=== PATIENT | female | born 1945 | race Hispanic/Latino ===

== ENCOUNTER 2017-08-09 15:19 | Emergency (ER) | payer MEDICARE, OTHER ==
[2017-08-09 15:30] VITALS: TEMP 98.2; O2SAT 95
--- NOTE | 2017-08-09 16:09 | ED PDOC ---
Lower Extremity Pain/Injury Time Seen by Provider: 08/09/17 15:31 Chief Complaint (Nursing): Lower Extremity Problem/Injury Chief Complaint (Provider): Lower extremity problem History Per: Patient History/Exam Limitations: no limitations Onset/Duration Of Symptoms: Days (x1 week) Current Symptoms Are (Timing): Still Present Pain Scale Rating Of: 10 Additional Complaint(s): Beth Goodwin is a 71 year old female, with a past medical history of diabetes , hypertension, hypercholesterolemia, hypothyroidism, chronic back pain and depression, who presents to the emergency department complaining of a worsening right knee pain associated with some mild swelling onset 1 week ago. Patient states the pain has been increasing since onset describes it as sharp or knifelike pain inside of the knee. She reports she had just gotten up from sitting position when the pain came in suddenly and couldn't walk. She has begun to use walker to assist and relieve pain. She took tylenol with no relief , and percocet with minimal relief. She denies any trauma, fall, numbness or weakness. Patient has no significant family history. No further medical complaints. PMD: Dr. Domingo - [place] Currently Unable To: Bear Weight Past Medical History Reviewed: Historical Data, Nursing Documentation, Vital Signs Vital Signs: Last Vital Signs Temp 98.2 F 08/09/17 15:25 Pulse 97 H 08/09/17 15:25 Resp 20 08/09/17 15:25 BP 109/82 08/09/17 15:25 Pulse Ox 95 08/09/17 15:25 - Medical History PMH: Atrial Fibrillation, Back Problems (Chronic), Depression, Diabetes, HTN, Hypercholesterolemia, Hypothyroidism - Surgical History Surgical History: Cholecystectomy - Family History Family History: States: Other Other Family History: No significant family hx - Social History Current smoker - smoking cessation education provided: No Alcohol: None Drugs: Denies - Home Medications Home Medications: Ambulatory Orders Medication Instructions Recorded Lidocaine 5% [Lidoderm] 1 ea TD DAILY PRN #20 patch 08/09/17 Naproxen 375 mg PO TID PRN #30 tablet 08/09/17 - Allergies Allergies/Adverse Reactions: Allergies Allergy/AdvReac Type Severity Reaction Status Date / Time No Known Allergies Allergy Verified 08/09/17 15:30 Review of Systems ROS Statement: Except As Marked, All Systems Reviewed And Found Negative Constitutional: Negative for: Other (trauma or fall) Musculoskeletal: Positive for: Leg Pain (constant sharp right knee pain with mild swelling) Neurological: Negative for: Weakness, Numbness Physical Exam - Reviewed Nursing Documentation Reviewed: Yes - Physical Exam Appears: Positive for: Non-toxic, In Acute Distress Head Exam: Positive for: ATRAUMATIC, NORMOCEPHALIC Skin: Positive for: Warm, Dry Extremity: Positive for: Pedal Edema, Other (RIGHT leg: diffusely edematous leg w no obvious deformity, ttp patellar and medial knee, no warmth or fluctuance, knee extension/flexion intact, distally neurovascularly intact) Neurologic/Psych: Positive for: Alert. Negative for: Motor/Sensory Deficits - Laboratory Results Result Diagrams: 08/09/17 16:12 08/09/17 16:12 - ECG O2 Sat by Pulse Oximetry: 95 (RA) Pulse Ox Interpretation: Normal Medical Decision Making Medical Decision Making: Initial Impression: right knee pain. Differential includes: fracture, sprain, tendon injury, DVT, La's cyst Initial Plan: --B-type natriuretic peptide --Comp Metabolic Panel --Uric acid --CBC w/ differential --PTT --PT --Knee 2 views RT [RAD] --Toradol 15 mg IV --Morphine 4mg IVP --Duplex lower extrm vein right [US] --reevaluation No emergently significant lab abnormalities Accession No. : [id number] Patient Name / ID : JEAN HERRING / [id number] Exam Date : 08/09/2017 17:16:45 ( Approved ) Study Comment : Sex / Age : F / 71Y Creator : Chito Daniel MD Dictator : Chito Daniel MD Aluminum Siding Installer : Crime Lab Technician : Chito Daniel MD Approver2 : Report Date : 08/09/2017 18:14:14 My Comment : PROCEDURE: Right lower extremity venous duplex Doppler. HISTORY: leg swelling COMPARISON: None available. TECHNIQUE: Common femoral, superficial femoral, popliteal and posterior tibial veins were evaluated. Flow was assessed with color Doppler, compressibility, assessment of phasic flow and augmentation response. FINDINGS: COMMON FEMORAL VEIN: Unremarkable. SUPERFICIAL FEMORAL VEIN: Unremarkable. POPLITEAL VEIN: Unremarkable. POSTERIOR TIBIAL VEIN: Unremarkable. OTHER FINDINGS: None. IMPRESSION: No evidence of deep venous thrombosis in the right lower extremity. Knee xray: abnormality at tibial plateau, fx vs DJD, CT ordered. [address] FINDINGS: Bones/joints: No acute fracture. Early tricompartment osteoarthritis. Bipartite patella. Bone island. No dislocation. Small joint effusion. Few small intraarticular bodies. Soft tissues: Jmhd-ti-[id number] stranding/fluid within subcutaneous tissues. Vasculature: Atherosclerotic disease of visualized arteries. IMPRESSION: 1. No fracture. 2. Tricompartment osteoarthritis. 3. Soft tissue edema. Clinical correlation is needed. Scribe Attestation: Documented by Sacha Corey, acting as a scribe for Yamileth Gerardo MD. Provider Scribe Attestation: All medical record entries made by the Scribe were at my direction and personally dictated by me. I have reviewed the chart and agree that the record accurately reflects my personal performance of the history, physical exam, medical decision making, and the department course for this patient. I have also personally directed, reviewed, and agree with the discharge instructions and disposition. Disposition - Clinical Impression Clinical Impression: Knee osteoarthritis Counseled Patient/Family Regarding: Studies Performed, Diagnosis, Need For Followup, Rx Given - Disposition Referrals: Juan Carlos Chamorro MD [Staff Provider] - Julian Domingo MD [Family Provider] - Disposition: Routine/Home Disposition Time: 19:00 Condition: STABLE Prescriptions: Lidocaine 5% [Lidoderm] 1 ea TD DAILY PRN #20 patch PRN Reason: PAIN Naproxen 375 mg PO TID PRN #30 tablet PRN Reason: Pain, Moderate (4-7) Instructions: Osteoarthritis (ED), Knee Pain (ED) Forms: [place] ([place] Citizen)
[2017-08-09 16:24] LABS: ALB/GLOB RATIO 1.1 (1.0-2.1); ALKALINE PHOSPHATASE 87 U/L (38-126); ALT/SGPT 30 U/L (9-52); AST/SGOT 48 U/L (14-36); BASO # 0.1 K/uL (0.0-0.2); BASO % 0.9 % (0.0-2.0); BILIRUBIN,TOTAL 0.4 mg/dl (0.2-1.3); BLOOD UREA NITROGEN 15 mg/dl (7-17); CALCIUM 9.2 mg/dL (8.4-10.2); CARBON DIOXIDE 25 mmol/L (22-30); CHLORIDE 104 mmol/L (98-107); EOS # 0.2 K/uL (0.0-0.7); EOS % 2.2 % (0.0-4.0); GFR AFRICAN-AMERICAN > 60; GLUCOSE,RANDOM 184 mg/dL (65-105); HEMATOCRIT 40.1 % (34.0-47.0); LYMPH # 2.1 K/uL (1.0-4.3); LYMPH % 18.5 % (20.0-40.0); MEAN CELL VOLUME 87.9 fl (81.0-99.0); MEAN CORPUSCULAR HEMOGLOBIN 29.4 pg (27.0-31.0); MEAN CORPUSCULAR HGB CONC 33.5 g/dL (33.0-37.0); MEAN PLATELET VOLUME 9.9 fl (7.2-11.7); MONO # 0.5 K/uL (0.0-0.8); MONO % 4.4 % (0.0-10.0); NEUT # 8.3 K/uL (1.8-7.0); POTASSIUM 4.1 MMOL/L (3.6-5.0); RED CELL DISTRIBUTION WIDTH 13.2 % (11.5-14.5); SODIUM 141 mmol/l (132-148); TOTAL PROTEIN 7.6 G/DL (6.3-8.2); URIC ACID 6.6 mg/Dl (2.2-7.5); WHITE BLOOD COUNT 11.2 K/uL (4.8-10.8)
[2017-08-09 16:27] LABS: PARTIAL THROMBOPLASTIN TIME 32.1 Seconds (25.6-37.1)
--- NOTE | 2017-08-09 18:15 | US ---
PROCEDURE: Right lower extremity venous duplex Doppler. HISTORY: leg swelling COMPARISON: None available. TECHNIQUE: Common femoral, superficial femoral, popliteal and posterior tibial veins were evaluated. Flow was assessed with color Doppler, compressibility, assessment of phasic flow and augmentation response. FINDINGS: COMMON FEMORAL VEIN: Unremarkable. SUPERFICIAL FEMORAL VEIN: Unremarkable. POPLITEAL VEIN: Unremarkable. POSTERIOR TIBIAL VEIN: Unremarkable. OTHER FINDINGS: None. IMPRESSION: No evidence of deep venous thrombosis in the right lower extremity.
--- NOTE | 2017-08-09 19:46 | CT ---
EXAM: CT Right Lower Extremity Without Intravenous Contrast, Knee CLINICAL HISTORY: 71 years old, female; Pain; Knee; Right; Patient HX: Rt knee pain swelling around 1 week. Non-trauma. Dm HTN obese copd asthma lbp; Additional info: Severe pain TECHNIQUE: Axial computed tomography images of the right knee without intravenous contrast. All CT scans at this facility use one or more dose reduction techniques, viz.: automated exposure control; ma/kV adjustment per patient size (including targeted exams where dose is matched to indication; i.e. head); or iterative reconstruction technique. Coronal reformatted images were created and reviewed. COMPARISON: CR - KNEE 3 VIEWS RT 08/09/2017 6:21:26 PM FINDINGS: Bones/joints: No acute fracture. Early tricompartment osteoarthritis. Bipartite patella. Bone island. No dislocation. Small joint effusion. Few small intraarticular bodies. Soft tissues: Adrg-hg-qrduorrq stranding/fluid within subcutaneous tissues. Vasculature: Atherosclerotic disease of visualized arteries. IMPRESSION: 1. No fracture. 2. Tricompartment osteoarthritis. 3. Soft tissue edema. Clinical correlation is needed.
[2017-08-09 20:07] VITALS: BP 142/85; PULSE 74; RESP 18
--- NOTE | 2017-08-10 08:18 | RAD ---
PROCEDURE: Right Knee Radiographs. HISTORY: severe knee pain COMPARISON: None. FINDINGS: BONES: No fracture or destructive lesion appreciated. Diffuse osteopenia suggests osteoporosis. JOINTS: Diffuse narrowing and articular cortical sclerosis appreciated compatible with degenerative joint disease, tricompartmental. JOINT EFFUSION: Minimal suprapatellar bursa effusion identified. OTHER FINDINGS: None. IMPRESSION: Moderate right tricompartmental osteoarthritis. Interval suprapatellar bursa effusion noted. Diffuse osteopenia suggests osteoporosis.
== END 2017-08-09 20:10 | disposition home or self-care (01) ==
LOC: H.ER 15:19
DX: M17.11 Unilateral primary osteoarthritis, right knee (principal); E03.9 Hypothyroidism, unspecified; E11.9 Type 2 diabetes mellitus without complications; E66.9 Obesity, unspecified; E78.00 Pure hypercholesterolemia, unspecified; F32.9 Major depressive disorder, single episode, unspecified; I10 Essential (primary) hypertension; I48.91 Unspecified atrial fibrillation; J44.9 Chronic obstructive pulmonary disease, unspecified
CPT/HCPCS: 73562; 73700; 80053; 82948; 83880; 84550; 85025; 85610; 85730; 93971; 96374; 99283; J1885; J2270

== ENCOUNTER 2017-11-13 15:00 | Inpatient (IN) | payer MEDICARE, OTHER ==
--- NOTE | 2017-11-13 15:46 | ED PDOC ---
Lower Extremity Pain/Injury Time Seen by Provider: 11/13/17 15:46 Chief Complaint (Nursing): Lower Extremity Problem/Injury Chief Complaint (Provider): left leg pain History Per: Patient Additional Complaint(s): 72-year-old female presents to emergency Department with infection to left leg ongoing for 2 weeks. Patient was seen today by her primary doctor who advised that she come to ED. Patient is unaware of any fever or chills. She is having difficulty walking secondary to left leg pain. The patient uses walker at baseline. Past Medical History Reviewed: Historical Data, Nursing Documentation, Vital Signs Vital Signs: Last Vital Signs Temp 98.4 F 11/13/17 15:03 Pulse 114 H 11/13/17 15:03 Resp 18 11/13/17 15:03 BP 160/85 H 11/13/17 15:03 Pulse Ox 96 11/13/17 15:03 - Medical History PMH: Atrial Fibrillation, Back Problems (Chronic), Depression, Diabetes, HTN, Hypercholesterolemia, Hypothyroidism - Surgical History Surgical History: Cholecystectomy - Family History Family History: States: No Known Family Hx - Living Arrangements Living Arrangements: Alone - Social History Current smoker - smoking cessation education provided: No Alcohol: None Drugs: Denies - Home Medications Home Medications: Ambulatory Orders Medication Instructions Recorded Budesonide/Formoterol Fumarate 2 puff IH Q12H 11/13/17 [Symbicort 160-4.5 Mcg Inhaler] Carvedilol [Coreg] 25 mg PO Q12H 11/13/17 Ergocalciferol (Vitamin D2) 50,000 unit PO WE 11/13/17 [Vitamin D2] Levothyroxine [Synthroid] 75 mcg PO DAILY 11/13/17 Olmesartan/Hydrochlorothiazide 1 tab PO DAILY 11/13/17 [Benicar Hct 40-25 mg Tablet] Oxycodone HCl/Acetaminophen 1 tab PO Q6H PRN 11/13/17 [Endocet 10-325 mg Tablet] Repaglinide [Prandin] 4 mg PO TID 11/13/17 Sertraline [Zoloft] 100 mg PO DAILY 11/13/17 Simvastatin [Zocor] 40 mg PO DAILY 11/13/17 Warfarin Sodium [Jantoven] 6 mg PO QPM 11/13/17 metFORMIN [glucOPHAGE] 500 mg PO TID 11/13/17 - Allergies Allergies/Adverse Reactions: Allergies Allergy/AdvReac Type Severity Reaction Status Date / Time No Known Allergies Allergy Verified 08/09/17 15:30 Wells Criteria for PE - Wells Criteria for Pulmonary Embolism Clinical Signs and Symptoms of DVT: Yes P.E is #1 Diagnosis, or Equally Likely: No Heart Rate >100: No Immobilization at least 3 days;Surgery previous 4 weeks: No Previous, objectively diagnosed PE or DVT: No Hemoptysis: No Malignancy w/treatment within 6 months, or palliative: No Total Score: 3 Review of Systems ROS Statement: Except As Marked, All Systems Reviewed And Found Negative Constitutional: Negative for: Fever, Chills Cardiovascular: Negative for: Chest Pain Respiratory: Negative for: Cough, Shortness of Breath Musculoskeletal: Positive for: Other (left leg infection) Neurological: Negative for: Dizziness Physical Exam - Reviewed Nursing Documentation Reviewed: Yes Vital Signs Reviewed: Yes - Physical Exam Appears: Positive for: Well, Non-toxic, No Acute Distress Skin: Negative for: Rash Eye Exam: Positive for: Normal appearance Cardiovascular/Chest: Positive for: Regular Rate, Rhythm Respiratory: Positive for: Normal Breath Sounds Gastrointestinal/Abdominal: Positive for: Other (morbidly obese non-tender abdomen) Extremity: Positive for: Other (Diffuse cellulitis noted to left simons with excoriation of superficial skin, moderate swelling to the left leg with positive calf tenderness) Neurologic/Psych: Positive for: Alert, Oriented - Laboratory Results Result Diagrams: 11/13/17 17:10 11/13/17 17:10 - ECG O2 Sat by Pulse Oximetry: 96 Pulse Ox Interpretation: Normal - Other Rad CXR X-Ray: Interpreted by Me, Viewed By Me X-Ray Interpretation: cardiomegaly, no infiltrate Doppler Left leg X-Ray: Read By Radiologist X-Ray Interpretation: no DVT Medical Decision Making Medical Decision Makin -year-old female with left leg cellulitis Plan: CBC CMP Blood culture EKG CXR Doppler left leg IVF IV zosyn and vanco PMD is Dr. Domingo. Case was discussed in detail with Dr. Domingo who states that the patient for cellulitis. Hospitalist, Dr. Shin, to admit. Glucose is 346, 5 units regular insulin ordered. Podiatry consult obtained, case was d/w Dr. Navas, podiatry resident. Disposition - Clinical Impression Clinical Impression: Left leg cellulitis - Patient ED Disposition Is Patient to be Admitted: Yes - Disposition Disposition Time: 17:52 Condition: FAIR - Pt Status Changed To: Hospital Disposition Of: Inpatient - Admit Certification Admit to Inpatient:: After my assessment, the patient will require hospitalization for at least two midnights. This is because of the severity of symptoms shown, intensity of services needed, and/or the medical risk in this patient being treated as an outpatient. - POA Present On Arrival: None Results - Lab Results Lab Results: 11/13/17 11/13/17 11/13/17 17:10 17:10 17:10 WBC 10.4 RBC 4.93 Hgb 14.2 Hct 43.3 MCV 87.8 MCH 28.7 MCHC 32.7 L RDW 13.0 Plt Count 205 MPV 10.1 Neut % (Auto) 77.7 H Lymph % (Auto) 16.4 L [place] % (Auto) 4.3 Eos % (Auto) 0.8 Baso % (Auto) 0.8 Neut # 8.1 H Lymph # 1.7 [place] # 0.4 Eos # 0.1 Baso # 0.1 PT 23.2 H INR 2.1 H APTT 34.0 Sodium 136 Potassium 4.2 Chloride 98 Carbon Dioxide 27 Anion Gap 15 BUN 17 Creatinine 0.7 Est GFR ( Amer) > 60 Est GFR (Non-Af Amer) > 60 Random Glucose 346 H Calcium 9.8 Total Bilirubin 0.7 AST 34 ALT 36 Alkaline Phosphatase 108 NT-Pro-B Natriuret Pep 584 Total Protein 7.6 Albumin 3.8 Globulin 3.8 Albumin/Globulin Ratio 1.0
[2017-11-13] MEDS ORDERED: Sodium Chloride 0.9% 1,000 ML IV STA (16:19)
[2017-11-13] MEDS ORDERED: Piperacillin/Tazobact 3.375 gm Inj IVPB STA (16:19)
--- NOTE | 2017-11-13 16:39 | RAD ---
HISTORY: admit COMPARISON: 04/27/2014 FINDINGS: LUNGS: No pulmonary infiltrate. Linear scar/ atelectasis adjacent to left hilum. PLEURA: No significant pleural effusion identified, no pneumothorax apparent. CARDIOVASCULAR: Cardiomegaly. No congestive change. OSSEOUS STRUCTURES: No significant abnormalities. VISUALIZED UPPER ABDOMEN: Normal. OTHER FINDINGS: None. IMPRESSION: No acute infiltrate. Cardiomegaly. No congestive change.
[2017-11-13] MEDS ORDERED: Vancomycin 1 g Inj ONE (16:44)
[2017-11-13] MEDS ORDERED: Piperacillin/Tazobact 3.375 GM in Sodium Chloride 0.9% 100 ML IVPB ONE (17:00)
[2017-11-13 17:24] LABS: BASO # 0.1 K/uL (0.0-0.2); BASO % 0.8 % (0.0-2.0); EOS # 0.1 K/uL (0.0-0.7); EOS % 0.8 % (0.0-4.0); HEMOGLOBIN 14.2 g/dL (12.0-16.0); LYMPH # 1.7 K/uL (1.0-4.3); LYMPH % 16.4 % (20.0-40.0); MEAN CELL VOLUME 87.8 fl (81.0-99.0); MEAN CORPUSCULAR HEMOGLOBIN 28.7 pg (27.0-31.0); MEAN CORPUSCULAR HGB CONC 32.7 g/dL (33.0-37.0); MEAN PLATELET VOLUME 10.1 fl (7.2-11.7); MONO # 0.4 K/uL (0.0-0.8); MONO % 4.3 % (0.0-10.0); NEUT # 8.1 K/uL (1.8-7.0); NEUT % 77.7 % (50.0-75.0); NRBC % 0.5 % (0.0-0.0); RBC 4.93 Mil/uL (3.80-5.20); WHITE BLOOD COUNT 10.4 K/uL (4.8-10.8)
[2017-11-13 17:38] LABS: ALBUMIN 3.8 g/dL (3.5-5.0); ALT/SGPT 36 U/L (9-52); AST/SGOT 34 U/L (14-36); BLOOD UREA NITROGEN 17 mg/dl (7-17); CALCIUM 9.8 mg/dL (8.4-10.2); GFR AFRICAN-AMERICAN > 60; GFR NON-AFRICAN AMERICAN > 60
[2017-11-13 17:46] LABS: B-TYPE NATRIURETIC PEPTIDE 584 pg/ml (0-900)
[2017-11-13 17:49] LABS: INR 2.1 (0.9-1.2); PROTHROMBIN TIME 23.2 Seconds (9.8-13.1)
[2017-11-13] MEDS ORDERED: Insulin Regular 100 units/ml SC STA (17:50)
--- NOTE | 2017-11-13 18:22 | US ---
HISTORY: left leg pain and swelling . PRIORS: None. FINDINGS: 2-D, color and duplex Doppler analysis of the lower extremity venous circulation using routine protocol from the femoral veins through the popliteal veins. Venous compressibility: Normal. Flow and augmentation patterns: Normal. Visualized veins upper third of calf: Normal. La cyst: None. IMPRESSION: No sonographic or Doppler evidence for DVT in left lower extremity.
--- NOTE | 2017-11-13 18:29 | CP.PCM.CON ---
History of Present Illness - History of Present Illness History of Present Illness: 72 y/o female with PMHx of DM, HTN, hypercholestrolemia, depression was seen and evaluated at bedside in ED for worsening cellulitis with superficial excoriation on the anterior leg of left lower extremity. Patient states that she was seen by her medical doctor today who sent her to the hospital to be admitted and to receive IV abx. Patient states that this is a recurrent issue and her legs turn red from time to time. Patient reports that she had a little blister on the top of the leg which opened up recently. Patient denies of having any pain to the left lower extremity. Patient denies of having any recent F/N/V/C/SOB/CP/headache/diarrhea/constipation. Patient denies of any other pedal complains at this time. PMHx: DM, HTN, hypercholestrolemia, depression PSHx: denies Allergies: N.K.D.A SHx: denies smoking, EtOH or illicit drug usage, Lives alone in [place] Review of Systems - Constitutional Constitutional: As Per HPI Past Patient History - Infectious Disease Hx of Infectious Diseases: None - Past Social History Alcohol: None Drugs: Denies - CARDIAC Hx Atrial Fibrillation: Yes Hx Hypercholesterolemia: Yes Hx Hypertension: Yes - ENDOCRINE/METABOLIC Hx Hypothyroidism: Yes - PSYCHIATRIC Hx Depression: Yes - SURGICAL HISTORY Hx Cholecystectomy: Yes - ANESTHESIA Hx Anesthesia: Yes Hx Anesthesia Reactions: No Meds Allergies/Adverse Reactions: Allergies Allergy/AdvReac Type Severity Reaction Status Date / Time No Known Allergies Allergy Verified 08/09/17 15:30 - Medications Medications: Current Medications Sodium Chloride (Sodium Chloride 0.9%) 1,000 mls @ 100 mls/hr IV .Q10H STA Stop: 11/14/17 02:18 Last Admin: 11/13/17 18:04 Dose: 100 mls/hr Insulin Human Regular (Humulin R) 5 units SC STAT STA Stop: 11/13/17 17:51 Physical Exam - Constitutional Appears: Well, Non-toxic, No Acute Distress - Extremities Exam Extremities exam: Positive for: normal capillary refill, pedal edema. Negative for: calf tenderness, pedal pulses present Additional comments: Bilateral LE Exam: VASC: DP/PT pulses are non-palpable secondary to extreme pedal edema, Cap refill time: < 3 sec to all digits, Temp gradient: warm to cool from proximal to distal on the right and warm to mild warm on the LLE, +2 pitting edema noted on the dorsum of the foot as well as distal medial leg b/l DERM: superficial excoriated lesion measuring approx. 4.0 cm x 2.5 cm x < 0.1 cm on the anterior aspect of the left distal leg with surrounding erythema extending but distal to tibial tuberosity, no active drainage, no malodor, no tunneling, no probe to bone, no fluctuance, no interdigital maceration NEURO: Protective sensation grossly diminished ORTHO: no pain on palpation of the lesion - Neurological Exam Neurological exam: Alert, Oriented x3 - Psychiatric Exam Psychiatric exam: Normal Affect, Normal Mood Results - Vital Signs Recent Vital Signs: Last Vital Signs Temp 98.4 F 11/13/17 15:03 Pulse 114 H 11/13/17 15:03 Resp 18 11/13/17 15:03 BP 160/85 H 11/13/17 15:03 Pulse Ox 96 11/13/17 17:56 - Labs Result Diagrams: 11/13/17 17:10 11/13/17 17:10 Labs: Laboratory Results - last 24 hr 11/13/17 11/13/17 11/13/17 17:10 17:10 17:10 WBC 10.4 RBC 4.93 Hgb 14.2 Hct 43.3 MCV 87.8 MCH 28.7 MCHC 32.7 L RDW 13.0 Plt Count 205 MPV 10.1 Neut % (Auto) 77.7 H Lymph % (Auto) 16.4 L [place] % (Auto) 4.3 Eos % (Auto) 0.8 Baso % (Auto) 0.8 Neut # 8.1 H Lymph # 1.7 [place] # 0.4 Eos # 0.1 Baso # 0.1 PT 23.2 H INR 2.1 H APTT 34.0 Sodium 136 Potassium 4.2 Chloride 98 Carbon Dioxide 27 Anion Gap 15 BUN 17 Creatinine 0.7 Est GFR ( Amer) > 60 Est GFR (Non-Af Amer) > 60 Random Glucose 346 H Calcium 9.8 Total Bilirubin 0.7 AST 34 ALT 36 Alkaline Phosphatase 108 NT-Pro-B Natriuret Pep 584 Total Protein 7.6 Albumin 3.8 Globulin 3.8 Albumin/Globulin Ratio 1.0 Assessment & Plan - Assessment and Plan (Free Text) Assessment: 72 y/o female with PMHx of DM, HTN, hypercholestrolemia, depression was seen and evaluated at bedside in ED for worsening cellulitis with superficial excoriation on the anterior leg of left lower extremity. Plan: Patient seen and evaluated at bedside in ED Discussed in details with attending Dr. Manley Labs, vitals and charts reviewed - afebrile, no leukocytosis Venous duplex ordered - r/o DVT LLE cleaned with saline and dressing applied using bacitracin, DSD and JUAN Silvadine ordered Patient will be admitted under Hospitalist service to receive extended IV abx Patient received Vancomycin and Zosyn in ED Thank you for the podiatry consult - podiatry to follow patient while in-house - Date & Time Date: 11/13/17 Time: 18:47
[2017-11-13] MEDS ORDERED: Oxycodone/Acetaminophen 5/325 mg Tab PO PRN (19:05)
--- NOTE | 2017-11-13 19:33 | CP.PCM.HP ---
History of Present Illness - History of Present Illness History of Present Illness: CC: Left leg pain This is a 72 yo female with a past medical history of morbid obesity, atrial fibrillation anticoagulated on Coumadin, Essential hypertension, hypercholesterolemia, former smoker, hypothyroidism, who presents to the ED complaining of worsening left leg pain and swelling, starting about 2 weeks ago. The patient states that this started when she noticed a small blister on the top of her foot that became larger and painful. She is having difficulty ambulating due to the left leg pain, even with her walker. She was seen by Dr. Domingo, her PMD, today in the office and was told to come to the ED. In the ED , the patient was noted to be mildly tachycardic but otherwise hemodynamically stable and afebrile. Lab workup shows no white count but does show Neutrophil count of 8.1, Net % 77.7. Her blood glucose level is noted to be significantly elevated at 339. She was given 3 units of regular insulin at Dr. Domingo's office and 5 more units in the ED. She was started on Vancomycin and Zosyn for empiric coverage of significant cellulitis of the left lower extremity. Podiatry and Infectious Disease consultants were called on consultation. Duplex wet read negative for DVT of the left lower extremity. The patient is to be admitted for further workup and management. The patient denies chest pain, sob, n/v/d, fever, or chills. PMD: Dr. Domingo Present on Admission - Present on Admission Any Indicators Present on Admission: Yes History of Uncontrolled Diabetes: Yes Review of Systems - Review of Systems Review of Systems: A 12 point review of systems was conducted and found to be negative other than what was mentioned in the HPI. Past Patient History - Infectious Disease Hx of Infectious Diseases: None - Past Social History Alcohol: None Drugs: Denies - CARDIAC Hx Atrial Fibrillation: Yes Hx Hypercholesterolemia: Yes Hx Hypertension: Yes - ENDOCRINE/METABOLIC Hx Hypothyroidism: Yes - PSYCHIATRIC Hx Depression: Yes - SURGICAL HISTORY Hx Cholecystectomy: Yes - ANESTHESIA Hx Anesthesia: Yes Hx Anesthesia Reactions: No Meds Allergies/Adverse Reactions: Allergies Allergy/AdvReac Type Severity Reaction Status Date / Time No Known Allergies Allergy Verified 08/09/17 15:30 Physical Exam - Additional Findings Additional findings: Physical exam: Constitutional- cooperative, awake, alert Head- NCAT, PERRL Eye- PERRL, EOMI ENT- normal exam, MMM. Neck- normal inspection, supple, no JVD Respiratory- Course breath sounds, no wheezes rales rhonchi Cardiovascular- Irregular rate and rhythm +S1, +S2 no MRG GI/Abdominal- protuberant but nondistended abdomen, normal bowel sounds, soft, no mass, no hsm Skin- warm, dry Extremities Exam- Left lower extremity has a superficial lesion on the anterior aspect of the left distal leg with surrounding erythema extending up but distal to the tibial tuberosity. Lesion measures 4.0 cm x 2.5 cm x < 0.1 cm. There is + 2 pitting edema of the dorsum of the left foot. There is no fluctuance observed. Cap refill time < 3 seconds to all digits. Neurological Exam- alert, awake, oriented Psych- normal mood, normal affect Results - Vital Signs Recent Vital Signs: Last Vital Signs Temp 98.4 F 11/13/17 15:03 Pulse 114 H 11/13/17 15:03 Resp 18 11/13/17 15:03 BP 160/85 H 11/13/17 15:03 Pulse Ox 96 11/13/17 18:51 - Labs Result Diagrams: 11/13/17 17:10 11/13/17 17:10 Labs: Laboratory Results - last 24 hr 11/13/17 11/13/17 11/13/17 17:10 17:10 17:10 WBC 10.4 RBC 4.93 Hgb 14.2 Hct 43.3 MCV 87.8 MCH 28.7 MCHC 32.7 L RDW 13.0 Plt Count 205 MPV 10.1 Neut % (Auto) 77.7 H Lymph % (Auto) 16.4 L Burt % (Auto) 4.3 Eos % (Auto) 0.8 Baso % (Auto) 0.8 Neut # 8.1 H Lymph # 1.7 Burt # 0.4 Eos # 0.1 Baso # 0.1 PT 23.2 H INR 2.1 H APTT 34.0 Sodium 136 Potassium 4.2 Chloride 98 Carbon Dioxide 27 Anion Gap 15 BUN 17 Creatinine 0.7 Est GFR ( Amer) > 60 Est GFR (Non-Af Amer) > 60 POC Glucose (mg/dL) Random Glucose 346 H Calcium 9.8 Total Bilirubin 0.7 AST 34 ALT 36 Alkaline Phosphatase 108 NT-Pro-B Natriuret Pep 584 Total Protein 7.6 Albumin 3.8 Globulin 3.8 Albumin/Globulin Ratio 1.0 11/13/17 18:35 WBC RBC Hgb Hct MCV MCH MCHC RDW Plt Count MPV Neut % (Auto) Lymph % (Auto) Burt % (Auto) Eos % (Auto) Baso % (Auto) Neut # Lymph # Burt # Eos # Baso # PT INR APTT Sodium Potassium Chloride Carbon Dioxide Anion Gap BUN Creatinine Est GFR ( Amer) Est GFR (Non-Af Amer) POC Glucose (mg/dL) 339 H Random Glucose Calcium Total Bilirubin AST ALT Alkaline Phosphatase NT-Pro-B Natriuret Pep Total Protein Albumin Globulin Albumin/Globulin Ratio Assessment & Plan - Assessment and Plan (Free Text) Plan: ASSESSMENT/PLAN Patient is a 72 yo female with a past medical history of morbid obesity, atrial fibrillation anticoagulated on Coumadin, Essential hypertension, hypercholesterolemia, former smoker, hypothyroidism, who is being admitted for left lower extremity cellulitis 1) Left lower extremity cellulitis - Admit to med/surg - Consultation withi Dr. Manley, podiatryh - Consultation with Dr. Conway, infectious disease - Continue antibiotics: Vancomycin 1 gram IVPB q 12 hours and Zosyn 3.375 g IVPB q 6 hours - Blood cultures pending - Monitor vitals q 8 hours - NS at 100 cc/hour - Tylenol/Percocet sliding scale for pain 2) Uncontrolled Type 2 Diabetes Mellitus - Start regular insulin sliding scale - Consistant carbohydrate diet - May need to add long acting if continues to be elevated - Accuchecks AC+HS - HGA1C 3) Hypercholesterolemia - Lipid panel - Continue Zocor 4) Controlled Atrial fibrillation, chronic - Continue Warfarin 6 mg po daily - Daily PT/INR - Continue Coreg 25 mg po q 12 hours for rate controll 5) Essential hypertension - Coreg - Olmesartan/HCTZ 6) History of asthma/former smoker - Continue Pulmicort 7) Depression - Continue Zoloft 8) DVT prophylaxis - Coumadin
[2017-11-13] MEDS ORDERED: Piperacillin/Tazobact 3.375 GM in Sodium Chloride 0.9% 100 ML IVPB SCH (22:00)
[2017-11-13] MEDS: Insulin Regular 100 units/ml SC SCH (22:48)
[2017-11-13] MEDS: Fluticasone-Salmeterol 250-50mcg Diskus IH SCH (22:53)
[2017-11-14] MEDS: Piperacillin/Tazobact 3.375 GM in Sodium Chloride 0.9% 100 ML IVPB SCH ×2 (03:42→10:33)
[2017-11-14] MEDS: Insulin Regular 100 units/ml SC SCH ×4 (06:20→23:24)
[2017-11-14] MEDS: Levothyroxine 75 MCG TAB PO SCH (06:21)
[2017-11-14 07:04] LABS: HEMOGLOBIN 13.1 g/dL (12.0-16.0); MEAN CELL VOLUME 88.4 fl (81.0-99.0); MEAN CORPUSCULAR HEMOGLOBIN 28.9 pg (27.0-31.0); MEAN CORPUSCULAR HGB CONC 32.7 g/dL (33.0-37.0); RBC 4.54 Mil/uL (3.80-5.20); RED CELL DISTRIBUTION WIDTH 13.4 % (11.5-14.5); WHITE BLOOD COUNT 10.9 K/uL (4.8-10.8)
[2017-11-14 07:14] LABS: BLOOD UREA NITROGEN 17 mg/dl (7-17); CALCIUM 9.5 mg/dL (8.4-10.2); GFR AFRICAN-AMERICAN > 60; GFR NON-AFRICAN AMERICAN > 60
[2017-11-14 07:30] LABS: INR 2.2 (0.9-1.2); PROTHROMBIN TIME 24.2 Seconds (9.8-13.1)
--- NOTE | 2017-11-14 08:58 | CP.PCM.PN ---
Subjective - Date & Time of Evaluation Date of Evaluation: 11/14/17 Time of Evaluation: 06:30 - Subjective Subjective: 72 y/o female with PMHx of DM, HTN, hypercholestrolemia, depression was seen and evaluated at bedside with attending Dr. Manley for worsening cellulitis with superficial excoriation on the anterior leg of left lower extremity. Patient is AAOx3 and is in NAD. Patient denies of having any acute overnight events. Denies of any recent F/N/V/C/SOB/CP today. Denies of having any other pedal complains at this time. Objective - Vital Signs/Intake and Output Vital Signs (last 24 hours): Temp Pulse Resp BP Pulse Ox 97.7 F 77 20 148/76 95 11/14/17 07:45 11/14/17 07:45 11/14/17 07:45 11/14/17 07:45 11/14/17 07:45 - Medications Medications: Current Medications Acetaminophen (Tylenol 325mg Tab) 650 mg PO Q6 PRN PRN Reason: Fever >100.4 F Acetaminophen (Tylenol 325mg Tab) 650 mg PO Q6 PRN PRN Reason: Pain, Mild (1-3) Atorvastatin Calcium (Lipitor) 20 mg PO HS [facility] Carvedilol (Coreg) 25 mg PO Q12H [facility] Last Admin: 11/13/17 22:53 Dose: 25 mg Ergocalciferol (Drisdol 50,000 Intl Units Cap) 1 cap PO WE [facility] Hydrochlorothiazide (Hydrodiuril) 25 mg PO DAILY [facility] Vancomycin HCl 1 gm/ Sodium (Chloride) 250 mls @ 125 mls/hr IVPB Q12@0500,1700 [facility] PRN Reason: Protocol Last Admin: 11/14/17 04:41 Dose: 125 mls/hr Piperacillin Sod/Tazobactam (Sod 3.375 gm/ Sodium Chloride) 100 mls @ 100 mls/ hr IVPB 0300,0900,1500,2100 [facility] PRN Reason: Protocol Last Admin: 11/14/17 03:42 Dose: 100 mls/hr Insulin Human Regular (Humulin R) 0 units SC ACCU-CHECK [facility] PRN Reason: Protocol Last Admin: 11/14/17 06:20 Dose: 4 units Levothyroxine Sodium (Synthroid) 75 mcg PO DAILY@0630 [facility] Last Admin: 11/14/17 06:21 Dose: 75 mcg Losartan Potassium (Cozaar) 100 mg PO DAILY [facility] Oxycodone/Acetaminophen (Percocet 5/325 Mg Tab) 1 tab PO Q6H PRN PRN Reason: Pain, severe (8-10) Repaglinide (Prandin) 4 mg PO TID [facility] Fluticasone/Salmeterol (Advair Diskus 250/50) 1 puff IH Q12H [facility] Last Admin: 11/13/17 22:53 Dose: 1 puff Sertraline HCl (Zoloft) 100 mg PO DAILY [facility] Silver Sulfadiazine (Silvadene 1% 50 Gm) 1 applic TOP DAILY [facility] Warfarin Sodium (Coumadin) 6 mg PO ONCE ONE PRN Reason: Protocol Stop: 11/14/17 19:23 - Labs Labs: 11/14/17 05:30 11/14/17 05:30 PT 24.2 Seconds (9.8-13.1) H 11/14/17 05:30 INR 2.2 (0.9-1.2) H 11/14/17 05:30 APTT 34.0 Seconds (25.6-37.1) 11/13/17 17:10 - Constitutional Appears: Well, Non-toxic, No Acute Distress - Extremities Exam Additional comments: Bilateral LE Exam: VASC: DP/PT pulses are non-palpable secondary to extreme pedal edema, Cap refill time: < 3 sec to all digits, Temp gradient: warm to cool from proximal to distal on the right and warm to mild warm on the LLE, +1 pitting edema noted on the dorsum of the foot as well as distal medial leg b/l DERM: superficial excoriated lesion measuring approx. 4.0 cm x 2.5 cm x < 0.1 cm on the anterior aspect of the left distal leg with surrounding erythema extending but distal to tibial tuberosity - erythema appears to be resolving from yesterday, no active drainage, no malodor, no tunneling, no probe to bone, no fluctuance, no interdigital maceration NEURO: Protective sensation grossly diminished ORTHO: no pain on palpation of the lesion - Neurological Exam Neurological Exam: Alert, Awake, Oriented x3 - Psychiatric Exam Psychiatric exam: Normal Affect, Normal Mood Assessment and Plan - Assessment and Plan (Free Text) Assessment: 72 y/o female with PMHx of DM, HTN, hypercholestrolemia, depression was seen and evaluated at bedside in ED for worsening cellulitis with superficial excoriation on the anterior leg of left lower extremity. Plan: Patient seen and evaluated at bedside with attending Dr. Manley Labs, vitals and charts reviewed - afebrile, WBC at 10.9 today Venous duplex shows no evidence of DVT LLE cleaned with saline and dressing applied using bacitracin, DSD and JUAN Silvadine ordered Continue IV abx - Zosyn and Vancomycin No surgical intervention as per podiatry Podiatry will continue to follow patient while in-house
[2017-11-14] MEDS: Fluticasone-Salmeterol 250-50mcg Diskus IH SCH ×2 (10:30→18:38)
--- NOTE | 2017-11-14 12:50 | CP.PCM.CON ---
History of Present Illness - History of Present Illness History of Present Illness: Infectious Disease Consultation Note- asked to see this patient at the request of Hospitalist for cellulitis of the leg. HPI- Patient is a 72 year old female with pmh of HTN, DM II, Atrial fibrillation on coumadin, hypothyroidism, morbid obesity, depression who is admitted with left lower leg cellulitis. Patient explains that she noticed a small water blister on her left lower leg/ foot region 2 weeks ago but she didn't think much of it but it progressed to swelling and redness and pain and she saw her PMD the other day who advised her to go to ED for further evaluation and management. patient denies any fever or chills. denies ever having anything like this before. denies any trauma or injury to the area. pt. was started on vanco and zosyn last night as per the hospitalist and has also been seen by podiatry . pt. has had LE doppler and was reported negative for any dvt. pt. denies any allergy to any antibiotics. Review of Systems - Review of Systems Review of Systems: ROS- denies any fever or chills, denies any GUTIERREZ, denies any cough, denies any sob, denies any chest pain, denies any nausea or vomiting, denies any abd. pain, denies any dysurea, denies any diarrhea LLE swelling, redness and pain after water blister . Past Patient History - Infectious Disease Hx of Infectious Diseases: None - Past Medical History & Family History Past Medical History?: Yes - Past Social History Smoking Status: Former Smoker Drugs: Denies Home Situation {Lives}: With Family - CARDIAC Hx Cardiac Disorders: Yes Hx Atrial Fibrillation: Yes (on coumadin PO) Hx Hypercholesterolemia: Yes Hx Hypertension: Yes - PULMONARY Hx Respiratory Disorders: No - NEUROLOGICAL Hx Neurological Disorder: No - HEENT Other/Comment: JAMUL - RENAL Hx Chronic Kidney Disease: No - ENDOCRINE/METABOLIC Hx Endocrine Disorders: Yes Hx Diabetes Mellitus Type 2: Yes Hx Hypothyroidism: Yes - HEMATOLOGICAL/ONCOLOGICAL Hx Blood Disorders: No - INTEGUMENTARY Hx Dermatological Problems: No - MUSCULOSKELETAL/RHEUMATOLOGICAL Hx Musculoskeletal Disorders: No Hx Falls: No - GASTROINTESTINAL Hx Gastrointestinal Disorders: Yes Hx Colitis: Yes - GENITOURINARY/GYNECOLOGICAL Hx Genitourinary Disorders: No - PSYCHIATRIC Hx Psychophysiologic Disorder: Yes Hx Depression: Yes Hx Substance Use: No - SURGICAL HISTORY Hx Surgeries: Yes Hx Cholecystectomy: Yes - ANESTHESIA Hx Anesthesia: Yes Hx Anesthesia Reactions: No Meds Allergies/Adverse Reactions: Allergies Allergy/AdvReac Type Severity Reaction Status Date / Time No Known Allergies Allergy Verified 08/09/17 15:30 - Medications Medications: Current Medications Acetaminophen (Tylenol 325mg Tab) 650 mg PO Q6 PRN PRN Reason: Fever >100.4 F Acetaminophen (Tylenol 325mg Tab) 650 mg PO Q6 PRN PRN Reason: Pain, Mild (1-3) Atorvastatin Calcium (Lipitor) 20 mg PO HS [facility] Carvedilol (Coreg) 25 mg PO Q12H [facility] Last Admin: 11/14/17 10:31 Dose: 25 mg Ergocalciferol (Drisdol 50,000 Intl Units Cap) 1 cap PO WE [facility] Hydrochlorothiazide (Hydrodiuril) 25 mg PO DAILY [facility] Last Admin: 11/14/17 10:39 Dose: 25 mg Vancomycin HCl 1 gm/ Sodium (Chloride) 250 mls @ 125 mls/hr IVPB Q12@0500,1700 [facility] PRN Reason: Protocol Last Admin: 11/14/17 04:41 Dose: 125 mls/hr Piperacillin Sod/Tazobactam (Sod 3.375 gm/ Sodium Chloride) 100 mls @ 100 mls/ hr IVPB 0300,0900,1500,2100 [facility] PRN Reason: Protocol Last Admin: 11/14/17 10:33 Dose: 100 mls/hr Insulin Human Regular (Humulin R) 0 units SC ACCU-CHECK [facility] PRN Reason: Protocol Last Admin: 11/14/17 06:20 Dose: 4 units Levothyroxine Sodium (Synthroid) 75 mcg PO DAILY@0630 [facility] Last Admin: 11/14/17 06:21 Dose: 75 mcg Losartan Potassium (Cozaar) 100 mg PO DAILY [facility] Last Admin: 11/14/17 10:31 Dose: 100 mg Oxycodone/Acetaminophen (Percocet 5/325 Mg Tab) 1 tab PO Q6H PRN PRN Reason: Pain, severe (8-10) Repaglinide (Prandin) 4 mg PO TID [facility] Last Admin: 11/14/17 10:32 Dose: 4 mg Fluticasone/Salmeterol (Advair Diskus 250/50) 1 puff IH Q12H [facility] Last Admin: 11/14/17 10:30 Dose: 1 puff Sertraline HCl (Zoloft) 100 mg PO DAILY [facility] Last Admin: 11/14/17 10:32 Dose: 100 mg Silver Sulfadiazine (Silvadene 1% 50 Gm) 1 applic TOP DAILY [facility] Warfarin Sodium (Coumadin) 6 mg PO QD5 ONE PRN Reason: Protocol Stop: 11/14/17 17:01 Physical Exam - Constitutional Appears: No Acute Distress - Head Exam Head Exam: ATRAUMATIC - Eye Exam Eye Exam: EOMI, PERRL - Neck Exam Neck exam: Positive for: Full Rom - Respiratory Exam Respiratory Exam: Clear to Auscultation Bilateral, NORMAL BREATHING PATTERN - Cardiovascular Exam Cardiovascular Exam: RRR, +S1, +S2 - GI/Abdominal Exam GI & Abdominal Exam: Normal Bowel Sounds, Soft Additional comments: NT, ND - Extremities Exam Additional comments: LLE with very dry skin and area of about 5x 6 cm in left mid to lateral LE with escoriated skin with minimal clear/sanguinous dicharge.+ amlodor erythema present, not too warm to touch no ulcers or open wounds - Neurological Exam Neurological exam: Alert, Oriented x3 Results - Vital Signs Recent Vital Signs: Last Vital Signs Temp 97.7 F 11/14/17 07:45 Pulse 77 11/14/17 10:31 Resp 20 11/14/17 07:45 BP 140/76 11/14/17 10:31 Pulse Ox 95 11/14/17 07:45 - Labs Result Diagrams: 11/14/17 05:30 11/14/17 05:30 Labs: Laboratory Results - last 24 hr 11/13/17 11/13/17 11/13/17 17:10 17:10 17:10 WBC 10.4 RBC 4.93 Hgb 14.2 Hct 43.3 MCV 87.8 MCH 28.7 MCHC 32.7 L RDW 13.0 Plt Count 205 MPV 10.1 Neut % (Auto) 77.7 H Lymph % (Auto) 16.4 L [place] % (Auto) 4.3 Eos % (Auto) 0.8 Baso % (Auto) 0.8 Neut # 8.1 H Lymph # 1.7 Charlotte # 0.4 Eos # 0.1 Baso # 0.1 PT 23.2 H INR 2.1 H APTT 34.0 Sodium 136 Potassium 4.2 Chloride 98 Carbon Dioxide 27 Anion Gap 15 BUN 17 Creatinine 0.7 Est GFR ( Amer) > 60 Est GFR (Non-Af Amer) > 60 POC Glucose (mg/dL) Random Glucose 346 H Calcium 9.8 Total Bilirubin 0.7 AST 34 ALT 36 Alkaline Phosphatase 108 NT-Pro-B Natriuret Pep 584 Total Protein 7.6 Albumin 3.8 Globulin 3.8 Albumin/Globulin Ratio 1.0 11/13/17 11/13/17 11/14/17 18:35 22:17 05:29 WBC RBC Hgb Hct MCV MCH MCHC RDW Plt Count MPV Neut % (Auto) Lymph % (Auto) [place] % (Auto) Eos % (Auto) Baso % (Auto) Neut # Lymph # [place] # Eos # Baso # PT INR APTT Sodium Potassium Chloride Carbon Dioxide Anion Gap BUN Creatinine Est GFR ( Amer) Est GFR (Non-Af Amer) POC Glucose (mg/dL) 339 H 259 H 290 H Random Glucose Calcium Total Bilirubin AST ALT Alkaline Phosphatase NT-Pro-B Natriuret Pep Total Protein Albumin Globulin Albumin/Globulin Ratio 11/14/17 11/14/17 11/14/17 05:30 05:30 05:30 WBC 10.9 H RBC 4.54 Hgb 13.1 Hct 40.1 MCV 88.4 MCH 28.9 MCHC 32.7 L RDW 13.4 Plt Count 179 MPV Neut % (Auto) Lymph % (Auto) [place] % (Auto) Eos % (Auto) Baso % (Auto) Neut # Lymph # [place] # Eos # Baso # PT 24.2 H INR 2.2 H APTT Sodium 139 Potassium 3.8 Chloride 99 Carbon Dioxide 32 H Anion Gap 12 BUN 17 Creatinine 0.8 Est GFR ( Amer) > 60 Est GFR (Non-Af Amer) > 60 POC Glucose (mg/dL) Random Glucose 252 H Calcium 9.5 Total Bilirubin AST ALT Alkaline Phosphatase NT-Pro-B Natriuret Pep Total Protein Albumin Globulin Albumin/Globulin Ratio 11/14/17 10:23 WBC RBC Hgb Hct MCV MCH MCHC RDW Plt Count MPV Neut % (Auto) Lymph % (Auto) [place] % (Auto) Eos % (Auto) Baso % (Auto) Neut # Lymph # [place] # Eos # Baso # PT INR APTT Sodium Potassium Chloride Carbon Dioxide Anion Gap BUN Creatinine Est GFR ( Amer) Est GFR (Non-Af Amer) POC Glucose (mg/dL) 203 H Random Glucose Calcium Total Bilirubin AST ALT Alkaline Phosphatase NT-Pro-B Natriuret Pep Total Protein Albumin Globulin Albumin/Globulin Ratio Laboratory Results - last 72 hr 11/13/17 11/13/17 11/13/17 17:10 17:10 17:10 WBC 10.4 RBC 4.93 Hgb 14.2 Hct 43.3 MCV 87.8 MCH 28.7 MCHC 32.7 L RDW 13.0 Plt Count 205 MPV 10.1 Neut % (Auto) 77.7 H Lymph % (Auto) 16.4 L [place] % (Auto) 4.3 Eos % (Auto) 0.8 Baso % (Auto) 0.8 Neut # 8.1 H Lymph # 1.7 [place] # 0.4 Eos # 0.1 Baso # 0.1 PT 23.2 H INR 2.1 H APTT 34.0 Sodium 136 Potassium 4.2 Chloride 98 Carbon Dioxide 27 Anion Gap 15 BUN 17 Creatinine 0.7 Est GFR ( Amer) > 60 Est GFR (Non-Af Amer) > 60 POC Glucose (mg/dL) Random Glucose 346 H Calcium 9.8 Total Bilirubin 0.7 AST 34 ALT 36 Alkaline Phosphatase 108 NT-Pro-B Natriuret Pep 584 Total Protein 7.6 Albumin 3.8 Globulin 3.8 Albumin/Globulin Ratio 1.0 11/13/17 11/13/17 11/14/17 18:35 22:17 05:29 WBC RBC Hgb Hct MCV MCH MCHC RDW Plt Count MPV Neut % (Auto) Lymph % (Auto) [place] % (Auto) Eos % (Auto) Baso % (Auto) Neut # Lymph # [place] # Eos # Baso # PT INR APTT Sodium Potassium Chloride Carbon Dioxide Anion Gap BUN Creatinine Est GFR ( Amer) Est GFR (Non-Af Amer) POC Glucose (mg/dL) 339 H 259 H 290 H Random Glucose Calcium Total Bilirubin AST ALT Alkaline Phosphatase NT-Pro-B Natriuret Pep Total Protein Albumin Globulin Albumin/Globulin Ratio 11/14/17 11/14/17 11/14/17 05:30 05:30 05:30 WBC 10.9 H RBC 4.54 Hgb 13.1 Hct 40.1 MCV 88.4 MCH 28.9 MCHC 32.7 L RDW 13.4 Plt Count 179 MPV Neut % (Auto) Lymph % (Auto) [place] % (Auto) Eos % (Auto) Baso % (Auto) Neut # Lymph # [place] # Eos # Baso # PT 24.2 H INR 2.2 H APTT Sodium 139 Potassium 3.8 Chloride 99 Carbon Dioxide 32 H Anion Gap 12 BUN 17 Creatinine 0.8 Est GFR ( Amer) > 60 Est GFR (Non-Af Amer) > 60 POC Glucose (mg/dL) Random Glucose 252 H Calcium 9.5 Total Bilirubin AST ALT Alkaline Phosphatase NT-Pro-B Natriuret Pep Total Protein Albumin Globulin Albumin/Globulin Ratio 11/14/17 10:23 WBC RBC Hgb Hct MCV MCH MCHC RDW Plt Count MPV Neut % (Auto) Lymph % (Auto) [place] % (Auto) Eos % (Auto) Baso % (Auto) Neut # Lymph # [place] # Eos # Baso # PT INR APTT Sodium Potassium Chloride Carbon Dioxide Anion Gap BUN Creatinine Est GFR ( Amer) Est GFR (Non-Af Amer) POC Glucose (mg/dL) 203 H Random Glucose Calcium Total Bilirubin AST ALT Alkaline Phosphatase NT-Pro-B Natriuret Pep Total Protein Albumin Globulin Albumin/Globulin Ratio Accession No. : [id number] Patient Name / ID : JEAN HERRING / [id number] Exam Date : 11/13/2017 16:22:27 ( Approved ) Study Comment : Sex / Age : F / 72Y Creator : james yeung Dictator : Winston Munoz MD Instrumental Teacher : Medical Typist : Winston Munoz MD Approver2 : Report Date : 11/13/2017 16:31:57 My Comment : HISTORY: admit COMPARISON: 04/27/2014 FINDINGS: LUNGS: No pulmonary infiltrate. Linear scar/ atelectasis adjacent to left hilum. PLEURA: No significant pleural effusion identified, no pneumothorax apparent. CARDIOVASCULAR: Cardiomegaly. No congestive change. OSSEOUS STRUCTURES: No significant abnormalities. VISUALIZED UPPER ABDOMEN: Normal. OTHER FINDINGS: None. IMPRESSION: No acute infiltrate. Cardiomegaly. No congestive change. Accession No. : [id number] Patient Name / ID : JEAN HERRING / [id number] Exam Date : 11/13/2017 17:09:58 ( Approved ) Study Comment : Sex / Age : F / 72Y Creator : Winston Munoz MD Dictator : Winston Munoz MD Instrumental Teacher : Medical Typist : Winston Munoz MD Approver2 : Report Date : 11/13/2017 18:20:32 My Comment : HISTORY: left leg pain and swelling . PRIORS: None. FINDINGS: 2-D, color and duplex Doppler analysis of the lower extremity venous circulation using routine protocol from the femoral veins through the popliteal veins. Venous compressibility: Normal. Flow and augmentation patterns: Normal. Visualized veins upper third of calf: Normal. La cyst: None. IMPRESSION: No sonographic or Doppler evidence for DVT in left lower extremity. Assessment & Plan (1) Left leg cellulitis Status: Acute (2) Diabetes mellitus Status: Acute (3) Obesity Status: Acute - Assessment and Plan (Free Text) Assessment: A/P- 72 year old female with obesity, DM II, hypothyroidism admitted with LLE cellulitis after boil/blister . afebrile minimal elevation in wbc only LLE US - negative for DVT as per report. plan- advise to keep the leg elevated. advise to continue with IV vancomycin to cover empirically for MRSA. vanco to be dosed based on weight and hence would need to be increased to 1500mg q12 hours. keep trough <15. would advise to d/c zosyn. check ESR.would advise couple days of IV antibiotics and most likely can be switched to oral antibiotics after that pending clinical response. all above d/w patient and her questions were answered and she verbalizes full understanding of al above and agrees with above plan of care. Thank you for allowing me to take part in the care of this patient.
[2017-11-14] MEDS ORDERED: Vancomycin 500 mg Inj IVPB SCH (14:00)
--- NOTE | 2017-11-14 15:06 | CP.PCM.PN ---
Subjective - Date & Time of Evaluation Date of Evaluation: 11/14/17 Time of Evaluation: 10:00 - Subjective Subjective: Patient was seen and examined at bedside. She states that she feels better. She is able to ambulate today with a walker. Denies fevers, chills, n/v/d. Plan of care discussed at length with the patient. Objective - Vital Signs/Intake and Output Vital Signs (last 24 hours): Temp Pulse Resp BP Pulse Ox 97.7 F 77 20 140/76 95 11/14/17 07:45 11/14/17 10:31 11/14/17 07:45 11/14/17 10:31 11/14/17 07:45 - Medications Medications: Current Medications Acetaminophen (Tylenol 325mg Tab) 650 mg PO Q6 PRN PRN Reason: Fever >100.4 F Acetaminophen (Tylenol 325mg Tab) 650 mg PO Q6 PRN PRN Reason: Pain, Mild (1-3) Atorvastatin Calcium (Lipitor) 20 mg PO HS [facility] Carvedilol (Coreg) 25 mg PO Q12H [facility] Last Admin: 11/14/17 10:31 Dose: 25 mg Ergocalciferol (Drisdol 50,000 Intl Units Cap) 1 cap PO WE [facility] Hydrochlorothiazide (Hydrodiuril) 25 mg PO DAILY [facility] Last Admin: 11/14/17 10:39 Dose: 25 mg Vancomycin HCl 1,500 mg/ (Sodium Chloride) 500 mls @ 250 mls/hr IVPB Q12@0200, 1400 [facility] Insulin Human Regular (Humulin R) 0 units SC ACCU-CHECK [facility] PRN Reason: Protocol Last Admin: 11/14/17 13:54 Dose: 3 units Levothyroxine Sodium (Synthroid) 75 mcg PO DAILY@0630 [facility] Last Admin: 11/14/17 06:21 Dose: 75 mcg Losartan Potassium (Cozaar) 100 mg PO DAILY [facility] Last Admin: 11/14/17 10:31 Dose: 100 mg Oxycodone/Acetaminophen (Percocet 5/325 Mg Tab) 1 tab PO Q6H PRN PRN Reason: Pain, severe (8-10) Repaglinide (Prandin) 4 mg PO TID [facility] Last Admin: 11/14/17 13:54 Dose: 4 mg Fluticasone/Salmeterol (Advair Diskus 250/50) 1 puff IH Q12H [facility] Last Admin: 11/14/17 10:30 Dose: 1 puff Sertraline HCl (Zoloft) 100 mg PO DAILY [facility] Last Admin: 11/14/17 10:32 Dose: 100 mg Silver Sulfadiazine (Silvadene 1% 50 Gm) 1 applic TOP DAILY [facility] Warfarin Sodium (Coumadin) 6 mg PO QD5 ONE PRN Reason: Protocol Stop: 11/14/17 17:01 - Labs Labs: 11/14/17 05:30 11/14/17 05:30 PT 24.2 Seconds (9.8-13.1) H 11/14/17 05:30 INR 2.2 (0.9-1.2) H 11/14/17 05:30 APTT 34.0 Seconds (25.6-37.1) 11/13/17 17:10 - Additional Findings Additional findings: Physical exam: Constitutional- cooperative, awake, alert Head- NCAT, PERRL Eye- PERRL, EOMI ENT- normal exam, MMM. Neck- normal inspection, supple, no JVD Respiratory- Course breath sounds, no wheezes rales rhonchi Cardiovascular- Irregular rate and rhythm +S1, +S2 no MRG GI/Abdominal- protuberant but nondistended abdomen, normal bowel sounds, soft, no mass, no hsm Skin- warm, dry Extremities Exam- Left lower extremity has a superficial lesion on the anterior aspect of the left distal leg with surrounding erythema extending up but distal to the tibial tuberosity. Lesion measures 4.0 cm x 2.5 cm x < 0.1 cm. There is + 2 pitting edema of the dorsum of the left foot. There is no fluctuance observed. Cap refill time < 3 seconds to all digits. Neurological Exam- alert, awake, oriented Psych- normal mood, normal affect Assessment and Plan - Assessment and Plan (Free Text) Plan: This is a 72 yo female with a past medical history of morbid obesity, atrial fibrillation anticoagulated on Coumadin, Essential hypertension, hypercholesterolemia, former smoker, hypothyroidism, who presents to the ED complaining of worsening left leg pain and swelling, starting about 2 weeks ago. The patient states that this started when she noticed a small blister on the top of her foot that became larger and painful. She c/o having difficulty ambulating with her walker before, however she was seen to be ambulating well while in hospital. She was seen by Dr. Domingo, her PMD, today in the office and was told to come to the ED. In the ED, the patient was noted to be mildly tachycardic but otherwise hemodynamically stable and afebrile. Lab workup shows no white count but does show Neutrophil count of 8.1, Neut % 77.7. Her blood glucose level is noted to be significantly elevated at 339. She was given 3 units of regular insulin at Dr. Domingo's office and 5 more units in the ED. She was started on Vancomycin and Zosyn for empiric coverage of significant cellulitis of the left lower extremity initially. Podiatry and Infectious Disease consultants were called on consultation. Doppler negative for DVT of the left lower extremity. Patient admitted for further workup and management. 1) Left lower extremity cellulitis - Admit to med/surg - Consultation with Dr. Manley, podiatry- No surgical intervention planned, will continue to follow pt while in house. - Consultation with Dr. Conway, infectious disease- recommends a total of 2 days of IV antibiotics and then may switch to po possibly depending on clinical course and cultures - Continue antibiotics: Vancomycin 1 gram IVPB q 12 hours - Zosyn discontinued by ID - Blood cultures pending - Monitor vitals q 8 hours - D/c IV fluids - Tylenol/Percocet sliding scale for pain 2) Uncontrolled Type 2 Diabetes Mellitus - Start regular insulin sliding scale - Consistant carbohydrate diet - May need to add long acting if continues to be elevated - Accuchecks AC+HS - HGA1C 3) Hypercholesterolemia - Lipid panel - Continue Zocor 4) Controlled Atrial fibrillation, chronic - Continue Warfarin 6 mg po daily - Daily PT/INR, today 2.2 - Continue Coreg 25 mg po q 12 hours for rate control 5) Essential hypertension - Coreg - Olmesartan/HCTZ 6) History of asthma/former smoker - Continue Pulmicort 7) Depression - Continue Zoloft 8) DVT prophylaxis - Coumadin 9) Morbid obesity - Chronic
[2017-11-14] MEDS ORDERED: WARFARIN SODIUM 6 MG PO SCH (18:00)
[2017-11-14] MEDS: Silver Sulfadiazine 1% CREAM (50 gm) TOP SCH (18:39)
--- NOTE | 2017-11-14 19:33 | CARD ---
APPROVED REPORT EKG Measurement Heart [id number] <Conclusion> Atrial fibrillation Anteroseptal infarct, age undetermined Abnormal ECG
[2017-11-15] MEDS: Insulin Regular 100 units/ml SC SCH ×4 (06:33→23:43)
[2017-11-15] MEDS: Levothyroxine 75 MCG TAB PO SCH (06:33)
[2017-11-15 07:41] LABS: HEMOGLOBIN 13.2 g/dL (12.0-16.0); MEAN CELL VOLUME 88.3 fl (81.0-99.0); MEAN CORPUSCULAR HEMOGLOBIN 28.6 pg (27.0-31.0); MEAN CORPUSCULAR HGB CONC 32.5 g/dL (33.0-37.0); RBC 4.61 Mil/uL (3.80-5.20); RED CELL DISTRIBUTION WIDTH 13.2 % (11.5-14.5)
[2017-11-15] MEDS: Fluticasone-Salmeterol 250-50mcg Diskus IH SCH ×3 (08:12→21:30)
[2017-11-15] MEDS: Silver Sulfadiazine 1% CREAM (50 gm) TOP SCH (08:15)
[2017-11-15 08:25] LABS: INR 2.3 (0.9-1.2); PROTHROMBIN TIME 26.4 Seconds (9.8-13.1)
[2017-11-15 08:34] LABS: BLOOD UREA NITROGEN 20 mg/dl (7-17); CALCIUM 9.4 mg/dL (8.4-10.2); GFR AFRICAN-AMERICAN > 60; GFR NON-AFRICAN AMERICAN > 60
--- NOTE | 2017-11-15 10:13 | CP.PCM.PN ---
Subjective - Date & Time of Evaluation Date of Evaluation: 11/15/17 Time of Evaluation: 10:11 - Subjective Subjective: 72 y/o female with PMHx of DM, HTN, hypercholestrolemia, depression was seen and evaluated at bedside for worsening cellulitis with superficial excoriation on the anterior leg of left lower extremity. Patient is AAOx3 and is in NAD. Patient denies of having any acute overnight events. Denies of any pain to her legs today. Denies of any recent F/N/V/C/SOB/CP today. Denies of having any other pedal complains at this time. Objective - Vital Signs/Intake and Output Vital Signs (last 24 hours): Temp Pulse Resp BP Pulse Ox 97.5 F L 69 20 145/84 94 L 11/15/17 08:24 11/15/17 08:24 11/15/17 08:24 11/15/17 08:24 11/15/17 08:24 - Medications Medications: Current Medications Acetaminophen (Tylenol 325mg Tab) 650 mg PO Q6 PRN PRN Reason: Fever >100.4 F Acetaminophen (Tylenol 325mg Tab) 650 mg PO Q6 PRN PRN Reason: Pain, Mild (1-3) Atorvastatin Calcium (Lipitor) 20 mg PO HS [facility] Last Admin: 11/14/17 21:34 Dose: 20 mg Carvedilol (Coreg) 25 mg PO Q12H [facility] Last Admin: 11/15/17 08:13 Dose: 25 mg Ergocalciferol (Drisdol 50,000 Intl Units Cap) 1 cap PO [facility] Hydrochlorothiazide (Hydrodiuril) 25 mg PO DAILY [facility] Last Admin: 11/15/17 08:17 Dose: 25 mg Vancomycin HCl 1,500 mg/ (Sodium Chloride) 500 mls @ 250 mls/hr IVPB Q12@0200, 1400 [facility] Last Admin: 11/15/17 01:20 Dose: 250 mls/hr Insulin Human Regular (Humulin R) 0 units SC ACCU-CHECK [facility] PRN Reason: Protocol Last Admin: 11/15/17 06:33 Dose: 3 units Levothyroxine Sodium (Synthroid) 75 mcg PO DAILY@0630 [facility] Last Admin: 11/15/17 06:33 Dose: 75 mcg Losartan Potassium (Cozaar) 100 mg PO DAILY [facility] Last Admin: 11/15/17 08:13 Dose: 100 mg Oxycodone/Acetaminophen (Percocet 5/325 Mg Tab) 1 tab PO Q6H PRN PRN Reason: Pain, severe (8-10) Repaglinide (Prandin) 4 mg PO TID [facility] Last Admin: 11/15/17 08:13 Dose: 4 mg Fluticasone/Salmeterol (Advair Diskus 250/50) 1 puff IH Q12H [facility] Last Admin: 11/15/17 08:21 Dose: Not Given Sertraline HCl (Zoloft) 100 mg PO DAILY [facility] Last Admin: 11/15/17 08:14 Dose: 100 mg Silver Sulfadiazine (Silvadene 1% 50 Gm) 1 applic TOP DAILY [facility] Last Admin: 11/15/17 08:15 Dose: 1 applic - Labs Labs: 11/15/17 06:00 11/15/17 06:00 PT 26.4 Seconds (9.8-13.1) H 11/15/17 06:00 INR 2.3 (0.9-1.2) H 11/15/17 06:00 APTT 34.0 Seconds (25.6-37.1) 11/13/17 17:10 - Constitutional Appears: Well, Non-toxic, No Acute Distress - Extremities Exam Additional comments: Bilateral LE Exam: VASC: DP/PT pulses are non-palpable secondary to extreme pedal edema, Cap refill time: < 3 sec to all digits, Temp gradient: warm to cool from proximal to distal on the right and warm to mild warm on the LLE, +1 pitting edema noted on the dorsum of the foot as well as distal medial leg b/l - appears to be resolving DERM: superficial excoriated lesion measuring approx. 4.0 cm x 2.5 cm x < 0.1 cm on the anterior aspect of the left distal leg with surrounding erythema extending but distal to tibial tuberosity - erythema appears to be resolving from yesterday, no active drainage, no malodor, no tunneling, no probe to bone, no fluctuance, no interdigital maceration NEURO: Protective sensation grossly diminished ORTHO: no pain on palpation of the lesion - Neurological Exam Neurological Exam: Alert, Awake, Oriented x3 - Psychiatric Exam Psychiatric exam: Normal Affect, Normal Mood Assessment and Plan - Assessment and Plan (Free Text) Assessment: 72 y/o female with PMHx of DM, HTN, hypercholestrolemia, depression was seen and evaluated at bedside in ED for worsening cellulitis with superficial excoriation on the anterior leg of left lower extremity. Plan: Patient seen and evaluated at bedside with attending Dr. Manley Labs, vitals and charts reviewed - afebrile, WBC at 10.0 today Venous duplex shows no evidence of DVT LLE cleaned with saline and dressing applied using silvadine, DSD and JUAN Continue IV abx - Zosyn and Vancomycin No surgical intervention as per podiatry Podiatry will continue to follow patient while in-house
--- NOTE | 2017-11-15 13:19 | CP.PCM.PN ---
Subjective - Date & Time of Evaluation Date of Evaluation: 11/15/17 Time of Evaluation: 10:00 - Subjective Subjective: Patient was seen and examined at bedside. She has no complaints today, HD stable , NAD. States she is continuing to feel better. Objective - Vital Signs/Intake and Output Vital Signs (last 24 hours): Temp Pulse Resp BP Pulse Ox 97.5 F L 69 20 145/84 94 L 11/15/17 08:24 11/15/17 08:24 11/15/17 08:24 11/15/17 08:24 11/15/17 08:24 - Medications Medications: Current Medications Acetaminophen (Tylenol 325mg Tab) 650 mg PO Q6 PRN PRN Reason: Fever >100.4 F Acetaminophen (Tylenol 325mg Tab) 650 mg PO Q6 PRN PRN Reason: Pain, Mild (1-3) Atorvastatin Calcium (Lipitor) 20 mg PO HS [facility] Last Admin: 11/14/17 21:34 Dose: 20 mg Carvedilol (Coreg) 25 mg PO Q12H [facility] Last Admin: 11/15/17 08:13 Dose: 25 mg Ergocalciferol (Drisdol 50,000 Intl Units Cap) 1 cap PO [facility] Hydrochlorothiazide (Hydrodiuril) 25 mg PO DAILY [facility] Last Admin: 11/15/17 08:17 Dose: 25 mg Vancomycin HCl 1,500 mg/ (Sodium Chloride) 500 mls @ 250 mls/hr IVPB Q12@0200, 1400 [facility] Last Admin: 11/15/17 01:20 Dose: 250 mls/hr Insulin Human Regular (Humulin R) 0 units SC ACCU-CHECK [facility] PRN Reason: Protocol Last Admin: 11/15/17 12:32 Dose: 3 units Levothyroxine Sodium (Synthroid) 75 mcg PO DAILY@0630 [facility] Last Admin: 11/15/17 06:33 Dose: 75 mcg Losartan Potassium (Cozaar) 100 mg PO DAILY [facility] Last Admin: 11/15/17 08:13 Dose: 100 mg Oxycodone/Acetaminophen (Percocet 5/325 Mg Tab) 1 tab PO Q6H PRN PRN Reason: Pain, severe (8-10) Repaglinide (Prandin) 4 mg PO TID [facility] Last Admin: 11/15/17 12:32 Dose: 4 mg Fluticasone/Salmeterol (Advair Diskus 250/50) 1 puff IH Q12H [facility] Last Admin: 11/15/17 08:21 Dose: Not Given Sertraline HCl (Zoloft) 100 mg PO DAILY [facility] Last Admin: 11/15/17 08:14 Dose: 100 mg Silver Sulfadiazine (Silvadene 1% 50 Gm) 1 applic TOP DAILY [facility] Last Admin: 11/15/17 08:15 Dose: 1 applic - Labs Labs: 11/15/17 06:00 11/15/17 06:00 PT 26.4 Seconds (9.8-13.1) H 11/15/17 06:00 INR 2.3 (0.9-1.2) H 11/15/17 06:00 APTT 34.0 Seconds (25.6-37.1) 11/13/17 17:10 - Additional Findings Additional findings: Physical exam: Constitutional- cooperative, awake, alert Head- NCAT, PERRL Eye- PERRL, EOMI ENT- normal exam, MMM. Neck- normal inspection, supple, no JVD Respiratory- Course breath sounds, no wheezes rales rhonchi Cardiovascular- Irregular rate and rhythm +S1, +S2 no MRG GI/Abdominal- protuberant but nondistended abdomen, normal bowel sounds, soft, no mass, no hsm Skin- warm, dry Extremities Exam- Left lower extremity has a superficial lesion on the anterior aspect of the left distal leg with surrounding erythema extending up but distal to the tibial tuberosity. However erythema is improved. Lesion measures 4.0 cm x 2.5 cm x < 0.1 cm. There is +2 pitting edema of the dorsum of the left foot. There is no fluctuance observed. Cap refill time < 3 seconds to all digits. Neurological Exam- alert, awake, oriented Psych- normal mood, normal affect Assessment and Plan - Assessment and Plan (Free Text) Plan: This is a 72 yo female with a past medical history of morbid obesity, atrial fibrillation anticoagulated on Coumadin, Essential hypertension, hypercholesterolemia, former smoker, hypothyroidism, who presents to the ED complaining of worsening left leg pain and swelling, starting about 2 weeks ago. The patient states that this started when she noticed a small blister on the top of her foot that became larger and painful. She c/o having difficulty ambulating with her walker before, however she was seen to be ambulating well while in hospital. She was seen by Dr. Domingo, her PMD, today in the office and was told to come to the ED. In the ED, the patient was noted to be mildly tachycardic but otherwise hemodynamically stable and afebrile. Lab workup shows no white count on admission but did show Neutrophil count of 8.1, Neut % 77.7. Her blood glucose level was noted to be significantly elevated at 339. She was given 3 units of regular insulin at Dr. Domingo's office and 5 more units in the ED. She was started on Vancomycin and Zosyn for empiric coverage of significant cellulitis of the left lower extremity initially. Podiatry and Infectious Disease consultants were called on consultation. Doppler negative for DVT of the left lower extremity. Patient admitted for further workup and management. 1) Left lower extremity cellulitis - Admit to med/surg - Consultation with Dr. Manley, podiatry- No surgical intervention planned, will continue to follow pt while in house. - Consultation with Dr. Conway, infectious disease- recommends for last dose of Vancomyin 1.5 gram IVPB to be given tomorrow at 2 pm; afterwards can be discharged on Bactrim DS. - Vanc trough pending - Continue antibiotics: Vancomycin 1.5 Gram IVPB q 12 hours - Zosyn discontinued by ID - Blood cultures: No growth x 24 hours - Afebrile, no leukocytosis - Monitor vitals q 8 hours - Tylenol/Percocet sliding scale for pain 2) Uncontrolled Type 2 Diabetes Mellitus - Continue regular insulin sliding scale while in house. - Consistant carbohydrate diet - Glipizide 5 mg po BID and Metformin 500 mg po BID will be ordered for outpatient once patient is discharged. - Accuchecks AC+HS 3) Hypercholesterolemia - Lipid panel - Continue Zocor 4) Controlled Atrial fibrillation, chronic - Continue Warfarin 6 mg po daily - Daily PT/INR, today 2.2 - Continue Coreg 25 mg po q 12 hours for rate control 5) Essential hypertension - Coreg - Olmesartan/HCTZ 6) History of asthma/former smoker - Continue Pulmicort 7) Depression - Continue Zoloft 8) DVT prophylaxis - Coumadin 9) Morbid obesity - Chronic
[2017-11-16] MEDS: Insulin Regular 100 units/ml SC SCH ×2 (06:07→12:33)
[2017-11-16 06:24] LABS: HEMOGLOBIN 13.4 g/dL (12.0-16.0); MEAN CELL VOLUME 88.5 fl (81.0-99.0); MEAN CORPUSCULAR HEMOGLOBIN 28.7 pg (27.0-31.0); MEAN CORPUSCULAR HGB CONC 32.5 g/dL (33.0-37.0); RBC 4.67 Mil/uL (3.80-5.20); RED CELL DISTRIBUTION WIDTH 13.1 % (11.5-14.5); WHITE BLOOD COUNT 11.1 K/uL (4.8-10.8)
[2017-11-16] MEDS: Levothyroxine 75 MCG TAB PO SCH (07:04)
[2017-11-16 07:10] LABS: INR 2.5 (0.9-1.2); PROTHROMBIN TIME 28.7 Seconds (9.8-13.1)
[2017-11-16 08:48] VITALS: RESP 20
[2017-11-16] MEDS: Fluticasone-Salmeterol 250-50mcg Diskus IH SCH (08:50)
[2017-11-16] MEDS: Silver Sulfadiazine 1% CREAM (50 gm) TOP SCH (08:52)
--- NOTE | 2017-11-16 10:26 | CP.PCM.DIS ---
Provider - Provider Date of Admission: 11/13/17 18:19 Attending physician: Gabriel Shin DO Time Spent in preparation of Discharge (in minutes): 20 Hospital Course - Lab Results Lab Results: Micro Results 11/13/17 17:10 Blood-Venous Blood Culture - Preliminary NO GROWTH AFTER 48 HOURS 11/13/17 17:10 Blood-Venous Blood Culture - Preliminary NO GROWTH AFTER 48 HOURS Most Recent Lab Values WBC 11.1 K/uL (4.8-10.8) H 11/16/17 05:30 RBC 4.67 Mil/uL (3.80-5.20) 11/16/17 05:30 Hgb 13.4 g/dL (12.0-16.0) 11/16/17 05:30 Hct 41.3 % (34.0-47.0) 11/16/17 05:30 MCV 88.5 fl (81.0-99.0) 11/16/17 05:30 MCH 28.7 pg (27.0-31.0) 11/16/17 05:30 MCHC 32.5 g/dL (33.0-37.0) L 11/16/17 05:30 RDW 13.1 % (11.5-14.5) 11/16/17 05:30 Plt Count 185 K/uL (130-400) 11/16/17 05:30 MPV 10.1 fl (7.2-11.7) 11/13/17 17:10 Neut % (Auto) 77.7 % (50.0-75.0) H 11/13/17 17:10 Lymph % (Auto) 16.4 % (20.0-40.0) L 11/13/17 17:10 [place] % (Auto) 4.3 % (0.0-10.0) 11/13/17 17:10 Eos % (Auto) 0.8 % (0.0-4.0) 11/13/17 17:10 Baso % (Auto) 0.8 % (0.0-2.0) 11/13/17 17:10 Neut # 8.1 K/uL (1.8-7.0) H 11/13/17 17:10 Lymph # 1.7 K/uL (1.0-4.3) 11/13/17 17:10 [place] # 0.4 K/uL (0.0-0.8) 11/13/17 17:10 Eos # 0.1 K/uL (0.0-0.7) 11/13/17 17:10 Baso # 0.1 K/uL (0.0-0.2) 11/13/17 17:10 ESR 46 mm/hr (0-30) H 11/14/17 14:02 PT 28.7 Seconds (9.8-13.1) H 11/16/17 05:30 INR 2.5 (0.9-1.2) H 11/16/17 05:30 APTT 34.0 Seconds (25.6-37.1) 11/13/17 17:10 Sodium 140 mmol/l (132-148) 11/15/17 06:00 Potassium 3.9 MMOL/L (3.6-5.0) 11/15/17 06:00 Chloride 100 mmol/L (98-107) 11/15/17 06:00 Carbon Dioxide 32 mmol/L (22-30) H 11/15/17 06:00 Anion Gap 12 (10-20) 11/15/17 06:00 BUN 20 mg/dl (7-17) H 11/15/17 06:00 Creatinine 0.8 mg/dl (0.7-1.2) 11/15/17 06:00 Est GFR ( Amer) > 60 11/15/17 06:00 Est GFR (Non-Af Amer) > 60 11/15/17 06:00 POC Glucose (mg/dL) 191 mg/dL (65-110) H 11/16/17 05:19 Random Glucose 219 mg/dL (65-105) H 11/15/17 06:00 Calcium 9.4 mg/dL (8.4-10.2) 11/15/17 06:00 Total Bilirubin 0.7 mg/dl (0.2-1.3) 11/13/17 17:10 AST 34 U/L (14-36) 11/13/17 17:10 ALT 36 U/L (9-52) 11/13/17 17:10 Alkaline Phosphatase 108 U/L (38-126) 11/13/17 17:10 NT-Pro-B Natriuret Pep 584 pg/ml (0-900) 11/13/17 17:10 Total Protein 7.6 G/DL (6.3-8.2) 11/13/17 17:10 Albumin 3.8 g/dL (3.5-5.0) 11/13/17 17:10 Globulin 3.8 gm/dL (2.2-3.9) 11/13/17 17:10 Albumin/Globulin Ratio 1.0 (1.0-2.1) 11/13/17 17:10 Vancomycin Trough 15.9 ug/mL (5.0-10.0) H 11/15/17 17:35 - Hospital Course Hospital Course: 72 year old female patient with a PMHx of morbid obesity, atrial fibrillation anticoagulated on Coumadin, Essential hypertension, hypercholesterolemia, hypothyroidism was admitted to the hospital for worsening left leg pain and swelling of the left lower extremity. During her hospital stay, patient was seen by Podiatry and Infectious disease. She was started on Vancomycin and Zosyn for empiric coverage of significant cellulitis of the left lower extremity. Venous duplex was performed which showed no evidence of DVT. Patient was seen by infectious disease who later recommended Vancomycin only and discontinued Zosyn. Clinically, patient's condition improved; throughout the hospital course, patient remained afebrile and no leukocytosis was seen. Patient was also seen by physical therapy while in the hospital. Patient is stable to be discharged from all services and will return home with Bactrim DS. Patient will be following up at a wound care center with Dr. Mk Manley. 1) Left lower extremity cellulitis - Admit to med/surg - Consultation with Dr. Manley, podiatry- No surgical intervention planned, will continue to follow pt while in house. - Consultation with Dr. Conway, infectious disease- recommends for last dose of Vancomyin 1.5 gram IVPB to be given tomorrow at 2 pm; afterwards can be discharged on Bactrim DS. - Vanc trough pending - Continue antibiotics: Vancomycin 1.5 Gram IVPB q 12 hours - Zosyn discontinued by ID - Blood cultures: No growth x 24 hours - Afebrile, no leukocytosis - Monitor vitals q 8 hours - Tylenol/Percocet sliding scale for pain 2) Uncontrolled Type 2 Diabetes Mellitus - Continue regular insulin sliding scale while in house. - Consistant carbohydrate diet - Glipizide 5 mg po BID and Metformin 500 mg po BID will be ordered for outpatient once patient is discharged. - Accuchecks AC+HS 3) Hypercholesterolemia - Lipid panel - Continue Zocor 4) Controlled Atrial fibrillation, chronic - Continue Warfarin 6 mg po daily - Daily PT/INR, today 2.5 - Continue Coreg 25 mg po q 12 hours for rate control 5) Essential hypertension - Coreg - Olmesartan/HCTZ 6) History of asthma/former smoker - Continue Pulmicort 7) Depression - Continue Zoloft 8) DVT prophylaxis - Coumadin 9) Morbid obesity - Chronic - Date & Time of H&P Date of H&P: 11/16/17 Time of H&P: 08:45 Discharge Exam - Head Exam Head Exam: ATRAUMATIC - Eye Exam Eye Exam: Normal appearance - ENT Exam ENT Exam: Normal Exam - Neck Exam Neck exam: Full Rom, Normal Inspection - Respiratory Exam Respiratory Exam: Clear to PA & Lateral, UNREMARKABLE. absent: Rales, Rhonchi, Wheezes - Cardiovascular Exam Cardiovascular Exam: REGULAR RHYTHM, +S1, +S2 - GI/Abdominal Exam GI & Abdominal Exam: Normal Bowel Sounds, Soft, Unremarkable - Rectal Exam Rectal Exam: Deferred - Extremities Exam Extremities exam: full ROM, normal capillary refill, normal inspection, pedal edema, tenderness, pedal pulses present Additional comments: Erythema appeared to be improved from the day of admission - Neurological Exam Neurological exam: Alert, Oriented x3 - Psychiatric Exam Psychiatric exam: Normal Affect, Normal Mood - Skin Skin Exam: Erythema, Warm Discharge Plan - Discharge Medications Prescriptions: GlipiZIDE [Glucotrol] 5 mg PO BID #60 tab Silver Sulfadiazine 1% 50 gm [Silvadene 1% 50 gm] 1 applic TOP DAILY #1 jar Sulfamethoxazole/Trimethoprim [Bactrim DS 800 mg-160 mg] 1 tab PO BID #14 tab - Follow Up Plan Condition: FAIR Disposition: HOME/ ROUTINE Instructions: Cellulitis (DC), Cellulitis (GEN) Additional Instructions: Follow up with Dr. Manley in 1 week Follow up with Dr. Domingo in 1-2 weeks
--- NOTE | 2017-11-16 12:27 | PQF GENQUE ---
Dr. Noonan, 2 queries as follows: 1. Please clarify type of asthma: if known: i.e. Mild intermittent Mild persistent Moderate persistent Severe persistent With bronchitis(please clarify acuity of bronchitis) With chronic lung disease (please document specific chronic lung disease) Other (please specify) Clinically unable to determine Unknown 2. Please clarify acuity of asthma: Uncomplicated With exacerbation(acute) With status asthmaticus Other (please specify) Clinically unable to determine Unknown H and P: 6) History of asthma/former smoker - Continue Pulmicort This form is a permanent part of the medical record Clarification of your documentation is requested to better reflect the severity of illness and intensity of treatment of your patient. Indicators present [] Specify: [] [] Specify: [] [] Specify: [] [] Specify: [] Location in the medical record that reflects the above clinical findings: [] Treatment Provided: [] PHYSICIAN'S RESPONSE Based on your medical judgment of the clinical indicators outlined above please clarify the following: [] Practitioner response [x] If unable to determine, please check the box, sign and date. Present On Admission (POA) Indicator: [] Present at the time of admission [x] Not present at the time of admission [] Clinically Undetermined In responding to this query, please exercise your independent professional judgment. The fact that a question is asked does not imply that any particular answer is desired or expected. Thank you for your clarification on this documentation. If you have any questions please call. * Thank you, Lyla Thomas RN ext. #[phone] MTDD
--- NOTE | 2017-11-16 15:32 | CP.PCM.PN ---
Subjective - Date & Time of Evaluation Date of Evaluation: 11/16/17 Time of Evaluation: 13:00 - Subjective Subjective: ID Note- Pt. seen and examined today. Pt. states she feels much better and denies any fever or chills. states she is going home today. Objective - Vital Signs/Intake and Output Vital Signs (last 24 hours): Temp Pulse Resp BP Pulse Ox 97.7 F 64 20 144/82 92 L 11/16/17 09:00 11/16/17 09:00 11/16/17 08:48 11/16/17 08:51 11/16/17 08:48 - Medications Medications: Current Medications Acetaminophen (Tylenol 325mg Tab) 650 mg PO Q6 PRN PRN Reason: Fever >100.4 F Acetaminophen (Tylenol 325mg Tab) 650 mg PO Q6 PRN PRN Reason: Pain, Mild (1-3) Atorvastatin Calcium (Lipitor) 20 mg PO HS [facility] Last Admin: 11/15/17 21:32 Dose: 20 mg Carvedilol (Coreg) 25 mg PO Q12@0900,2100 [facility] Last Admin: 11/16/17 08:51 Dose: 25 mg Ergocalciferol (Drisdol 50,000 Intl Units Cap) 1 cap PO [facility] Hydrochlorothiazide (Hydrodiuril) 25 mg PO DAILY [facility] Last Admin: 11/16/17 08:51 Dose: 25 mg Vancomycin HCl 1,500 mg/ (Sodium Chloride) 500 mls @ 250 mls/hr IVPB Q12@0200, 1400 [facility] Last Admin: 11/16/17 13:09 Dose: 250 mls/hr Insulin Human Regular (Humulin R) 0 units SC ACCU-CHECK [facility] PRN Reason: Protocol Last Admin: 11/16/17 12:33 Dose: 3 units Levothyroxine Sodium (Synthroid) 75 mcg PO DAILY@0630 [facility] Last Admin: 11/16/17 07:04 Dose: 75 mcg Losartan Potassium (Cozaar) 100 mg PO DAILY [facility] Last Admin: 11/16/17 08:51 Dose: 100 mg Oxycodone/Acetaminophen (Percocet 5/325 Mg Tab) 1 tab PO Q6H PRN PRN Reason: Pain, severe (8-10) Repaglinide (Prandin) 4 mg PO TID [facility] Last Admin: 11/16/17 12:32 Dose: 4 mg Fluticasone/Salmeterol (Advair Diskus 250/50) 1 puff IH Q12@0900,2100 [facility] Last Admin: 11/16/17 08:50 Dose: 1 puff Sertraline HCl (Zoloft) 100 mg PO DAILY [facility] Last Admin: 11/16/17 08:52 Dose: 100 mg Silver Sulfadiazine (Silvadene 1% 50 Gm) 1 applic TOP DAILY [facility] Last Admin: 11/16/17 08:52 Dose: 1 applic - Labs Labs: - Additional Findings Additional findings: Constitutional Appears: No Acute Distress - Head Exam Head Exam: ATRAUMATIC - Eye Exam Eye Exam: EOMI, PERRL - Neck Exam Neck exam: Positive for: Full Rom - Respiratory Exam Respiratory Exam: Clear to Auscultation Bilateral, NORMAL BREATHING PATTERN - Cardiovascular Exam Cardiovascular Exam: RRR, +S1, +S2 - GI/Abdominal Exam GI & Abdominal Exam: Normal Bowel Sounds, Soft Additional comments: NT, ND - Extremities Exam Additional comments: LLE with very dry skin and the cellulitis /erythem in the LLE is much improved , no discharge - Neurological Exam Neurological exam: Alert, Oriented x 3 Laboratory Results - last 72 hr 11/13/17 11/13/17 11/13/17 17:10 17:10 17:10 WBC 10.4 RBC 4.93 Hgb 14.2 Hct 43.3 MCV 87.8 MCH 28.7 MCHC 32.7 L RDW 13.0 Plt Count 205 MPV 10.1 Neut % (Auto) 77.7 H Lymph % (Auto) 16.4 L Nolan % (Auto) 4.3 Eos % (Auto) 0.8 Baso % (Auto) 0.8 Neut # 8.1 H Lymph # 1.7 Nolan # 0.4 Eos # 0.1 Baso # 0.1 ESR PT 23.2 H INR 2.1 H APTT 34.0 Sodium 136 Potassium 4.2 Chloride 98 Carbon Dioxide 27 Anion Gap 15 BUN 17 Creatinine 0.7 Est GFR ( Amer) > 60 Est GFR (Non-Af Amer) > 60 POC Glucose (mg/dL) Random Glucose 346 H Calcium 9.8 Total Bilirubin 0.7 AST 34 ALT 36 Alkaline Phosphatase 108 NT-Pro-B Natriuret Pep 584 Total Protein 7.6 Albumin 3.8 Globulin 3.8 Albumin/Globulin Ratio 1.0 Vancomycin Trough 11/13/17 11/13/17 11/14/17 18:35 22:17 05:29 WBC RBC Hgb Hct MCV MCH MCHC RDW Plt Count MPV Neut % (Auto) Lymph % (Auto) Nolan % (Auto) Eos % (Auto) Baso % (Auto) Neut # Lymph # Nolan # Eos # Baso # ESR PT INR APTT Sodium Potassium Chloride Carbon Dioxide Anion Gap BUN Creatinine Est GFR ( Amer) Est GFR (Non-Af Amer) POC Glucose (mg/dL) 339 H 259 H 290 H Random Glucose Calcium Total Bilirubin AST ALT Alkaline Phosphatase NT-Pro-B Natriuret Pep Total Protein Albumin Globulin Albumin/Globulin Ratio Vancomycin Trough 11/14/17 11/14/17 11/14/17 05:30 05:30 05:30 WBC 10.9 H RBC 4.54 Hgb 13.1 Hct 40.1 MCV 88.4 MCH 28.9 MCHC 32.7 L RDW 13.4 Plt Count 179 MPV Neut % (Auto) Lymph % (Auto) Nolan % (Auto) Eos % (Auto) Baso % (Auto) Neut # Lymph # Nolan # Eos # Baso # ESR PT 24.2 H INR 2.2 H APTT Sodium 139 Potassium 3.8 Chloride 99 Carbon Dioxide 32 H Anion Gap 12 BUN 17 Creatinine 0.8 Est GFR ( Amer) > 60 Est GFR (Non-Af Amer) > 60 POC Glucose (mg/dL) Random Glucose 252 H Calcium 9.5 Total Bilirubin AST ALT Alkaline Phosphatase NT-Pro-B Natriuret Pep Total Protein Albumin Globulin Albumin/Globulin Ratio Vancomycin Trough 11/14/17 11/14/17 11/14/17 10:23 14:02 16:09 WBC RBC Hgb Hct MCV MCH MCHC RDW Plt Count MPV Neut % (Auto) Lymph % (Auto) Nolan % (Auto) Eos % (Auto) Baso % (Auto) Neut # Lymph # Nolan # Eos # Baso # ESR 46 H PT INR APTT Sodium Potassium Chloride Carbon Dioxide Anion Gap BUN Creatinine Est GFR ( Amer) Est GFR (Non-Af Amer) POC Glucose (mg/dL) 203 H 258 H Random Glucose Calcium Total Bilirubin AST ALT Alkaline Phosphatase NT-Pro-B Natriuret Pep Total Protein Albumin Globulin Albumin/Globulin Ratio Vancomycin Trough 11/14/17 11/15/17 11/15/17 21:23 05:55 06:00 WBC RBC Hgb Hct MCV MCH MCHC RDW Plt Count MPV Neut % (Auto) Lymph % (Auto) Nolan % (Auto) Eos % (Auto) Baso % (Auto) Neut # Lymph # Nolan # Eos # Baso # ESR PT 26.4 H INR 2.3 H APTT Sodium Potassium Chloride Carbon Dioxide Anion Gap BUN Creatinine Est GFR ( Amer) Est GFR (Non-Af Amer) POC Glucose (mg/dL) 188 H 224 H Random Glucose Calcium Total Bilirubin AST ALT Alkaline Phosphatase NT-Pro-B Natriuret Pep Total Protein Albumin Globulin Albumin/Globulin Ratio Vancomycin Trough 11/15/17 11/15/17 11/15/17 06:00 06:00 11:07 WBC 10.0 RBC 4.61 Hgb 13.2 Hct 40.7 MCV 88.3 MCH 28.6 MCHC 32.5 L RDW 13.2 Plt Count 180 MPV Neut % (Auto) Lymph % (Auto) Nolan % (Auto) Eos % (Auto) Baso % (Auto) Neut # Lymph # Nolan # Eos # Baso # ESR PT INR APTT Sodium 140 Potassium 3.9 Chloride 100 Carbon Dioxide 32 H Anion Gap 12 BUN 20 H Creatinine 0.8 Est GFR ( Amer) > 60 Est GFR (Non-Af Amer) > 60 POC Glucose (mg/dL) 210 H Random Glucose 219 H Calcium 9.4 Total Bilirubin AST ALT Alkaline Phosphatase NT-Pro-B Natriuret Pep Total Protein Albumin Globulin Albumin/Globulin Ratio Vancomycin Trough 11/15/17 11/15/17 11/15/17 16:54 17:35 20:55 WBC RBC Hgb Hct MCV MCH MCHC RDW Plt Count MPV Neut % (Auto) Lymph % (Auto) Nolan % (Auto) Eos % (Auto) Baso % (Auto) Neut # Lymph # Nolan # Eos # Baso # ESR PT INR APTT Sodium Potassium Chloride Carbon Dioxide Anion Gap BUN Creatinine Est GFR ( Amer) Est GFR (Non-Af Amer) POC Glucose (mg/dL) 181 H 172 H Random Glucose Calcium Total Bilirubin AST ALT Alkaline Phosphatase NT-Pro-B Natriuret Pep Total Protein Albumin Globulin Albumin/Globulin Ratio Vancomycin Trough 15.9 H 11/16/17 11/16/17 11/16/17 05:19 05:30 05:30 WBC 11.1 H RBC 4.67 Hgb 13.4 Hct 41.3 MCV 88.5 MCH 28.7 MCHC 32.5 L RDW 13.1 Plt Count 185 MPV Neut % (Auto) Lymph % (Auto) Nolan % (Auto) Eos % (Auto) Baso % (Auto) Neut # Lymph # Nolan # Eos # Baso # ESR PT 28.7 H INR 2.5 H APTT Sodium Potassium Chloride Carbon Dioxide Anion Gap BUN Creatinine Est GFR ( Amer) Est GFR (Non-Af Amer) POC Glucose (mg/dL) 191 H Random Glucose Calcium Total Bilirubin AST ALT Alkaline Phosphatase NT-Pro-B Natriuret Pep Total Protein Albumin Globulin Albumin/Globulin Ratio Vancomycin Trough 11/16/17 10:57 WBC RBC Hgb Hct MCV MCH MCHC RDW Plt Count MPV Neut % (Auto) Lymph % (Auto) Nolan % (Auto) Eos % (Auto) Baso % (Auto) Neut # Lymph # Nolan # Eos # Baso # ESR PT INR APTT Sodium Potassium Chloride Carbon Dioxide Anion Gap BUN Creatinine Est GFR ( Amer) Est GFR (Non-Af Amer) POC Glucose (mg/dL) 206 H Random Glucose Calcium Total Bilirubin AST ALT Alkaline Phosphatase NT-Pro-B Natriuret Pep Total Protein Albumin Globulin Albumin/Globulin Ratio Vancomycin Trough Microbiology 11/13/17 17:10 Blood-Venous Blood Culture - Preliminary NO GROWTH AFTER 48 HOURS 11/13/17 17:10 Blood-Venous Blood Culture - Preliminary NO GROWTH AFTER 48 HOURS Assessment and Plan (1) Left leg cellulitis Status: Acute (2) Diabetes mellitus Status: Acute (3) Obesity Status: Acute - Assessment and Plan (Free Text) Assessment: A/P- 72 year old female with obesity, DM II, hypothyroidism admitted with LLE cellulitis after boil/blister . afebrile normal wbc blood cx- neg x 2 LLE US - negative for DVT as per report. plan- has completed now 3 full days of IV vancomycin. can be d/c home on oral bactrim DS BID for another 10 days. pt. to f/u with her [facility]PC next week. patient verbalizes full understanding of all above and agrees with above plan of care. also d/w Hospitalist the plan.
[2017-11-16 15:56] VITALS: BP 150/88; TEMP 97.9
[2017-11-16 18:32] VITALS: PULSE 71; O2SAT 94
--- NOTE | 2017-11-16 21:17 | CP.PCM.PN ---
Subjective - Date & Time of Evaluation Date of Evaluation: 11/16/17 Time of Evaluation: 07:00 - Subjective Subjective: 72 y/o female with PMHx of DM, HTN, hypercholestrolemia, depression was seen and evaluated at bedside for cellulitis with superficial excoriation on the anterior leg of left lower extremity-improving. Patient is laying comfortably in bed, AAOx3 and is in NAD. Denies of any recent F/N/V/C/SOB/CP today. Denies of having any other pedal complains at this time. Patient reports that she was told she was going home today. Objective - Vital Signs/Intake and Output Vital Signs (last 24 hours): Temp Pulse Resp BP Pulse Ox 97.9 F 71 20 150/88 94 L 11/16/17 15:53 11/16/17 16:42 11/16/17 15:53 11/16/17 15:53 11/16/17 16:42 - Labs Labs: 11/16/17 05:30 11/15/17 06:00 PT 28.7 Seconds (9.8-13.1) H 11/16/17 05:30 INR 2.5 (0.9-1.2) H 11/16/17 05:30 APTT 34.0 Seconds (25.6-37.1) 11/13/17 17:10 - Constitutional Appears: Well, Non-toxic, No Acute Distress - Extremities Exam Additional comments: Bilateral LE Exam: VASC: DP/PT pulses are non-palpable secondary to extreme pedal edema, Cap refill time: < 3 sec to all digits, Temp gradient: warm to cool from proximal to distal on the right and warm to mild warm on the LLE, +1 pitting edema noted on the dorsum of the foot as well as distal medial leg b/l - appears to be resolving DERM: superficial excoriated lesion measuring approx. 4.0 cm x 2.5 cm x < 0.1 cm on the anterior aspect of the left distal leg with surrounding erythema extending but distal to tibial tuberosity - erythema appears to be resolving from yesterday, no active drainage, no malodor, no tunneling, no probe to bone, no fluctuance, no interdigital maceration NEURO: Protective sensation grossly diminished ORTHO: no pain on palpation of the lesion - Neurological Exam Neurological Exam: Alert, Awake - Psychiatric Exam Psychiatric exam: Normal Affect, Normal Mood Assessment and Plan - Assessment and Plan (Free Text) Assessment: 72 y/o female with PMHx of DM, HTN, hypercholestrolemia, depression was seen and evaluated at bedside in ED for worsening cellulitis with superficial excoriation on the anterior leg of left lower extremity. Plan: Patient seen and evaluated at bedside with attending Dr. Manley Labs, vitals and charts reviewed - afebrile, absent leukocytosis Venous duplex shows no evidence of DVT LLE cleaned with saline and dressing applied using silvadine, DSD and JUAN Ulceration and cellulitis improving No surgical intervention as per podiatry Patient stable per podiatry standpoint Patient will f/u will Dr. Manley every week in wound care Recommends dressing to be changed 2-3 times per week
[2017-11-18] MEDS ORDERED: Ergocalciferol 50,000 Intl Units Cap PO SCH (19:05)
== END 2017-11-16 17:00 | disposition home or self-care (01) | DRG 603 ==
LOC: H.ER 15:00 → H.ERHOLD 18:19 → H.MEDSURG1 21:50
PROVIDERS: ADMIT Internal Medicine; ATTEND Internal Medicine
DX: L03.116 Cellulitis of left lower limb (principal); E11.65 Type 2 diabetes mellitus with hyperglycemia; I48.2 Chronic atrial fibrillation; I11.9 Hypertensive heart disease without heart failure; E03.9 Hypothyroidism, unspecified; F45.9 Somatoform disorder, unspecified; Z79.01 Long term (current) use of anticoagulants; Z79.51 Long term (current) use of inhaled steroids; Z79.84 Long term (current) use of oral hypoglycemic drugs; Z79.899 Other long term (current) drug therapy; Z87.891 Personal history of nicotine dependence; Z90.49 Acquired absence of other specified parts of digestive tract; R00.0 Tachycardia, unspecified; R26.2 Difficulty in walking, not elsewhere classified; E66.01 Morbid (severe) obesity due to excess calories; E78.00 Pure hypercholesterolemia, unspecified; F32.9 Major depressive disorder, single episode, unspecified; L02.426 Furuncle of left lower limb

== ENCOUNTER 2018-03-20 07:56 | Inpatient (IN) | payer MEDICARE, OTHER ==
[2018-03-20 08:10] VITALS: BMI 38.7
--- NOTE | 2018-03-20 08:45 | ED PDOC ---
Syncope/Near Syncope/Dizziness Time Seen by Provider: 03/20/18 08:18 Chief Complaint (Nursing): Weakness/Neurological Deficit Chief Complaint (Provider): Weakness/Neurological Deficit History Per: Patient History/Exam Limitations: no limitations Onset/Duration Of Symptoms: Days (1 week) Additional Complaint(s): 72 y/o female with a history of atrial fibrillation, HTN, and diabetes presents to the ED with generalized weakness. Patient states it began 1 week ago when she began to fall multiple times due to generalized weakness when her legs would give out. She fell earlier this week with an injury to her right hip. Patient states her last fall was this morning but denies any LOC today or head injury. X-rays were completed at [facility] and found to be negative. She denies any chest pain, palpitations, dizziness, or focal weakness. PMD: Jose L Vaughan Past Medical History Reviewed: Historical Data, Nursing Documentation, Vital Signs Vital Signs: Last Vital Signs Temp 98 F 03/20/18 08:09 Pulse 88 03/20/18 08:09 Resp 16 03/20/18 08:09 BP 134/78 03/20/18 08:09 Pulse Ox 90 L 03/20/18 08:09 - Medical History PMH: Arthritis (severe R knee OA), Atrial Fibrillation (on coumadin PO), Back Problems (Chronic), Depression, Diabetes, HTN, Hypercholesterolemia, Hypothyroidism Denies: HIV, Chronic Kidney Disease - Surgical History Surgical History: Cholecystectomy Denies: Pacemaker - Family History Family History: States: No Known Family Hx - Social History Current smoker - smoking cessation education provided: No Ex-Smoker (has not smoked in the last 12 months): No Alcohol: None Drugs: Denies - Home Medications Home Medications: Ambulatory Orders Medication Instructions Recorded Budesonide/Formoterol Fumarate 2 puff IH Q12H 11/13/17 [Symbicort 160-4.5 Mcg Inhaler] Carvedilol [Coreg] 25 mg PO Q12H 11/13/17 Ergocalciferol (Vitamin D2) 50,000 unit PO WE 11/13/17 [Vitamin D2] Levothyroxine [Synthroid] 75 mcg PO DAILY 11/13/17 Olmesartan/Hydrochlorothiazide 1 tab PO DAILY 11/13/17 [Benicar Hct 40-25 mg Tablet] Oxycodone HCl/Acetaminophen 1 tab PO Q6H PRN 11/13/17 [Endocet 10-325 mg Tablet] Repaglinide [Prandin] 4 mg PO TID 11/13/17 Sertraline [Zoloft] 100 mg PO DAILY 11/13/17 Simvastatin [Zocor] 40 mg PO DAILY 11/13/17 Warfarin Sodium [Jantoven] 6 mg PO QPM 11/13/17 metFORMIN [glucOPHAGE] 500 mg PO TID 11/13/17 Ergocalciferol [Drisdol 50,000 1 cap PO WE cap 11/15/17 Intl Units Cap] GlipiZIDE [Glucotrol] 5 mg PO BID #60 tab 11/15/17 Silver Sulfadiazine 1% 50 gm 1 applic TOP DAILY #1 jar 11/15/17 [Silvadene 1% 50 gm] Sulfamethoxazole/Trimethoprim 1 tab PO BID #14 tab 11/15/17 [Bactrim DS 800 mg-160 mg] - Allergies Allergies/Adverse Reactions: Allergies Allergy/AdvReac Type Severity Reaction Status Date / Time No Known Allergies Allergy Verified 08/09/17 15:30 Review of Systems ROS Statement: Except As Marked, All Systems Reviewed And Found Negative Constitutional: Positive for: Weakness Cardiovascular: Negative for: Chest Pain, Palpitations Musculoskeletal: Positive for: Other (right hip pain) Neurological: Negative for: Dizziness, Other (no focal weakness, LOC today, or head injury) Physical Exam - Reviewed Nursing Documentation Reviewed: Yes Vital Signs Reviewed: Yes - Physical Exam Appears: Positive for: Non-toxic (poor hygiene), No Acute Distress Head Exam: Positive for: ATRAUMATIC, NORMAL INSPECTION, NORMOCEPHALIC Skin: Positive for: Normal Color, Warm, Dry Eye Exam: Positive for: EOMI, Normal appearance, PERRL Cardiovascular/Chest: Positive for: Irregularly Irregular, Other (rate 90-100) Respiratory: Positive for: Decreased Breath Sounds (at bases). Negative for: Wheezing, Respiratory Distress Gastrointestinal/Abdominal: Positive for: Normal Exam, Soft. Negative for: Tenderness Back: Positive for: Other (large excoriation sacral area) Extremity: Positive for: Normal ROM, Tenderness (extreme right hip tenderness). Negative for: Pedal Edema (lower extremities non-pitting), Calf Tenderness, Deformity, Swelling, Other (no shortening) Neurologic/Psych: Positive for: Alert (awake), Oriented (x3). Negative for: Motor/Sensory Deficits - Laboratory Results Result Diagrams: 03/20/18 08:50 03/20/18 08:50 - ECG O2 Sat by Pulse Oximetry: 90 (RA) Pulse Ox Interpretation: Normal Medical Decision Making Medical Decision Making: Time: 08:09 Impression: to be completed later per provider Initial Plan: * CAT Scan head w/o contrast * EKG * CMP * UDip * CBC * Prothrombin Time * Chest X-Ray * Hip X-Ray w/ pelvis Scribe Attestation: Documented by Albina Anglin acting as a scribe for Omero Camacho MD. Scribe Attestation: All medical record entries made by the Scribe were at my direction and personally dictated by me. I have reviewed the chart and agree that the record accurately reflects my personal performance of the history, physical exam, medical decision making, and the department course for this patient. I have also personally directed, reviewed, and agree with the discharge instructions and disposition. Disposition - Clinical Impression Clinical Impression: Diabetes mellitus, Acute weakness, CHF (congestive heart failure) - Patient ED Disposition Is Patient to be Admitted: Yes Counseled Patient/Family Regarding: Studies Performed, Diagnosis - Disposition Disposition Time: 11:50 Condition: FAIR - Pt Status Changed To: Hospital Disposition Of: Inpatient - Admit Certification Admit to Inpatient:: After my assessment, the patient will require hospitalization for at least two midnights. This is because of the severity of symptoms shown, intensity of services needed, and/or the medical risk in this patient being treated as an outpatient. - POA Present On Arrival: Pressure Ulcer (Sacral decubitus)
[2018-03-20 08:56] LABS: BASO # 0.1 K/uL (0.0-0.2); BASO % 0.6 % (0.0-2.0); EOS % 0.2 % (0.0-4.0); HEMOGLOBIN 13.9 g/dL (12.0-16.0); LYMPH # 0.9 K/uL (1.0-4.3); LYMPH % 6.8 % (20.0-40.0); MEAN CELL VOLUME 84.8 fl (81.0-99.0); MEAN CORPUSCULAR HEMOGLOBIN 29.1 pg (27.0-31.0); MEAN CORPUSCULAR HGB CONC 34.3 g/dL (33.0-37.0); MEAN PLATELET VOLUME 9.7 fl (7.2-11.7); MONO # 0.6 K/uL (0.0-0.8); MONO % 4.2 % (0.0-10.0); NEUT % 88.2 % (50.0-75.0); NRBC % 0.1 % (0.0-0.0); PLATELET COUNT 209 K/uL (130-400); RBC 4.77 Mil/uL (3.80-5.20); RED CELL DISTRIBUTION WIDTH 13.6 % (11.5-14.5); WHITE BLOOD COUNT 13.6 K/uL (4.8-10.8)
[2018-03-20 09:05] LABS: INR 4.1 (0.9-1.2)
[2018-03-20 09:12] LABS: ALB/GLOB RATIO 0.9 (1.0-2.1); ALBUMIN 3.5 g/dL (3.5-5.0); ALT/SGPT 30 U/L (9-52); AST/SGOT 49 U/L (14-36); BLOOD UREA NITROGEN 16 mg/dl (7-17); CALCIUM 9.3 mg/dL (8.4-10.2); GFR AFRICAN-AMERICAN > 60; GFR NON-AFRICAN AMERICAN > 60
[2018-03-20] MEDS ORDERED: Insulin Regular 100 units/ml SC STA (09:26)
[2018-03-20] MEDS ORDERED: Sodium Chloride 0.9% 1,000 ML IV STA (09:27)
--- NOTE | 2018-03-20 09:37 | CT ---
PROCEDURE: CT HEAD WITHOUT CONTRAST. HISTORY: r/o bleed COMPARISON: 05/12/2012. TECHNIQUE: Axial computed tomography images were obtained through the head/brain without intravenous contrast. Radiation dose: Total exam DLP = 1289.68 mGy-cm. This CT exam was performed using one or more of the following dose reduction techniques: Automated exposure control, adjustment of the mA and/or kV according to patient size, and/or use of iterative reconstruction technique. FINDINGS: HEMORRHAGE: No intracranial hemorrhage. BRAIN: There are mild chronic microangiopathic changes. There is no mass, mass effect or abnormal extra-axial fluid collection. VENTRICLES: There is moderate age-related global parenchymal volume loss and proportionate enlargement of the ventricles and cortical sulci. CALVARIUM: Unremarkable. PARANASAL SINUSES: Unremarkable as visualized. No significant inflammatory changes. MASTOID AIR CELLS: Unremarkable as visualized. No inflammatory changes. OTHER FINDINGS: None. IMPRESSION: No acute intracranial abnormality. Mild chronic microangiopathic changes and moderate age-related global parenchymal volume loss.
[2018-03-20] MEDS ORDERED: Insulin Regular 100 units/ml ONE (09:48)
--- NOTE | 2018-03-20 10:03 | RAD ---
PROCEDURE: Right Hip Radiographs. HISTORY: Trauma COMPARISON: None. FINDINGS: BONES: The pelvic ring is intact. There is no acute displaced fracture or bone destruction. There is diffuse bone demineralization JOINTS: Normal. SOFT TISSUES: Normal. OTHER FINDINGS: None. IMPRESSION: No acute displaced fracture or dislocation.Please note occult fractures cannot be excluded on plain radiographs. If there is a persistent clinical concern, an MRI of the hip may be performed for further evaluation.
--- NOTE | 2018-03-20 10:34 | RAD ---
PROCEDURE: CHEST RADIOGRAPH, 1 VIEW HISTORY: Shortness of breath COMPARISON: 11/13/2017. FINDINGS: LUNGS: The lungs are well inflated. There is mild pulmonary venous congestion. PLEURA: No pneumothorax or pleural fluid seen. CARDIOVASCULAR: There is persistent severe cardiomegaly. Atherosclerotic aortic arch calcifications are present. OSSEOUS STRUCTURES: No significant abnormalities. VISUALIZED UPPER ABDOMEN: Normal. OTHER FINDINGS: None. IMPRESSION: No acute findings. Severe cardiomegaly and mild pulmonary venous congestion.
--- NOTE | 2018-03-20 11:56 | CARD ---
APPROVED REPORT EKG Measurement Heart [id number] <Conclusion> Atrial fibrillation Anterior infarct, age undetermined Abnormal ECG
--- NOTE | 2018-03-20 12:05 | CP.PCM.HP ---
History of Present Illness - History of Present Illness History of Present Illness: CC: Generalized weakness This is a 72 yo female with a past medical history of morbid obesity, atrial fibrillation anticoagulated on Coumadin, Essential hypertension, hypercholesterolemia, former smoker, hypothyroidism, who presents to the ED complaining of frequent falls and generalized weakness over the past week, and states that her weakness has gotten to the point where she is finding it difficult to stand or ambulate even with her walker. She c/o of fall earlier this week with an injury to her right hip. At that time she went to [facility] and has workup including hip X ray which was negative for fracture. In the ED today, she was found to be significantly hyperglycemic with blood glucose of 422. She is also noted to have a supratherapeutic INR of 4.1. Noted to have severe cardiomegaly on Chest X ray. Also noted to have Stage IV sacral decubitus ulceration. The patient is being admitted for further workup and management of her deconditioning, uncontrolled diabetes, and CHF workup. Patient denies chest pain, shortness of breath, fevers, chills, nausea, vomiting , diarrhea, headache. All of the patient's questions were answered at the bedside. Present on Admission - Present on Admission Any Indicators Present on Admission: Yes History of DVT/PE: No History of Uncontrolled Diabetes: Yes Review of Systems - Review of Systems Review of Systems: A 12 point review of systems was conducted and found to be negative other than what was mentioned in the HPI. Past Patient History - Infectious Disease Hx of Infectious Diseases: None - Past Medical History & Family History Past Medical History?: Yes Past Family History: Reviewed and not pertinent - Past Social History Smoking Status: Former Smoker Alcohol: None Drugs: Denies Home Situation {Lives}: With Family - CARDIAC Hx Atrial Fibrillation: Yes (on coumadin PO) Hx Hypercholesterolemia: Yes Hx Hypertension: Yes Hx Pacemaker: No - PULMONARY Hx Respiratory Disorders: No - NEUROLOGICAL Hx Neurological Disorder: No - HEENT Hx HEENT Problems: Yes Other/Comment: CABAZON - RENAL Hx Chronic Kidney Disease: No - ENDOCRINE/METABOLIC Hx Hypothyroidism: Yes - HEMATOLOGICAL/ONCOLOGICAL Hx Human Immunodeficiency Virus (HIV): No - INTEGUMENTARY Hx Dermatological Problems: No - MUSCULOSKELETAL/RHEUMATOLOGICAL Hx Arthritis: Yes (severe R knee OA) - GASTROINTESTINAL Hx Gastrointestinal Disorders: Yes Hx Colitis: Yes - GENITOURINARY/GYNECOLOGICAL Hx Genitourinary Disorders: No - PSYCHIATRIC Hx Depression: Yes - SURGICAL HISTORY Hx Cholecystectomy: Yes - ANESTHESIA Hx Anesthesia: Yes Hx Anesthesia Reactions: No Meds Allergies/Adverse Reactions: Allergies Allergy/AdvReac Type Severity Reaction Status Date / Time No Known Allergies Allergy Verified 08/09/17 15:30 Physical Exam - Additional Findings Additional findings: Physical exam: Constitutional- cooperative, awake, alert. +poor hygiene. Appears chronically ill Head- NCAT, PERRL Eye- PERRL, EOMI ENT- normal exam, MMM. Neck- normal inspection, supple, no JVD Respiratory- CTAB, scattered rhonchi, no wheezing, no rales Cardiovascular- irregular rate and rhythm, +S1, +S2 no MRG GI/Abdominal- obese, normal bowel sounds, soft, no mass, no hsm Skin- warm, dry. Extremities Exam- +2 pitting edema bilateral lower extremities. Venous stasis changes. normal capillary refill. Neurological Exam- alert, awake, oriented. + limited ROM right lower extremity due to hip pain Psych- normal mood, normal affect Results - Vital Signs Recent Vital Signs: Last Vital Signs Temp 98 F 03/20/18 08:09 Pulse 88 03/20/18 08:09 Resp 16 03/20/18 08:09 BP 176/78 H 03/20/18 11:56 Pulse Ox 90 L 03/20/18 11:51 - Labs Result Diagrams: 03/20/18 08:50 03/20/18 08:50 Labs: Laboratory Results - last 24 hr 03/20/18 03/20/18 03/20/18 08:15 08:50 08:50 WBC 13.6 H RBC 4.77 Hgb 13.9 Hct 40.4 MCV 84.8 D MCH 29.1 MCHC 34.3 RDW 13.6 Plt Count 209 MPV 9.7 Neut % (Auto) 88.2 H Lymph % (Auto) 6.8 L [place] % (Auto) 4.2 Eos % (Auto) 0.2 Baso % (Auto) 0.6 Neut # (Auto) 12.0 H Lymph # (Auto) 0.9 L [place] # (Auto) 0.6 Eos # (Auto) 0.0 Baso # (Auto) 0.1 PT INR Sodium 136 Potassium 3.7 Chloride 98 Carbon Dioxide 24 Anion Gap 18 BUN 16 Creatinine 0.5 L Est GFR ( Amer) > 60 Est GFR (Non-Af Amer) > 60 POC Glucose (mg/dL) 360 H Random Glucose 422 H* D Calcium 9.3 Total Bilirubin 1.2 AST 49 H D ALT 30 Alkaline Phosphatase 89 Total Protein 7.3 Albumin 3.5 Globulin 3.8 Albumin/Globulin Ratio 0.9 L 03/20/18 08:50 WBC RBC Hgb Hct MCV MCH MCHC RDW Plt Count MPV Neut % (Auto) Lymph % (Auto) [place] % (Auto) Eos % (Auto) Baso % (Auto) Neut # (Auto) Lymph # (Auto) [place] # (Auto) Eos # (Auto) Baso # (Auto) PT 47.0 H* INR 4.1 H Sodium Potassium Chloride Carbon Dioxide Anion Gap BUN Creatinine Est GFR ( Amer) Est GFR (Non-Af Amer) POC Glucose (mg/dL) Random Glucose Calcium Total Bilirubin AST ALT Alkaline Phosphatase Total Protein Albumin Globulin Albumin/Globulin Ratio Assessment & Plan - Assessment and Plan (Free Text) Plan: ASSESSMENT/PLAN This is a 72 yo female with a past medical history of morbid obesity, atrial fibrillation anticoagulated on Coumadin, Essential hypertension, hypercholesterolemia, former smoker, hypothyroidism, who presents to the ED complaining of frequent falls and generalized weakness over the past week, now being admitted for generalized weakness with frequent falls, significant hyperglycemia, and for cardiac evaluation for CHF. 1) Generalized weakness with falls - possibly due to worsening CHF and deconditioning - patient felt unsafe for discharge home due to weakness and falls while being anticoagulated on coumadin - No evidence of fracture or acute abnormalities on imaging - Admit to telemetry - PT/OT eval and treat 2) Severe cardiomegaly, chronic, with pulmonary venous congestion, acute, on CXR - Cardiology consultation with Dr. Elizabeth - Echocardiogram - Lasix 40 mg IVP daily - I's and O's 3) Atrial fibrillation, chronic with supratherapeutic INR - continue Coreg for rate control - Hold Coumadin for now - recheck INR in AM - may need to adjust home dosage 4) Uncontrolled diabetes mellitus with acute hyperglycemia - Endocrinology consultation with Dr. Cox - Lispro sliding scale with Accucheks AC+HS - Metformin 500 mg po TID - Glucotrol 5 mg po BID - HGA1C - Lipid profile - consistent carbohydrate diet 5) Essential hypertension, chronic, appears controlled - Continue ARB, HCTZ - Continue Coreg 6) Stage IV sacral decubitus ulcer - Hand Leather Trimmer consult - Wound care consult - Silvadene - Wound dressings as per wound care 7) Leukocytosis, mild - No fever or other evidence of acute infection - check urinalysis 8) Hypothyroidism - Continue Synthroid 9) History of asthma/former smoker - Continue Pulmicort - Respiratory status appears to be at baseline 10) DVT prophylaxis - Supratherapeutic on Coumadin
[2018-03-20] MEDS ORDERED: HYDROCHLOROTHIAZIDE PO SCH (12:45)
[2018-03-20] MEDS ORDERED: OLMESARTAN PO SCH (12:45)
[2018-03-20 12:55] LABS: LYMPHOCYTE 9 % (20-50); MONOCYTE 4 % (0-10); NEUTROPHIL 87 % (42-75); PLATELET ESTIMATE NORMAL (NORMAL); TOTAL CELLS COUNTED 100
--- NOTE | 2018-03-20 15:49 | PN ---
DATE: 03/20/2018 SUBJECTIVE: I was asked to evaluated Ms. Beth Goodwin, however, upon my arrival to the emergency room and asking her if she has a sinker puller, she mentioned that she is seeing Dr. Cruz and has seen him few days ago in his office. I did discuss her issues with Dr. Shin and also with the nursing team and I did call Dr. Cruz's service to notify him with cardiology consultation in emergency room after speaking to his service. Dayne Elizabeth MD MTDD
[2018-03-20] MEDS: Fluticasone-Salmeterol 250-50mcg Diskus IH SCH (16:50)
[2018-03-20] MEDS: Silver Sulfadiazine 1% CREAM (50 gm) TOP SCH (17:02)
[2018-03-20] MEDS: Insulin Lispro (humaLOG) 100 Units/ml Inj SC SCH ×2 (17:04→22:44)
[2018-03-20 19:24] LABS: SQUAMOUS EPITHIAL < 1 /hpf (0-5); URINE BACTERIA RARE (<OCC); URINE BILIRUBIN NEGATIVE (NEGATIVE); URINE BLOOD LARGE (NEGATIVE); URINE CLARITY CLEAR (Clear); URINE COLOR YELLOW (YELLOW); URINE GLUCOSE (UA) >=500 mg/dL (Normal); URINE LEUKOCYTE ESTERASE NEG Leu/uL (Negative); URINE PROTEIN 100 mg/dL (NEGATIVE); URINE UROBILINOGEN 0.2-1.0 mg/dL (0.2-1.0)
[2018-03-21] MEDS: Fluticasone-Salmeterol 250-50mcg Diskus IH SCH ×3 (00:15→14:08)
[2018-03-21] MEDS: Levothyroxine 75 MCG TAB PO SCH (05:42)
[2018-03-21 06:53] LABS: HEMOGLOBIN 12.8 g/dL (12.0-16.0); MEAN CELL VOLUME 86.9 fl (81.0-99.0); MEAN CORPUSCULAR HEMOGLOBIN 28.4 pg (27.0-31.0); MEAN CORPUSCULAR HGB CONC 32.7 g/dL (33.0-37.0); RBC 4.49 Mil/uL (3.80-5.20); RED CELL DISTRIBUTION WIDTH 13.5 % (11.5-14.5); WHITE BLOOD COUNT 12.5 K/uL (4.8-10.8)
[2018-03-21 07:08] LABS: LDL CHOLESTEROL 80 mg/dL (0-129)
[2018-03-21 07:18] LABS: BLOOD UREA NITROGEN 20 mg/dl (7-17); CALCIUM 8.9 mg/dL (8.4-10.2); GFR AFRICAN-AMERICAN > 60; GFR NON-AFRICAN AMERICAN > 60; HDL CHOLESTEROL 25 MG/DL (30-70)
[2018-03-21 07:40] LABS: INR 4.5 (0.9-1.2); PARTIAL THROMBOPLASTIN TIME 36.2 Seconds (25.6-37.1)
--- NOTE | 2018-03-21 08:07 | CP.PCM.PN ---
Subjective - Date & Time of Evaluation Date of Evaluation: 03/21/18 Time of Evaluation: 08:07 - Subjective Subjective: states she feels improved, breathing without difficulty HD stable NAD supratherapeutic INR Objective - Vital Signs/Intake and Output Vital Signs (last 24 hours): Temp Pulse Resp BP Pulse Ox 98.6 F 71 18 130/71 95 03/21/18 08:00 03/21/18 08:00 03/21/18 08:00 03/21/18 08:00 03/21/18 08:00 Intake and Output: 03/21/18 03/21/18 06:59 18:59 Intake Total 200 Output Total 300 Balance -100 - Medications Medications: Current Medications Acetaminophen (Tylenol 325mg Tab) 650 mg PO Q6 PRN PRN Reason: Pain, Mild (1-3) Atorvastatin Calcium (Lipitor) 20 mg PO DAILY [facility] Last Admin: 03/20/18 16:52 Dose: 20 mg Carvedilol (Coreg) 25 mg PO Q12H [facility] Last Admin: 03/21/18 00:16 Dose: 25 mg Ergocalciferol (Drisdol 50,000 Intl Units Cap) 1 cap PO [facility] Furosemide (Lasix) 40 mg IVP DAILY [facility] Glipizide (Glucotrol) 10 mg PO BID [facility] Last Admin: 03/20/18 17:01 Dose: 10 mg Hydrochlorothiazide (Hydrodiuril) 25 mg PO DAILY [facility] Insulin Human Lispro (Humalog) 0 units SC ACCU-CHECK [facility] PRN Reason: Protocol Last Admin: 03/20/18 22:44 Dose: Not Given Levothyroxine Sodium (Synthroid) 75 mcg PO DAILY@0630 [facility] Last Admin: 03/21/18 05:42 Dose: 75 mcg Losartan Potassium (Cozaar) 100 mg PO DAILY [facility] Metformin HCl (Glucophage) 500 mg PO TID [facility] Last Admin: 03/20/18 17:01 Dose: 500 mg Oxycodone/Acetaminophen (Percocet 5/325 Mg Tab) 1 tab PO Q6H PRN PRN Reason: Pain, severe (8-10) Repaglinide (Prandin) 4 mg PO TID [facility] Last Admin: 03/20/18 17:02 Dose: Not Given Fluticasone/Salmeterol (Advair Diskus 250/50) 1 puff IH Q12H [facility] Last Admin: 03/21/18 00:15 Dose: 1 puff Sertraline HCl (Zoloft) 100 mg PO DAILY [facility] Last Admin: 03/20/18 16:54 Dose: 100 mg Silver Sulfadiazine (Silvadene 1% 50 Gm) 1 applic TOP DAILY [facility] Last Admin: 03/20/18 17:02 Dose: 1 applic Sitagliptin Phosphate (Januvia) 100 mg PO DAILY [facility] - Labs Labs: 03/21/18 05:27 03/21/18 05:27 PT 52.0 Seconds (9.8-13.1) H* 03/21/18 05:27 INR 4.5 (0.9-1.2) H 03/21/18 05:27 APTT 36.2 Seconds (25.6-37.1) 03/21/18 05:27 - Constitutional Appears: Non-toxic, No Acute Distress - Head Exam Head Exam: ATRAUMATIC, NORMOCEPHALIC - Eye Exam Eye Exam: EOMI, Normal appearance, PERRL - ENT Exam ENT Exam: Mucous Membranes Moist, Normal Oropharynx - Respiratory Exam Respiratory Exam: Rales, NORMAL BREATHING PATTERN - Cardiovascular Exam Cardiovascular Exam: RRR, +S1, +S2 - GI/Abdominal Exam GI & Abdominal Exam: Soft, Normal Bowel Sounds. absent: Tenderness - Extremities Exam Extremities Exam: Normal Capillary Refill. absent: Calf Tenderness - Back Exam Back Exam: absent: CVA tenderness (L), CVA tenderness (R) - Neurological Exam Neurological Exam: Alert, Awake - Psychiatric Exam Psychiatric exam: Normal Affect, Normal Mood - Skin Skin Exam: Dry, Warm Assessment and Plan - Assessment and Plan (Free Text) Plan: 72 yo female with a past medical history of morbid obesity, atrial fibrillation anticoagulated on Coumadin, Essential hypertension, hypercholesterolemia, former smoker, hypothyroidism, who presents to the ED complaining of frequent falls and generalized weakness over the past week, now being admitted for generalized weakness with frequent falls, significant hyperglycemia, and for cardiac evaluation for CHF. 1) Generalized weakness with falls - possibly due to worsening CHF and deconditioning - patient felt unsafe for discharge home due to weakness and falls while being anticoagulated on coumadin - No evidence of fracture or acute abnormalities on imaging - Admit to telemetry - PT/OT eval and treat 2) Severe cardiomegaly, chronic, with pulmonary venous congestion, acute, on CXR - Cardiology consultation with Dr. Cruz - Echocardiogram - Lasix 40 mg IVP daily - SWITCH to PO tomorrow Correct Hypo K and Hypo Mg - I's and O's 3) Atrial fibrillation, chronic with supratherapeutic INR - continue Coreg for rate control, 71 BMP this AM - Hold Coumadin for now - recheck INR in AM - 4.5 today - may need to adjust home dosage 4) Uncontrolled diabetes mellitus with acute hyperglycemia - Endocrinology consultation with Dr. Cox - Lispro sliding scale with Accucheks AC+HS - Metformin 500 mg po TID -- JANUVIA ADDED - Glucotrol 5 mg po BID - HGA1C - Lipid profile - consistent carbohydrate diet 5) Essential hypertension, chronic, appears controlled - Continue ARB, HCTZ - HOLD HCTZ WHILE ESTABLISHING EUVOLEMIA - Continue Coreg 6) Stage IV sacral decubitus ulcer - Enterprise Engineer consult - Wound care consult - Silvadene - Wound dressings as per wound care 7) Leukocytosis, mild - No fever or other evidence of acute infection - check urinalysis 8) Hypothyroidism - Continue Synthroid 9) History of asthma/former smoker - Continue Pulmicort - Respiratory status appears to be at baseline 10) DVT prophylaxis - Supratherapeutic on Coumadin
[2018-03-21] MEDS ORDERED: Potassium Chloride 20 mEq ER Tab PO ONE (08:10)
--- NOTE | 2018-03-21 08:13 | CON ---
DATE: ENDOCRINOLOGY CONSULTATION NOTE LOCATION: In room number 406. HISTORY OF PRESENT ILLNESS: This is a 72-year-old female with known history of type 2 diabetes on oral hypoglycemic therapy with underlying morbid obesity and is now being admitted for progressively worsening generalized body weakness and progressive shortness of breath, initially on exertion and then at rest. She is being referred now for diabetic evaluation because of persistent glycemic fluctuations as noted thereof. PAST MEDICAL HISTORY: As mentioned above, history of type 2 diabetes currently on a combination of metformin given as 500 mg t.i.d. with glipizide at 5 mg b.i.d. and Prandin at 4 mg b.i.d. History of hypertension and dyslipidemia. History of cardiac tachyarrhythmias with chronic atrial fibrillation and currently on oral anticoagulation therapy. History of underlying super morbid obesity with chronic obstructive lung disease. Also history of hypothyroidism, currently on thyroxine given as 75 mcg daily as noted. History of diffuse osteoarthritis with lower back pain and has had a recent sacral decubitus as noted. FAMILY HISTORY Positive for diabetes and hypertension. SOCIAL HISTORY: The patient is a former smoker and has a very supportive family otherwise. REVIEW OF SYSTEMS: As mentioned above, admits to generalized body weakness with easy fatigability and tiredness and suboptimal energy level. Also admits to increasing hypersomnolence and lethargy. Moreover, admits to precordial chest pain with progressive shortness of breath initially on exertion and then at rest with paroxysmal nocturnal dyspnea. Her oral intake has been variable with nausea, dyspepsia, and upper abdominal pains. Also admits to habitual constipation with occasional nocturia and polyuria. PHYSICAL EXAMINATION: GENERAL: This is an obese female in no apparent distress. VITAL SIGNS: With a blood pressure once 160/100, pulse of 80 beats per minute and regular, temperature of 99, and respirations of 20. Height is 5 feet 6 inches and weight is 240 pounds. HEENT: Head is normocephalic. Eyes; anicteric with pink conjunctivae. Funduscopy is not possible at this time. Ears, nose and throat otherwise normal. NECK: Supple. Thyroid gland is normal in size. No carotid bruits or cervical adenopathy. CARDIOPULMONARY: Some adynamic precordium. S1 and S2 is rapid and regular. Lungs are clear to auscultation. GASTROINTESTINAL: Abdomen is flat and soft with positive bowel sounds. EXTREMITIES: No peripheral edema. Pulses are +2 bilaterally. LABORATORY DATA: The BUN of 16, sodium of 136, potassium of 3.7, chloride of 98, CO2 of 24, glucose of 422 and creatinine of 0.5. Her glucose levels have ranged from 280-360 mg/dL. Her proBNP is 1180. ASSESSMENT: This is a 72-year-old female with uncontrolled and decompensated type 2 diabetes, possibly insulin-requiring and oral hypoglycemic therapy as given, presenting here with congestive heart failure as noted thereof. Her pro- brain natriuretic peptide actually was lasted recorded as 1180 as noted. PLAN OF MANAGEMENT: As discussed with the patient and staff, we will modify her current oral hypoglycemic regimen with glipizide to be increased to 10 mg b.i.d. and we will add Januvia at 100 mg daily as ordered. We will continue her metformin at 500 mg b.i.d. as given. We will consider the addition of basal insulin if fasting hyperglycemic levels persist by tomorrow morning. With the underlying morbid obesity, the initiation of insulin therapy will just complicate her further weight gain and also may need higher insulin of the underlying super morbid obesity and after these higher insulin doses to provide insulin resistance thereof. We will obtain serial chemistry and supplement accordingly as needed. We also add thyroid studies and titrate her levothyroxine dose accordingly. We will modify the coverage scale and detailed orders have been given. We will follow. We also reinforce diabetic education to include insulin self-administration if at all needed at this time. We will also reinforce dietary adherence to the lower caloric intake and possibly increase physical activity with healthier food choices. Umm Cox MD
[2018-03-21] MEDS: Insulin Lispro (humaLOG) 100 Units/ml Inj SC SCH ×4 (09:30→22:20)
[2018-03-21] MEDS ORDERED: Magnesium Sulfate 2 gm/50 ml 2 GM/50 ML BAG IVPB ONE (09:39)
[2018-03-21] MEDS: Silver Sulfadiazine 1% CREAM (50 gm) TOP SCH (11:59)
--- NOTE | 2018-03-21 14:24 | PN ---
DATE: 03/21/2018 ENDOCRINOLOGY FOLLOWUP NOTE LOCATION: In in room number 406. SUBJECTIVE: This is a 72-year-old female with recent uncontrolled type 2 diabetes presenting here with glycemic fluctuations and concomitant congestive heart failure and undergoing cardiac workup and management at this time. Her glycemic levels are still fluctuating and ranging from 280 to 360 mg/dL. Her proBNP is 1180: LABORATORY DATA: The latest chemistry showed a BUN of 16, sodium of 136, potassium of 3.7, chloride of 98, CO2 of 24, glucose of 422, and creatinine of 0.5. ASSESSMENT: This is a 72-year-old female with uncontrolled and decompensated type 2 diabetes, possibly insulin-requiring with recent hyperglycemic accelerations, especially in the light of underlying super morbid obesity contributing to the increased insulin resistance thereof. PLAN OF MANAGEMENT: We will continue the triple oral hypoglycemic drug regimen as ordered. We will add Januvia at 100 mg daily to start this morning with glipizide at 10 mg t.i.d. before meals and metformin as 500 mg t.i.d. after meals as ordered. We will continue the low-dose correction scale using no Humalog insulin as given. We will consider the addition of basal insulin to control the fasting hyperglycemic accelerations as noted thereof. We will obtain serial chemistries and supplement accordingly needed. We will follow. Umm Cox MD
--- NOTE | 2018-03-21 14:49 | CARD ---
APPROVED REPORT EXAM: Two-dimensional and M-mode echocardiogram with Doppler and color Doppler. Other Information Quality : PoorRhythm : Technically limited study due to body habitus. INDICATION Congestive Heart Failure 2D DIMENSIONS IVSd1.46 (0.7-1.1cm)LVDd4.84 (3.9-5.9cm) PWd1.94 (0.7-1.1cm)LVDs4.63 (2.5-4.0cm) FS (%) 4.4 % M-Mode DIMENSIONS Left Atrium (MM)5.87 (2.5-4.0cm)IVSd1.65 (0.7-1.1cm) Aortic Root2.70 (2.2-3.7cm)LVDd5.66 (4.0-5.6cm) Aortic Cusp Exc.1.56 (1.5-2.0cm)PWd1.01 (0.7-1.1cm) FS (%) 19 %LVDs4.56 (2.0-3.8cm) Mitral Valve MV E [id number]/sMV E Peak Gr.160mmHgE/A ratio0.0 TDI E/Lateral E'0.0E/Medial E'0.0 Tricuspid Valve TR Peak [id number]/sTR Peak Gr.31mmHg LEFT VENTRICLE The Left Ventricle is borderline dilated. There is normal left ventricular wall thickness. Left ventricle systolic function is moderately impaired. The Ejection Fraction is 35-40%. There was moderate generalised hypokinesia Pt in A Fib RIGHT VENTRICLE The right ventricle is normal size. There is normal right ventricular wall thickness. The right ventricular systolic function is normal. ATRIA The left atrium is moderately dilated. The right atrium size is normal. AORTIC VALVE The aortic valve is mildly sclerotic. No aortic regurgitation is present. There is no aortic valvular stenosis. MITRAL VALVE The mitral valve is normal in structure. There is no evidence of mitral valve prolapse. There is no mitral valve stenosis. Mitral regurgitation is moderate. TRICUSPID VALVE The tricuspid valve is normal in structure. There is mild tricuspid regurgitation. Right ventricular systolic pressure is estimated at 45 mmHg. There is mild-moderate pulmonary hypertension. PULMONIC VALVE The pulmonary valve is normal in structure. There is no pulmonic valvular regurgitation. GREAT VESSELS The aortic root is normal in size. Due to poor image quality, the IVC could not be assessed. PERICARDIAL EFFUSION The pericardium appears normal. <Conclusion> The Left Ventricle is borderline dilated. There is normal left ventricular wall thickness. There was moderate generalised hypokinesia Left ventricle systolic function is moderately impaired. The Ejection Fraction is 35-40%. The left atrium is moderately dilated. Mitral regurgitation is moderate. There is mild tricuspid regurgitation. There is mild-moderate pulmonary hypertension.
[2018-03-22] MEDS: Fluticasone-Salmeterol 250-50mcg Diskus IH SCH ×2 (01:25→13:05)
[2018-03-22] MEDS: Levothyroxine 75 MCG TAB PO SCH (06:35)
[2018-03-22] MEDS: Insulin Lispro (humaLOG) 100 Units/ml Inj SC SCH ×4 (06:36→22:58)
[2018-03-22 07:14] LABS: HEMOGLOBIN 12.8 g/dL (12.0-16.0); MEAN CELL VOLUME 86.7 fl (81.0-99.0); MEAN CORPUSCULAR HEMOGLOBIN 28.6 pg (27.0-31.0); RBC 4.49 Mil/uL (3.80-5.20); RED CELL DISTRIBUTION WIDTH 13.6 % (11.5-14.5); WHITE BLOOD COUNT 11.6 K/uL (4.8-10.8)
[2018-03-22 07:27] LABS: B-TYPE NATRIURETIC PEPTIDE 508 pg/ml (0-900)
--- NOTE | 2018-03-22 07:32 | CP.PCM.PN ---
Subjective - Date & Time of Evaluation Date of Evaluation: 03/22/18 Time of Evaluation: 07:32 - Subjective Subjective: patient reports dyspnea improving, however unable to ambulate and has not been able to do so "for a while." to participate with PT today HD stable NAD Objective - Vital Signs/Intake and Output Vital Signs (last 24 hours): Temp Pulse Resp BP Pulse Ox 98.4 F 70 17 123/78 97 03/22/18 05:00 03/22/18 05:00 03/22/18 05:00 03/22/18 05:00 03/22/18 05:00 GENERAL APPEARANCE: Well developed, well nourished, alert and cooperative, and appears to be in no acute distress. HEENT: normocephalic, atraumatic PERRL, EOMI. Vision is grossly intact NECK: Neck supple, non-tender without lymphadenopathy, masses or thyromegaly. CARDIAC: Normal S1 and S2. No S3, S4 or murmurs. Rhythm is regular. LUNGS: Clear to auscultation and percussion without rales, rhonchi, wheezing or diminished breath sounds. ABDOMEN: Positive bowel sounds. Soft, nondistended, nontender. No guarding or rebound. No masses. BACK: Examination of the spine reveals no spinal deformity, symmetry of spinal muscles, EXTREMITIES: No significant deformity or joint abnormality. tenderness bilaterally NEUROLOGICAL: Strength and sensation symmetric and intact throughout. Reflexes 2 + throughout. SKIN: Skin normal color, texture and turgor with no lesions or eruptions. PSYCHIATRIC: The patient was oriented to person, place, and time. Normal affect. - Medications Medications: Current Medications Acetaminophen (Tylenol 325mg Tab) 650 mg PO Q6 PRN PRN Reason: Pain, Mild (1-3) Atorvastatin Calcium (Lipitor) 20 mg PO HS [facility] Last Admin: 03/21/18 21:27 Dose: 20 mg Carvedilol (Coreg) 25 mg PO Q12H [facility] Last Admin: 03/22/18 01:25 Dose: 25 mg Ergocalciferol (Drisdol 50,000 Intl Units Cap) 1 cap PO [facility] Furosemide (Lasix) 40 mg PO DAILY [facility] Glipizide (Glucotrol) 10 mg PO BID [facility] Last Admin: 03/21/18 16:57 Dose: 10 mg Hydrochlorothiazide (Hydrodiuril) 25 mg PO DAILY [facility] Last Admin: 03/21/18 09:52 Dose: 25 mg Insulin Human Lispro (Humalog) 0 units SC ACCU-CHECK [facility] PRN Reason: Protocol Last Admin: 03/22/18 06:36 Dose: Not Given Levothyroxine Sodium (Synthroid) 75 mcg PO DAILY@0630 [facility] Last Admin: 03/22/18 06:35 Dose: 75 mcg Losartan Potassium (Cozaar) 100 mg PO DAILY [facility] Last Admin: 03/21/18 09:53 Dose: 100 mg Metformin HCl (Glucophage) 500 mg PO TID [facility] Last Admin: 03/21/18 17:34 Dose: Not Given Oxycodone/Acetaminophen (Percocet 5/325 Mg Tab) 1 tab PO Q6H PRN PRN Reason: Pain, severe (8-10) Repaglinide (Prandin) 4 mg PO TID [facility] Last Admin: 03/21/18 16:56 Dose: 4 mg Fluticasone/Salmeterol (Advair Diskus 250/50) 1 puff IH Q12H [facility] Last Admin: 03/22/18 01:25 Dose: 1 puff Sertraline HCl (Zoloft) 100 mg PO DAILY@1700 [facility] Last Admin: 03/21/18 16:57 Dose: 100 mg Silver Sulfadiazine (Silvadene 1% 50 Gm) 1 applic TOP DAILY [facility] Last Admin: 03/21/18 11:59 Dose: 1 applic Sitagliptin Phosphate (Januvia) 100 mg PO DAILY [facility] Last Admin: 03/21/18 09:29 Dose: 100 mg - Labs Labs: 03/22/18 07:00 PT 52.0 Seconds (9.8-13.1) H* 03/21/18 05:27 INR 4.5 (0.9-1.2) H 03/21/18 05:27 APTT 36.2 Seconds (25.6-37.1) 03/21/18 05:27 Assessment and Plan - Assessment and Plan (Free Text) Plan: 72 yo female with a past medical history of morbid obesity, atrial fibrillation anticoagulated on Coumadin, Essential hypertension, hypercholesterolemia, former smoker, hypothyroidism, who presents to the ED complaining of frequent falls and generalized weakness over the past week, now being admitted for generalized weakness with frequent falls, significant hyperglycemia, and for cardiac evaluation for CHF. 1) Generalized weakness with falls - possibly due to worsening CHF and deconditioning - patient felt unsafe for discharge home due to weakness and falls while being anticoagulated on coumadin - No evidence of fracture or acute abnormalities on imaging - Admit to telemetry - PT/OT eval and treat. recommending [facility] vs. TCU at this time. 2) Severe cardiomegaly, chronic, with pulmonary venous congestion, acute, on CXR - Cardiology consultation with Dr. Cruz - Echocardiogram - Lasix 40 mg IVP daily - SWITCH to PO tomorrow Correct Hypo K and Hypo Mg - I's and O's 3) Atrial fibrillation, chronic with supratherapeutic INR - continue Coreg for rate control - Hold Coumadin for now - recheck INR in AM - 3.5 today - may need to adjust home dosage 4) Uncontrolled diabetes mellitus with acute hyperglycemia - Endocrinology consultation with Dr. Cox - Lispro sliding scale with Accucheks AC+HS - Metformin 500 mg po TID -- JANUVIA ADDED - Glucotrol 5 mg po BID - HGA1C - Lipid profile - consistent carbohydrate diet 5) Essential hypertension, chronic, appears controlled - Continue ARB, HCTZ - HOLD HCTZ WHILE ESTABLISHING EUVOLEMIA - Continue Coreg 6) Stage IV sacral decubitus ulcer - Collections Professional consult - Wound care consult - Silvadene - Wound dressings as per wound care 7) Leukocytosis, mild - No fever or other evidence of acute infection - check urinalysis 8) Hypothyroidism - Continue Synthroid 9) History of asthma/former smoker - Continue Pulmicort - Respiratory status appears to be at baseline 10) DVT prophylaxis - Supratherapeutic on Coumadin
[2018-03-22 07:36] LABS: INR 3.5 (0.9-1.2); PARTIAL THROMBOPLASTIN TIME 37.5 Seconds (25.6-37.1); PROTHROMBIN TIME 39.7 Seconds (9.8-13.1)
[2018-03-22 07:37] LABS: ALB/GLOB RATIO 0.9 (1.0-2.1); ALBUMIN 2.9 g/dL (3.5-5.0); ALT/SGPT 36 U/L (9-52); AST/SGOT 36 U/L (14-36); BLOOD UREA NITROGEN 25 mg/dl (7-17); CALCIUM 8.7 mg/dL (8.4-10.2); GFR AFRICAN-AMERICAN > 60; GFR NON-AFRICAN AMERICAN > 60
[2018-03-22] MEDS: Silver Sulfadiazine 1% CREAM (50 gm) TOP SCH (09:17)
--- NOTE | 2018-03-22 11:37 | PN ---
DATE: 03/22/2018 ENDO FOLLOWUP NOTE LOCATION: Room 406, bed 2. SUBJECTIVE: This is a 72-year-old female with recent uncontrolled type 2 insulin-requiring diabetes presenting here with congestive heart failure and underlying dilated cardiomyopathy with concomitant moderate pulmonary hypertension and is being followed closely by cardiology and also for the metabolic view point for further improvement of her metabolic control. Her glycemic levels are fluctuating, but much improved overnight with glucose levels ranging from 101 mg/dL to 130 mg/dL. Her bedtime glucose was 117 mg/dL. Her latest chemistries today showed BUN of 25, sodium of 140, potassium of 3.9, chloride of 102, CO2 of 28, glucose of 141, and creatinine of 0.6. So at this time, we will continue the triple oral hypoglycemic drug therapy as given with Januvia given as 100 mg daily in the morning as ordered. We will continue the metformin given as 500 mg p.o. 3 times a day after meals as ordered. We will also continue the glipizide given as 10 mg 2 times a day before breakfast and dinner as ordered. We will obtain serial chemistries and supplement accordingly as needed. We will follow. Umm Cox MD
[2018-03-22] MEDS: Oxycodone/Acetaminophen 5/325 mg Tab PO PRN (17:37)
[2018-03-23] MEDS: Fluticasone-Salmeterol 250-50mcg Diskus IH SCH ×3 (01:03→13:09)
[2018-03-23] MEDS: Levothyroxine 75 MCG TAB PO SCH (05:32)
[2018-03-23 05:35] LABS: HEMOGLOBIN 12.9 g/dL (12.0-16.0); MEAN CELL VOLUME 87.2 fl (81.0-99.0); MEAN CORPUSCULAR HEMOGLOBIN 28.7 pg (27.0-31.0); MEAN CORPUSCULAR HGB CONC 32.9 g/dL (33.0-37.0); RBC 4.5 Mil/uL (3.80-5.20); RED CELL DISTRIBUTION WIDTH 13.7 % (11.5-14.5); WHITE BLOOD COUNT 10.8 K/uL (4.8-10.8)
[2018-03-23 05:46] LABS: INR 2.6 (0.9-1.2); PARTIAL THROMBOPLASTIN TIME 27.8 Seconds (25.6-37.1); PROTHROMBIN TIME 29.1 Seconds (9.8-13.1)
[2018-03-23 05:52] LABS: B-TYPE NATRIURETIC PEPTIDE 473 pg/ml (0-900)
[2018-03-23 06:10] LABS: ALB/GLOB RATIO 0.9 (1.0-2.1); ALT/SGPT 27 U/L (9-52); AST/SGOT 33 U/L (14-36); BLOOD UREA NITROGEN 28 mg/dl (7-17); CALCIUM 8.8 mg/dL (8.4-10.2); GFR AFRICAN-AMERICAN > 60; GFR NON-AFRICAN AMERICAN > 60
[2018-03-23] MEDS: Insulin Lispro (humaLOG) 100 Units/ml Inj SC SCH ×4 (06:33→23:00)
--- NOTE | 2018-03-23 09:04 | CP.PCM.PN ---
Subjective - Date & Time of Evaluation Date of Evaluation: 03/23/18 Time of Evaluation: 08:30 - Subjective Subjective: Pt has no fever complains of being unable to ambulate bec of LE pain denies CP no SOB no abd pain INR 2.5 today no bleeding Pt lives with son - has 4 hours/day 2x /week home health aide. Objective - Vital Signs/Intake and Output Vital Signs (last 24 hours): Temp Pulse Resp BP Pulse Ox 97.8 F 83 18 113/68 96 03/23/18 08:04 03/23/18 08:04 03/23/18 08:04 03/23/18 08:04 03/23/18 08:04 - Medications Medications: Current Medications Acetaminophen (Tylenol 325mg Tab) 650 mg PO Q6 PRN PRN Reason: Pain, Mild (1-3) Last Admin: 03/22/18 09:38 Dose: 650 mg Atorvastatin Calcium (Lipitor) 20 mg PO [facility] Last Admin: 03/22/18 21:55 Dose: 20 mg Carvedilol (Coreg) 25 mg PO Q12H [facility] Last Admin: 03/23/18 01:03 Dose: 25 mg Ergocalciferol (Drisdol 50,000 Intl Units Cap) 1 cap PO [facility] Furosemide (Lasix) 40 mg PO DAILY [facility] Last Admin: 03/22/18 09:17 Dose: 40 mg Glipizide (Glucotrol) 10 mg PO BID [facility] Last Admin: 03/22/18 17:37 Dose: 10 mg Hydrochlorothiazide (Hydrodiuril) 25 mg PO DAILY [facility] Last Admin: 03/21/18 09:52 Dose: 25 mg Insulin Human Lispro (Humalog) 0 units SC ACCU-CHECK [facility] PRN Reason: Protocol Last Admin: 03/23/18 06:33 Dose: Not Given Levothyroxine Sodium (Synthroid) 75 mcg PO DAILY@0630 [facility] Last Admin: 03/23/18 05:32 Dose: 75 mcg Losartan Potassium (Cozaar) 100 mg PO DAILY [facility] Last Admin: 03/22/18 09:16 Dose: 100 mg Metformin HCl (Glucophage) 500 mg PO TID [facility] Last Admin: 03/22/18 17:36 Dose: 500 mg Oxycodone/Acetaminophen (Percocet 5/325 Mg Tab) 1 tab PO Q6H PRN PRN Reason: Pain, severe (8-10) Last Admin: 03/22/18 17:37 Dose: 1 tab Repaglinide (Prandin) 4 mg PO TID [facility] Last Admin: 03/22/18 17:37 Dose: 4 mg Fluticasone/Salmeterol (Advair Diskus 250/50) 1 puff IH Q12H [facility] Last Admin: 03/23/18 01:03 Dose: 1 puff Sertraline HCl (Zoloft) 100 mg PO DAILY@1700 [facility] Last Admin: 03/22/18 17:39 Dose: 100 mg Silver Sulfadiazine (Silvadene 1% 50 Gm) 1 applic TOP DAILY [facility] Last Admin: 03/22/18 09:17 Dose: 1 applic Sitagliptin Phosphate (Januvia) 100 mg PO DAILY [facility] Last Admin: 03/22/18 09:16 Dose: 100 mg Warfarin Sodium (Coumadin) 3 mg PO QD5 [facility] PRN Reason: Protocol Stop: 03/23/18 17:01 - Labs Labs: 03/23/18 04:20 03/23/18 04:20 PT 29.1 Seconds (9.8-13.1) H D 03/23/18 04:20 INR 2.6 (0.9-1.2) H D 03/23/18 04:20 APTT 27.8 Seconds (25.6-37.1) D 03/23/18 04:20 - Constitutional Appears: Unkempt, Chronically Ill - Head Exam Head Exam: NORMAL INSPECTION, NORMOCEPHALIC - Eye Exam Eye Exam: EOMI, Normal appearance Pupil Exam: NORMAL ACCOMODATION - ENT Exam ENT Exam: Mucous Membranes Moist, Normal External Ear Exam - Neck Exam Neck Exam: Full ROM. absent: Meningismus - Respiratory Exam Respiratory Exam: Rales, Rhonchi, NORMAL BREATHING PATTERN. absent: Wheezes, Respiratory Distress - Cardiovascular Exam Cardiovascular Exam: Irregular Rhythm, +S1, +S2 - GI/Abdominal Exam GI & Abdominal Exam: Soft, Normal Bowel Sounds. absent: Tenderness - Extremities Exam Extremities Exam: Calf Tenderness, Pedal Edema. absent: Full ROM (pain on ROM of bilat LE), Joint Swelling Additional comments: chronic stasis dermatitis skin changes on both LE - Back Exam Back Exam: absent: CVA tenderness (L), CVA tenderness (R) - Neurological Exam Neurological Exam: Alert, Awake, CN II-XII Intact, Oriented x3 Neuro motor strength exam: Left Upper Extremity: 5, Right Upper Extremity: 5, Left Lower Extremity: 4, Right Lower Extremity: 4 - Psychiatric Exam Psychiatric exam: Normal Affect, Normal Mood - Skin Skin Exam: Dry, Normal Color, Warm Assessment and Plan - Assessment and Plan (Free Text) Assessment: 72 yo female with a past medical history of morbid obesity, atrial fibrillation anticoagulated on Coumadin, Essential hypertension, hypercholesterolemia, smoker, hypothyroidism, who presented to the ED complaining of generalized weakness over the past week. . She states that her weakness has gotten to the point where she is finding it difficult to stand or ambulate even with her walker. She c/o of fall earlier this week with an injury to her right hip. At that time she went to [facility] and has workup including hip X ray which was negative for fracture. In the ED today, she was found to be significantly hyperglycemic with blood glucose of 422. She is also noted to have a supratherapeutic INR of 4.1 and noted to have severe cardiomegaly on Chest X ray. 1) Generalized weakness s/p Fall / Severe Deconditioning - patient unsafe for discharge home due to weakness and falls while being anticoagulated on coumadin - No evidence of fracture or acute abnormalities on imaging -CT of the Hip - PT/OT eval and treat. recommending [facility] 2) CHF , acute exacerbation, on chronic systolic and diastolic dysfunction - Cardiology consultation with Dr. Cruz - Echocardiogram: EF 35-40% , noederate hypokinesia, mod MR, mild to mod Pulm HTN - Lasix 40 mg IVP daily - switched to PO - cont Losartan, decrease Coreg to 6.25 as BP low normal 3) Atrial fibrillation, chronic with supratherapeutic INR - continue Coreg for rate control - Pt was on Coumadin 7 mg daily at home - Coumadin was held - will restart lower dose today - 3mg daily - recheck INR in AM - may need to adjust home dosage 4) Uncontrolled diabetes mellitus with acute hyperglycemia - Endocrinology consultation with Dr. Cox - Lispro sliding scale with Accucheks AC+HS - cont Metformin, Januvia and Glucotrol - consistent carbohydrate diet 5) Essential hypertension, chronic - Continue Losartan - Continue Coreg 6. Sacral Decubitus Ulcer ( POA) tow driver consult Physical therapy 8) Hypothyroidism - Continue Synthroid 9) History of asthma/smoker - Continue Pulmicort - Respiratory status appears to be at baseline 10) DVT prophylaxis - on Coumadin
[2018-03-23] MEDS: Oxycodone/Acetaminophen 5/325 mg Tab PO PRN (09:09)
[2018-03-23] MEDS: Silver Sulfadiazine 1% CREAM (50 gm) TOP SCH (09:12)
--- NOTE | 2018-03-23 10:54 | PQF GENQUE ---
Dr. Noonan, 1.. Please specify locations) of pressure ulcer(s) : Body site(s) involved Laterality (bilateral, left, right) Other (please specify) Clinically unable to determine Unknown 2. Please specify POA status of each pressure ulcer: Not present on admission Present on admission Other (please specify) Clinically unable to determine Unknown 3. Please specify stage of each pressure ulcer (National Pressure Ulcer Advisory Panel definitions): Stage I: Intact skin with non-blanchable redness of a localized area Stage II: Partial thickness skin loss involving dermis with a shallow open ulcer or an open serum-filled blister Stage III: Full thickness skin loss involving damage or necrosis of subcutaneous tissue Stage IV: Full thickness skin loss with exposed bone, tendon or muscle Unstageable: Full thickness tissue loss in which the base of the of ulcer is covered by slough and/or eschar in the wound bed Deep tissue Injury (DTI):Purple or maroon localized area of intact skin due to damage of underlying soft tissue from pressure and/or shear Other (please specify) Clinically unable to determine Unknown 4. If ulcer is not due to pressure, please specify other cause of ulcer (e.g., diabetes, PVD, varicose veins) H and P: Stage IV sacral decubitus ulcer - Cnc Lathe Machine Operator consult - Wound care consult - Silvadene - Wound dressings as per wound care --- Addendum: Patient has sacral pressure sore Stage 2 rather than Stage 4 as previously documented 03/21 and 03/22 - Attending progress notes: Stage IV sacral decubitus ulcer 03/20 @17:44Staff Nurse: Pressure Ulcer:POA: Yes: Sacrum :Decubitus: redness with blisters 03/20@21:00 assistant warehouse manager: Pressure Ulcer Assessment:Medial Buttocks:intact skin with non-blanchable redness of a localized area 03/22 : Wound RN notes :Patient OOB in chair and visiting with family. Too weak to stand at this time. Will revisit. and 03/23: patient leaving floor for test. Will continue to follow. This form is a permanent part of the medical record Clarification of your documentation is requested to better reflect the severity of illness and intensity of treatment of your patient. Indicators present [] Specify: [] [] Specify: [] [] Specify: [] [] Specify: [] Location in the medical record that reflects the above clinical findings: [] Treatment Provided: [] PHYSICIAN'S RESPONSE Stage II Sacral Decubitus Ulcer present on admission Based on your medical judgment of the clinical indicators outlined above please clarify the following: [] Practitioner response [] If unable to determine, please check the box, sign and date. Present On Admission (POA) Indicator: [] Present at the time of admission [] Not present at the time of admission [] Clinically Undetermined In responding to this query, please exercise your independent professional judgment. The fact that a question is asked does not imply that any particular answer is desired or expected. Thank you for your clarification on this documentation. If you have any questions please call. * Thank you, Lyla Thomas RN ext. #[phone] MTDD
--- NOTE | 2018-03-23 11:14 | PQF GENQUE ---
Dr. Noonan, Please specify the type and acuity of heart failure in your progress notes: if known 1. TYPE: Combined systolic and diastolic Heart failure with reduced ejection fraction and diastolic dysfunction Diastolic HFpEF Systolic HFrEF Left heart failure Right heart failure Right heart failure due to left heart failure High Output failure End stage heart failure Other (please specify) Clinically unable to determine Unknown 2. ACUITY: Acute Chronic Acute on chronic Other (please specify) Clinically unable to determine Unknown 03/20: ProBNP:1180 H and P: presents to the ED complaining of frequent falls and generalized weakness over the past week, now being admitted for generalized weakness with frequent falls, significant hyperglycemia, and for cardiac evaluation for CHF. Diagnoses include: 1) Generalized weakness with falls - possibly due to worsening CHF and deconditioning - pt. felt unsafe for discharge home due to weakness and falls while being anticoagulated on coumadin - No evidence of fracture or acute abnormalities on imaging - Admit to tele- PT/OT eval and treat 2) Severe cardiomegaly, chronic, with pulm venous congestion, acute, on CXR - Cardio consult- Echo - Lasix 40 mg IVP daily - I's and O's Lasix IVP stat-> then daily->40mg PO Daily Cardiology consult pending This form is a permanent part of the medical record Clarification of your documentation is requested to better reflect the severity of illness and intensity of treatment of your patient. Indicators present [] Specify: [] [] Specify: [] [] Specify: [] [] Specify: [] Location in the medical record that reflects the above clinical findings: [] Treatment Provided: [] PHYSICIAN'S RESPONSE Acute exacerbation on Chronic CHF , systolic and diastolic dysfunction Based on your medical judgment of the clinical indicators outlined above please clarify the following: [] Practitioner response [] If unable to determine, please check the box, sign and date. Present On Admission (POA) Indicator: [] Present at the time of admission [] Not present at the time of admission [] Clinically Undetermined In responding to this query, please exercise your independent professional judgment. The fact that a question is asked does not imply that any particular answer is desired or expected. Thank you for your clarification on this documentation. If you have any questions please call. * Thank you, Lyla Thomas RN ext. #[phone] MTDD
--- NOTE | 2018-03-23 11:40 | US ---
PROCEDURE: Bilateral lower extremity venous duplex Doppler. HISTORY: r/o DVT COMPARISON: Left lower extremity Doppler from 11/13/2017 and right lower extremity Doppler from 08/09/2017. TECHNIQUE: Bilateral common femoral, superficial femoral, popliteal and posterior tibial veins were evaluated. Flow was assessed with color Doppler, compressibility, assessment of phasic flow and augmentation response. FINDINGS: COMMON FEMORAL VEIN: Right CFV: Unremarkable. Left CFV: Unremarkable. SUPERFICIAL FEMORAL VEIN: Right SFV: Unremarkable. Left SFV: Unremarkable. POPLITEAL VEIN: Right Popliteal: Unremarkable. Left Popliteal: Unremarkable. POSTERIOR TIBIAL VEIN: Right PTV: Unremarkable. Left PTV: Unremarkable. OTHER FINDINGS: There is subcutaneous edema in both ankle and left popliteal fossa. IMPRESSION: No evidence of deep venous thrombosis.
--- NOTE | 2018-03-23 16:08 | CT ---
PROCEDURE: CT scan of bilateral hips without contrast HISTORY: severe hip pain, hx of fall COMPARISON: Plain radiographs from 03/20/2020. TECHNIQUE: Contiguous axial images of the hip joints were obtained. Coronal and sagittal reformats were generated. This CT exam was performed using one or more of the following dose reduction techniques: Automated exposure control, adjustment of the mA and/or kV according to patient size, and/or use of iterative reconstruction technique. FINDINGS: BONES: There is no acute displaced fracture or bone destruction. Bone alignment is normal. There is diffuse bone demineralization. LEFT HIP JOINT: No dislocation. There is mild degenerative osteoarthrosis in the hip joints. There is also mild degenerative osteoarthrosis in the sacroiliac joints SOFT TISSUES: The periarticular muscles are normal. There is diffuse subcutaneous edema in the gluteal regions. IMPRESSION: No acute displaced fracture or dislocation. Please note if there is a persistent clinical concern, an MRI is recommended as a 8 is more sensitive for detecting nondisplaced occult fractures.
--- NOTE | 2018-03-23 21:50 | PN ---
DATE: 03/23/2018 ENDO FOLLOWUP NOTE LOCATION: In room 406. This is a 72-year-old female with recent uncontrolled type 2 diabetes presenting here with congestive heart failure and currently undergoing closer hemodynamic monitoring and cardiac management and is being followed closely also for metabolic management because of recent hyperglycemic accelerations as noted thereof. Her glucose levels are fluctuating, but improved and the glucose levels have ranged from 145-156 and 188 mg/dL. Her latest chemistry showed a BUN of 28, sodium 141, potassium 4.2, chloride 100, CO2 30, glucose 183 and creatinine 0.7. The patient is really at this time benefit from basal insulin given overnight but because of her complicated medical history and presenting symptoms of congestive heart failure, we will try to hold off the initiation of insulin therapy, especially in the light of underlying morbid obesity with supervening heart failure and insulin ____ further polyphagia and water retention and so at this point in time, although her numbers are still fluctuating, but have improved on oral hypoglycemic therapy, we will hold off the initiation of basal insulin for now. The plan of care was explained to the patient regarding the upper mentioned also. We will continue the triple oral hypoglycemic drug therapy as given with Januvia at 100 mg once daily and metformin at 500 mg t.i.d. with glipizide at 10 mg b.i.d. as ordered. We will continue also the levothyroxine given as 75 mcg daily as she remains clinically and biochemically euthyroid at this time. We will obtain serial chemistries and supplement accordingly needed. We will follow. Umm Cxo MD
[2018-03-24] MEDS: Fluticasone-Salmeterol 250-50mcg Diskus IH SCH ×2 (00:45→14:38)
[2018-03-24] MEDS: Levothyroxine 75 MCG TAB PO SCH (05:49)
[2018-03-24 06:48] LABS: BASO % 0.4 % (0.0-2.0); EOS # 0.2 K/uL (0.0-0.7); EOS % 1.8 % (0.0-4.0); LYMPH # 1.9 K/uL (1.0-4.3); MEAN CELL VOLUME 87.4 fl (81.0-99.0); MEAN CORPUSCULAR HEMOGLOBIN 29.1 pg (27.0-31.0); MEAN CORPUSCULAR HGB CONC 33.3 g/dL (33.0-37.0); MEAN PLATELET VOLUME 9.7 fl (7.2-11.7); MONO # 0.6 K/uL (0.0-0.8); MONO % 5.4 % (0.0-10.0); NEUT % 74.4 % (50.0-75.0); NRBC % 0.1 % (0.0-0.0); RBC 4.47 Mil/uL (3.80-5.20); RED CELL DISTRIBUTION WIDTH 13.3 % (11.5-14.5); WHITE BLOOD COUNT 10.7 K/uL (4.8-10.8)
[2018-03-24] MEDS: Insulin Lispro (humaLOG) 100 Units/ml Inj SC SCH ×2 (06:55→13:22)
[2018-03-24 07:04] LABS: BLOOD UREA NITROGEN 25 mg/dl (7-17); CALCIUM 9.3 mg/dL (8.4-10.2); GFR AFRICAN-AMERICAN > 60; GFR NON-AFRICAN AMERICAN > 60
--- NOTE | 2018-03-24 08:39 | CP.PCM.DIS ---
Provider - Provider Date of Admission: 03/20/18 11:28 Attending physician: Gabriel Shin DO Consults: 03/20/18 12:59 Wound Care [Nursing Referral for Wound Care] Routine Comment: Physician Instructions: Reason For Exam: sacral pressure sore Time Spent in preparation of Discharge (in minutes): 30 Diagnosis - Discharge Diagnosis (1) Supratherapeutic INR Status: Acute Hospital Course - Lab Results Lab Results: Most Recent Lab Values WBC 10.7 K/uL (4.8-10.8) 03/24/18 05:55 RBC 4.47 Mil/uL (3.80-5.20) 03/24/18 05:55 Hgb 13.0 g/dL (12.0-16.0) 03/24/18 05:55 Hct 39.0 % (34.0-47.0) 03/24/18 05:55 MCV 87.4 fl (81.0-99.0) 03/24/18 05:55 MCH 29.1 pg (27.0-31.0) 03/24/18 05:55 MCHC 33.3 g/dL (33.0-37.0) 03/24/18 05:55 RDW 13.3 % (11.5-14.5) 03/24/18 05:55 Plt Count 206 K/uL (130-400) 03/24/18 05:55 MPV 9.7 fl (7.2-11.7) 03/24/18 05:55 Neut % (Auto) 74.4 % (50.0-75.0) 03/24/18 05:55 Lymph % (Auto) 18.0 % (20.0-40.0) L 03/24/18 05:55 Long % (Auto) 5.4 % (0.0-10.0) 03/24/18 05:55 Eos % (Auto) 1.8 % (0.0-4.0) 03/24/18 05:55 Baso % (Auto) 0.4 % (0.0-2.0) 03/24/18 05:55 Neut # (Auto) 8.0 K/uL (1.8-7.0) H 03/24/18 05:55 Lymph # (Auto) 1.9 K/uL (1.0-4.3) 03/24/18 05:55 Long # (Auto) 0.6 K/uL (0.0-0.8) 03/24/18 05:55 Eos # (Auto) 0.2 K/uL (0.0-0.7) 03/24/18 05:55 Baso # (Auto) 0.0 K/uL (0.0-0.2) 03/24/18 05:55 Neutrophils % (Manual) 87 % (42-75) H 03/20/18 08:50 Lymphocytes % (Manual) 9 % (20-50) L 03/20/18 08:50 Monocytes % (Manual) 4 % (0-10) 03/20/18 08:50 Platelet Estimate Normal (NORMAL) 03/20/18 08:50 RBC Morphology Normal (NORMAL) 03/20/18 08:50 PT 29.1 Seconds (9.8-13.1) H D 03/23/18 04:20 INR 2.6 (0.9-1.2) H D 03/23/18 04:20 APTT 27.8 Seconds (25.6-37.1) D 03/23/18 04:20 Sodium 141 mmol/l (132-148) 03/24/18 05:55 Potassium 4.0 MMOL/L (3.6-5.0) 03/24/18 05:55 Chloride 99 mmol/L (98-107) 03/24/18 05:55 Carbon Dioxide 34 mmol/L (22-30) H 03/24/18 05:55 Anion Gap 12 (10-20) 03/24/18 05:55 BUN 25 mg/dl (7-17) H 03/24/18 05:55 Creatinine 0.6 mg/dl (0.7-1.2) L 03/24/18 05:55 Est GFR ( Amer) > 60 03/24/18 05:55 Est GFR (Non-Af Amer) > 60 03/24/18 05:55 POC Glucose (mg/dL) 133 mg/dL (65-110) H 03/24/18 05:24 Random Glucose 142 mg/dL (65-105) H 03/24/18 05:55 Hemoglobin A1c 10.0 % (4.2-6.5) H 03/21/18 05:27 Calcium 9.3 mg/dL (8.4-10.2) 03/24/18 05:55 Magnesium 2.0 MG/DL (1.6-2.3) 03/22/18 07:00 Total Bilirubin 0.5 mg/dl (0.2-1.3) 03/23/18 04:20 AST 33 U/L (14-36) 03/23/18 04:20 ALT 27 U/L (9-52) 03/23/18 04:20 Alkaline Phosphatase 82 U/L (38-126) 03/23/18 04:20 NT-Pro-B Natriuret Pep 473 pg/ml (0-900) 03/23/18 04:20 Total Protein 6.4 G/DL (6.3-8.2) 03/23/18 04:20 Albumin 3.0 g/dL (3.5-5.0) L 03/23/18 04:20 Globulin 3.4 gm/dL (2.2-3.9) 03/23/18 04:20 Albumin/Globulin Ratio 0.9 (1.0-2.1) L 03/23/18 04:20 Triglycerides 143 mg/DL (0-149) 03/21/18 05:27 Cholesterol 141 mg/dL (0-199) 03/21/18 05:27 LDL Cholesterol Direct 80 mg/dL (0-129) 03/21/18 05:27 HDL Cholesterol 25 MG/DL (30-70) L 03/21/18 05:27 TSH 3rd Generation 2.78 mIU/ML (0.46-4.68) 03/21/18 05:27 Cortisol AM Sample 13.5 ug/dL (4.46-22.7) 03/22/18 07:00 Urine Color Yellow (YELLOW) 03/20/18 19:11 Urine Clarity Clear (Clear) 03/20/18 19:11 Urine pH 6.0 (5.0-8.0) 03/20/18 19:11 Ur Specific [place] 1.008 (1.003-1.030) 03/20/18 19:11 Urine Protein 100 mg/dL (NEGATIVE) 03/20/18 19:11 Urine Glucose (UA) >=500 mg/dL (Normal) 03/20/18 19:11 Urine Ketones Negative mg/dL (NEGATIVE) 03/20/18 19:11 Urine Blood Large (NEGATIVE) 03/20/18 19:11 Urine Nitrate Negative (NEGATIVE) 03/20/18 19:11 Urine Bilirubin Negative (NEGATIVE) 03/20/18 19:11 Urine Urobilinogen 0.2-1.0 mg/dL (0.2-1.0) 03/20/18 19:11 Ur Leukocyte Esterase Neg [place]le/uL (Negative) 03/20/18 19:11 Urine RBC (Auto) 11 /hpf (0-3) H 03/20/18 19:11 Urine Microscopic WBC 1 /hpf (0-5) 03/20/18 19:11 Ur Squamous Epith Cells < 1 /hpf (0-5) 03/20/18 19:11 Urine Bacteria Rare (<OCC) 03/20/18 19:11 - Hospital Course Hospital Course: 72 yo female with a past medical history of morbid obesity, atrial fibrillation anticoagulated on Coumadin, Essential hypertension, hypercholesterolemia, smoker, hypothyroidism, who presented to the ED complaining of generalized weakness over the past week. . She states that her weakness has gotten to the point where she is finding it difficult to stand or ambulate even with her walker. She c/o of fall earlier this week with an injury to her right hip. At that time she went to [facility] and has workup including hip X ray which was negative for fracture. In the ED today, she was found to be significantly hyperglycemic with blood glucose of 422. She is also noted to have a supratherapeutic INR of 4.1 and noted to have severe cardiomegaly on Chest X ray. Patient did well, dyspnea, failure resolved. Cardiology consult appreciated by Dr. Conde. INR 1.9, will resume at Warfarin 3 mg, changed from home dose 7 mg. Patient stable for discharge to [facility] for further PT needs. 1) Generalized weakness s/p Fall / Severe Deconditioning - patient unsafe for discharge home due to weakness and falls while being anticoagulated on coumadin - No evidence of fracture or acute abnormalities on imaging - CT of the Hip, no fx - PT/OT eval and treat. recommending [facility] 2) CHF , acute exacerbation, on chronic systolic and diastolic dysfunction - Cardiology consultation with Dr. Cruz - Echocardiogram: EF 35-40% , noederate hypokinesia, mod MR, mild to mod Pulm HTN - Lasix 40 mg IVP daily - switched to PO - cont Losartan, decrease Coreg to 6.25 as BP low normal 3) Atrial fibrillation, chronic with supratherapeutic INR - continue Coreg for rate control - Pt was on Coumadin 7 mg daily at home - Coumadin was held - will restart lower dose today - 3mg daily - recheck INR in AM - may need to adjust home dosage 4) Uncontrolled diabetes mellitus with acute hyperglycemia - Endocrinology consultation with Dr. Cox - Lispro sliding scale with Accucheks AC+HS - cont Metformin, Januvia and Glucotrol - consistent carbohydrate diet 5) Essential hypertension, chronic - Continue Losartan - Continue Coreg 6. Sacral Decubitus Ulcer ( POA) diet tech consult Physical therapy 8) Hypothyroidism - Continue Synthroid 9) History of asthma/smoker - Continue Pulmicort - Respiratory status appears to be at baseline 10) DVT prophylaxis - on Coumadin Discharge Exam - Head Exam Head Exam: NORMAL INSPECTION, NORMOCEPHALIC - Eye Exam Eye Exam: EOMI, Normal appearance, PERRL Pupil Exam: NORMAL ACCOMODATION - ENT Exam ENT Exam: Mucous Membranes Moist, Normal Oropharynx - Neck Exam Neck exam: Normal Inspection - Respiratory Exam Respiratory Exam: Clear to PA & Lateral, NORMAL BREATHING PATTERN - Cardiovascular Exam Cardiovascular Exam: RRR, +S1, +S2 - GI/Abdominal Exam GI & Abdominal Exam: Normal Bowel Sounds, Soft, Unremarkable. absent: Guarding , Mass, Tenderness - Extremities Exam Extremities exam: normal capillary refill, pedal pulses present - Back Exam Back exam: absent: CVA tenderness (L), CVA tenderness (R) - Neurological Exam Neurological exam: Alert, Oriented x3 - Psychiatric Exam Psychiatric exam: Normal Affect, Normal Mood - Skin Skin Exam: Dry, Warm Discharge Plan - Follow Up Plan Condition: FAIR Disposition: TRANSF TO SNF Instructions: Heart Failure (DC), Heart Failure (GEN), Pacemaker (DC), Pacemaker (GEN), Pulmonary Edema (DC), Pulmonary Edema (GEN), Ascites (DC), Ascites (GEN)
--- NOTE | 2018-03-24 08:41 | CP.PCM.CON ---
History of Present Illness - History of Present Illness History of Present Illness: I was asked to see patient by Dr Garza Patient's knuckler is Dr Brewer. She ahs a history of atrial fibrillation mainatiend on coumadin. She reprots weakness and leg fatigue. The patient states symptoms are progressively worse. She denies chest pain or dyspnea Review of Systems - Constitutional Constitutional: Weakness - EENT Eyes: absent: As Per HPI, Blind Spots, Blurred Vision, Change in Vision, Decreased Night Vision, Diplopia, Discharge, Dry Eye, Exophthalmos, Floaters, Irritation, Itchy Eyes, Loss of Peripheral Vision, Pain, Photophobia, Requires Corrective Lenses, Sees Flashes, Spots in Vision, Tunnel Vision, Other Visual Disturbances, Loss of Vision, Other Ears: absent: As Per HPI, Decreased Hearing, Ear Discharge, Ear Pain, Tinnitus, Abnormal Hearing, Disequilibrium, Dizziness, Other Nose/Mouth/Throat: absent: As Per HPI, Epistaxis, Nasal Congestion, Nasal Discharge, Nasal Obstruction, Nasal Trauma, Nose Pain, Post Nasal Drip, Sinus Pain, Sinus Pressure, Bleeding Gums, Change in Voice, Dental Pain, Dry Mouth, Dysphagia, Halitosis, Hoarsness, Lip Swelling, Mouth Lesions, Mouth Pain, Odynophagia, Sore Throat, Throat Swelling, Tongue Swelling, Facial Pain, Neck Pain, Neck Mass, Other - Cardiovascular Cardiovascular: absent: As Per HPI, Acrocyanosis, Chest Pain, Chest Pain at Rest , Chest Pain with Activity, Claudication, Diaphoresis, Dyspnea, Dyspnea on Exertion, Edema, Irregular Heart Rhythm, Pain Radiating to Arm/Neck/Jaw, Leg Edema, Leg Ulcers, Lightheadedness, Orthopnea, Palpitations, Paroxysmal Nocturnal Dyspnea, Pedal Edema, Radiating Pain, Rapid Heart Rate, Slow Heart Rate, Syncope, Other - Respiratory Respiratory: absent: As Per HPI, Cough, Dyspnea, Hemoptysis, Dyspnea on Exertion , Wheezing, Snoring, Stridor, Pain on Inspiration, Chest Congestion, Excessive Mucous Production, Change in Mucous Color, Pain with Coughing, Other - Gastrointestinal Gastrointestinal: absent: As Per HPI, Abdominal Pain, Belching, Bloating, Change in Bowel Habits, Change in Stool Character, Coffee Ground Emesis, Constipation, Cramping, Diarrhea, Dyspepsia, Dysphagia, Early Satiety, Excessive Flatus, Fecal Incontinence, Heartburn, Hematemesis, Hematochezia, Loose Stools, Melena, Nausea, Odynophagia, Temesmus, Vomiting, Other - Genitourinary Genitourinary: absent: As Per HPI, Change in Urinary Stream, Difficulty Urinating, Dysuria, Flank Pain, Hematuria, Pyuria, Nocturia, Urinary Incontinence, Urinary Frequency, Urinary Hesitance, Urinary Urgency, Voiding Freq/Small Amts, Freq UTI, Hx Renal/Bladder Calculi, Hx /Renal Surgery, Bladder Distension, Other - Musculoskeletal Musculoskeletal: absent: As Per HPI, Abnormal Gait, Arthralgias, Atrophy, Back Pain, Deformity, Joint Swelling, Limited Range of Motion, Loss of Height, Muscle Cramps, Muscle Weakness, Myalgias, Neck Pain, Numbness, Radiating Pain into Limb, Stiffness, Tingling, Other - Integumentary Integumentary: absent: As Per HPI, Acne, Alopecia, Bleeding Lesions, Change in Hair, Change in Nails, Change in Pigmentation, Changing Lesions, Dry Skin, Erythema, Furuncle, Hirsutism, Lesions, New Lesions, Non-Healing Lesions, Photosensitivity, Pruritus, Rash, Skin Pain, Skin Ulcer, Sores, Striae, Swelling , Unusual Bruising, Wounds, Jaundice, Other - Neurological Neurological: absent: As Per HPI, Abnormal Gait, Abnormal Hearing, Abnormal Movements, Abnormal Speech, Behavioral Changes, Burning Sensations, Confusion, Convulsions, Disequilibrium, Dizziness, Numbness, Focal Weakness, Frequent Falls , Headaches, Lack of Coordination, Loss of Vision, Memory Loss, Paresthesias, Radicular Pain, Restless Legs, Sensory Deficit, Syncope, Tingling, Tremor, Vertigo, Weakness, Other Visual Disturbances, Other - Psychiatric Psychiatric: absent: As Per HPI, Abnormal Sleep Pattern, Anhedonia, Anxiety, Auditory Hallucinations, Behavioral Changes, Change in Appetite, Change in Libido, Confusion, Depression, Difficulty Concentrating, Hallucinations, Homicidal Ideation, Hopelessness, Irritability, Memory Loss, Mood Swings, Panic Attacks, Paranoia, Suicidal Ideation, Visual Hallucinations, Tactile Hallucinations, Other - Endocrine Endocrine: absent: As Per HPI, Change in Body Appearance, Change in Libido, Cold Intolorance, Deepening of Voice, Excessive Sweating, Fatigue, Flushing, Heat Intolorance, Increase in Ring/Shoe/Hat Size, Palpitations, Polydipsia, Polyphagia, Polyuria, Other - Hematologic/Lymphatic Hematologic: absent: As Per HPI, Easy Bleeding, Easy Bruising, Lymphadenopathy, Other Past Patient History - Infectious Disease Hx of Infectious Diseases: None - Past Medical History & Family History Past Medical History?: Yes - Past Social History Smoking Status: Light Smoker < 10 Cigarettes Daily - CARDIAC Hx Hypercholesterolemia: Yes Hx Hypertension: Yes - PULMONARY Hx Respiratory Disorders: No - NEUROLOGICAL Hx Neurological Disorder: No - HEENT Hx HEENT Problems: Yes - RENAL Hx Chronic Kidney Disease: No - ENDOCRINE/METABOLIC Hx Diabetes Mellitus Type 2: Yes - HEMATOLOGICAL/ONCOLOGICAL Hx Human Immunodeficiency Virus (HIV): No - INTEGUMENTARY Hx Dermatological Problems: No - MUSCULOSKELETAL/RHEUMATOLOGICAL Hx Arthritis: Yes - GASTROINTESTINAL Hx Gastrointestinal Disorders: Yes Hx Colitis: Yes - GENITOURINARY/GYNECOLOGICAL Hx Genitourinary Disorders: No - PSYCHIATRIC Hx Substance Use: No - SURGICAL HISTORY Hx Cholecystectomy: Yes - ANESTHESIA Hx Anesthesia: Yes Hx Anesthesia Reactions: No Meds Home Medications: Home Medication List Medication Instructions Recorded Confirmed Type Carvedilol [Coreg] 6.25 mg PO Q12 tab 03/24/18 Rx Furosemide [Lasix] 40 mg PO DAILY tab 03/24/18 Rx Losartan [Cozaar] 100 mg PO DAILY tab 03/24/18 Rx SITagliptin [Januvia] 100 mg PO DAILY tab 03/24/18 Rx Warfarin Sodium [Jantoven] 5 mg PO QPM #0 03/24/18 03/20/18 Rx Allergies/Adverse Reactions: Allergies Allergy/AdvReac Type Severity Reaction Status Date / Time No Known Allergies Allergy Verified 08/09/17 15:30 - Medications Medications: Current Medications Acetaminophen (Tylenol 325mg Tab) 650 mg PO Q6 PRN PRN Reason: Pain, Mild (1-3) Last Admin: 03/22/18 09:38 Dose: 650 mg Atorvastatin Calcium (Lipitor) 20 mg PO HS DAVID Last Admin: 03/23/18 21:28 Dose: 20 mg Carvedilol (Coreg) 6.25 mg PO Q12 DAVID Last Admin: 03/23/18 21:28 Dose: 6.25 mg Ergocalciferol (Drisdol 50,000 Intl Units Cap) 1 cap PO WE [facility] Furosemide (Lasix) 40 mg PO DAILY [facility] Last Admin: 03/23/18 09:07 Dose: 40 mg Glipizide (Glucotrol) 10 mg PO BID [facility] Last Admin: 03/23/18 16:34 Dose: 10 mg Insulin Human Lispro (Humalog) 0 units SC ACCU-CHECK [facility] PRN Reason: Protocol Last Admin: 03/24/18 06:55 Dose: Not Given Levothyroxine Sodium (Synthroid) 75 mcg PO DAILY@0630 [facility] Last Admin: 03/24/18 05:49 Dose: 75 mcg Losartan Potassium (Cozaar) 100 mg PO DAILY [facility] Last Admin: 03/23/18 09:05 Dose: 100 mg Metformin HCl (Glucophage) 500 mg PO TID [facility] Last Admin: 03/23/18 16:34 Dose: 500 mg Oxycodone/Acetaminophen (Percocet 5/325 Mg Tab) 1 tab PO Q6H PRN PRN Reason: Pain, severe (8-10) Last Admin: 03/23/18 09:09 Dose: 1 tab Repaglinide (Prandin) 4 mg PO TID [facility] Last Admin: 03/23/18 16:35 Dose: 4 mg Fluticasone/Salmeterol (Advair Diskus 250/50) 1 puff IH Q12H [facility] Last Admin: 03/24/18 00:45 Dose: 1 puff Sertraline HCl (Zoloft) 100 mg PO DAILY@1700 [facility] Last Admin: 03/23/18 16:35 Dose: 100 mg Silver Sulfadiazine (Silvadene 1% 50 Gm) 1 applic TOP DAILY [facility] Last Admin: 03/23/18 09:12 Dose: 1 applic Sitagliptin Phosphate (Januvia) 100 mg PO DAILY [facility] Last Admin: 03/23/18 09:07 Dose: 100 mg Results - Vital Signs Recent Vital Signs: Last Vital Signs Temp 98.0 F 03/24/18 08:01 Pulse 76 03/24/18 08:01 Resp 18 03/24/18 08:01 BP 145/72 03/24/18 08:01 Pulse Ox 96 03/24/18 08:01 - Labs Result Diagrams: 03/24/18 05:55 03/24/18 05:55 Labs: Laboratory Results - last 24 hr 03/23/18 03/23/18 03/23/18 12:49 16:04 21:29 WBC RBC Hgb Hct MCV MCH MCHC RDW Plt Count MPV Neut % (Auto) Lymph % (Auto) [place] % (Auto) Eos % (Auto) Baso % (Auto) Neut # (Auto) Lymph # (Auto) [place] # (Auto) Eos # (Auto) Baso # (Auto) Sodium Potassium Chloride Carbon Dioxide Anion Gap BUN Creatinine Est GFR ( Amer) Est GFR (Non-Af Amer) POC Glucose (mg/dL) 188 H 155 H 100 Random Glucose Calcium 03/24/18 03/24/18 03/24/18 05:24 05:55 05:55 WBC 10.7 RBC 4.47 Hgb 13.0 Hct 39.0 MCV 87.4 MCH 29.1 MCHC 33.3 RDW 13.3 Plt Count 206 MPV 9.7 Neut % (Auto) 74.4 Lymph % (Auto) 18.0 L [place] % (Auto) 5.4 Eos % (Auto) 1.8 Baso % (Auto) 0.4 Neut # (Auto) 8.0 H Lymph # (Auto) 1.9 [place] # (Auto) 0.6 Eos # (Auto) 0.2 Baso # (Auto) 0.0 Sodium 141 Potassium 4.0 Chloride 99 Carbon Dioxide 34 H Anion Gap 12 BUN 25 H Creatinine 0.6 L Est GFR ( Amer) > 60 Est GFR (Non-Af Amer) > 60 POC Glucose (mg/dL) 133 H Random Glucose 142 H Calcium 9.3 - EKG Data EKG Interpreted by: Myself Assessment & Plan (1) Atrial fibrillation Assessment and Plan: chronic. maintain coumadin goal INR 2-3. no overt signs of heart failure. rate is controlled. Status: Acute
[2018-03-24] MEDS: Silver Sulfadiazine 1% CREAM (50 gm) TOP SCH ×2 (08:44→08:49)
[2018-03-24 11:20] LABS: INR 1.9 (0.9-1.2); PROTHROMBIN TIME 21.6 Seconds (9.8-13.1)
[2018-03-24 12:20] VITALS: RESP 20
[2018-03-24] MEDS ORDERED: Ergocalciferol 50,000 Intl Units Cap PO SCH ×2 (12:34)
[2018-03-24 16:00] VITALS: BP 116/63; PULSE 78; TEMP 97.4; O2SAT 95
--- NOTE | 2018-03-24 20:35 | PN ---
DATE: 03/24/2018 ENDO FOLLOWUP NOTE LOCATION: In room 406. This is a 72-year-old female with recent uncontrolled type 2 diabetes presenting here with marked hyperglycemic accelerations and has since then improved clinically and metabolically as noted thereof. She also had supervening congestive heart failure and is being followed closely by Cardiology at this time. Her latest glucose levels have ranged from 100-133 and 212 mg/dL. Her latest chemistry showed a BUN of 25, sodium 141, potassium 4.0, chloride 99, CO2 of 34, glucose 142 and creatinine 0.6. So at this time, we will continue the oral hypoglycemic drug regimen as given with metformin at 500 mg t.i.d. and glipizide at 10 mg b.i.d. before meals with Januvia at 100 mg once daily and they added Prandin given as 4 mg t.i.d. which she was actually taking at home. We will continue the low-dose correction scale using Humalog insulin as given. We will titrate incrementally as indicated to optimize metabolic control. We will obtain serial chemistries and supplement accordingly as needed. We will follow. Umm Cox MD
== END 2018-03-24 16:00 | DRG 293 ==
LOC: H.ER 07:56 → H.ERHOLD 11:28 → H.TEL 14:24
PROVIDERS: ADMIT Internal Medicine; ATTEND Internal Medicine
DX: I11.0 Hypertensive heart disease with heart failure (principal); I27.20 Pulmonary hypertension, unspecified; I42.0 Dilated cardiomyopathy; I48.2 Chronic atrial fibrillation; I50.43 Acute on chronic combined systolic (congestive) and diastolic (congestive) heart failure; J44.9 Chronic obstructive pulmonary disease, unspecified; L89.152 Pressure ulcer of sacral region, stage 2; M17.11 Unilateral primary osteoarthritis, right knee; R29.6 Repeated falls; R79.1 Abnormal coagulation profile; Z79.01 Long term (current) use of anticoagulants; Z79.4 Long term (current) use of insulin; Z79.51 Long term (current) use of inhaled steroids; Z79.899 Other long term (current) drug therapy; Z82.49 Family history of ischemic heart disease and other diseases of the circulatory system; Z83.3 Family history of diabetes mellitus; Z87.891 Personal history of nicotine dependence; Z90.49 Acquired absence of other specified parts of digestive tract; F32.9 Major depressive disorder, single episode, unspecified; M19.90 Unspecified osteoarthritis, unspecified site; M54.5 Low back pain; R53.1 Weakness; R63.2 Polyphagia; D72.829 Elevated white blood cell count, unspecified; E03.9 Hypothyroidism, unspecified; E11.65 Type 2 diabetes mellitus with hyperglycemia; E66.01 Morbid (severe) obesity due to excess calories; Z68.38 Body mass index [BMI] 38.0-38.9, adult; E78.00 Pure hypercholesterolemia, unspecified; E78.5 Hyperlipidemia, unspecified

== ENCOUNTER 2018-04-16 17:27 | Inpatient (IN) | payer MEDICARE, OTHER ==
[2018-04-16 17:27] VITALS: BMI 38.7
[2018-04-16] MEDS ORDERED: Lidocaine 5% Patch TD STA (18:31)
[2018-04-16] MEDS ORDERED: Lidocaine 5% Patch TD ONE (18:47)
[2018-04-16 18:51] LABS: BASO # 0.1 K/uL (0.0-0.2); BASO % 0.7 % (0.0-2.0); EOS # 0.1 K/uL (0.0-0.7); EOS % 0.8 % (0.0-4.0); HEMOGLOBIN 13.2 g/dL (12.0-16.0); LYMPH # 1.8 K/uL (1.0-4.3); LYMPH % 16.2 % (20.0-40.0); MEAN CELL VOLUME 86.2 fl (81.0-99.0); MEAN CORPUSCULAR HEMOGLOBIN 28.5 pg (27.0-31.0); MEAN CORPUSCULAR HGB CONC 33.1 g/dL (33.0-37.0); MEAN PLATELET VOLUME 9.1 fl (7.2-11.7); MONO # 0.5 K/uL (0.0-0.8); MONO % 4.7 % (0.0-10.0); NEUT # 8.6 K/uL (1.8-7.0); NEUT % 77.6 % (50.0-75.0); RBC 4.63 Mil/uL (3.80-5.20); RED CELL DISTRIBUTION WIDTH 13.5 % (11.5-14.5); WHITE BLOOD COUNT 11.1 K/uL (4.8-10.8)
[2018-04-16 19:02] LABS: INR 1.9 (0.9-1.2); PARTIAL THROMBOPLASTIN TIME 37.8 Seconds (25.6-37.1); PROTHROMBIN TIME 21.6 Seconds (9.8-13.1)
[2018-04-16 19:12] LABS: ALB/GLOB RATIO 0.9 (1.0-2.1); ALBUMIN 3.5 g/dL (3.5-5.0); ALT/SGPT 25 U/L (9-52); AST/SGOT 23 U/L (14-36); B-TYPE NATRIURETIC PEPTIDE 726 pg/ml (0-900); BLOOD UREA NITROGEN 14 mg/dl (7-17); CALCIUM 9.3 mg/dL (8.4-10.2); GFR AFRICAN-AMERICAN > 60; GFR NON-AFRICAN AMERICAN > 60
--- NOTE | 2018-04-16 19:49 | ED PDOC ---
Lower Extremity Pain/Injury Time Seen by Provider: 04/16/18 17:58 Chief Complaint (Nursing): Lower Extremity Problem/Injury Chief Complaint (Provider): Bilateral leg weakness History Per: Patient History/Exam Limitations: no limitations Onset/Duration Of Symptoms: Days Current Symptoms Are (Timing): Still Present Additional History Per: EMS Additional Complaint(s): 72 year old female with a history of leg arthritis presents to the ED via EMS one day after being discharged from rehab for bilateral leg pain weakness for further evaluation. Patient states she was discharged yesterday but her leg pain , swelling, and weakness is unresolved at home, and she is unable to ambulate, even with a walker because she is afraid she will fall. For the pain, she notes taking percocets. Additionally, she reports paresthesias of her right hand on and off for one week and shortness of breath with exertion. Otherwise, she denies fever, chills, and chest pain. Of note, she states she was just at the podiatry clinic today and had the dressing on her left heel changed. PMD: Julian Domingo Past Medical History Reviewed: Historical Data, Nursing Documentation, Vital Signs Vital Signs: Last Vital Signs Temp 98.6 F 04/16/18 17:28 Pulse 78 04/16/18 19:28 Resp 18 04/16/18 19:28 BP 133/90 04/16/18 19:28 Pulse Ox 96 04/16/18 19:28 - Medical History PMH: Arthritis, Atrial Fibrillation (on coumadin PO), Back Problems (Chronic), Depression, Diabetes, HTN, Hypercholesterolemia, Hypothyroidism Denies: HIV, Chronic Kidney Disease - Surgical History Surgical History: Cholecystectomy Denies: Pacemaker - Family History Family History: States: Unknown Family Hx - Social History Current smoker - smoking cessation education provided: Yes (light) Alcohol: None Drugs: Denies - Home Medications Home Medications: Ambulatory Orders Medication Instructions Recorded Budesonide/Formoterol Fumarate 2 puff IH Q12H 11/13/17 [Symbicort 160-4.5 Mcg Inhaler] Ergocalciferol (Vitamin D2) 50,000 unit PO WE 11/13/17 [Vitamin D2] Levothyroxine [Synthroid] 75 mcg PO DAILY 11/13/17 Repaglinide [Prandin] 2 mg PO TID 11/13/17 Sertraline [Zoloft] 30 mg PO DAILY 11/13/17 Simvastatin [Zocor] 40 mg PO HS 11/13/17 metFORMIN [glucOPHAGE] 500 mg PO TID 11/13/17 GlipiZIDE [Glucotrol] 5 mg PO BID #60 tab 11/15/17 Carvedilol [Coreg] 6.25 mg PO Q12 tab 03/24/18 Losartan [Cozaar] 100 mg PO DAILY tab 03/24/18 SITagliptin [Januvia] 100 mg PO DAILY tab 03/24/18 Furosemide [Lasix] 20 mg PO DAILY 04/16/18 Potassium Chloride [K-Dur 20] 20 meq PO DAILY 04/16/18 Warfarin Sodium [Jantoven] 6 mg PO QPM 04/16/18 - Allergies Allergies/Adverse Reactions: Allergies Allergy/AdvReac Type Severity Reaction Status Date / Time No Known Allergies Allergy Verified 08/09/17 15:30 Review of Systems ROS Statement: Except As Marked, All Systems Reviewed And Found Negative Constitutional: Negative for: Fever, Chills Cardiovascular: Negative for: Chest Pain Respiratory: Positive for: SOB with Exertion Musculoskeletal: Positive for: Leg Pain (bilateral swelling, pain, weakness) Neurological: Positive for: Other (Paresthesias right hand) Physical Exam - Reviewed Nursing Documentation Reviewed: Yes Vital Signs Reviewed: Yes - Physical Exam Appears: Positive for: Non-toxic, No Acute Distress Head Exam: Positive for: ATRAUMATIC, NORMOCEPHALIC Skin: Positive for: Warm, Dry Eye Exam: Positive for: EOMI, PERRL ENT: Negative for: Pharyngeal Erythema, Tonsillar Exudate Neck: Positive for: Painless ROM, Supple Cardiovascular/Chest: Positive for: Regular Rate, Rhythm. Negative for: Murmur Respiratory: Positive for: Decreased Breath Sounds (at bases). Negative for: Wheezing, Respiratory Distress Pulses-Radial (L): 2+ Pulses-Radial (R): 2+ Gastrointestinal/Abdominal: Positive for: Soft, Other (obese). Negative for: Tenderness, Mass, Distended, Guarding, Rebound Back: Positive for: Normal Inspection. Negative for: Decreased ROM Extremity: Positive for: Normal ROM (of right hand), Pedal Edema (bilateral legs : 2+ pitting edema with erythematous papules on anterior tibia of varying agents ), Capillary Refill (or right hand less than 2 seconds), Other (bilateral legs: 4+ out of 5 strength in bilateral hip flexion knee extension, right worse than left; Right hand: equal nerve distribution in hand, light touch intact) Lymphatic: Negative for: Adenopathy Neurologic/Psych: Positive for: Alert. Negative for: Motor/Sensory Deficits - Laboratory Results Result Diagrams: 04/16/18 18:47 04/17/18 11:51 - ECG ECG: Positive for: Interpreted By Me, Viewed By Me ECG Rhythm: Positive for: Atrial Fibrillation (controlled rate at 81) Interpretation Of ECG: Poor r wave progression T wave inversion and inferior leads Similar to previous ekg 03/20 O2 Sat by Pulse Oximetry: 96 (RA) Pulse Ox Interpretation: Normal Medical Decision Making Medical Decision Making: Initial Impression: leg weakness and dystaxia Time: 18:29 Initial Plan: --EKG --BNP --CMP --Magnesium --Phosphorus --Urine dipstick --CBC with differential --PT/ PTT --CXR --Lidoderm 1 ea TD --Toradol 15mg IVP --Blood culture Labs unremarkable. Pt unable to lift herself out of bed to get up and walk. Requires hospitalization. At great risk of fall at home and is debilitated. Consider longer term rehab. DW Dr Rodriguez Hospitalist admitting for Dr Domingo. Scribe Attestation: Documented by Shayy Hagen, acting as a scribe for Yamileth Gerardo MD. Provider Scribe Attestation: All medical entries made by the Scribe were at my direction and personally dictated by me. I have reviewed the chart and agree that the record accurately reflects my personal performance of the history, physical exam, medical decision making, and the department course for this patient. I have also personally directed, reviewed, and agree with the discharge instructions and disposition. Disposition - Clinical Impression Clinical Impression: Ataxia, Knee osteoarthritis Counseled Patient/Family Regarding: Studies Performed, Diagnosis - Disposition Disposition Time: 19:30 Condition: FAIR - Pt Status Changed To: Hospital Disposition Of: Inpatient - Admit Certification Admit to Inpatient:: After my assessment, the patient will require hospitalization for at least two midnights. This is because of the severity of symptoms shown, intensity of services needed, and/or the medical risk in this patient being treated as an outpatient. - POA Present On Arrival: Falls Or Trauma, Pressure Ulcer (heel)
[2018-04-16] MEDS ORDERED: Oxycodone/Acetaminophen 5/325 mg Tab PO PRN (20:07)
--- NOTE | 2018-04-16 20:34 | CP.PCM.HP ---
History of Present Illness - History of Present Illness History of Present Illness: CC: LE weakness, unable to ambulate HPI: This is a 72 y/o female with MHx significant for morbid obesity, A fib on coumadin, HTN, HLD, and hypothyroid who was here previously several weeks ago with weakness/inability to ambulate, uncontrolled DM2, and CHF exacerbation. After that hospitalization, she was sent to rehab, where apparently she was doing well, and was d/c'ed home yesterday. At home, she found she was again unable to get around or ambulate even with a walker, so she came back to the hospital. She has no other c/c at this time. ROS: 14 systems reviewed, negative other than HPI MHx: morbid obesity, A fib on coumadin, HTN, HLD, hypothyroid, ? COPD SHx: Cholecystectomy Allergies: NKDA Medications: med rec pending Family Hx: Reviewed, no relevant findings Social Hx: Lives with family, no tobacco, no EtOH Present on Admission - Present on Admission Any Indicators Present on Admission: No Past Patient History - Infectious Disease Hx of Infectious Diseases: None - Past Medical History & Family History Past Medical History?: Yes - Past Social History Alcohol: None Drugs: Denies - CARDIAC Hx Atrial Fibrillation: Yes (on coumadin PO) Hx Hypercholesterolemia: Yes Hx Hypertension: Yes Hx Pacemaker: No - PULMONARY Hx Respiratory Disorders: No - NEUROLOGICAL Hx Neurological Disorder: No - HEENT Hx HEENT Problems: Yes - RENAL Hx Chronic Kidney Disease: No - ENDOCRINE/METABOLIC Hx Hypothyroidism: Yes - HEMATOLOGICAL/ONCOLOGICAL Hx Human Immunodeficiency Virus (HIV): No - INTEGUMENTARY Hx Dermatological Problems: No - MUSCULOSKELETAL/RHEUMATOLOGICAL Hx Arthritis: Yes - GASTROINTESTINAL Hx Gastrointestinal Disorders: Yes Hx Colitis: Yes - GENITOURINARY/GYNECOLOGICAL Hx Genitourinary Disorders: No - PSYCHIATRIC Hx Depression: Yes - SURGICAL HISTORY Hx Cholecystectomy: Yes - ANESTHESIA Hx Anesthesia: Yes Hx Anesthesia Reactions: No Meds Allergies/Adverse Reactions: Allergies Allergy/AdvReac Type Severity Reaction Status Date / Time No Known Allergies Allergy Verified 08/09/17 15:30 Physical Exam - Constitutional Appears: No Acute Distress - Head Exam Head Exam: ATRAUMATIC, NORMOCEPHALIC - Eye Exam Eye Exam: EOMI, PERRL - ENT Exam ENT Exam: Mucous Membranes Moist - Neck Exam Neck exam: Positive for: Full Rom - Respiratory Exam Respiratory Exam: Clear to Auscultation Bilateral, NORMAL BREATHING PATTERN - Cardiovascular Exam Cardiovascular Exam: REGULAR RHYTHM, +S1, +S2 - GI/Abdominal Exam GI & Abdominal Exam: Normal Bowel Sounds, Soft - Extremities Exam Extremities exam: Positive for: pedal edema Additional comments: b/l LE about 4/5 strength; barely able to lift against gravity - Neurological Exam Neurological exam: Alert, CN II-XII Intact, Oriented x3 - Psychiatric Exam Psychiatric exam: Normal Affect, Normal Mood - Skin Skin Exam: Dry, Warm Additional comments: Foot wound Results - Vital Signs Recent Vital Signs: Last Vital Signs Temp 98.6 F 04/16/18 17:28 Pulse 78 04/16/18 19:28 Resp 18 04/16/18 19:28 BP 133/90 04/16/18 19:28 Pulse Ox 96 04/16/18 19:59 - Labs Result Diagrams: 04/16/18 18:47 04/16/18 18:47 Labs: Laboratory Results - last 24 hr 04/16/18 04/16/18 04/16/18 17:46 18:47 18:47 WBC 11.1 H RBC 4.63 Hgb 13.2 Hct 39.9 MCV 86.2 MCH 28.5 MCHC 33.1 RDW 13.5 Plt Count 211 MPV 9.1 Neut % (Auto) 77.6 H Lymph % (Auto) 16.2 L [place] % (Auto) 4.7 Eos % (Auto) 0.8 Baso % (Auto) 0.7 Neut # (Auto) 8.6 H Lymph # (Auto) 1.8 [place] # (Auto) 0.5 Eos # (Auto) 0.1 Baso # (Auto) 0.1 PT INR APTT Sodium 140 Potassium 3.9 Chloride 101 Carbon Dioxide 32 H Anion Gap 11 BUN 14 Creatinine 0.7 Est GFR ( Amer) > 60 Est GFR (Non-Af Amer) > 60 POC Glucose (mg/dL) 209 H Random Glucose 180 H Calcium 9.3 Phosphorus 2.6 Magnesium 1.8 Total Bilirubin 0.7 AST 23 ALT 25 Alkaline Phosphatase 99 NT-Pro-B Natriuret Pep 726 Total Protein 7.4 Albumin 3.5 Globulin 3.9 Albumin/Globulin Ratio 0.9 L 04/16/18 18:47 WBC RBC Hgb Hct MCV MCH MCHC RDW Plt Count MPV Neut % (Auto) Lymph % (Auto) [place] % (Auto) Eos % (Auto) Baso % (Auto) Neut # (Auto) Lymph # (Auto) [place] # (Auto) Eos # (Auto) Baso # (Auto) PT 21.6 H INR 1.9 H APTT 37.8 H Sodium Potassium Chloride Carbon Dioxide Anion Gap BUN Creatinine Est GFR ( Amer) Est GFR (Non-Af Amer) POC Glucose (mg/dL) Random Glucose Calcium Phosphorus Magnesium Total Bilirubin AST ALT Alkaline Phosphatase NT-Pro-B Natriuret Pep Total Protein Albumin Globulin Albumin/Globulin Ratio - Imaging and Cardiology Chest x-ray Status: Image reviewed by me Assessment & Plan (1) HTN (hypertension) Assessment and Plan: 72 y/o female with multiple medical conditions coming back to hospital with LE weakness and inability to ambulate even after rehab. 1) Generalized weakness with falls -- unclear why worsened after return home -PT eval in AM 2) Severe cardiomegaly, chronic, with pulmonary venous congestion -- stable -cont PO lasix 3) Atrial fibrillation, chronic with supratherapeutic INR -continue Coreg for rate control -continue coumadin -daily INR 4) DM2 -- moderately controlled -DM diet -QID ACHS accucheck -SSI -resume home PO medications in AM if patient is eating normally 5) Essential hypertension, chronic, appears controlled -continue ARB, HCTZ -continue Coreg 8) Hypothyroidism -continue Synthroid 10) DVT prophylaxis -on Coumadin Status: Acute (2) Hypothyroid Status: Acute (3) DVT prophylaxis Status: Acute (4) Acute weakness Status: Acute (5) Atrial fibrillation Status: Acute (6) CHF (congestive heart failure) Status: Acute (7) Diabetes mellitus Status: Acute
[2018-04-16] MEDS: Fluticasone-Salmeterol 250-50mcg Diskus IH SCH (21:00)
[2018-04-16] MEDS: Insulin Lispro (humaLOG) 100 Units/ml Inj SC SCH (21:49)
[2018-04-17] MEDS: Levothyroxine 75 MCG TAB PO SCH (06:38)
--- NOTE | 2018-04-17 07:30 | RAD ---
HISTORY: weakness COMPARISON: Portal chest 03/20/2018. FINDINGS: LUNGS: Reticular markings appear mildly increased is occluding the perihilar and mid lung zones bilaterally and may reflect pulmonary vascular congestion or interstitial pneumonitis. PLEURA: No significant pleural effusion identified, no pneumothorax apparent. CARDIOVASCULAR: Stable cardiomegaly. Pulmonary vascular pattern is slightly increased. OSSEOUS STRUCTURES: No significant abnormalities. VISUALIZED UPPER ABDOMEN: Normal. OTHER FINDINGS: None. IMPRESSION: Mild CHF suspected. Alternately, consider interstitial pneumonitis. Stable cardiomegaly.
[2018-04-17] MEDS: Insulin Lispro (humaLOG) 100 Units/ml Inj SC SCH ×4 (08:27→21:46)
[2018-04-17] MEDS: Fluticasone-Salmeterol 250-50mcg Diskus IH SCH ×2 (08:27→21:05)
--- NOTE | 2018-04-17 08:44 | CARD ---
APPROVED REPORT EKG Measurement Heart [id number] <Conclusion> Atrial fibrillation Septal infarct, age undetermined Abnormal ECG
[2018-04-17] MEDS ORDERED: Silver Sulfadiazine 1% CREAM (50 gm) TOP SCH (09:00)
[2018-04-17 12:07] LABS: BLOOD UREA NITROGEN 14 mg/dl (7-17); CALCIUM 9.1 mg/dL (8.4-10.2); GFR AFRICAN-AMERICAN > 60; GFR NON-AFRICAN AMERICAN > 60
[2018-04-17 12:47] LABS: INR 1.7 (0.9-1.2); PROTHROMBIN TIME 19.7 Seconds (9.8-13.1)
--- NOTE | 2018-04-17 16:32 | CP.PCM.PN ---
Subjective - Date & Time of Evaluation Date of Evaluation: 04/17/18 Time of Evaluation: 11:00 - Subjective Subjective: No fever denies Cp no SOB no abd pain feels weak- unable to ambulate at home and do ADLs Objective - Vital Signs/Intake and Output Vital Signs (last 24 hours): Temp Pulse Resp BP Pulse Ox 97.8 F 72 18 135/83 96 04/17/18 15:42 04/17/18 15:42 04/17/18 15:42 04/17/18 15:42 04/17/18 16:20 - Medications Medications: Current Medications Acetaminophen (Tylenol 325mg Tab) 650 mg PO Q6 PRN PRN Reason: Pain, Mild (1-3) Atorvastatin Calcium (Lipitor) 20 mg PO DAILY [facility] Last Admin: 04/17/18 08:28 Dose: 20 mg Carvedilol (Coreg) 6.25 mg PO Q12 [facility] Last Admin: 04/17/18 08:28 Dose: 6.25 mg Furosemide (Lasix) 40 mg PO DAILY [facility] Last Admin: 04/17/18 08:28 Dose: 40 mg Glipizide (Glucotrol) 5 mg PO BID [facility] Last Admin: 04/17/18 16:27 Dose: 5 mg Insulin Human Lispro (Humalog) 0 units SC ACHS [facility] PRN Reason: Protocol Last Admin: 04/17/18 16:30 Dose: 2 units Levothyroxine Sodium (Synthroid) 75 mcg PO DAILY@0630 [facility] Last Admin: 04/17/18 06:38 Dose: 75 mcg Losartan Potassium (Cozaar) 100 mg PO DAILY [facility] Last Admin: 04/17/18 08:27 Dose: 100 mg Metformin HCl (Glucophage) 500 mg PO TID [facility] Last Admin: 04/17/18 16:27 Dose: 500 mg Oxycodone/Acetaminophen (Percocet 5/325 Mg Tab) 1 tab PO Q6H PRN PRN Reason: Pain, severe (8-10) Potassium Chloride (K-Dur 20 Meq Er Tab) 20 meq PO DAILY [facility] Repaglinide (Prandin) 2 mg PO TID [facility] Last Admin: 04/17/18 16:28 Dose: 2 mg Fluticasone/Salmeterol (Advair Diskus 250/50) 1 puff IH Q12H [facility] Last Admin: 04/17/18 08:27 Dose: 1 puff Sertraline HCl (Zoloft) 100 mg PO DAILY [facility] Last Admin: 04/17/18 08:28 Dose: 100 mg Silver Sulfadiazine (Silvadene 1% 50 Gm) 1 applic TOP DAILY [facility] Sitagliptin Phosphate (Januvia) 100 mg PO DAILY [facility] Warfarin Sodium (Coumadin) 5 mg PO QD5 ONE PRN Reason: Protocol Stop: 04/17/18 17:01 Last Admin: 04/17/18 16:27 Dose: 5 mg Warfarin Sodium (Coumadin) 2 mg PO QD5 ONE Stop: 04/17/18 17:01 Last Admin: 04/17/18 16:27 Dose: 2 mg - Labs Labs: 04/16/18 18:47 04/17/18 11:51 PT 19.7 Seconds (9.8-13.1) H 04/17/18 11:51 INR 1.7 (0.9-1.2) H 04/17/18 11:51 APTT 37.8 Seconds (25.6-37.1) H 04/16/18 18:47 - Constitutional Appears: No Acute Distress, Chronically Ill - Head Exam Head Exam: NORMAL INSPECTION, NORMOCEPHALIC - Eye Exam Eye Exam: EOMI, Normal appearance Pupil Exam: NORMAL ACCOMODATION - ENT Exam ENT Exam: Mucous Membranes Moist, Normal External Ear Exam - Neck Exam Neck Exam: Full ROM. absent: Meningismus - Respiratory Exam Respiratory Exam: NORMAL BREATHING PATTERN. absent: Respiratory Distress - Cardiovascular Exam Cardiovascular Exam: Irregular Rhythm, +S1, +S2 - GI/Abdominal Exam GI & Abdominal Exam: Soft, Normal Bowel Sounds. absent: Tenderness - Extremities Exam Extremities Exam: Full ROM, Normal Capillary Refill. absent: Calf Tenderness Additional comments: left heel pressure ulcer - Back Exam Back Exam: Full ROM. absent: CVA tenderness (L), CVA tenderness (R) - Neurological Exam Neurological Exam: Alert, Awake, CN II-XII Intact, Oriented x3 Neuro motor strength exam: Left Upper Extremity: 5, Right Upper Extremity: 5, Left Lower Extremity: 4, Right Lower Extremity: 4 - Psychiatric Exam Psychiatric exam: Normal Affect, Normal Mood - Skin Skin Exam: Dry, Normal Color, Warm Assessment and Plan - Assessment and Plan (Free Text) Assessment: 72 y/o female with hx of A Fib, HTN, DM, Hypothyroidism , came back to the hospital with LE weakness and inability to ambulate even after rehab. She was just d/c from Rehab 1 days ago. 1. Generalized Weakness - Physical therapy eval -Labs normal -unable to ambulate at home , recent d/c x 1 day from [facility] (2) HTN (hypertension) cont Coreg < losartan and Lasix 3) Atrial fibrillation, chronic -continue Coreg for rate control - INR =1.7 -Increase Coumadin to 7mg daily 4) DM2 -- moderately controlled -DM diet -QID ACHS accucheck -SSI -resume home PO medications- Metformin, Glucotrol, Januvia and Prandin 5. Hypothyroidism -continue Synthroid 6. (6) CHF (congestive heart failure), chronic systolic and diastolic dysfunction cont Coreg, Losartan and Lasix DVT prophylaxis -on Coumadin
--- NOTE | 2018-04-17 16:34 | CP.PCM.CON ---
History of Present Illness - History of Present Illness History of Present Illness: Podiatry consult note for Dr. Manley, 72YO female with past medical history of morbid obesity, A fib on coumadin, HTN , HLD, and hypothyroid who was here previously several weeks ago with weakness/ inability to ambulate, uncontrolled DM2, and CHF exacerbation. Podiatry was consulted for left heel wound. Patient is in no acute distress, AAO x3. Patient states she has been regularly visiting the wound care center and following up with Dr. Manley. Her last wound care visit was yesterday 04/16. Patient states her dressing was changed and Dr. Manley will be seeing her again next week for the wound. Patient denies any acute pain. Patient denies any other pedal complains. ROS: 14 systems reviewed, negative other than HPI MHx: morbid obesity, A fib on coumadin, HTN, HLD, hypothyroid, ? COPD SHx: Cholecystectomy Allergies: NKDA Medications: med rec pending Family Hx: Reviewed, no relevant findings Social Hx: Lives with family, no tobacco, no EtOH Past Patient History - Infectious Disease Hx of Infectious Diseases: None - Past Medical History & Family History Past Medical History?: Yes - Past Social History Alcohol: None Drugs: Denies - CARDIAC Hx Atrial Fibrillation: Yes (on coumadin PO) Hx Hypercholesterolemia: Yes Hx Hypertension: Yes Hx Pacemaker: No - PULMONARY Hx Respiratory Disorders: No - NEUROLOGICAL Hx Neurological Disorder: No - HEENT Hx HEENT Problems: Yes - RENAL Hx Chronic Kidney Disease: No - ENDOCRINE/METABOLIC Hx Hypothyroidism: Yes - HEMATOLOGICAL/ONCOLOGICAL Hx Human Immunodeficiency Virus (HIV): No - INTEGUMENTARY Hx Dermatological Problems: No - MUSCULOSKELETAL/RHEUMATOLOGICAL Hx Arthritis: Yes - GASTROINTESTINAL Hx Gastrointestinal Disorders: Yes Hx Colitis: Yes - GENITOURINARY/GYNECOLOGICAL Hx Genitourinary Disorders: No - PSYCHIATRIC Hx Depression: Yes - SURGICAL HISTORY Hx Cholecystectomy: Yes - ANESTHESIA Hx Anesthesia: Yes Hx Anesthesia Reactions: No Meds Allergies/Adverse Reactions: Allergies Allergy/AdvReac Type Severity Reaction Status Date / Time No Known Allergies Allergy Verified 08/09/17 15:30 - Medications Medications: Current Medications Acetaminophen (Tylenol 325mg Tab) 650 mg PO Q6 PRN PRN Reason: Pain, Mild (1-3) Atorvastatin Calcium (Lipitor) 20 mg PO DAILY [facility] Last Admin: 06/23/18 08:28 Dose: 20 mg Carvedilol (Coreg) 6.25 mg PO Q12 [facility] Last Admin: 04/17/18 08:28 Dose: 6.25 mg Furosemide (Lasix) 40 mg PO DAILY [facility] Last Admin: 04/17/18 08:28 Dose: 40 mg Glipizide (Glucotrol) 5 mg PO BID [facility] Last Admin: 04/17/18 16:27 Dose: 5 mg Insulin Human Lispro (Humalog) 0 units SC ACHS [facility] PRN Reason: Protocol Last Admin: 04/17/18 16:30 Dose: 2 units Levothyroxine Sodium (Synthroid) 75 mcg PO DAILY@0630 [facility] Last Admin: 04/17/18 06:38 Dose: 75 mcg Losartan Potassium (Cozaar) 100 mg PO DAILY [facility] Last Admin: 04/17/18 08:27 Dose: 100 mg Metformin HCl (Glucophage) 500 mg PO TID [facility] Last Admin: 04/17/18 16:27 Dose: 500 mg Oxycodone/Acetaminophen (Percocet 5/325 Mg Tab) 1 tab PO Q6H PRN PRN Reason: Pain, severe (8-10) Potassium Chloride (K-Dur 20 Meq Er Tab) 20 meq PO DAILY [facility] Repaglinide (Prandin) 2 mg PO TID [facility] Last Admin: 04/17/18 16:28 Dose: 2 mg Fluticasone/Salmeterol (Advair Diskus 250/50) 1 puff IH Q12H [facility] Last Admin: 04/17/18 08:27 Dose: 1 puff Sertraline HCl (Zoloft) 100 mg PO DAILY [facility] Last Admin: 04/17/18 08:28 Dose: 100 mg Silver Sulfadiazine (Silvadene 1% 50 Gm) 1 applic TOP DAILY [facility] Sitagliptin Phosphate (Januvia) 100 mg PO DAILY [facility] Warfarin Sodium (Coumadin) 5 mg PO QD5 [facility] PRN Reason: Protocol Stop: 04/17/18 17:01 Last Admin: 04/17/18 16:27 Dose: 5 mg Warfarin Sodium (Coumadin) 2 mg PO QD5 [facility] Stop: 04/17/18 17:01 Last Admin: 04/17/18 16:27 Dose: 2 mg Physical Exam - Constitutional Appears: Non-toxic, No Acute Distress - Head Exam Head Exam: ATRAUMATIC, NORMOCEPHALIC - Extremities Exam Additional comments: Dressing to the left foot is dry, clean and intact. Derm: no streaking, no malodor noted. - Neurological Exam Neurological exam: Alert, Oriented x3 Results - Vital Signs Recent Vital Signs: Last Vital Signs Temp 97.8 F 04/17/18 15:42 Pulse 72 04/17/18 15:42 Resp 18 04/17/18 15:42 BP 135/83 04/17/18 15:42 Pulse Ox 96 04/17/18 16:20 - Labs Result Diagrams: 04/16/18 18:47 04/17/18 11:51 Labs: Laboratory Results - last 24 hr 04/16/18 04/16/18 04/16/18 17:46 18:47 18:47 WBC 11.1 H RBC 4.63 Hgb 13.2 Hct 39.9 MCV 86.2 MCH 28.5 MCHC 33.1 RDW 13.5 Plt Count 211 MPV 9.1 Neut % (Auto) 77.6 H Lymph % (Auto) 16.2 L Story % (Auto) 4.7 Eos % (Auto) 0.8 Baso % (Auto) 0.7 Neut # (Auto) 8.6 H Lymph # (Auto) 1.8 Story # (Auto) 0.5 Eos # (Auto) 0.1 Baso # (Auto) 0.1 PT INR APTT Sodium 140 Potassium 3.9 Chloride 101 Carbon Dioxide 32 H Anion Gap 11 BUN 14 Creatinine 0.7 Est GFR ( Amer) > 60 Est GFR (Non-Af Amer) > 60 POC Glucose (mg/dL) 209 H Random Glucose 180 H Calcium 9.3 Phosphorus 2.6 Magnesium 1.8 Total Bilirubin 0.7 AST 23 ALT 25 Alkaline Phosphatase 99 NT-Pro-B Natriuret Pep 726 Total Protein 7.4 Albumin 3.5 Globulin 3.9 Albumin/Globulin Ratio 0.9 L 04/16/18 04/16/18 04/17/18 18:47 21:29 05:20 WBC RBC Hgb Hct MCV MCH MCHC RDW Plt Count MPV Neut % (Auto) Lymph % (Auto) Story % (Auto) Eos % (Auto) Baso % (Auto) Neut # (Auto) Lymph # (Auto) Story # (Auto) Eos # (Auto) Baso # (Auto) PT 21.6 H INR 1.9 H APTT 37.8 H Sodium Potassium Chloride Carbon Dioxide Anion Gap BUN Creatinine Est GFR ( Amer) Est GFR (Non-Af Amer) POC Glucose (mg/dL) 151 H 120 H Random Glucose Calcium Phosphorus Magnesium Total Bilirubin AST ALT Alkaline Phosphatase NT-Pro-B Natriuret Pep Total Protein Albumin Globulin Albumin/Globulin Ratio 04/17/18 04/17/18 04/17/18 11:36 11:51 11:51 WBC RBC Hgb Hct MCV MCH MCHC RDW Plt Count MPV Neut % (Auto) Lymph % (Auto) Story % (Auto) Eos % (Auto) Baso % (Auto) Neut # (Auto) Lymph # (Auto) Story # (Auto) Eos # (Auto) Baso # (Auto) PT 19.7 H INR 1.7 H APTT Sodium 141 Potassium 3.5 L Chloride 101 Carbon Dioxide 35 H Anion Gap 9 L BUN 14 Creatinine 0.7 Est GFR ( Amer) > 60 Est GFR (Non-Af Amer) > 60 POC Glucose (mg/dL) 194 H Random Glucose 192 H Calcium 9.1 Phosphorus Magnesium Total Bilirubin AST ALT Alkaline Phosphatase NT-Pro-B Natriuret Pep Total Protein Albumin Globulin Albumin/Globulin Ratio 04/17/18 15:49 WBC RBC Hgb Hct MCV MCH MCHC RDW Plt Count MPV Neut % (Auto) Lymph % (Auto) Story % (Auto) Eos % (Auto) Baso % (Auto) Neut # (Auto) Lymph # (Auto) Story # (Auto) Eos # (Auto) Baso # (Auto) PT INR APTT Sodium Potassium Chloride Carbon Dioxide Anion Gap BUN Creatinine Est GFR ( Amer) Est GFR (Non-Af Amer) POC Glucose (mg/dL) 163 H Random Glucose Calcium Phosphorus Magnesium Total Bilirubin AST ALT Alkaline Phosphatase NT-Pro-B Natriuret Pep Total Protein Albumin Globulin Albumin/Globulin Ratio Assessment & Plan - Assessment and Plan (Free Text) Assessment: 72 YO female for left heel wound. Dressing left dry clean and intact Plan: Patient seen and evaluated Denies any new pedal complaints Saw Dr. Manley in wound care center yesterday where she was instructed to keep dressings on until next [facility] Will discuss treatment plan with Dr. Manley and follow up accordingly - Date & Time Date: 04/17/18 Time: 17:41
[2018-04-18] MEDS: Levothyroxine 75 MCG TAB PO SCH (05:42)
[2018-04-18 07:56] LABS: INR 1.8 (0.9-1.2); PROTHROMBIN TIME 19.6 Seconds (9.8-13.1)
[2018-04-18] MEDS: Fluticasone-Salmeterol 250-50mcg Diskus IH SCH ×3 (08:21→21:43)
[2018-04-18] MEDS: Insulin Lispro (humaLOG) 100 Units/ml Inj SC SCH ×4 (08:22→21:50)
[2018-04-18] MEDS: Potassium Chloride 20 mEq ER Tab PO SCH (08:23)
[2018-04-18] MEDS: Silver Sulfadiazine 1% Cream (20 gm) TOP SCH (08:26)
--- NOTE | 2018-04-18 11:07 | CP.PCM.PN ---
Subjective - Date & Time of Evaluation Date of Evaluation: 04/18/18 Time of Evaluation: 11:00 - Subjective Subjective: No fever denies CP no SOB feels better no abd pain Plan for d/c to [facility] in am for further PT if approved by her insurance Objective - Vital Signs/Intake and Output Vital Signs (last 24 hours): Temp Pulse Resp BP Pulse Ox 97.5 F L 62 20 152/90 H 100 04/18/18 08:08 04/18/18 08:08 04/18/18 08:08 04/18/18 08:24 04/18/18 08:08 - Medications Medications: Current Medications Acetaminophen (Tylenol 325mg Tab) 650 mg PO Q6 PRN PRN Reason: Pain, Mild (1-3) Atorvastatin Calcium (Lipitor) 20 mg PO DAILY [facility] Last Admin: 04/18/18 08:23 Dose: 20 mg Carvedilol (Coreg) 6.25 mg PO Q12 [facility] Last Admin: 04/18/18 08:24 Dose: 6.25 mg Furosemide (Lasix) 40 mg PO DAILY [facility] Last Admin: 04/18/18 08:24 Dose: 40 mg Glipizide (Glucotrol) 5 mg PO BID [facility] Last Admin: 04/18/18 08:24 Dose: 5 mg Insulin Human Lispro (Humalog) 0 units SC ACHS [facility] PRN Reason: Protocol Last Admin: 04/18/18 08:22 Dose: 2 units Levothyroxine Sodium (Synthroid) 75 mcg PO DAILY@0630 [facility] Last Admin: 04/18/18 05:42 Dose: 75 mcg Losartan Potassium (Cozaar) 100 mg PO DAILY [facility] Last Admin: 04/18/18 08:24 Dose: 100 mg Metformin HCl (Glucophage) 500 mg PO TID [facility] Last Admin: 04/18/18 08:23 Dose: 500 mg Mupirocin (Bactroban Ointment) 1 applic TOP BID [facility] Last Admin: 04/18/18 09:05 Dose: Not Given Oxycodone/Acetaminophen (Percocet 5/325 Mg Tab) 1 tab PO Q6H PRN PRN Reason: Pain, severe (8-10) Potassium Chloride (K-Dur 20 Meq Er Tab) 20 meq PO DAILY [facility] Last Admin: 04/18/18 08:23 Dose: 20 meq Repaglinide (Prandin) 2 mg PO TID [facility] Last Admin: 04/18/18 08:22 Dose: 2 mg Fluticasone/Salmeterol (Advair Diskus 250/50) 1 puff IH Q12H [facility] Last Admin: 04/18/18 08:27 Dose: Not Given Sertraline HCl (Zoloft) 100 mg PO DAILY [facility] Last Admin: 04/18/18 08:24 Dose: 100 mg Silver Sulfadiazine (Silvadene 1% 20 Gm) 1 ea TOP DAILY [facility] Last Admin: 04/18/18 08:26 Dose: Not Given Sitagliptin Phosphate (Januvia) 100 mg PO DAILY [facility] Last Admin: 04/18/18 08:22 Dose: 100 mg Warfarin Sodium (Coumadin) 8 mg PO QD5 [facility] PRN Reason: Protocol Stop: 04/18/18 17:01 - Labs Labs: 04/16/18 18:47 04/17/18 11:51 PT 19.6 Seconds (9.8-13.1) H 04/18/18 05:30 INR 1.8 (0.9-1.2) H 04/18/18 05:30 APTT 37.8 Seconds (25.6-37.1) H 04/16/18 18:47 - Constitutional Appears: No Acute Distress, Chronically Ill - Head Exam Head Exam: NORMAL INSPECTION, NORMOCEPHALIC - Eye Exam Eye Exam: EOMI, Normal appearance Pupil Exam: NORMAL ACCOMODATION - ENT Exam ENT Exam: Mucous Membranes Moist, Normal External Ear Exam - Neck Exam Neck Exam: Full ROM. absent: Meningismus - Respiratory Exam Respiratory Exam: NORMAL BREATHING PATTERN. absent: Respiratory Distress - Cardiovascular Exam Cardiovascular Exam: Irregular Rhythm, +S1, +S2 - GI/Abdominal Exam GI & Abdominal Exam: Soft, Normal Bowel Sounds. absent: Tenderness - Extremities Exam Extremities Exam: Full ROM, Normal Capillary Refill. absent: Calf Tenderness Additional comments: left heel pressure ulcer - Back Exam Back Exam: Full ROM. absent: CVA tenderness (L), CVA tenderness (R) - Neurological Exam Neurological Exam: Alert, Awake, CN II-XII Intact, Oriented x3 Neuro motor strength exam: Left Upper Extremity: 5, Right Upper Extremity: 5, Left Lower Extremity: 4, Right Lower Extremity: 4 - Psychiatric Exam Psychiatric exam: Normal Affect, Normal Mood - Skin Skin Exam: Dry, Normal Color, Warm Assessment and Plan - Assessment and Plan (Free Text) Assessment: 72 y/o female with hx of A Fib, HTN, DM, Hypothyroidism , came back to the hospital with LE weakness and inability to ambulate even after 1 week in [facility]. She was just d/c from Rehab the day before admission. 1. Generalized Weakness - Physical therapy eval -Labs normal -unable to ambulate at home , recent d/c x 1 day from [facility] - lives with son however her son disabled at present - got frustated being unable to get up to do ADLs at home, Home Health aide comes 2x per week (2) HTN (hypertension) cont Coreg, losartan and Lasix 3) Atrial fibrillation, chronic -continue Coreg for rate control - INR =1.9 -Increase Coumadin to 8mg daily 4) DM2 -- moderately controlled -DM diet -QID ACHS accucheck -SSI -resume home PO medications- Metformin, Glucotrol, Januvia and Prandin 5. Hypothyroidism -continue Synthroid (6) CHF (congestive heart failure), chronic systolic and diastolic dysfunction cont Coreg, Losartan and Lasix 7. Left Heel Wound ( POA) - pt goes to [facility] - Podiatry consulted - Wound Care DVT prophylaxis -on Coumadin
--- NOTE | 2018-04-18 12:18 | CP.PCM.PN ---
Subjective - Date & Time of Evaluation Date of Evaluation: 04/18/18 Time of Evaluation: 12:13 - Subjective Subjective: Podiatry consult note for Dr. Manley 72 y/o female seen at bedside for left heel wound. Patient is in no acute distress, AAO x3. Patient states she has been regularly visiting the wound care center and following up with Dr. Manley. Her last wound care visit was yesterday 04/16/18. Patient states her dressing was changed and Dr. Manley will be seeing her again next week for the wound. Patient's dressing was clean/dry/intact. Patient denies any acute pain. Patient denies any other pedal complains. Patient complains of weakness, however, denies F/N/V/SOB/CP Objective - Vital Signs/Intake and Output Vital Signs (last 24 hours): Temp Pulse Resp BP Pulse Ox 97.5 F L 62 20 152/90 H 100 04/18/18 08:08 04/18/18 08:08 04/18/18 08:08 04/18/18 08:24 04/18/18 08:08 - Medications Medications: Current Medications Acetaminophen (Tylenol 325mg Tab) 650 mg PO Q6 PRN PRN Reason: Pain, Mild (1-3) Atorvastatin Calcium (Lipitor) 20 mg PO DAILY [facility] Last Admin: 04/18/18 08:23 Dose: 20 mg Carvedilol (Coreg) 6.25 mg PO Q12 [facility] Last Admin: 04/18/18 08:24 Dose: 6.25 mg Furosemide (Lasix) 40 mg PO DAILY [facility] Last Admin: 04/18/18 08:24 Dose: 40 mg Glipizide (Glucotrol) 5 mg PO BID [facility] Last Admin: 04/18/18 08:24 Dose: 5 mg Insulin Human Lispro (Humalog) 0 units SC ACHS [facility] PRN Reason: Protocol Last Admin: 04/18/18 12:05 Dose: 2 units Levothyroxine Sodium (Synthroid) 75 mcg PO DAILY@0630 [facility] Last Admin: 04/18/18 05:42 Dose: 75 mcg Losartan Potassium (Cozaar) 100 mg PO DAILY [facility] Last Admin: 04/18/18 08:24 Dose: 100 mg Metformin HCl (Glucophage) 500 mg PO TID [facility] Last Admin: 04/18/18 12:04 Dose: 500 mg Mupirocin (Bactroban Ointment) 1 applic TOP BID [facility] Last Admin: 04/18/18 09:05 Dose: Not Given Oxycodone/Acetaminophen (Percocet 5/325 Mg Tab) 1 tab PO Q6H PRN PRN Reason: Pain, severe (8-10) Potassium Chloride (K-Dur 20 Meq Er Tab) 20 meq PO DAILY [facility] Last Admin: 04/18/18 08:23 Dose: 20 meq Repaglinide (Prandin) 2 mg PO TID [facility] Last Admin: 04/18/18 12:04 Dose: 2 mg Fluticasone/Salmeterol (Advair Diskus 250/50) 1 puff IH Q12H [facility] Last Admin: 04/18/18 08:27 Dose: Not Given Sertraline HCl (Zoloft) 100 mg PO DAILY [facility] Last Admin: 04/18/18 08:24 Dose: 100 mg Silver Sulfadiazine (Silvadene 1% 20 Gm) 1 ea TOP DAILY [facility] Last Admin: 04/18/18 08:26 Dose: Not Given Sitagliptin Phosphate (Januvia) 100 mg PO DAILY [facility] Last Admin: 04/18/18 08:22 Dose: 100 mg Warfarin Sodium (Coumadin) 8 mg PO QD5 [facility] PRN Reason: Protocol Stop: 04/18/18 17:01 - Labs Labs: 04/16/18 18:47 04/17/18 11:51 PT 19.6 Seconds (9.8-13.1) H 04/18/18 05:30 INR 1.8 (0.9-1.2) H 04/18/18 05:30 APTT 37.8 Seconds (25.6-37.1) H 04/16/18 18:47 - Constitutional Appears: Well, Non-toxic, No Acute Distress - Head Exam Head Exam: ATRAUMATIC, NORMOCEPHALIC - Extremities Exam Additional comments: Bilateral Lower Extremity Examination VASC: DP and PT faintly palpable likely secondary to edema, CFT less than 3 seconds X 10, TG warm to cool proximal to distal NEURO: grossly intact DERM: dressing removed to evaluate the left heel wound- no open lesions, minimal erythema noted to the heel, no malodor, no drainage, no fluctuance, no clinical signs of infection MSK: mild pain on palpation to the left heel - Neurological Exam Neurological Exam: Alert, Awake, Oriented x3 - Psychiatric Exam Psychiatric exam: Normal Affect, Normal Mood Assessment and Plan - Assessment and Plan (Free Text) Assessment: 72 y/o female for left heel wound. Plan: Patient evaluated and seen at bedside Plan discussed with attending, Dr. Manley Patient dressing removed to evaluate the heel Patient dressed with gauze, ABD, and Kerlix Patient tolerated dressing well Ordered Multipodus boots for patient- explained patient she must wear off- loading boots at all times while in bed Patient demonstrated verbal understanding Podiatry will continue to follow while patient is in-house
[2018-04-18] MEDS ORDERED: Lidocaine 2% GEL TOP ONE (17:21)
[2018-04-18] MEDS: Lidocaine 5% Patch TD SCH (18:14)
[2018-04-19] MEDS: Levothyroxine 75 MCG TAB PO SCH (06:08)
[2018-04-19 06:29] LABS: HEMOGLOBIN 12.5 g/dL (12.0-16.0); MEAN CELL VOLUME 86.6 fl (81.0-99.0); MEAN CORPUSCULAR HGB CONC 33.5 g/dL (33.0-37.0); RBC 4.3 Mil/uL (3.80-5.20); RED CELL DISTRIBUTION WIDTH 13.6 % (11.5-14.5)
[2018-04-19 06:37] LABS: INR 1.7 (0.9-1.2); PROTHROMBIN TIME 19.1 Seconds (9.8-13.1)
[2018-04-19 06:41] LABS: BLOOD UREA NITROGEN 16 mg/dl (7-17); CALCIUM 9.2 mg/dL (8.4-10.2); GFR AFRICAN-AMERICAN > 60; GFR NON-AFRICAN AMERICAN > 60
[2018-04-19 08:17] VITALS: RESP 20
[2018-04-19] MEDS: Fluticasone-Salmeterol 250-50mcg Diskus IH SCH (08:38)
[2018-04-19] MEDS: Insulin Lispro (humaLOG) 100 Units/ml Inj SC SCH ×3 (08:39→16:22)
[2018-04-19] MEDS: Lidocaine 5% Patch TD SCH (08:43)
[2018-04-19] MEDS: Potassium Chloride 20 mEq ER Tab PO SCH (08:44)
[2018-04-19] MEDS: Silver Sulfadiazine 1% Cream (20 gm) TOP SCH (08:45)
--- NOTE | 2018-04-19 11:17 | CP.PCM.PN ---
Subjective - Date & Time of Evaluation Date of Evaluation: 04/19/18 Time of Evaluation: 11:15 - Subjective Subjective: Podiatry consult note for Dr. Manley 72 y/o female seen at bedside for left heel wound. Patient is in no acute distress, AAO x3. Patient's dressing was C/D/I, and patient was wearing her multipodus boots. Patient denies any acute pain. Patient denies any other pedal complains. Patient states the boots are uncomfortable, and would only like to wear them while in bed. Patient denies N/V/F/SOB/CP/posterior calf pain Objective - Vital Signs/Intake and Output Vital Signs (last 24 hours): Temp Pulse Resp BP Pulse Ox 98 F 65 20 133/78 95 04/19/18 08:16 04/19/18 08:43 04/19/18 08:16 04/19/18 08:44 04/19/18 08:16 - Medications Medications: Current Medications Acetaminophen (Tylenol 325mg Tab) 650 mg PO Q6 PRN PRN Reason: Pain, Mild (1-3) Atorvastatin Calcium (Lipitor) 20 mg PO DAILY [facility] Last Admin: 04/19/18 08:43 Dose: 20 mg Carvedilol (Coreg) 6.25 mg PO Q12 [facility] Last Admin: 04/19/18 08:43 Dose: 6.25 mg Furosemide (Lasix) 40 mg PO DAILY [facility] Last Admin: 04/19/18 08:44 Dose: 40 mg Glipizide (Glucotrol) 5 mg PO BID [facility] Last Admin: 04/19/18 08:44 Dose: 5 mg Insulin Human Lispro (Humalog) 0 units SC ACHS [facility] PRN Reason: Protocol Last Admin: 04/19/18 08:39 Dose: Not Given Levothyroxine Sodium (Synthroid) 75 mcg PO DAILY@0630 [facility] Last Admin: 04/19/18 06:08 Dose: 75 mcg Lidocaine (Lidoderm) 1 ea TD DAILY [facility] Last Admin: 04/19/18 08:43 Dose: 1 ea Losartan Potassium (Cozaar) 100 mg PO DAILY [facility] Last Admin: 04/19/18 08:44 Dose: 100 mg Metformin HCl (Glucophage) 500 mg PO TID [facility] Last Admin: 04/19/18 08:43 Dose: 500 mg Mupirocin (Bactroban Ointment) 1 applic TOP BID [facility] Last Admin: 04/19/18 08:39 Dose: Not Given Oxycodone/Acetaminophen (Percocet 5/325 Mg Tab) 1 tab PO Q6H PRN PRN Reason: Pain, severe (8-10) Last Admin: 04/18/18 19:37 Dose: 1 tab Potassium Chloride (K-Dur 20 Meq Er Tab) 20 meq PO DAILY [facility] Last Admin: 04/19/18 08:44 Dose: 20 meq Repaglinide (Prandin) 2 mg PO TID [facility] Last Admin: 04/19/18 08:43 Dose: 2 mg Fluticasone/Salmeterol (Advair Diskus 250/50) 1 puff IH Q12H [facility] Last Admin: 04/19/18 08:38 Dose: Not Given Sertraline HCl (Zoloft) 100 mg PO DAILY [facility] Last Admin: 04/19/18 08:44 Dose: 100 mg Silver Sulfadiazine (Silvadene 1% 20 Gm) 1 ea TOP DAILY [facility] Last Admin: 04/19/18 08:45 Dose: Not Given Sitagliptin Phosphate (Januvia) 100 mg PO DAILY [facility] Last Admin: 04/19/18 08:43 Dose: 100 mg Warfarin Sodium (Coumadin) 10 mg PO QD5 [facility] PRN Reason: Protocol Stop: 04/19/18 17:01 - Labs Labs: 04/19/18 05:45 04/19/18 05:45 PT 19.1 Seconds (9.8-13.1) H 04/19/18 05:45 INR 1.7 (0.9-1.2) H 04/19/18 05:45 APTT 37.8 Seconds (25.6-37.1) H 04/16/18 18:47 - Constitutional Appears: Well, Non-toxic, No Acute Distress - Head Exam Head Exam: ATRAUMATIC, NORMOCEPHALIC - Extremities Exam Additional comments: Left Lower Extremity Examination VASC: DP and PT faintly palpable likely secondary to edema, CFT less than 3 seconds, TG warm to cool proximal to distal NEURO: grossly intact DERM: dressing removed to evaluate the left heel wound- no open lesions, mild erythema noted to the heel, no malodor, no drainage, no fluctuance, no clinical signs of infection MSK: mild pain on palpation to the left heel - Neurological Exam Neurological Exam: Alert, Awake, Oriented x3 - Psychiatric Exam Psychiatric exam: Normal Affect, Normal Mood Assessment and Plan - Assessment and Plan (Free Text) Assessment: 72 y/o female seen and evaluated for a healing left heel wound Plan: Patient evaluated and seen at bedside Plan discussed with attending, Dr. Manley Patient dressing and Multipodus boots removed to evaluate the heel Patient dressed with gauze, ABD, and Kerlix to off-load the heel Patient tolerated dressing well Patient told she can remove boots while not in bed, however, to put them on when she is laying in bed, especially at night Patient demonstrated verbal understanding Podiatry will continue to follow while patient is in-house
[2018-04-19 16:11] VITALS: BP 118/76; PULSE 80; TEMP 98.7; O2SAT 95
--- NOTE | 2018-04-19 16:55 | CP.PCM.DIS ---
Provider - Provider Date of Admission: 04/16/18 19:54 Attending physician: Trang Rodriguez MD Consults: Dr Manley Time Spent in preparation of Discharge (in minutes): 25 Diagnosis - Discharge Diagnosis (1) Acute weakness Status: Acute Comment: need further physical therapy in [facility] (2) HTN (hypertension) Status: Chronic Comment: BP stable. continue Coreg, Losartan and Lasix (3) Atrial fibrillation Status: Chronic Comment: rate controlled. continue Coreg and Coumadin (4) Diabetes mellitus Status: Chronic Comment: BS controlled. continue Metformin, Glucotrol, Januvia and Prandin (5) Hypothyroid Status: Chronic Comment: continue Levothyroxine (6) CHF (congestive heart failure) Status: Chronic Comment: chronic systolic and diastolic dysfunction. continue Losartan, Lasix and Coreg (7) Non-healing wound of left heel Status: Chronic Comment: patient being followed by podiatry Hospital Course - Lab Results Lab Results: Micro Results 04/16/18 19:05 Blood Blood Culture - Preliminary NO GROWTH AFTER 48 HOURS 04/16/18 18:42 Blood Blood Culture - Preliminary NO GROWTH AFTER 48 HOURS Most Recent Lab Values WBC 9.0 K/uL (4.8-10.8) 04/19/18 05:45 RBC 4.30 Mil/uL (3.80-5.20) 04/19/18 05:45 Hgb 12.5 g/dL (12.0-16.0) 04/19/18 05:45 Hct 37.3 % (34.0-47.0) 04/19/18 05:45 MCV 86.6 fl (81.0-99.0) 04/19/18 05:45 MCH 29.0 pg (27.0-31.0) 04/19/18 05:45 MCHC 33.5 g/dL (33.0-37.0) 04/19/18 05:45 RDW 13.6 % (11.5-14.5) 04/19/18 05:45 Plt Count 187 K/uL (130-400) 04/19/18 05:45 MPV 9.1 fl (7.2-11.7) 04/16/18 18:47 Neut % (Auto) 77.6 % (50.0-75.0) H 04/16/18 18:47 Lymph % (Auto) 16.2 % (20.0-40.0) L 04/16/18 18:47 [place] % (Auto) 4.7 % (0.0-10.0) 04/16/18 18:47 Eos % (Auto) 0.8 % (0.0-4.0) 04/16/18 18:47 Baso % (Auto) 0.7 % (0.0-2.0) 04/16/18 18:47 Neut # (Auto) 8.6 K/uL (1.8-7.0) H 04/16/18 18:47 Lymph # (Auto) 1.8 K/uL (1.0-4.3) 04/16/18 18:47 [place] # (Auto) 0.5 K/uL (0.0-0.8) 04/16/18 18:47 Eos # (Auto) 0.1 K/uL (0.0-0.7) 04/16/18 18:47 Baso # (Auto) 0.1 K/uL (0.0-0.2) 04/16/18 18:47 PT 19.1 Seconds (9.8-13.1) H 04/19/18 05:45 INR 1.7 (0.9-1.2) H 04/19/18 05:45 APTT 37.8 Seconds (25.6-37.1) H 04/16/18 18:47 Sodium 142 mmol/l (132-148) 04/19/18 05:45 Potassium 3.6 MMOL/L (3.6-5.0) 04/19/18 05:45 Chloride 105 mmol/L (98-107) 04/19/18 05:45 Carbon Dioxide 32 mmol/L (22-30) H 04/19/18 05:45 Anion Gap 9 (10-20) L 04/19/18 05:45 BUN 16 mg/dl (7-17) 04/19/18 05:45 Creatinine 0.6 mg/dl (0.7-1.2) L 04/19/18 05:45 Est GFR ( Amer) > 60 04/19/18 05:45 Est GFR (Non-Af Amer) > 60 04/19/18 05:45 POC Glucose (mg/dL) 77 mg/dL (65-110) 04/19/18 15:49 Random Glucose 120 mg/dL (65-105) H 04/19/18 05:45 Calcium 9.2 mg/dL (8.4-10.2) 04/19/18 05:45 Phosphorus 2.6 mg/dl (2.5-4.5) 04/16/18 18:47 Magnesium 1.8 MG/DL (1.6-2.3) 04/16/18 18:47 Total Bilirubin 0.7 mg/dl (0.2-1.3) 04/16/18 18:47 AST 23 U/L (14-36) 04/16/18 18:47 ALT 25 U/L (9-52) 04/16/18 18:47 Alkaline Phosphatase 99 U/L (38-126) 04/16/18 18:47 NT-Pro-B Natriuret Pep 726 pg/ml (0-900) 04/16/18 18:47 Total Protein 7.4 G/DL (6.3-8.2) 04/16/18 18:47 Albumin 3.5 g/dL (3.5-5.0) 04/16/18 18:47 Globulin 3.9 gm/dL (2.2-3.9) 04/16/18 18:47 Albumin/Globulin Ratio 0.9 (1.0-2.1) L 04/16/18 18:47 - Hospital Course Hospital Course: 72 yo female with history of AFib, HTN, DM2 and Hypothyroidism came back after getting discharged from rehab complaining of difficulty ambulating even with a walker. Discharge Exam - Head Exam Head Exam: ATRAUMATIC, NORMOCEPHALIC - Eye Exam Eye Exam: absent: Scleral icterus - ENT Exam ENT Exam: Mucous Membranes Moist - Respiratory Exam Respiratory Exam: absent: Rales, Rhonchi, Wheezes, Respiratory Distress - Cardiovascular Exam Cardiovascular Exam: REGULAR RHYTHM, +S1, +S2 - GI/Abdominal Exam GI & Abdominal Exam: Soft. absent: Tenderness - Rectal Exam Rectal Exam: Deferred - Neurological Exam Neurological exam: Alert, Oriented x3 - Psychiatric Exam Psychiatric exam: Normal Affect - Skin Skin Exam: Dry, Intact Discharge Plan - Follow Up Plan Condition: FAIR Disposition: REHAB FACILITY/REHAB UNIT Instructions: Osteoarthritis (DC), Generalized Weakness (DC) Referrals: Julian Domingo MD [Staff Provider] - Viktoriya Georges DPM [Staff Provider] -
== END 2018-04-19 17:20 | DRG 948 ==
LOC: H.ER 17:27 → H.ERHOLD 19:54 → H.MEDSURG1 21:10
PROVIDERS: ADMIT Internal Medicine; ATTEND Internal Medicine
DX: R53.1 Weakness (principal); I50.42 Chronic combined systolic (congestive) and diastolic (congestive) heart failure; I11.0 Hypertensive heart disease with heart failure; I48.2 Chronic atrial fibrillation; M17.10 Unilateral primary osteoarthritis, unspecified knee; R27.0 Ataxia, unspecified; E03.9 Hypothyroidism, unspecified; E78.00 Pure hypercholesterolemia, unspecified; E78.5 Hyperlipidemia, unspecified; F17.200 Nicotine dependence, unspecified, uncomplicated; R79.1 Abnormal coagulation profile; Z79.01 Long term (current) use of anticoagulants; Z79.51 Long term (current) use of inhaled steroids; Z90.49 Acquired absence of other specified parts of digestive tract; E66.01 Morbid (severe) obesity due to excess calories; F32.9 Major depressive disorder, single episode, unspecified; K52.9 Noninfective gastroenteritis and colitis, unspecified; M19.90 Unspecified osteoarthritis, unspecified site; Z79.84 Long term (current) use of oral hypoglycemic drugs; Z79.899 Other long term (current) drug therapy; M79.606 Pain in leg, unspecified; Z68.39 Body mass index [BMI] 39.0-39.9, adult; E11.9 Type 2 diabetes mellitus without complications

== ENCOUNTER 2018-05-22 13:26 | Inpatient (IN) | payer MEDICARE, OTHER ==
[2018-05-22 13:26] VITALS: BMI 38.7
[2018-05-22] MEDS ORDERED: Piperacillin/Tazobact 3.375 GM in Sodium Chloride 0.9% 100 ML IV STA (14:13)
--- NOTE | 2018-05-22 14:17 | ED PDOC ---
Lower Extremity Pain/Injury Time Seen by Provider: 05/22/18 13:42 Chief Complaint (Nursing): Lower Extremity Problem/Injury Chief Complaint (Provider): Leg pain History Per: Patient Additional Complaint(s): This is a 72 y/o female with MHx significant for morbid obesity, A fib on Coumadin, HTN, HLD, and hypothyroid who presents to ED with complaints of redness, swelling and ulcerations to b/l LE. Pt reports she was recently discharged from rehab center where they were watching the developing ulceration to right heel. Pt notes dressing was last changed on Thursday when discharged. Pt notes redness and swelling increasing. No pain or fever at this time. At home, she found she was again unable to get around or ambulate even with a walker. Pts PCP: Dr. Domingo Past Medical History Reviewed: Historical Data, Nursing Documentation, Vital Signs Vital Signs: Last Vital Signs Temp 98.8 F 05/22/18 13:29 Pulse 94 H 05/22/18 13:29 Resp 18 05/22/18 13:29 BP 120/78 05/22/18 13:29 Pulse Ox 97 05/22/18 13:29 - Medical History PMH: Arthritis, Atrial Fibrillation, Back Problems (Chronic), Depression, Diabetes, HTN, Hypercholesterolemia, Hypothyroidism Denies: HIV, Chronic Kidney Disease - Surgical History Surgical History: Cholecystectomy Denies: Pacemaker - Family History Family History: States: Unknown Family Hx - Living Arrangements Living Arrangements: Alone - Social History Current smoker - smoking cessation education provided: No Alcohol: None Drugs: Denies - Home Medications Home Medications: Ambulatory Orders Medication Instructions Recorded Budesonide/Formoterol Fumarate 2 puff IH Q12H 11/13/17 [Symbicort 160-4.5 Mcg Inhaler] Ergocalciferol (Vitamin D2) 50,000 unit PO WE 11/13/17 [Vitamin D2] Levothyroxine [Synthroid] 75 mcg PO DAILY 11/13/17 Repaglinide [Prandin] 2 mg PO TID 11/13/17 Sertraline [Zoloft] 30 mg PO DAILY 11/13/17 Simvastatin [Zocor] 40 mg PO HS 11/13/17 metFORMIN [glucOPHAGE] 500 mg PO TID 11/13/17 GlipiZIDE [Glucotrol] 5 mg PO BID #60 tab 11/15/17 Carvedilol [Coreg] 6.25 mg PO Q12 tab 03/24/18 Losartan [Cozaar] 100 mg PO DAILY tab 03/24/18 SITagliptin [Januvia] 100 mg PO DAILY tab 03/24/18 Furosemide [Lasix] 20 mg PO DAILY 04/16/18 Potassium Chloride [K-Dur 20 mEq 20 meq PO DAILY 04/16/18 ER Tab] Warfarin Sodium [Jantoven] 6 mg PO QPM 04/16/18 - Allergies Allergies/Adverse Reactions: Allergies Allergy/AdvReac Type Severity Reaction Status Date / Time No Known Allergies Allergy Verified 05/22/18 13:29 Review of Systems ROS Statement: Except As Marked, All Systems Reviewed And Found Negative Musculoskeletal: Positive for: Leg Pain Skin: Positive for: Other (redness and sweling) Physical Exam - Reviewed Nursing Documentation Reviewed: Yes Vital Signs Reviewed: Yes - Physical Exam Appears: Positive for: Well, Non-toxic, No Acute Distress Head Exam: Positive for: ATRAUMATIC, NORMAL INSPECTION, NORMOCEPHALIC Skin: Positive for: Normal Color, Warm, DRY Eye Exam: Positive for: EOMI, Normal appearance, PERRL ENT: Positive for: Normal ENT Inspection Neck: Positive for: Normal, Painless ROM Cardiovascular/Chest: Positive for: Regular Rate, Rhythm Respiratory: Positive for: CNT, Normal Breath Sounds Gastrointestinal/Abdominal: Positive for: Normal Exam, Soft Back: Positive for: Normal Inspection Extremity: Positive for: Swelling, Other (B/L stasis dermatitis, RLE qirh moderate edema dn erythema (+) vessicles w drainage noted. LLE without any drainage. Rigth heel with ulceration noted, drainage of serous fluid. ) Neurologic/Psych: Positive for: Alert, Oriented - Laboratory Results Result Diagrams: 05/22/18 14:37 05/22/18 14:37 - ECG O2 Sat by Pulse Oximetry: 97 Medical Decision Making Medical Decision Making: Podiatry contacted and presented to bedside to see and evaluat Pt IV access established and diagnostics ordered Diagnostics reviewed with pt who demonstrated full understanding As per podiatry resident, Dr. Manley [facility] and presented to bedside for admission. Disposition - Clinical Impression Clinical Impression: Diabetic foot ulcer, Bilateral lower leg cellulitis - Patient ED Disposition Is Patient to be Admitted: Yes - Disposition Disposition: Routine/Home Disposition Time: 17:32 Condition: STABLE Forms: [facility] (Ukrainian) - POA Present On Arrival: Pressure Ulcer
[2018-05-22] MEDS ORDERED: Vancomycin 1 g Inj ONE (14:47)
[2018-05-22 14:48] LABS: VENOUS BLOOD GAS PCO2 52 mmHg (40-60); VENOUS BLOOD GAS PO2 21 mm/Hg (30-55)
[2018-05-22] MEDS ORDERED: Piperacillin/Tazobact 3.375 gm Inj IVPB ONE (14:48)
[2018-05-22 14:59] LABS: ALBUMIN 3.9 g/dL (3.5-5.0); BLOOD UREA NITROGEN 19 mg/dl (7-17); CALCIUM 9.5 mg/dL (8.4-10.2); GFR NON-AFRICAN AMERICAN > 60
[2018-05-22 15:00] LABS: ALT/SGPT 23 U/L (9-52); AST/SGOT 25 U/L (14-36)
[2018-05-22 15:09] LABS: BASO # 0.2 K/uL (0.0-0.2); BASO % 1.4 % (0.0-2.0); EOS # 0.2 K/uL (0.0-0.7); EOS % 1.5 % (0.0-4.0); HEMOGLOBIN 12.8 g/dL (12.0-16.0); LYMPH # 1.5 K/uL (1.0-4.3); LYMPH % 12.8 % (20.0-40.0); MEAN CELL VOLUME 85.6 fl (81.0-99.0); MEAN CORPUSCULAR HEMOGLOBIN 28.3 pg (27.0-31.0); MEAN PLATELET VOLUME 9.7 fl (7.2-11.7); MONO # 0.5 K/uL (0.0-0.8); MONO % 3.9 % (0.0-10.0); NEUT # 9.5 K/uL (1.8-7.0); NEUT % 80.4 % (50.0-75.0); NRBC % 0.2 % (0.0-0.0); RBC 4.52 Mil/uL (3.80-5.20); RED CELL DISTRIBUTION WIDTH 14.6 % (11.5-14.5); WHITE BLOOD COUNT 11.9 K/uL (4.8-10.8)
--- NOTE | 2018-05-22 15:28 | CP.PCM.CON ---
History of Present Illness - History of Present Illness History of Present Illness: Podiatry consult note for attending Dr. Manley 72 y/o female patient with PMHx of morbid obesity, A fib on Coumadin, HTN, HLD, and hypothyroid presents to ED with complaints of redness, swelling and ulceration to b/l lower extremities. Pt reports she was recently discharged from Rehab center where patient's dressing changes occurred daily and patient was well taken care of. Pt notes dressing was last changed on Thursday when discharged. Patient reports she only noticed the redness developing over the last several days and patient reports of significant pain when legs are touched. Patient reports feeling weak as well, but denies F/N/V/SOB/chills PMHx: morbid obesity, A fib on coumadin, HTN, HLD, hypothyroid, ? COPD PSHx: Cholecystectomy Allergies: NKDA Family Hx: Reviewed, no relevant findings Social Hx: Lives with family, no tobacco, no EtOH Review of Systems - Review of Systems All systems: reviewed and no additional remarkable complaints except Review of Systems: As per HPI Past Patient History - Infectious Disease Hx of Infectious Diseases: None - Past Medical History & Family History Past Medical History?: Yes - Past Social History Smoking Status: Light Smoker < 10 Cigarettes Daily - CARDIAC Hx Atrial Fibrillation: Yes Hx Hypercholesterolemia: Yes Hx Hypertension: Yes Hx Pacemaker: No - PULMONARY Hx Respiratory Disorders: No - NEUROLOGICAL Hx Neurological Disorder: No - HEENT Hx HEENT Problems: Yes - RENAL Hx Chronic Kidney Disease: No - ENDOCRINE/METABOLIC Hx Hypothyroidism: Yes - HEMATOLOGICAL/ONCOLOGICAL Hx Human Immunodeficiency Virus (HIV): No - INTEGUMENTARY Hx Dermatological Problems: No - MUSCULOSKELETAL/RHEUMATOLOGICAL Hx Arthritis: Yes - GASTROINTESTINAL Hx Gastrointestinal Disorders: Yes Hx Colitis: Yes - GENITOURINARY/GYNECOLOGICAL Hx Genitourinary Disorders: No - PSYCHIATRIC Hx Depression: Yes - SURGICAL HISTORY Hx Cholecystectomy: Yes - ANESTHESIA Hx Anesthesia: Yes Hx Anesthesia Reactions: No Meds Allergies/Adverse Reactions: Allergies Allergy/AdvReac Type Severity Reaction Status Date / Time No Known Allergies Allergy Verified 05/22/18 13:29 - Medications Medications: Current Medications Vancomycin HCl 1 gm/ Sodium (Chloride) 250 mls @ 166.667 mls/hr IV STAT STA PRN Reason: Protocol Stop: 05/22/18 15:42 Last Admin: 05/22/18 14:49 Dose: 166.667 mls/hr Physical Exam - Constitutional Appears: Well, Non-toxic, No Acute Distress - Head Exam Head Exam: ATRAUMATIC, NORMOCEPHALIC - Extremities Exam Additional comments: Bilateral Lower Extremity Focused Exam VASC: DP and PT non-palpable secondary to non-pitting edema to the dorsum of the feet bilaterally, CFT less than 3 seconds X 10, TG warm to warm bilaterally with increased warmth to areas where erythema noted, swelling noted to bialteral leg, ankle and feet NEURO: grossly intact DERM: Right- erythema and excoriations noted from the anterior mid-leg extending distally to the ankle joint with areas of blister formation, positive for purulent drainage, no malodor, no probe to bone, no undermining, no tunneling, increased warmth noted, positive interdigital maceration Left- patches of erythema noted to tibial tuberosity and lower leg, excoriations also noted to the leg with xerosis, deep tissue noted to the left heel, no opening, no malodor, no probe to bone, no tunneling or tracking, surrounding erythema noted, positive interdigital maceration MSK: patient complaining of severe pain with palpation and range of motion - Neurological Exam Neurological exam: Alert, Oriented x3 - Psychiatric Exam Psychiatric exam: Normal Affect, Normal Mood Results - Vital Signs Recent Vital Signs: Last Vital Signs Temp 98.8 F 05/22/18 13:29 Pulse 94 H 05/22/18 13:29 Resp 18 05/22/18 13:29 BP 120/78 05/22/18 13:29 Pulse Ox 97 05/22/18 14:17 - Labs Result Diagrams: 05/22/18 14:37 05/22/18 14:37 Labs: Laboratory Results - last 24 hr 05/22/18 05/22/18 05/22/18 14:37 14:37 14:44 WBC 11.9 H RBC 4.52 Hgb 12.8 Hct 38.7 MCV 85.6 MCH 28.3 MCHC 33.0 RDW 14.6 H Plt Count 200 MPV 9.7 Neut % (Auto) 80.4 H Lymph % (Auto) 12.8 L [place] % (Auto) 3.9 Eos % (Auto) 1.5 Baso % (Auto) 1.4 Neut # (Auto) 9.5 H Lymph # (Auto) 1.5 [place] # (Auto) 0.5 Eos # (Auto) 0.2 Baso # (Auto) 0.2 pO2 21 L VBG pH 7.40 VBG pCO2 52 VBG HCO3 27.9 VBG Total CO2 33.8 H VBG O2 Sat (Calc) 38.4 L VBG Base Excess 6.0 H VBG Potassium 4.0 Glucose 136 H Lactate 1.1 FiO2 21.0 Sodium 140 139.0 Potassium 4.3 Chloride 104 104.0 Carbon Dioxide 27 Anion Gap 13 BUN 19 H Creatinine 0.6 L Est GFR ( Amer) > 60 Est GFR (Non-Af Amer) > 60 Random Glucose 131 H Calcium 9.5 Total Bilirubin 0.7 AST 25 ALT 23 Alkaline Phosphatase 97 Total Protein 8.0 Albumin 3.9 Globulin 4.1 H Albumin/Globulin Ratio 1.0 Venous Blood Potassium 4.0 Assessment & Plan - Assessment and Plan (Free Text) Assessment: 72 y/o female patient with PMHx of morbid obesity, A fib on Coumadin, HTN, HLD, and hypothyroid presents to ED with complaints of redness, swelling and ulceration to b/l lower extremities. Plan: Patient seen and evaluated at bedside for attending Dr. Manley Plan discussed with attending Chart, labs and vital reviewed- WBC 11.9 Wound Culture Ordered- result Pending Patient started on IV Vancomycin and Zosyn in the ED Patient Tibia-Fibula, Ankle and Foot X-rays (05/22)- negative for soft tissue emphysema, negative for acute fracture or dislocation Patient to be admitted so as to send patient to subacute rehab facility Patient wounds dressed with Xeroform, ABC, DSD bilaterally Bactroban will be ordered for the patient on the floor Podiatry will continue to follow the patient on the floor - Date & Time Date: 05/22/18 Time: 17:06
--- NOTE | 2018-05-22 16:03 | RAD ---
Date of service: 05/22/2018 PROCEDURE: Radiographs of the right calcaneus/hindfoot. HISTORY: Diabetic ulceration r/o osteo COMPARISON: None available. TECHNIQUE: Frontal and lateral radiographs of the calcaneus. FINDINGS: No fracture or joint dislocation. No focal lesion. Achilles enthesophyte. Small inferior plantar calcaneal spur. Diffuse soft tissue swelling, especially in the forefoot. IMPRESSION: No demonstrated fracture, dislocation or evidence of periosteal reaction. Diffuse forefoot soft tissue swelling.
--- NOTE | 2018-05-22 16:05 | RAD ---
Date of service: 05/22/2018 PROCEDURE: Bilateral Ankle Radiographs. HISTORY: r/o emphysema COMPARISON: None FINDINGS: BONES: Right Ankle: Partially imaged deformity of the 5th metatarsal. Left Ankle: No acute fracture. JOINTS: Right Ankle: Ankle mortise maintained. Talar dome intact. Left Ankle: Ankle mortise maintained. Talar dome intact. SOFT TISSUES: Right Ankle: Bimalleolar soft tissue swelling. Left Ankle: Bimalleolar soft tissue swelling. OTHER FINDINGS: Bilateral Achilles enthesophytes and small inferior plantar calcaneal spurs. IMPRESSION: Partially imaged deformity of the right 5th metatarsal.
--- NOTE | 2018-05-22 16:08 | RAD ---
Date of service: 05/22/2018 PROCEDURE: Bilateral Feet Radiographs. HISTORY: r/o emphysema COMPARISON: None. FINDINGS: BONES: Right Foot: Age-indeterminate fracture through the 5th mid metatarsal and distal metatarsal metaphysis. Left Foot: No acute fracture. JOINTS: Right Foot: Unremarkable. Left Foot: Unremarkable. SOFT TISSUES: Right Foot: Extensive forefoot soft tissue swelling. Left Foot: Extensive forefoot soft tissue swelling. OTHER FINDINGS: Bilateral Achilles enthesophytes and inferior plantar calcaneal spurs. IMPRESSION: Age-indeterminate fracture through the 5th metatarsal mid diaphysis and distal metaphysis.
--- NOTE | 2018-05-22 16:08 | RAD ---
Date of service: 05/22/2018 PROCEDURE: Radiographs of the right tibia and fibula. HISTORY: r/o emphysema COMPARISON: None available. TECHNIQUE: Frontal and lateral views obtained. FINDINGS: BONES: Partially imaged deformity of the 5th metatarsal. JOINT SPACES: Unremarkable. OTHER FINDINGS: Soft tissue swelling. IMPRESSION: Partially imaged deformity of the 5th metatarsal.
--- NOTE | 2018-05-22 16:09 | RAD ---
Date of service: 05/22/2018 PROCEDURE: Radiographs of the left tibia and fibula. HISTORY: r/o emphysema COMPARISON: None available. TECHNIQUE: Frontal and lateral views obtained. FINDINGS: BONES: No fracture or destructive lesion. JOINT SPACES: Unremarkable. OTHER FINDINGS: None. IMPRESSION: Unremarkable radiographs of the left tibia and fibula.
--- NOTE | 2018-05-22 18:14 | CP.PCM.HP ---
History of Present Illness - History of Present Illness History of Present Illness: 72 yo morbidly obese female with history of AFib, HTN, HLD and Hypothyroid just recently discharged from [facility] 4 days ago after staying for a month. She claimed her legs had improved and was able to ambulate with a walker. She noted that her legs were swollen again causing her difficulty in ambulation. She called Dr Manley who advised her to seek ER consultation. Patient was seen by podiatry resident. After communicating with Dr Manley, it was advised that patient be admitted for cellulitis of the legs. Present on Admission - Present on Admission Any Indicators Present on Admission: No History of DVT/PE: No History of Uncontrolled Diabetes: No Urinary Catheter: No Decubitus Ulcer Present: No Review of Systems - Review of Systems All systems: reviewed and no additional remarkable complaints except (aside from those mentioned above, 12 point system review were negative by me) Past Patient History - Infectious Disease Hx of Infectious Diseases: None - Past Medical History & Family History Past Medical History?: Yes - Past Social History Smoking Status: Unknown If Ever Smoked Alcohol: None Drugs: Denies - CARDIAC Hx Atrial Fibrillation: Yes Hx Hypercholesterolemia: Yes Hx Hypertension: Yes Hx Pacemaker: No - PULMONARY Hx Respiratory Disorders: No - NEUROLOGICAL Hx Neurological Disorder: No - HEENT Hx HEENT Problems: Yes - RENAL Hx Chronic Kidney Disease: No - ENDOCRINE/METABOLIC Hx Hypothyroidism: Yes - HEMATOLOGICAL/ONCOLOGICAL Hx Human Immunodeficiency Virus (HIV): No - INTEGUMENTARY Hx Dermatological Problems: No - MUSCULOSKELETAL/RHEUMATOLOGICAL Hx Arthritis: Yes - GASTROINTESTINAL Hx Gastrointestinal Disorders: Yes Hx Colitis: Yes - GENITOURINARY/GYNECOLOGICAL Hx Genitourinary Disorders: No - PSYCHIATRIC Hx Depression: Yes - SURGICAL HISTORY Hx Cholecystectomy: Yes - ANESTHESIA Hx Anesthesia: Yes Hx Anesthesia Reactions: No Meds Allergies/Adverse Reactions: Allergies Allergy/AdvReac Type Severity Reaction Status Date / Time No Known Allergies Allergy Verified 05/22/18 13:29 Physical Exam - Constitutional Appears: No Acute Distress, Other (morbidly obese) - Head Exam Head Exam: ATRAUMATIC - Eye Exam Eye Exam: absent: Scleral icterus - ENT Exam ENT Exam: Mucous Membranes Moist - Neck Exam Neck exam: Negative for: Meningismus - Respiratory Exam Respiratory Exam: absent: Rales, Rhonchi, Wheezes, Respiratory Distress - Cardiovascular Exam Cardiovascular Exam: Irregular Rhythm - GI/Abdominal Exam GI & Abdominal Exam: Soft. absent: Tenderness - Rectal Exam Rectal Exam: Deferred - Extremities Exam Extremities exam: Positive for: pedal edema (swelling and redness of both legs) - Neurological Exam Neurological exam: Alert, Oriented x3 - Psychiatric Exam Psychiatric exam: Normal Affect - Skin Skin Exam: Dry, Intact Results - Vital Signs Recent Vital Signs: Last Vital Signs Temp 98.8 F 05/22/18 13:29 Pulse 94 H 05/22/18 13:29 Resp 18 05/22/18 13:29 BP 120/78 05/22/18 13:29 Pulse Ox 97 05/22/18 17:33 - Labs Result Diagrams: 05/22/18 14:37 05/22/18 14:37 Labs: Laboratory Results - last 24 hr 05/22/18 05/22/18 05/22/18 14:37 14:37 14:44 WBC 11.9 H RBC 4.52 Hgb 12.8 Hct 38.7 MCV 85.6 MCH 28.3 MCHC 33.0 RDW 14.6 H Plt Count 200 MPV 9.7 Neut % (Auto) 80.4 H Lymph % (Auto) 12.8 L [place] % (Auto) 3.9 Eos % (Auto) 1.5 Baso % (Auto) 1.4 Neut # (Auto) 9.5 H Lymph # (Auto) 1.5 [place] # (Auto) 0.5 Eos # (Auto) 0.2 Baso # (Auto) 0.2 ESR pO2 21 L VBG pH 7.40 VBG pCO2 52 VBG HCO3 27.9 VBG Total CO2 33.8 H VBG O2 Sat (Calc) 38.4 L VBG Base Excess 6.0 H VBG Potassium 4.0 Glucose 136 H Lactate 1.1 FiO2 21.0 Sodium 140 139.0 Potassium 4.3 Chloride 104 104.0 Carbon Dioxide 27 Anion Gap 13 BUN 19 H Creatinine 0.6 L Est GFR ( Amer) > 60 Est GFR (Non-Af Amer) > 60 Random Glucose 131 H Calcium 9.5 Total Bilirubin 0.7 AST 25 ALT 23 Alkaline Phosphatase 97 Total Protein 8.0 Albumin 3.9 Globulin 4.1 H Albumin/Globulin Ratio 1.0 Venous Blood Potassium 4.0 05/22/18 16:09 WBC RBC Hgb Hct MCV MCH MCHC RDW Plt Count MPV Neut % (Auto) Lymph % (Auto) [place] % (Auto) Eos % (Auto) Baso % (Auto) Neut # (Auto) Lymph # (Auto) [place] # (Auto) Eos # (Auto) Baso # (Auto) ESR 67 H pO2 VBG pH VBG pCO2 VBG HCO3 VBG Total CO2 VBG O2 Sat (Calc) VBG Base Excess VBG Potassium Glucose Lactate FiO2 Sodium Potassium Chloride Carbon Dioxide Anion Gap BUN Creatinine Est GFR ( Amer) Est GFR (Non-Af Amer) Random Glucose Calcium Total Bilirubin AST ALT Alkaline Phosphatase Total Protein Albumin Globulin Albumin/Globulin Ratio Venous Blood Potassium Assessment & Plan - Assessment and Plan (Free Text) Assessment: 72 yo female with history of AFib, HTN, DM2 and Hypothyroidism came back after getting discharged from [facility] complaining of difficulty of ambulating even with a walker because of bilateral leg swelling. 1. Chronic Cellulitis of Legs blood culture x 2 Vancomycin 1gm IV daily Cepefime 1gm IV q 8hrs podiatry consult with Dr Manley 2. HTN BP stable continue Coreg, Losartan and Lasix 3. Chronic A Fib rate controlled continue Coreg and Coumadin PT/INR 4. DM2 diabetic diet accucheck ACHS with Lispro coverage continue Metformin, Glucotrol, Januvia and Prandin 5. Hypothyroidism continue Synthroid 6. CHF, chronic systolic and diastolic dysfunction continue Coreg, Losartan and Lasix
[2018-05-22] MEDS ORDERED: Fluticasone-Salmeterol 250-50mcg Diskus IH SCH (18:45)
[2018-05-22 21:00] LABS: INR 1.7 (0.9-1.2); PROTHROMBIN TIME 18.6 Seconds (9.8-13.1)
[2018-05-22] MEDS: Fluticasone-Salmeterol 250-50mcg Diskus IH SCH (21:56)
[2018-05-23] MEDS: Cefepime 1 GM in Sodium Chloride 0.9% 100 ML IVPB SCH ×3 (01:48→16:30)
[2018-05-23] MEDS: Levothyroxine 75 MCG TAB PO SCH (06:32)
[2018-05-23 07:10] LABS: BASO % 0.3 % (0.0-2.0); EOS # 0.3 K/uL (0.0-0.7); EOS % 2.6 % (0.0-4.0); HEMOGLOBIN 11.4 g/dL (12.0-16.0); LYMPH % 18.1 % (20.0-40.0); MEAN CELL VOLUME 86.2 fl (81.0-99.0); MEAN CORPUSCULAR HEMOGLOBIN 28.5 pg (27.0-31.0); MEAN CORPUSCULAR HGB CONC 33.1 g/dL (33.0-37.0); MEAN PLATELET VOLUME 9.9 fl (7.2-11.7); MONO # 0.6 K/uL (0.0-0.8); MONO % 5.2 % (0.0-10.0); NEUT # 8.1 K/uL (1.8-7.0); NEUT % 73.8 % (50.0-75.0); RBC 4.01 Mil/uL (3.80-5.20); RED CELL DISTRIBUTION WIDTH 14.9 % (11.5-14.5)
[2018-05-23 07:31] LABS: BLOOD UREA NITROGEN 16 mg/dl (7-17); CALCIUM 8.9 mg/dL (8.4-10.2); GFR NON-AFRICAN AMERICAN > 60
[2018-05-23] MEDS: Fluticasone-Salmeterol 250-50mcg Diskus IH SCH ×3 (08:40→21:20)
[2018-05-23] MEDS: Lactobacillus Acidophilus 500 MU Cap PO SCH ×2 (08:48→16:29)
[2018-05-23] MEDS: Pantoprazole 40 mg EC Tab PO SCH (08:49)
--- NOTE | 2018-05-23 09:00 | CP.PCM.PN ---
Subjective - Date & Time of Evaluation Date of Evaluation: 05/23/18 Time of Evaluation: 08:57 - Subjective Subjective: Podiatry consult note for attending Dr. Manley 72 y/o female patient seen and evaluated at bedside due to redness, swelling and ulcerations to b/l lower extremities. Patient is resting comfortably in a chair, and states it is more comfortable than laying in bed. Patient is concerned of the redness and states she would like to return to a Rehab facility where her condition was overall improving. Patient reports feeling weak as well, but denies F/N/V/SOB/chills. Objective - Vital Signs/Intake and Output Vital Signs (last 24 hours): Temp Pulse Resp BP Pulse Ox 98.6 F 70 20 161/77 H 94 L 05/23/18 07:59 05/23/18 08:49 05/23/18 07:59 05/23/18 08:52 05/23/18 07:59 - Medications Medications: Current Medications Atorvastatin Calcium (Lipitor) 40 mg PO HS [facility] Last Admin: 05/22/18 21:45 Dose: 40 mg Carvedilol (Coreg) 6.25 mg PO Q12 [facility] Last Admin: 05/23/18 08:49 Dose: 6.25 mg Docusate Sodium (Colace) 100 mg PO BID [facility] Last Admin: 05/23/18 08:50 Dose: 100 mg Ergocalciferol (Drisdol 50,000 Intl Units Cap) 1 cap PO WE [facility] Furosemide (Lasix) 20 mg PO DAILY [facility] Last Admin: 05/23/18 08:52 Dose: 20 mg Glipizide (Glucotrol) 5 mg PO BID [facility] Last Admin: 05/23/18 08:49 Dose: 5 mg Home Med (Warfarin Sodium [Jantoven]) 6 mg PO QPM [facility] Cefepime HCl 1 gm/ Sodium (Chloride) 100 mls @ 100 mls/hr IVPB Q8 [facility] PRN Reason: Protocol Last Admin: 05/23/18 08:50 Dose: 100 mls/hr Vancomycin HCl 1 gm/ Sodium (Chloride) 250 mls @ 166.667 mls/hr IVPB Q12@0200, 1400 [facility] PRN Reason: Protocol Last Admin: 05/23/18 02:45 Dose: 166.667 mls/hr Lactobacillus Acidophilus (Bacid Acidophilus) 1 cap PO BID [facility] Last Admin: 05/23/18 08:48 Dose: 1 cap Levothyroxine Sodium (Synthroid) 75 mcg PO DAILY@0630 [facility] Last Admin: 05/23/18 06:32 Dose: 75 mcg Losartan Potassium (Cozaar) 100 mg PO DAILY [facility] Last Admin: 05/23/18 08:49 Dose: 100 mg Metformin HCl (Glucophage) 500 mg PO TID [facility] Last Admin: 05/23/18 08:49 Dose: 500 mg Mupirocin (Bactroban Ointment) 1 applic TOP BID [facility] Last Admin: 05/23/18 08:50 Dose: Not Given Pantoprazole Sodium (Protonix Ec Tab) 40 mg PO DAILY [facility] Last Admin: 05/23/18 08:49 Dose: 40 mg Repaglinide (Prandin) 2 mg PO TID [facility] Last Admin: 05/23/18 08:48 Dose: 2 mg Fluticasone/Salmeterol (Advair Diskus 250/50) 1 puff IH Q12H [facility] Last Admin: 05/23/18 08:48 Dose: 1 puff Sertraline HCl (Zoloft) 100 mg PO DAILY [facility] Last Admin: 05/23/18 08:49 Dose: 100 mg Sitagliptin Phosphate (Januvia) 100 mg PO DAILY [facility] Last Admin: 05/23/18 08:48 Dose: 100 mg - Labs Labs: 05/23/18 05:20 05/23/18 05:20 PT 18.6 Seconds (9.8-13.1) H 05/22/18 20:03 INR 1.7 (0.9-1.2) H 05/22/18 20:03 APTT 29.1 Seconds (25.6-37.1) 05/22/18 19:10 - Constitutional Appears: Well, Non-toxic, No Acute Distress - Head Exam Head Exam: ATRAUMATIC, NORMOCEPHALIC - Extremities Exam Additional comments: Bilateral Lower Extremity Focused Exam Dressing- soaked in serous drainage VASC: DP and PT non-palpable secondary to non-pitting edema to the dorsum of the feet bilaterally, CFT less than 3 seconds X 10, TG warm to warm bilaterally with increased warmth to areas where erythema noted, swelling noted to bialteral leg, ankle and feet NEURO: grossly intact DERM: Right- increased erythema and excoriations noted from the anterior mid-leg extending distally to the ankle joint with increased areas of blister formation , positive for serous drainage, positive malodor, no probe to bone, no undermining, no tunneling, increased warmth noted, positive interdigital maceration Left- increasing erythema noted from the tibial tuberosity extending distally to the ankle joint, excoriations also noted to the leg with xerosis, deep tissue noted to the left heel with necrotic base, positive for sero-sanguinous drainage, positive malodor, no probe to bone, no tunneling or tracking, surrounding erythema noted, positive interdigital maceration MSK: patient complaining of severe pain with palpation and range of motion - Neurological Exam Neurological Exam: Alert, Awake, Oriented x3 - Psychiatric Exam Psychiatric exam: Normal Affect, Normal Mood Assessment and Plan - Assessment and Plan (Free Text) Assessment: 72 y/o female patient seen and evaluated for complaints of redness, swelling and ulceration to b/l lower extremities. Plan: Patient seen and evaluated at bedside Plan discussed with attending Dr. Manley Chart, labs and vital reviewed- WBC 11.0, Afebrile Wound Culture Ordered- Prelim, Gram Positive Cocci Patient Tibia-Fibula, Ankle and Foot X-rays (05/22)- negative for soft tissue emphysema, negative for acute fracture or dislocation Patient case will be discussed with social work/case management on Thursday to locate appropriate Rehab Facility Patient wounds dressed with Xeroform, ABC, DSD bilaterally Podiatry will continue to follow the patient on the floor
--- NOTE | 2018-05-23 11:25 | CP.PCM.PN ---
Subjective - Date & Time of Evaluation Date of Evaluation: 05/23/18 Time of Evaluation: 11:15 - Subjective Subjective: Pt has no fevr still with leg swelling and erythema pt denies leg pain nor tenderness at present no CP no SOB no abd pain Objective - Vital Signs/Intake and Output Vital Signs (last 24 hours): Temp Pulse Resp BP Pulse Ox 98.6 F 70 20 161/77 H 94 L 05/23/18 07:59 05/23/18 08:49 05/23/18 07:59 05/23/18 08:52 05/23/18 07:59 - Medications Medications: Current Medications Atorvastatin Calcium (Lipitor) 40 mg PO HS [facility] Last Admin: 05/22/18 21:45 Dose: 40 mg Carvedilol (Coreg) 6.25 mg PO Q12 [facility] Last Admin: 05/23/18 08:49 Dose: 6.25 mg Docusate Sodium (Colace) 100 mg PO BID [facility] Last Admin: 05/23/18 08:50 Dose: 100 mg Ergocalciferol (Drisdol 50,000 Intl Units Cap) 1 cap PO WE [facility] Furosemide (Lasix) 20 mg PO DAILY [facility] Last Admin: 05/23/18 08:52 Dose: 20 mg Glipizide (Glucotrol) 5 mg PO BID [facility] Last Admin: 05/23/18 08:49 Dose: 5 mg Home Med (Warfarin Sodium [Jantoven]) 6 mg PO QPM [facility] Cefepime HCl 1 gm/ Sodium (Chloride) 100 mls @ 100 mls/hr IVPB Q8 [facility] PRN Reason: Protocol Last Admin: 05/23/18 08:50 Dose: 100 mls/hr Vancomycin HCl 1 gm/ Sodium (Chloride) 250 mls @ 166.667 mls/hr IVPB Q12@0200, 1400 [facility] PRN Reason: Protocol Last Admin: 05/23/18 02:45 Dose: 166.667 mls/hr Lactobacillus Acidophilus (Bacid Acidophilus) 1 cap PO BID [facility] Last Admin: 05/23/18 08:48 Dose: 1 cap Levothyroxine Sodium (Synthroid) 75 mcg PO DAILY@0630 [facility] Last Admin: 05/23/18 06:32 Dose: 75 mcg Losartan Potassium (Cozaar) 100 mg PO DAILY [facility] Last Admin: 05/23/18 08:49 Dose: 100 mg Metformin HCl (Glucophage) 500 mg PO TID [facility] Last Admin: 05/23/18 08:49 Dose: 500 mg Mupirocin (Bactroban Ointment) 1 applic TOP BID [facility] Last Admin: 05/23/18 08:50 Dose: Not Given Pantoprazole Sodium (Protonix Ec Tab) 40 mg PO DAILY [facility] Last Admin: 05/23/18 08:49 Dose: 40 mg Repaglinide (Prandin) 2 mg PO TID [facility] Last Admin: 05/23/18 08:48 Dose: 2 mg Fluticasone/Salmeterol (Advair Diskus 250/50) 1 puff IH Q12H [facility] Last Admin: 05/23/18 08:48 Dose: 1 puff Sertraline HCl (Zoloft) 100 mg PO DAILY [facility] Last Admin: 05/23/18 08:49 Dose: 100 mg Sitagliptin Phosphate (Januvia) 100 mg PO DAILY [facility] Last Admin: 05/23/18 08:48 Dose: 100 mg - Labs Labs: 05/23/18 05:20 05/23/18 05:20 PT 18.6 Seconds (9.8-13.1) H 05/22/18 20:03 INR 1.7 (0.9-1.2) H 05/22/18 20:03 APTT 29.1 Seconds (25.6-37.1) 05/22/18 19:10 - Constitutional Appears: No Acute Distress - Head Exam Head Exam: NORMAL INSPECTION, NORMOCEPHALIC - Eye Exam Pupil Exam: NORMAL ACCOMODATION - ENT Exam ENT Exam: Mucous Membranes Moist, Normal External Ear Exam - Neck Exam Neck Exam: Full ROM. absent: Meningismus - Respiratory Exam Respiratory Exam: NORMAL BREATHING PATTERN. absent: Rales, Wheezes, Respiratory Distress - Cardiovascular Exam Cardiovascular Exam: Irregular Rhythm, +S1, +S2 - GI/Abdominal Exam GI & Abdominal Exam: Soft, Normal Bowel Sounds. absent: Tenderness - Extremities Exam Extremities Exam: Pedal Edema. absent: Calf Tenderness Additional comments: LE erythema , warmth , excoriations - Back Exam Back Exam: absent: CVA tenderness (L), CVA tenderness (R) - Neurological Exam Neurological Exam: Alert, Awake, Oriented x3 Additional comments: moves all extremities - Psychiatric Exam Psychiatric exam: Normal Affect, Normal Mood - Skin Skin Exam: Dry, Normal Color, Warm Assessment and Plan - Assessment and Plan (Free Text) Assessment: 72 yo female with history of AFib, HTN, DM2 and Hypothyroidism came back after getting discharged from [facility] complaining of difficulty of ambulating even with a walker because of bilateral leg swelling. 1. Bilateral Lower Extremity Cellulitis with Wound Ulcer Pt has chronic stasis and swelling of both LE however legs now red / erythematous , sl tender and has excoriations blood culture x 2 Vancomycin 1gm IV daily Cepefime 1gm IV q 8hrs podiatry consult with Dr Manley Wound Care Wound c/s : Gram + cocci LE Xray : neg 2. HTN BP stable continue Coreg, Losartan and Lasix 3. Chronic A Fib rate controlled continue Coreg and Coumadin PT/INR daily 4. DM2 diabetic diet accucheck ACHS with Lispro coverage continue Metformin, Glucotrol, Januvia and Prandin 5. Hypothyroidism continue Synthroid 6. CHF, chronic systolic and diastolic dysfunction continue Coreg, Losartan and Lasix DVT proph -pt is on Coumadin
[2018-05-23 12:31] LABS: INR 1.8 (0.9-1.2); PROTHROMBIN TIME 20.1 Seconds (9.8-13.1)
[2018-05-23] MEDS ORDERED: WARFARIN SODIUM 6 MG PO SCH (18:00)
[2018-05-24] MEDS: Cefepime 1 GM in Sodium Chloride 0.9% 100 ML IVPB SCH ×3 (01:03→16:49)
[2018-05-24 05:25] LABS: BLOOD UREA NITROGEN 16 mg/dl (7-17); CALCIUM 9.1 mg/dL (8.4-10.2); GFR NON-AFRICAN AMERICAN > 60
[2018-05-24 06:06] LABS: HEMOGLOBIN 11.6 g/dL (12.0-16.0); MEAN CELL VOLUME 87.6 fl (81.0-99.0); MEAN CORPUSCULAR HEMOGLOBIN 29.6 pg (27.0-31.0); MEAN CORPUSCULAR HGB CONC 33.8 g/dL (33.0-37.0); RBC 3.9 Mil/uL (3.80-5.20); RED CELL DISTRIBUTION WIDTH 14.2 % (11.5-14.5); WHITE BLOOD COUNT 11.5 K/uL (4.8-10.8)
[2018-05-24 06:09] LABS: INR 1.8 (0.9-1.2); PROTHROMBIN TIME 20.1 Seconds (9.8-13.1)
[2018-05-24] MEDS: Levothyroxine 75 MCG TAB PO SCH (06:14)
--- NOTE | 2018-05-24 08:18 | CP.PCM.PN ---
Subjective - Date & Time of Evaluation Date of Evaluation: 05/24/18 Time of Evaluation: 08:16 - Subjective Subjective: Podiatry consult note for Dr. Manley: 72 year old female patient seen and evaluated for swelling and superficial ulcerations to bilateral lower extremities. Patient is resting comfortably in a chair with lower extremities elevated; when her legs are elevated she reports less pain. She notes that she feels her her feet appear more swollen today. Denies F/N/V/SOB/CP/C. Objective - Vital Signs/Intake and Output Vital Signs (last 24 hours): Temp Pulse Resp BP Pulse Ox 97.6 F 64 20 134/68 98 05/24/18 08:10 05/24/18 08:10 05/24/18 08:10 05/24/18 08:10 05/24/18 08:10 - Medications Medications: Current Medications Atorvastatin Calcium (Lipitor) 40 mg PO HS [facility] Last Admin: 05/23/18 21:26 Dose: 40 mg Carvedilol (Coreg) 6.25 mg PO Q12 [facility] Last Admin: 05/23/18 21:25 Dose: 6.25 mg Docusate Sodium (Colace) 100 mg PO BID [facility] Last Admin: 05/23/18 16:30 Dose: 100 mg Ergocalciferol (Drisdol 50,000 Intl Units Cap) 1 cap PO WE [facility] Furosemide (Lasix) 20 mg PO DAILY [facility] Last Admin: 05/23/18 08:52 Dose: 20 mg Glipizide (Glucotrol) 5 mg PO BID [facility] Last Admin: 05/23/18 16:30 Dose: 5 mg Cefepime HCl 1 gm/ Sodium (Chloride) 100 mls @ 100 mls/hr IVPB Q8 [facility] PRN Reason: Protocol Last Admin: 05/24/18 01:03 Dose: 100 mls/hr Vancomycin HCl 1 gm/ Sodium (Chloride) 250 mls @ 166.667 mls/hr IVPB Q12@0200, 1400 [facility] PRN Reason: Protocol Last Admin: 05/24/18 04:00 Dose: 166.667 mls/hr Lactobacillus Acidophilus (Bacid Acidophilus) 1 cap PO BID [facility] Last Admin: 05/23/18 16:29 Dose: 1 cap Levothyroxine Sodium (Synthroid) 75 mcg PO DAILY@0630 [facility] Last Admin: 05/24/18 06:14 Dose: 75 mcg Losartan Potassium (Cozaar) 100 mg PO DAILY [facility] Last Admin: 05/23/18 08:49 Dose: 100 mg Metformin HCl (Glucophage) 500 mg PO TID [facility] Last Admin: 05/23/18 16:30 Dose: 500 mg Mupirocin (Bactroban Ointment) 1 applic TOP BID [facility] Last Admin: 05/23/18 16:29 Dose: Not Given Pantoprazole Sodium (Protonix Ec Tab) 40 mg PO DAILY [facility] Last Admin: 05/23/18 08:49 Dose: 40 mg Repaglinide (Prandin) 2 mg PO TID [facility] Last Admin: 05/23/18 16:30 Dose: 2 mg Fluticasone/Salmeterol (Advair Diskus 250/50) 1 puff IH Q12H [facility] Last Admin: 05/23/18 21:20 Dose: Not Given Sertraline HCl (Zoloft) 100 mg PO DAILY [facility] Last Admin: 05/23/18 08:49 Dose: 100 mg Sitagliptin Phosphate (Januvia) 100 mg PO DAILY [facility] Last Admin: 05/23/18 08:48 Dose: 100 mg - Labs Labs: 05/24/18 05:00 05/24/18 05:00 PT 20.1 Seconds (9.8-13.1) H 05/24/18 05:00 INR 1.8 (0.9-1.2) H 05/24/18 05:00 APTT 29.1 Seconds (25.6-37.1) 05/22/18 19:10 - Constitutional Appears: Well, Non-toxic, No Acute Distress - Head Exam Head Exam: ATRAUMATIC, NORMOCEPHALIC - Extremities Exam Additional comments: Vasc: DP/PT non-palpable secondary to brawny edema to the dorsum of the feet bilaterally, CFT <3 seconds to all 10 digits, TG warm to warm bilaterally Ortho: Pain upon palpation of bilateral lower extremities Neuro: Gross and protective sensation intact bilaterally. Derm: Right: superficial ulcerations noted to anterior leg extending distally to the ankle joint with blister formation, positive for serous drainage, minimal malodor, no probe to bone, no undermining, no tunneling, increased warmth noted, positive interdigital maceration, no clinical signs of infection Left- increasing erythema noted from the tibial tuberosity extending distally to the ankle joint,superficial ulcerations noted to the leg, deep tissue injury noted to the left heel with necrotic base, positive for serous drainage, minimal malodor, no probe to bone, no tunneling or tracking, surrounding erythema noted, positive interdigital maceration, no clinical signs of infection - Neurological Exam Neurological Exam: Alert, Awake, Oriented x3 - Psychiatric Exam Psychiatric exam: Normal Affect, Normal Mood Assessment and Plan - Assessment and Plan (Free Text) Assessment: 72 year old female patient seen and evaluated for superficial ulcerations to bilateral lower extremities. Plan: Patient seen and evaluated Plan discussed with attending Dr. Manley Chart, labs and vital reviewed- WBC 11.5 (05/24/18) Wound Culture Ordered: Prelim, Gram Positive Cocci Tibia-Fibula, Ankle and Foot X-rays (05/22)- negative for soft tissue emphysema, negative for acute fracture or dislocation F/U with social work/case management to locate appropriate Rehab Facility Patient wounds dressed with alginate, ABD and DSD bilaterally Encouraged patient to continue elevating bilateral lower extremities Podiatry will continue to follow the patient while in house
[2018-05-24] MEDS: Fluticasone-Salmeterol 250-50mcg Diskus IH SCH ×2 (08:19→22:05)
[2018-05-24] MEDS: Pantoprazole 40 mg EC Tab PO SCH (08:23)
[2018-05-24] MEDS: Lactobacillus Acidophilus 500 MU Cap PO SCH ×2 (08:27→16:50)
--- NOTE | 2018-05-24 12:21 | CP.PCM.PN ---
Subjective - Date & Time of Evaluation Date of Evaluation: 05/24/18 Time of Evaluation: 12:18 - Subjective Subjective: doing well sitting in chair had lower ext wrapped up in bandage no pain Objective - Vital Signs/Intake and Output Vital Signs (last 24 hours): Temp Pulse Resp BP Pulse Ox 97.6 F 64 20 134/68 98 05/24/18 08:10 05/24/18 08:22 05/24/18 08:10 05/24/18 08:23 05/24/18 08:10 - Medications Medications: Current Medications Atorvastatin Calcium (Lipitor) 40 mg PO HS [facility] Last Admin: 05/23/18 21:26 Dose: 40 mg Carvedilol (Coreg) 6.25 mg PO Q12 [facility] Last Admin: 05/24/18 08:21 Dose: 6.25 mg Docusate Sodium (Colace) 100 mg PO BID [facility] Last Admin: 05/24/18 08:21 Dose: 100 mg Ergocalciferol (Drisdol 50,000 Intl Units Cap) 1 cap PO WE [facility] Furosemide (Lasix) 20 mg PO DAILY [facility] Last Admin: 05/24/18 08:23 Dose: 20 mg Glipizide (Glucotrol) 5 mg PO BID [facility] Last Admin: 05/24/18 08:22 Dose: 5 mg Cefepime HCl 1 gm/ Sodium (Chloride) 100 mls @ 100 mls/hr IVPB Q8 [facility] PRN Reason: Protocol Last Admin: 05/24/18 08:24 Dose: 100 mls/hr Vancomycin HCl 1 gm/ Sodium (Chloride) 250 mls @ 166.667 mls/hr IVPB Q12@0200, 1400 [facility] PRN Reason: Protocol Last Admin: 05/24/18 04:00 Dose: 166.667 mls/hr Lactobacillus Acidophilus (Bacid Acidophilus) 1 cap PO BID [facility] Last Admin: 05/24/18 08:27 Dose: 1 cap Levothyroxine Sodium (Synthroid) 75 mcg PO DAILY@0630 [facility] Last Admin: 05/24/18 06:14 Dose: 75 mcg Losartan Potassium (Cozaar) 100 mg PO DAILY [facility] Last Admin: 05/24/18 08:22 Dose: 100 mg Metformin HCl (Glucophage) 500 mg PO TID [facility] Last Admin: 05/24/18 08:22 Dose: 500 mg Mupirocin (Bactroban Ointment) 1 applic TOP BID [facility] Last Admin: 05/24/18 08:20 Dose: Not Given Pantoprazole Sodium (Protonix Ec Tab) 40 mg PO DAILY [facility] Last Admin: 05/24/18 08:23 Dose: 40 mg Repaglinide (Prandin) 2 mg PO TID [facility] Last Admin: 05/24/18 08:23 Dose: 2 mg Fluticasone/Salmeterol (Advair Diskus 250/50) 1 puff IH Q12H [facility] Last Admin: 05/24/18 08:19 Dose: Not Given Sertraline HCl (Zoloft) 100 mg PO DAILY [facility] Last Admin: 05/24/18 08:24 Dose: 100 mg Sitagliptin Phosphate (Januvia) 100 mg PO DAILY [facility] Last Admin: 05/24/18 08:23 Dose: 100 mg Warfarin Sodium (Coumadin) 7.5 mg PO QD5 [facility] PRN Reason: Protocol Stop: 05/24/18 17:01 - Labs Labs: 05/24/18 05:00 05/24/18 05:00 PT 20.1 Seconds (9.8-13.1) H 05/24/18 05:00 INR 1.8 (0.9-1.2) H 05/24/18 05:00 APTT 29.1 Seconds (25.6-37.1) 05/22/18 19:10 - Constitutional Appears: Well, Non-toxic, No Acute Distress - Head Exam Head Exam: NORMAL INSPECTION - Eye Exam Eye Exam: Normal appearance Pupil Exam: NORMAL ACCOMODATION - ENT Exam ENT Exam: Mucous Membranes Moist - Respiratory Exam Respiratory Exam: Clear to Ausculation Bilateral, NORMAL BREATHING PATTERN. absent: Rales, Rhonchi, Wheezes - Cardiovascular Exam Cardiovascular Exam: REGULAR RHYTHM, +S1, +S2 - GI/Abdominal Exam GI & Abdominal Exam: Soft, Normal Bowel Sounds. absent: Tenderness Additional comments: obese - Extremities Exam Additional comments: both ext in bandages florin - Psychiatric Exam Psychiatric exam: Normal Affect Assessment and Plan - Assessment and Plan (Free Text) Assessment: 72 yo female with history of AFib, HTN, DM2 and Hypothyroidism came back after getting discharged from [facility] complaining of difficulty of ambulating even with a walker because of bilateral leg swelling. 1. Bilateral Lower Extremity Cellulitis with Wound Ulcer MRSA growing Pt has chronic stasis and swelling of both LE however legs now red / erythematous , sl tender and has excoriations blood culture x 2 Vancomycin 1gm IV daily Cepefime 1gm IV q 8hrs podiatry consult with Dr Manley Wound Care Wound c/s : Gram + cocci - MRSA on VANCO LE Xray : neg 2. HTN BP stable continue Coreg, Losartan and Lasix 3. Chronic A Fib rate controlled continue Coreg and Coumadin increased to 7.5 monitor freedom PT/INR daily 4. DM2 diabetic diet accucheck ACHS with Lispro coverage continue Metformin, Glucotrol, Januvia and Prandin 5. Hypothyroidism continue Synthroid 6. CHF, chronic systolic and diastolic dysfunction continue Coreg, Losartan and Lasix DVT proph -pt is on Coumadin
--- NOTE | 2018-05-24 15:34 | PQF ---
PROVIDER RESPONSE TEXT: Pressure ulcer POA. REVIEWER QUERY TEXT: Pressure Ulcer Type Pressure ulcer is documented in the Medical Record. Please specify the following: if in agreement: 1. present on admission status and/or stage: 2. Location and laterality of pressure ulcer(s): POA status of each pressure ulcer: -- Not present on admission -- Present on admission -- Other -- Clinically unable to determine -- Unknown Stage of each pressure ulcer (National Pressure Ulcer Advisory Panel definitions): -- Stage I: Intact skin with non-blanchable redness of a localized area -- Stage II: Partial thickness skin loss involving dermis with a shallow open ulcer or an open serum -filled blister -- Stage III: Full thickness skin loss involving damage or necrosis of subcutaneous tissue -- Stage IV: Full thickness skin loss with exposed bone, tendon or muscle -- Unstageable: Full thickness tissue loss in which the base of the ulcer is covered by slough and/o r eschar in the wound bed ER note includes: ER: Extremity: Right heel with ulceration noted ---Present on Arrival: Pressure Ul cer H and P: Present on Admission: Decubitus Ulcer Present: No 05/22 Podiatry consult: deep tissue noted to the left heel 05/24 Podiatry progress note: deep tissue injury noted to the left heel with necrotic base The patient's Clinical Indicators include: xx Query created by: Lyla Thomas on 05/24/2018 3:13 PM Electronically signed by: 05/24/2018 3:30 PM
[2018-05-24] MEDS: Enoxaparin 100 mg Syringe SC SCH (21:57)
[2018-05-25] MEDS: Cefepime 1 GM in Sodium Chloride 0.9% 100 ML IVPB SCH ×2 (00:38→09:37)
[2018-05-25 06:31] LABS: HEMOGLOBIN 11.2 g/dL (12.0-16.0); MEAN CELL VOLUME 86.1 fl (81.0-99.0); MEAN CORPUSCULAR HEMOGLOBIN 28.5 pg (27.0-31.0); MEAN CORPUSCULAR HGB CONC 33.1 g/dL (33.0-37.0); RBC 3.94 Mil/uL (3.80-5.20); RED CELL DISTRIBUTION WIDTH 14.5 % (11.5-14.5); WHITE BLOOD COUNT 10.6 K/uL (4.8-10.8)
[2018-05-25] MEDS: Levothyroxine 75 MCG TAB PO SCH (06:40)
[2018-05-25 06:53] LABS: INR 1.8 (0.9-1.2); PROTHROMBIN TIME 20.4 Seconds (9.8-13.1)
[2018-05-25] MEDS ORDERED: Povidone Iodine Topical 10% Sol ONE (07:31)
[2018-05-25] MEDS: Fluticasone-Salmeterol 250-50mcg Diskus IH SCH (09:30)
[2018-05-25] MEDS: Lactobacillus Acidophilus 500 MU Cap PO SCH (09:34)
[2018-05-25] MEDS: Enoxaparin 100 mg Syringe SC SCH (09:36)
[2018-05-25] MEDS: Pantoprazole 40 mg EC Tab PO SCH (09:37)
[2018-05-25] MEDS ORDERED: Lidocaine Hydrochloride 5 ML INJ ONE (10:55)
--- NOTE | 2018-05-25 11:13 | PCM.SURG1 ---
Surgeon's Initial Post Op Note - Surgeon's Notes Surgeon: Freddie Gerardo MD [employer] Saw Operator: NONE Type of Anesthesia: Local Pre-Operative Diagnosis: Poor venous access Operative Findings: US showed a patent right basilic vein. Post-Operative Diagnosis: Poor venous access Operation Performed: Single lumen picc right basilic vein. Tip is in the SVC. Specimen/Specimens Removed: NONE Estimated Blood Loss: EBL {In ML}: 2 Blood Products Given: N/A Drains Used: No Drains Post-Op Condition: Fair Date of Surgery/Procedure: 05/25/18 Time of Surgery/Procedure: 11:10
--- NOTE | 2018-05-25 11:22 | VASCULAR ---
PROCEDURE: Date of procedure: 05/25/2018 Procedure: 1. Placement of a right arm PICC with ultrasound and fluoroscopic guidance, CPT 96083 2. PICC tip confirmation with spot radiograph and is in the superior vena cava Medications: 2cc 1 percent lidocaine Total Fluoro time: 4.8 seconds Radiation: 0.88 MGy EBL: 2 cc HISTORY: Poor venous TECHNIQUE: Following informed consent and procedure time-out, the patient was placed supine on the interventional table and the right arm prepped and draped in the usual sterile fashion. Ultrasound showed a patent and compressible right basilic vein. After the skin was anesthetized with lidocaine, the basilic vein was accessed with micro micropuncture technique using ultrasound guidance. A guidewire was then advanced under fluoroscopic guidance into the superior vena cava. An image documenting ultrasound guidance for vascular access was permanently saved. The length of the single-lumen 4 [place] PICC was trimmed to 39 centimeters and advanced through a peel-away sheath. The PICC was position with tip of PICC confirm a spot radiograph the superior vena cava. The PICC was secured to the patient's skin. The PICC was flushed. A biopatch and sterile dressing was applied. IMPRESSION: Placement of a single-lumen 4 [place] PICC trimmed to 39 centimeters via right basilic vein. The tip of the PICC is confirmed with spot radiograph and is in the superior vena cava.
--- NOTE | 2018-05-25 11:43 | CP.PCM.DIS ---
<Roxie Daigle - Last Filed: 05/25/18 16:23> Provider - Provider Date of Admission: 05/22/18 17:42 Attending physician: Jeremi Patel MD Time Spent in preparation of Discharge (in minutes): 37 Diagnosis - Discharge Diagnosis (1) Bilateral lower leg cellulitis Status: Acute Comment: + chronic statis of bilateral lower extremities. Wound cultures: gram + cocci, MRSA. Patient has a PICC line for Vancomycin treatment for 10 days. Patient will follow outpatient with Dr. Manley. (2) Chronic a-fib Status: Acute Comment: Rate controlled. Continue coreg. Patient's INR was subtherapeutic so coumadin was increased to 6mg. Patient will be on coumadin and Lovenox until INR becomes therapeutic. (3) DM2 (diabetes mellitus, type 2) Status: Acute Comment: Continue metformin, glucotrol, januvia and prandin. (4) Systolic and diastolic CHF, chronic Status: Acute Comment: Continue coreg, lasix and losartan. (5) HTN (hypertension) Status: Chronic Comment: stable. continue coreg, losartan and laxis. (6) Hypothyroid Status: Chronic Comment: continue synthroid. Hospital Course - Lab Results Lab Results: Micro Results 05/22/18 14:52 Blood-Venous Blood Culture - Preliminary NO GROWTH AFTER 48 HOURS 05/22/18 14:37 Blood-Venous Blood Culture - Preliminary NO GROWTH AFTER 48 HOURS 05/22/18 15:50 Leg - Right Gram Stain - Final 05/22/18 15:50 Leg - Right Wound Culture - Final Methicillin Resistant S Aureus Most Recent Lab Values WBC 10.6 K/uL (4.8-10.8) 05/25/18 06:10 RBC 3.94 Mil/uL (3.80-5.20) 05/25/18 06:10 Hgb 11.2 g/dL (12.0-16.0) L 05/25/18 06:10 Hct 33.9 % (34.0-47.0) L 05/25/18 06:10 MCV 86.1 fl (81.0-99.0) 05/25/18 06:10 MCH 28.5 pg (27.0-31.0) 05/25/18 06:10 MCHC 33.1 g/dL (33.0-37.0) 05/25/18 06:10 RDW 14.5 % (11.5-14.5) 05/25/18 06:10 Plt Count 173 K/uL (130-400) 05/25/18 06:10 MPV 9.9 fl (7.2-11.7) 05/23/18 05:20 Neut % (Auto) 73.8 % (50.0-75.0) 05/23/18 05:20 Lymph % (Auto) 18.1 % (20.0-40.0) L 05/23/18 05:20 Mckean % (Auto) 5.2 % (0.0-10.0) 05/23/18 05:20 Eos % (Auto) 2.6 % (0.0-4.0) 05/23/18 05:20 Baso % (Auto) 0.3 % (0.0-2.0) 05/23/18 05:20 Neut # (Auto) 8.1 K/uL (1.8-7.0) H 05/23/18 05:20 Lymph # (Auto) 2.0 K/uL (1.0-4.3) 05/23/18 05:20 Mckean # (Auto) 0.6 K/uL (0.0-0.8) 05/23/18 05:20 Eos # (Auto) 0.3 K/uL (0.0-0.7) 05/23/18 05:20 Baso # (Auto) 0.0 K/uL (0.0-0.2) 05/23/18 05:20 ESR 67 mm/hr (0-30) H 05/22/18 16:09 PT 20.4 Seconds (9.8-13.1) H 05/25/18 06:10 INR 1.8 (0.9-1.2) H 05/25/18 06:10 APTT 29.1 Seconds (25.6-37.1) 05/22/18 19:10 pO2 21 mm/Hg (30-55) L 05/22/18 14:44 VBG pH 7.40 (7.32-7.43) 05/22/18 14:44 VBG pCO2 52 mmHg (40-60) 05/22/18 14:44 VBG HCO3 27.9 mmol/L 05/22/18 14:44 VBG Total CO2 33.8 mmol/L (22-28) H 05/22/18 14:44 VBG O2 Sat (Calc) 38.4 % (40-65) L 05/22/18 14:44 VBG Base Excess 6.0 mmol/L (0.0-2.0) H 05/22/18 14:44 VBG Potassium 4.0 mmol/L (3.6-5.2) 05/22/18 14:44 Sodium 139.0 mmol/L (132-148) 05/22/18 14:44 Chloride 104.0 mmol/L (98-107) 05/22/18 14:44 Glucose 136 mg/dL (65-105) H 05/22/18 14:44 Lactate 1.1 mmol/L (0.7-2.1) 05/22/18 14:44 FiO2 21.0 % 05/22/18 14:44 Sodium 142 mmol/l (132-148) 05/24/18 05:00 Potassium 3.7 MMOL/L (3.6-5.0) 05/24/18 05:00 Chloride 105 mmol/L (98-107) 05/24/18 05:00 Carbon Dioxide 28 mmol/L (22-30) 05/24/18 05:00 Anion Gap 13 (10-20) 05/24/18 05:00 BUN 16 mg/dl (7-17) 05/24/18 05:00 Creatinine 0.6 mg/dl (0.7-1.2) L 05/24/18 05:00 Est GFR ( Amer) > 60 05/24/18 05:00 Est GFR (Non-Af Amer) > 60 05/24/18 05:00 POC Glucose (mg/dL) 79 mg/dL (65-110) 05/25/18 05:57 Random Glucose 101 mg/dL (65-105) 05/24/18 05:00 Calcium 9.1 mg/dL (8.4-10.2) 05/24/18 05:00 Total Bilirubin 0.7 mg/dl (0.2-1.3) 05/22/18 14:37 AST 25 U/L (14-36) 05/22/18 14:37 ALT 23 U/L (9-52) 05/22/18 14:37 Alkaline Phosphatase 97 U/L (38-126) 05/22/18 14:37 C-Reactive Protein 16.50 mg/L (0.0-9.9) H 05/22/18 16:09 Total Protein 8.0 G/DL (6.3-8.2) 05/22/18 14:37 Albumin 3.9 g/dL (3.5-5.0) 05/22/18 14:37 Globulin 4.1 gm/dL (2.2-3.9) H 05/22/18 14:37 Albumin/Globulin Ratio 1.0 (1.0-2.1) 05/22/18 14:37 Venous Blood Potassium 4.0 mmol/L (3.6-5.2) 05/22/18 14:44 Vancomycin Trough 9.8 ug/mL (5.0-10.0) 05/24/18 05:00 - Hospital Course Hospital Course: 72 y/o female with medical history including morbid obesity, A fib on Coumadin, HTN, HLD, and hypothyroid who presented to ED with complaints of redness, swelling and ulcerations to b/l LE. Pt reports she was recently discharged from rehab center where they were watching the developing ulceration to right heel. She noted dressing was last changed on Thursday when discharged. She noted increased redness and swelling. ED: podiatry was consulted and requested admission to the hospital. Xrays of foot, ankle and heel were done. Hospital course: Patient was put on Cefepime and Vancomycin - Wound Cultures positive for MRSA. - Vancomycin will be continued for a total of 10 days. Repeat Vanco trough in [facility] every three days along with a BMP. - WBC trended down during hospital stay. - Patient's INR was subtherapeutic for Chronic Afib. Warfarin was increased to 6mg and patient will be discharged with lovenox until INR is therapeutic. Repeat INR daily. Discharge Exam - Head Exam Head Exam: NORMAL INSPECTION - Eye Exam Eye Exam: Normal appearance - ENT Exam ENT Exam: Mucous Membranes Moist, Normal Oropharynx - Respiratory Exam Respiratory Exam: NORMAL BREATHING PATTERN, UNREMARKABLE. absent: Chest Wall Tenderness, Decreased Breath Sounds, Prolonged Expiratory Phase, Rales, Rhonchi , Wheezes, Respiratory Distress, Stridor - Cardiovascular Exam Cardiovascular Exam: Irregular Rhythm, +S1, +S2. absent: Clicks, Diastolic murmur, Gallop, JVD, Rubs, +S4, Systolic Murmur - GI/Abdominal Exam GI & Abdominal Exam: Distended, Normal Bowel Sounds, Soft, Unremarkable. absent : Firm, Guarding, Mass, Organomegaly, Pulsatile Mass, Rebound, Tenderness - Extremities Exam Extremities exam: pedal edema, tenderness Additional comments: + LE edema and redness. Tender to touch bilaterally. - Neurological Exam Neurological exam: Alert, Oriented x3 - Psychiatric Exam Psychiatric exam: Normal Affect, Normal Mood - Skin Skin Exam: Dry, Intact, Normal Color, Warm Discharge Plan - Discharge Medications Prescriptions: Enoxaparin [Lovenox] 90 mg SC Q12 #20 syr Lactobacillus Acidophilus [Bacid Acidophilus] 1 cap PO BID #60 cap Pantoprazole [Protonix EC Tab] 40 mg PO DAILY #30 ect Vancomycin [Vancomycin Inj] 1 gm IV Q12 7 Days #14 vial - Follow Up Plan Condition: STABLE Disposition: REHAB FACILITY/REHAB UNIT Instructions: Diabetic Foot Ulcer (DC), Cellulitis (Skin Infection), Adult (DC) , Cellulitis (DC), Cellulitis (GEN) Additional Instructions: See attached Podiatry note for wound care to BLE Referrals: Hemant Hickey MD [Staff Provider] - Julian Domingo MD [Staff Provider] - Mk Manley DPM [Doctor Podiatric Medicine] - <Chaitanya Tomlin - Last Filed: 05/25/18 17:14> Provider - Provider Date of Admission: 05/22/18 17:42 Attending physician: Jeremi Patel MD Hospital Course - Lab Results Lab Results: Micro Results 05/22/18 14:52 Blood-Venous Blood Culture - Preliminary NO GROWTH AFTER 3 DAYS 05/22/18 14:37 Blood-Venous Blood Culture - Preliminary NO GROWTH AFTER 3 DAYS 05/22/18 15:50 Leg - Right Gram Stain - Final 05/22/18 15:50 Leg - Right Wound Culture - Final Methicillin Resistant S Aureus Most Recent Lab Values WBC 10.6 K/uL (4.8-10.8) 05/25/18 06:10 RBC 3.94 Mil/uL (3.80-5.20) 05/25/18 06:10 Hgb 11.2 g/dL (12.0-16.0) L 05/25/18 06:10 Hct 33.9 % (34.0-47.0) L 05/25/18 06:10 MCV 86.1 fl (81.0-99.0) 05/25/18 06:10 MCH 28.5 pg (27.0-31.0) 05/25/18 06:10 MCHC 33.1 g/dL (33.0-37.0) 05/25/18 06:10 RDW 14.5 % (11.5-14.5) 05/25/18 06:10 Plt Count 173 K/uL (130-400) 05/25/18 06:10 MPV 9.9 fl (7.2-11.7) 05/23/18 05:20 Neut % (Auto) 73.8 % (50.0-75.0) 05/23/18 05:20 Lymph % (Auto) 18.1 % (20.0-40.0) L 05/23/18 05:20 Mckean % (Auto) 5.2 % (0.0-10.0) 05/23/18 05:20 Eos % (Auto) 2.6 % (0.0-4.0) 05/23/18 05:20 Baso % (Auto) 0.3 % (0.0-2.0) 05/23/18 05:20 Neut # (Auto) 8.1 K/uL (1.8-7.0) H 05/23/18 05:20 Lymph # (Auto) 2.0 K/uL (1.0-4.3) 05/23/18 05:20 Mckean # (Auto) 0.6 K/uL (0.0-0.8) 05/23/18 05:20 Eos # (Auto) 0.3 K/uL (0.0-0.7) 05/23/18 05:20 Baso # (Auto) 0.0 K/uL (0.0-0.2) 05/23/18 05:20 ESR 67 mm/hr (0-30) H 05/22/18 16:09 PT 20.4 Seconds (9.8-13.1) H 05/25/18 06:10 INR 1.8 (0.9-1.2) H 05/25/18 06:10 APTT 29.1 Seconds (25.6-37.1) 05/22/18 19:10 pO2 21 mm/Hg (30-55) L 05/22/18 14:44 VBG pH 7.40 (7.32-7.43) 05/22/18 14:44 VBG pCO2 52 mmHg (40-60) 05/22/18 14:44 VBG HCO3 27.9 mmol/L 05/22/18 14:44 VBG Total CO2 33.8 mmol/L (22-28) H 05/22/18 14:44 VBG O2 Sat (Calc) 38.4 % (40-65) L 05/22/18 14:44 VBG Base Excess 6.0 mmol/L (0.0-2.0) H 05/22/18 14:44 VBG Potassium 4.0 mmol/L (3.6-5.2) 05/22/18 14:44 Sodium 139.0 mmol/L (132-148) 05/22/18 14:44 Chloride 104.0 mmol/L (98-107) 05/22/18 14:44 Glucose 136 mg/dL (65-105) H 05/22/18 14:44 Lactate 1.1 mmol/L (0.7-2.1) 05/22/18 14:44 FiO2 21.0 % 05/22/18 14:44 Sodium 142 mmol/l (132-148) 05/24/18 05:00 Potassium 3.7 MMOL/L (3.6-5.0) 05/24/18 05:00 Chloride 105 mmol/L (98-107) 05/24/18 05:00 Carbon Dioxide 28 mmol/L (22-30) 05/24/18 05:00 Anion Gap 13 (10-20) 05/24/18 05:00 BUN 16 mg/dl (7-17) 05/24/18 05:00 Creatinine 0.6 mg/dl (0.7-1.2) L 05/24/18 05:00 Est GFR ( Amer) > 60 05/24/18 05:00 Est GFR (Non-Af Amer) > 60 05/24/18 05:00 POC Glucose (mg/dL) 91 mg/dL (65-110) 05/25/18 16:16 Random Glucose 101 mg/dL (65-105) 05/24/18 05:00 Calcium 9.1 mg/dL (8.4-10.2) 05/24/18 05:00 Total Bilirubin 0.7 mg/dl (0.2-1.3) 05/22/18 14:37 AST 25 U/L (14-36) 05/22/18 14:37 ALT 23 U/L (9-52) 05/22/18 14:37 Alkaline Phosphatase 97 U/L (38-126) 05/22/18 14:37 C-Reactive Protein 16.50 mg/L (0.0-9.9) H 05/22/18 16:09 Total Protein 8.0 G/DL (6.3-8.2) 05/22/18 14:37 Albumin 3.9 g/dL (3.5-5.0) 05/22/18 14:37 Globulin 4.1 gm/dL (2.2-3.9) H 05/22/18 14:37 Albumin/Globulin Ratio 1.0 (1.0-2.1) 05/22/18 14:37 Venous Blood Potassium 4.0 mmol/L (3.6-5.2) 05/22/18 14:44 Vancomycin Trough 9.8 ug/mL (5.0-10.0) 05/24/18 05:00 Attending/Attestation - Attestation I have personally seen and examined this patient.: Yes I have fully participated in the care of the patient.: Yes I have reviewed all pertinent clinical information, including history, physical exam and plan: Yes Notes (Text): 72 yo female with history of AFib, HTN, DM2 and Hypothyroidism came back after getting discharged from [facility] complaining of difficulty of ambulating even with a walker because of bilateral leg swelling has wound Present on admission 1. Bilateral Lower Extremity Cellulitis with Wound Ulcer MRSA growing cont IV vancomyacin 2. HTN BP stable continue Coreg, Losartan and Lasix 3. Chronic A Fib rate controlled continue Coreg and Coumadin increased to 6 monitor freedom PT/INR daily on Lovenox bridge 4. DM2 diabetic diet accucheck ACHS with Lispro coverage continue Metformin, Glucotrol, Januvia and Prandin 5. Hypothyroidism continue Synthroid 6. CHF, chronic systolic and diastolic dysfunction continue Coreg, Losartan and Lasix DVT proph -pt is on Coumadin Wound care Instructions: Left heel unstagable pressure ulcer measuring 4.5 x 5.7 cm, brown necrotic base , with islands of pink granular tissue, currently no odor. Recommending for daily wound care; applying medihoney to left heel, then covering with thick bulky dressing to be done daily. MUST appl florin wraps to bilateral legs daily; start proximal to toes, and must wrap two fingers distal to both knees. Medihoney is with patients belongings. Must wear z-flex boots while in bed to optimize offloading. Any questions, please ask jaspal at [phone].
--- NOTE | 2018-05-25 11:56 | CP.PCM.PN ---
Subjective - Date & Time of Evaluation Date of Evaluation: 05/25/18 Time of Evaluation: 08:40 - Subjective Subjective: Podiatry consult note for Dr. Manley: 72 year old female patient seen and evaluated at bedside for superficial ulcerations with cellulitis to bilateral lower extremities. Patient is resting comfortably in a chair with lower extremities elevated. Patient denies any pain today, only pain to her lower extremities when her legs are touched. She notes that her feet look less swollen to her today compared to yesterday. Denies F/N/V/SOB/CP/C. Objective - Vital Signs/Intake and Output Vital Signs (last 24 hours): Temp Pulse Resp BP Pulse Ox 97.6 F 91 H 18 163/85 H 97 05/25/18 10:52 05/25/18 10:52 05/25/18 10:52 05/25/18 10:52 05/25/18 10:52 - Medications Medications: Current Medications Atorvastatin Calcium (Lipitor) 40 mg PO HS REPLACED BY [facility] Last Admin: 05/24/18 21:58 Dose: 40 mg Carvedilol (Coreg) 6.25 mg PO Q12 DAVID Last Admin: 05/25/18 09:35 Dose: 6.25 mg Docusate Sodium (Colace) 100 mg PO BID DAVID Last Admin: 05/25/18 09:34 Dose: 100 mg Enoxaparin Sodium (Lovenox) 90 mg SC Q12 DAVID PRN Reason: Protocol Last Admin: 05/25/18 09:36 Dose: 90 mg Ergocalciferol (Drisdol 50,000 Intl Units Cap) 1 cap PO WE REPLACED BY [facility] Furosemide (Lasix) 20 mg PO DAILY DAVID Last Admin: 05/25/18 09:36 Dose: 20 mg Glipizide (Glucotrol) 5 mg PO BID DAVID Last Admin: 05/25/18 09:36 Dose: 5 mg Cefepime HCl 1 gm/ Sodium (Chloride) 100 mls @ 100 mls/hr IVPB Q8 DAVID PRN Reason: Protocol Last Admin: 05/25/18 09:37 Dose: 100 mls/hr Vancomycin HCl 1 gm/ Sodium (Chloride) 250 mls @ 166.667 mls/hr IVPB Q12@0200, 1400 DAVID PRN Reason: Protocol Last Admin: 05/25/18 02:06 Dose: 166.667 mls/hr Lactobacillus Acidophilus (Bacid Acidophilus) 1 cap PO BID REPLACED BY [facility] Last Admin: 05/25/18 09:34 Dose: 1 cap Levothyroxine Sodium (Synthroid) 75 mcg PO DAILY@0630 REPLACED BY [facility] Last Admin: 05/25/18 06:40 Dose: 75 mcg Losartan Potassium (Cozaar) 100 mg PO DAILY REPLACED BY [facility] Last Admin: 05/25/18 09:35 Dose: 100 mg Metformin HCl (Glucophage) 500 mg PO TID REPLACED BY [facility] Last Admin: 05/25/18 09:36 Dose: 500 mg Pantoprazole Sodium (Protonix Ec Tab) 40 mg PO DAILY REPLACED BY [facility] Last Admin: 05/25/18 09:37 Dose: 40 mg Repaglinide (Prandin) 2 mg PO TID REPLACED BY [facility] Last Admin: 05/25/18 09:37 Dose: 2 mg Fluticasone/Salmeterol (Advair Diskus 250/50) 1 puff IH Q12H REPLACED BY [facility] Last Admin: 05/25/18 09:30 Dose: Not Given Sertraline HCl (Zoloft) 100 mg PO DAILY REPLACED BY [facility] Last Admin: 05/25/18 09:37 Dose: 100 mg Sitagliptin Phosphate (Januvia) 100 mg PO DAILY REPLACED BY [facility] Last Admin: 05/25/18 09:36 Dose: 100 mg - Labs Labs: 05/25/18 06:10 05/24/18 05:00 PT 20.4 Seconds (9.8-13.1) H 05/25/18 06:10 INR 1.8 (0.9-1.2) H 05/25/18 06:10 APTT 29.1 Seconds (25.6-37.1) 05/22/18 19:10 - Constitutional Appears: Well, Non-toxic, No Acute Distress - Head Exam Head Exam: ATRAUMATIC, NORMOCEPHALIC - Extremities Exam Additional comments: Bilateral lower extremity focused exam: Vasc: DP/PT non-palpable secondary to brawny edema to the dorsum of the feet bilaterally, CFT <3 seconds to all 10 digits, TG warm to warm bilaterally Ortho: Pain upon palpation of bilateral lower extremities Neuro: Gross and protective sensation intact bilaterally. Derm: Right: superficial ulcerations noted to anterior leg extending distally to the ankle joint with blister formation, positive for serous drainage, minimal malodor, no probe to bone, no undermining, no tunneling, increased warmth noted, positive interdigital maceration, no clinical signs of infection Left- increasing erythema noted from the tibial tuberosity extending distally to the ankle joint,superficial ulcerations noted to the leg, deep tissue injury noted to the left heel with necrotic base, positive for serous drainage, minimal malodor, no probe to bone, no tunneling or tracking, surrounding erythema noted, positive interdigital maceration, no clinical signs of infection - Neurological Exam Neurological Exam: Alert, Awake, Oriented x3 - Psychiatric Exam Psychiatric exam: Normal Affect, Normal Mood Assessment and Plan - Assessment and Plan (Free Text) Assessment: 72 year old female patient seen and evaluated for superficial ulcerations to bilateral lower extremities with edema. Plan: Patient examined and evaluated with all questions and concerns addressed Patient's plan discussed with Dr. Silva in detail Patient plan for discharge today to [facility] PICC line placement for IV abx Patients b/l lower extremities dressed with alginate, ABD, DSD, JUAN Bactroban ordered for topical use b/l (05/24)- medication backordered Continue same wound care dressings daily at [facility] to bilateral lower extremities
--- NOTE | 2018-05-25 12:01 | CP.PCM.CON ---
History of Present Illness - History of Present Illness History of Present Illness: 72 yo morbidly obese female with history of AFib, HTN, HLD and Hypothyroid just recently discharged from [facility] 4 days ago after staying for a month. She claimed her legs had improved and was able to ambulate with a walker. She noted that her legs were swollen again causing her difficulty in ambulation. She called Dr Manley who advised her to seek ER consultation. Patient was seen by podiatry resident. After communicating with Dr Manley, it was advised that patient be admitted for cellulitis of the legs. ID consulted for antibiotic management Review of Systems - Review of Systems All systems: reviewed and no additional remarkable complaints except (aside from those mentioned above, 12 point system review were negative by me) Past Patient History - Infectious Disease Hx of Infectious Diseases: None - Past Medical History & Family History Past Medical History?: Yes - Past Social History Smoking Status: Light Smoker < 10 Cigarettes Daily - CARDIAC Hx Cardiac Disorders: Yes Hx Atrial Fibrillation: Yes Hx Hypercholesterolemia: Yes Hx Hypertension: Yes Hx Pacemaker: No - PULMONARY Hx Respiratory Disorders: No - NEUROLOGICAL Hx Neurological Disorder: No - HEENT Hx HEENT Problems: Yes - RENAL Hx Chronic Kidney Disease: No - ENDOCRINE/METABOLIC Hx Endocrine Disorders: Yes Hx Hypothyroidism: Yes - HEMATOLOGICAL/ONCOLOGICAL Hx Blood Disorders: No Hx AIDS: No Hx Human Immunodeficiency Virus (HIV): No - INTEGUMENTARY Hx Dermatological Problems: No - MUSCULOSKELETAL/RHEUMATOLOGICAL Hx Musculoskeletal Disorders: Yes Hx Arthritis: Yes Hx Falls: Yes - GASTROINTESTINAL Hx Gastrointestinal Disorders: Yes Hx Colitis: Yes - GENITOURINARY/GYNECOLOGICAL Hx Genitourinary Disorders: No - PSYCHIATRIC Hx Psychophysiologic Disorder: Yes Hx Depression: Yes Hx Substance Use: No - SURGICAL HISTORY Hx Surgeries: Yes Hx Cholecystectomy: Yes - ANESTHESIA Hx Anesthesia: Yes Hx Anesthesia Reactions: No Meds Home Medications: Home Medication List Medication Instructions Recorded Confirmed Type Atorvastatin [Lipitor] 40 mg PO HS tab 05/25/18 Rx Docusate [Colace] 100 mg PO BID cap 05/25/18 Rx Enoxaparin [Lovenox] 90 mg SC Q12 #20 syr 05/25/18 Rx Lactobacillus Acidophilus [Bacid 1 cap PO BID #60 cap 05/25/18 Rx Acidophilus] Pantoprazole [Protonix EC Tab] 40 mg PO DAILY #30 ect 05/25/18 Rx Vancomycin [Vancomycin Inj] 1 gm IV Q12 7 Days #14 vial 05/25/18 Rx Warfarin Sodium [Jantoven] 6 mg PO QPM #30 05/25/18 05/22/18 Rx Allergies/Adverse Reactions: Allergies Allergy/AdvReac Type Severity Reaction Status Date / Time No Known Allergies Allergy Verified 05/22/18 13:29 - Medications Medications: Current Medications Atorvastatin Calcium (Lipitor) 40 mg PO HS [facility] Last Admin: 05/24/18 21:58 Dose: 40 mg Carvedilol (Coreg) 6.25 mg PO Q12 [facility] Last Admin: 05/25/18 09:35 Dose: 6.25 mg Docusate Sodium (Colace) 100 mg PO BID [facility] Last Admin: 05/25/18 09:34 Dose: 100 mg Enoxaparin Sodium (Lovenox) 90 mg SC Q12 [facility] PRN Reason: Protocol Last Admin: 05/25/18 09:36 Dose: 90 mg Ergocalciferol (Drisdol 50,000 Intl Units Cap) 1 cap PO [facility] Furosemide (Lasix) 20 mg PO DAILY [facility] Last Admin: 05/25/18 09:36 Dose: 20 mg Glipizide (Glucotrol) 5 mg PO BID [facility] Last Admin: 05/25/18 09:36 Dose: 5 mg Cefepime HCl 1 gm/ Sodium (Chloride) 100 mls @ 100 mls/hr IVPB Q8 [facility] PRN Reason: Protocol Last Admin: 05/25/18 09:37 Dose: 100 mls/hr Vancomycin HCl 1 gm/ Sodium (Chloride) 250 mls @ 166.667 mls/hr IVPB Q12@0200, 1400 [facility] PRN Reason: Protocol Last Admin: 05/25/18 02:06 Dose: 166.667 mls/hr Lactobacillus Acidophilus (Bacid Acidophilus) 1 cap PO BID [facility] Last Admin: 05/25/18 09:34 Dose: 1 cap Levothyroxine Sodium (Synthroid) 75 mcg PO DAILY@0630 [facility] Last Admin: 05/25/18 06:40 Dose: 75 mcg Losartan Potassium (Cozaar) 100 mg PO DAILY [facility] Last Admin: 05/25/18 09:35 Dose: 100 mg Metformin HCl (Glucophage) 500 mg PO TID [facility] Last Admin: 05/25/18 09:36 Dose: 500 mg Pantoprazole Sodium (Protonix Ec Tab) 40 mg PO DAILY [facility] Last Admin: 05/25/18 09:37 Dose: 40 mg Repaglinide (Prandin) 2 mg PO TID [facility] Last Admin: 05/25/18 09:37 Dose: 2 mg Fluticasone/Salmeterol (Advair Diskus 250/50) 1 puff IH Q12H [facility] Last Admin: 05/25/18 09:30 Dose: Not Given Sertraline HCl (Zoloft) 100 mg PO DAILY [facility] Last Admin: 05/25/18 09:37 Dose: 100 mg Sitagliptin Phosphate (Januvia) 100 mg PO DAILY [facility] Last Admin: 05/25/18 09:36 Dose: 100 mg Physical Exam - Constitutional Appears: Chronically Ill - Head Exam Head Exam: ATRAUMATIC - Eye Exam Eye Exam: PERRL - ENT Exam ENT Exam: Mucous Membranes Dry - Neck Exam Neck exam: Negative for: Lymphadenopathy - Respiratory Exam Respiratory Exam: Decreased Breath Sounds, Clear to Auscultation Bilateral - Cardiovascular Exam Cardiovascular Exam: Irregular Rhythm, REGULAR RHYTHM, +S1, +S2 - GI/Abdominal Exam GI & Abdominal Exam: Diminished Bowel Sounds, Soft. absent: Tenderness - Rectal Exam Rectal Exam: Deferred - Exam Exam: NORMAL INSPECTION - Extremities Exam Extremities exam: Positive for: pedal edema, tenderness, pedal pulses present. Negative for: calf tenderness - Back Exam Back exam: absent: CVA tenderness (L), CVA tenderness (R), paraspinal tenderness - Neurological Exam Neurological exam: Alert, CN II-XII Intact, Oriented x3, Reflexes Normal - Psychiatric Exam Psychiatric exam: Normal Mood - Skin Skin Exam: Dry, Erythema Results - Vital Signs Recent Vital Signs: Last Vital Signs Temp 97.6 F 05/25/18 10:52 Pulse 91 H 05/25/18 10:52 Resp 18 05/25/18 10:52 BP 163/85 H 05/25/18 10:52 Pulse Ox 97 05/25/18 10:52 - Labs Result Diagrams: 05/25/18 06:10 05/24/18 05:00 Labs: Laboratory Results - last 24 hr 05/24/18 05/24/18 05/25/18 16:07 21:21 05:57 WBC RBC Hgb Hct MCV MCH MCHC RDW Plt Count PT INR POC Glucose (mg/dL) 139 H 76 79 05/25/18 05/25/18 05/25/18 06:10 06:10 11:46 WBC 10.6 RBC 3.94 Hgb 11.2 L Hct 33.9 L MCV 86.1 MCH 28.5 MCHC 33.1 RDW 14.5 Plt Count 173 PT 20.4 H INR 1.8 H POC Glucose (mg/dL) 119 H Assessment & Plan - Assessment and Plan (Free Text) Assessment: bilat leg edema with cellulitis/ stasis dermatitis longstandig cardiac hx will need folloe up with Dr Cruz cont iv rx via picc line fopr 14 days with frequent wound care/ podiatry follow up and close ,monitoring of Vanco trough/ creat
--- NOTE | 2018-05-25 14:00 | PQF ---
PROVIDER RESPONSE TEXT: Pressure Ulcer present on admission. REVIEWER QUERY TEXT: Pressure Ulcer Type Pressure Ulcer documented as POA: please clarify the followin. the site and 2. the stage (National Pressure Ulcer Advisory Panel definitions): -- Stage I: Intact skin with non-blanchable redness of a localized area -- Stage II: Partial thickness skin loss involving dermis with a shallow open ulcer or an open serum -filled blister -- Stage III: Full thickness skin loss involving damage or necrosis of subcutaneous tissue -- Stage IV: Full thickness skin loss with exposed bone, tendon or muscle -- Unstageable: Full thickness tissue loss in which the base of the ulcer is covered by slough and/o r eschar in the wound bed 05/24 Query response: Pressure Ulcer:POA The patient's Clinical Indicators include: XXX Query created by: Lyla Thomas on 05/25/2018 7:49 AM Electronically signed by: Chaitanya Tomlin MD 05/25/2018 1:56 PM
[2018-05-25 16:56] VITALS: BP 163/72; PULSE 54; RESP 20; TEMP 97.7; O2SAT 96
[2018-05-26] MEDS ORDERED: Ergocalciferol 50,000 Intl Units Cap PO SCH (18:31)
== END 2018-05-25 17:15 | DRG 603 ==
LOC: H.ER 13:26 → H.ERHOLD 17:42 → H.MEDSURG1 20:09
PROC: 02HV33Z Insertion of Infusion Device into Superior Vena Cava, Percutaneous Approach (ICD-10-PCS; principal; 2018-05-25)
PROC: B518ZZA Fluoroscopy of Superior Vena Cava, Guidance (ICD-10-PCS; 2018-05-25)
PROC: B548ZZA Ultrasonography of Superior Vena Cava, Guidance (ICD-10-PCS; 2018-05-25)
DX: L03.115 Cellulitis of right lower limb (principal); L97.419 Non-pressure chronic ulcer of right heel and midfoot with unspecified severity; I50.42 Chronic combined systolic (congestive) and diastolic (congestive) heart failure; L03.116 Cellulitis of left lower limb; L89.620 Pressure ulcer of left heel, unstageable; Z68.32 Body mass index [BMI] 32.0-32.9, adult; E11.621 Type 2 diabetes mellitus with foot ulcer; Z79.01 Long term (current) use of anticoagulants; Z79.51 Long term (current) use of inhaled steroids; Z79.899 Other long term (current) drug therapy; Z87.891 Personal history of nicotine dependence; Z90.49 Acquired absence of other specified parts of digestive tract; F32.9 Major depressive disorder, single episode, unspecified; F45.9 Somatoform disorder, unspecified; K52.9 Noninfective gastroenteritis and colitis, unspecified; M19.90 Unspecified osteoarthritis, unspecified site; Z79.84 Long term (current) use of oral hypoglycemic drugs; E03.9 Hypothyroidism, unspecified; E66.01 Morbid (severe) obesity due to excess calories; E78.00 Pure hypercholesterolemia, unspecified; E78.5 Hyperlipidemia, unspecified; I11.0 Hypertensive heart disease with heart failure; I48.2 Chronic atrial fibrillation; I87.2 Venous insufficiency (chronic) (peripheral); J44.9 Chronic obstructive pulmonary disease, unspecified; B95.62 Methicillin resistant Staphylococcus aureus infection as the cause of diseases classified elsewhere

== ENCOUNTER 2018-07-31 13:24 | Inpatient (IN) | payer MEDICARE, OTHER ==
[2018-07-31 13:25] VITALS: BMI 38.7
--- NOTE | 2018-07-31 14:02 | ED PDOC ---
Addendum entered and electronically signed by Yamileth Kaur PA-C 07/31/18 15:10: Addendum Addendum: 07/31/18 15:10 Case d/w Dr. Alejo as well. INR repeat labs ordered for tomorrow and Thursday Original Note: HPI: Wound Care - HPI Chief Complaint (Provider): Diabetic foot ulceration History Per: Patient Exam Limitations: no limitations Additional Complaint(s): 72 yo morbidly obese female with history of AFib, HTN, HLD and Hypothyroid sent from [facility] by Dr. Manley for evaluation of non-healing wound to left heel. Patient has a pic line in place, but is not on antibiotics. She is likely going to OR on Thursday pending cardiac clearance. Usually is on Coumadin but stopped today. Denies pain to affected area, fever, and chills. PMD: Dr. Manley <Yamileth Kaur - Last Filed: 07/31/18 15:10> <Tran Reis - Last Filed: 08/07/18 14:09> - HPI Time Seen by Provider: 07/31/18 13:36 Chief Complaint (Nursing): Wound Check Past Medical History Reviewed: Historical Data, Nursing Documentation, Vital Signs Vital Signs: Last Vital Signs Temp 98.3 F 07/31/18 13:27 Pulse 82 07/31/18 13:27 Resp 16 07/31/18 13:27 BP 117/58 L 07/31/18 13:27 Pulse Ox 98 07/31/18 13:27 - Medical History PMH: Arthritis, Atrial Fibrillation, Back Problems (Chronic), Depression, Diabetes, HTN, Hypercholesterolemia, Hypothyroidism Denies: HIV, Chronic Kidney Disease - Surgical History Surgical History: Cholecystectomy Denies: Pacemaker - Family History Family History: States: Unknown Family Hx <Yamileth Kaur - Last Filed: 07/31/18 15:10> Vital Signs: Last Vital Signs Temp 98.3 F 08/04/18 17:01 Pulse 75 08/04/18 17:01 Resp 20 08/04/18 17:01 BP 148/72 08/04/18 17:01 Pulse Ox 97 08/04/18 17:01 <Tran Reis - Last Filed: 08/07/18 14:09> - Home Medications Home Medications: Ambulatory Orders Medication Instructions Recorded RX: Budesonide/Formoterol Fumarate 2 puff IH Q12H 11/13/17 [Symbicort 160-4.5 Mcg Inhaler] RX: Ergocalciferol (Vitamin D2) 50,000 unit PO WE 11/13/17 [Vitamin D2] RX: Levothyroxine [Synthroid] 75 mcg PO DAILY 11/13/17 RX: Repaglinide [Prandin] 2 mg PO TID 11/13/17 RX: Sertraline [Zoloft] 25 mg PO DAILY 11/13/17 RX: Simvastatin [Zocor] 40 mg PO HS 11/13/17 RX: metFORMIN [glucOPHAGE] 500 mg PO TID 11/13/17 RX: Carvedilol [Coreg] 6.25 mg PO Q12 tab 03/24/18 RX: Losartan [Cozaar] 100 mg PO DAILY tab 03/24/18 RX: SITagliptin [Januvia] 100 mg PO DAILY tab 03/24/18 RX: Furosemide [Lasix] 20 mg PO DAILY 04/16/18 RX: Docusate [Colace] 100 mg PO BID cap 05/25/18 RX: Lactobacillus Acidophilus 1 cap PO BID #60 cap 05/25/18 [Bacid Acidophilus] RX: Acetaminophen [Tylenol] 500 mg PO Q4H PRN 07/31/18 RX: Amino Acids/Protein Hydrolys 30 ml PO DAILY 07/31/18 [Prostat 15 g packet] RX: Famotidine [Pepcid] 20 mg PO HS 07/31/18 RX: Gabapentin [Neurontin] 100 mg PO TID 07/31/18 RX: Insulin Aspart [Novolog 100 units QID 07/31/18 Flexpen] RX: Lidoderm Patch Removal 5 % TOP ONCE PRN 07/31/18 RX: Nystatin [Nystop Topical 1 appl TOP Q12 07/31/18 Powder] RX: Potassium Chloride [K-Dur 20 20 meq PO BID 07/31/18 mEq ER Tab] Meropenem [Merrem IV] 1 gm IVPB Q8 42 Days vial 08/04/18 RX: Mupirocin 2% Ointment 1 applic TOP BID tube 08/04/18 [Bactroban Ointment] - Allergies Allergies/Adverse Reactions: Allergies Allergy/AdvReac Type Severity Reaction Status Date / Time No Known Allergies Allergy Verified 07/31/18 13:27 Review of Systems ROS Statement: Except As Marked, All Systems Reviewed And Found Negative Constitutional: Negative for: Fever, Chills Skin: Positive for: Other (non healing diabetic foot ulcerations) <Yamileth Kaur Last Filed: 07/31/18 15:10> Physical Exam - Reviewed Nursing Documentation Reviewed: Yes Vital Signs Reviewed: Yes - Physical Exam Appears: Positive for: Non-toxic, No Acute Distress Head Exam: Positive for: ATRAUMATIC, NORMAL INSPECTION, NORMOCEPHALIC Skin: Positive for: Normal Color, Warm, Dry Eye Exam: Positive for: EOMI, Normal appearance, PERRL Neck: Positive for: Normal, Painless ROM, Supple Cardiovascular/Chest: Positive for: Regular Rate, Rhythm. Negative for: Murmur Respiratory: Positive for: Normal Breath Sounds. Negative for: Respiratory Distress Gastrointestinal/Abdominal: Positive for: Normal Exam, Soft. Negative for: Tenderness Extremity: Positive for: Other (defer to podiatry) Neurologic/Psych: Positive for: Alert, Oriented. Negative for: Motor/Sensory Deficits <Yamileth Kaur - Last Filed: 07/31/18 15:10> - ECG O2 Sat by Pulse Oximetry: 98 (RA) Pulse Ox Interpretation: Normal <Yamileth Kaur - Last Filed: 07/31/18 15:10> - Laboratory Results Result Diagrams: 08/03/18 04:45 08/03/18 04:45 <Tran Reis - Last Filed: 08/07/18 14:09> Medical Decision Making Medical Decision Makin:57 Dr. Harmon was contacted. Arrangements made for admission. Consults were ordered for cardiology and infectious disease. Podiatry resident is at bedside Orders: --EKG --CMP --CBC --troponin --PTT/INR --CXR --Foot xray --Wound cx --Blood cx --UA Case d/w Dr. Hickey, ID- start Pt on Vanco, Zosyn. Wound cultures obtained by podiatry resident prior to antibiotic therapy. Scribe Attestation: Documented by Carline Joyce acting as a scribe for Yamileth Kaur PA-C Provider Scribe Attestation: All medical record entries made by the Scribe were at my direction and personally dictated by me. I have reviewed the chart and agree that the record accurately reflects my personal performance of the history, physical exam, medical decision making, and the department course for this patient. I have also personally directed, reviewed, and agree with the discharge instructions and disposition. <Yamileth Kaur - Last Filed: 07/31/18 15:10> Disposition - Patient ED Disposition Is Patient to be Admitted: Yes - Disposition Disposition Time: 15:06 - POA Present On Arrival: Poor Glycemic Control, Pressure Ulcer <Yamileth Kaur - Last Filed: 07/31/18 15:10> <Tran Reis - Last Filed: 08/07/18 14:09> - Clinical Impression Clinical Impression: Diabetic foot ulcer - Disposition Condition: STABLE Addendum Addendum: 08/07/18 14:09 Reviewed chart. Agree with PA assessment and plan. <Tran Reis - Last Filed: 08/07/18 14:09>
[2018-07-31] MEDS ORDERED: Piperacillin/Tazobact 3.375 GM in Sodium Chloride 0.9% 100 ML IV STA (15:04)
[2018-07-31 15:09] LABS: BASO % 0.4 % (0.0-2.0); EOS # 0.4 K/uL (0.0-0.7); EOS % 5.1 % (0.0-4.0); HEMOGLOBIN 11.9 g/dL (12.0-16.0); LYMPH # 1.4 K/uL (1.0-4.3); LYMPH % 15.9 % (20.0-40.0); MEAN CELL VOLUME 83.5 fl (81.0-99.0); MEAN CORPUSCULAR HEMOGLOBIN 27.6 pg (27.0-31.0); MEAN PLATELET VOLUME 8.9 fl (7.2-11.7); MONO # 0.5 K/uL (0.0-0.8); MONO % 6.2 % (0.0-10.0); NEUT # 6.3 K/uL (1.8-7.0); NEUT % 72.4 % (50.0-75.0); RBC 4.32 Mil/uL (3.80-5.20); RED CELL DISTRIBUTION WIDTH 15.3 % (11.5-14.5); WHITE BLOOD COUNT 8.8 K/uL (4.8-10.8)
[2018-07-31 15:11] LABS: INR 1.8
[2018-07-31 15:15] LABS: ALB/GLOB RATIO 0.9 (1.0-2.1); ALBUMIN 3.5 g/dL (3.5-5.0); ALT/SGPT 18 U/L (9-52); AST/SGOT 21 U/L (14-36); BLOOD UREA NITROGEN 15 mg/dl (7-17); CALCIUM 9.3 mg/dL (8.4-10.2); GFR NON-AFRICAN AMERICAN > 60
--- NOTE | 2018-07-31 15:22 | CP.PCM.CON ---
History of Present Illness - History of Present Illness History of Present Illness: Podiatry consult note for Dr. Manley, 72 Y/O female patient with PMH of morbid obesity, DM, A-fib on coumadin, HTN, HLD, and hypothyroid seen and evaluated in the ED for b/l LE ulcerations. Patient is in no acute distress, AAO x3. Patient states that she has leg swelling because of her heart condition. She states that her leg swelling started to get improved. She states that she developed these ulcers about 1 and half months ago. Patient states that the ulcers are not painful. Patient states that Dr. Manley used to see her in the facility she is in currently. She states that her wound care nurse apply UNNA boot on her LE b/l.Patient states that today Dr. Manley saw her and sent her to the ED cause her left heel ulcer looks infected. Patient states that she also was regularly visiting the wound care center . Patient denies any other pedal complaint. Patient denies any recent F/N/V/C or SOB. Patient states that she is on Coumadin and just stopped it today. PMH: DM, Morbid obesity, A-fib on coumadin, HTN, HLD, hypothyroid. SHx: Cholecystectomy Allergies: NKDA Social Hx: Lives with family, Smoker 2-3 cigarettes/day for many years, Denies EtOH or illicit drug use Review of Systems - Review of Systems Review of Systems: As per HPI Past Patient History - Infectious Disease Hx of Infectious Diseases: None - Past Medical History & Family History Past Medical History?: Yes - Past Social History Smoking Status: Light Smoker < 10 Cigarettes Daily - CARDIAC Hx Atrial Fibrillation: Yes Hx Hypercholesterolemia: Yes Hx Hypertension: Yes Hx Pacemaker: No - PULMONARY Hx Respiratory Disorders: No - NEUROLOGICAL Hx Neurological Disorder: No - HEENT Hx HEENT Problems: Yes - RENAL Hx Chronic Kidney Disease: No - ENDOCRINE/METABOLIC Hx Hypothyroidism: Yes - HEMATOLOGICAL/ONCOLOGICAL Hx Human Immunodeficiency Virus (HIV): No - INTEGUMENTARY Hx Dermatological Problems: No - MUSCULOSKELETAL/RHEUMATOLOGICAL Hx Arthritis: Yes - GASTROINTESTINAL Hx Gastrointestinal Disorders: Yes Hx Colitis: Yes - GENITOURINARY/GYNECOLOGICAL Hx Genitourinary Disorders: No - PSYCHIATRIC Hx Depression: Yes - SURGICAL HISTORY Hx Cholecystectomy: Yes - ANESTHESIA Hx Anesthesia: Yes Hx Anesthesia Reactions: No Meds Allergies/Adverse Reactions: Allergies Allergy/AdvReac Type Severity Reaction Status Date / Time No Known Allergies Allergy Verified 07/31/18 13:27 Physical Exam - Constitutional Appears: Well, Non-toxic, No Acute Distress - Head Exam Head Exam: ATRAUMATIC, NORMOCEPHALIC - Extremities Exam Additional comments: B/L LE Focused exam: UNNA boot was intact. it was broken down for examination. Vasc: DP/PT not palpable. Cap refill < 3 sec in all digits. Temp gradient warm to warm b/l. Massive non pitting edema extending up to the tibial tuberosity b/l with L > R. Neuro: Gross and protective sensations deminished b/l. Derm: Right foot: An ulcer measuring 2 cm X 2 cm X 0.1 cm. Base is necrotic and fibrous 80:20. No malodor. Minimal serous drainage. No probing to bone, No undermining, No tracking. Minimal sonal-wound erythema. Left foot: An ulcer measuring 3 cm X 2 cm X 0.4 cm. Base is necrotic and fibrous 70:30. positive malodor. Hyperkeratotic border. positive drainage of purulent discharge. positive probing to bone, No undermining, No tracking. sonal- wound erythema noted. Skin lines appears in B/L LE indicating partially resolved edema by the UNNA boot. B/L skin changes of the anterior legs in the form of excoriation L > R MSK: No pain on palpating the sonal-wound area. Muscle power intact 5/5 in all groups. - Neurological Exam Neurological exam: Alert, Oriented x3 - Psychiatric Exam Psychiatric exam: Normal Affect, Normal Mood Results - Vital Signs Recent Vital Signs: Last Vital Signs Temp 98.3 F 07/31/18 13:27 Pulse 82 07/31/18 13:27 Resp 16 07/31/18 13:27 BP 117/58 L 07/31/18 13:27 Pulse Ox 98 07/31/18 14:27 - Labs Result Diagrams: 07/31/18 14:12 07/31/18 14:12 Assessment & Plan - Assessment and Plan (Free Text) Assessment: 72 Y/O female patient seen and evaluated in the ED for B/L LE ulcerations. Plan: Patient seen and evaluated in the ED Plan discussed in details with attending Sindhu Longoria Chart, Labs and vitals reviews; Afebrile, WBCs 8.8 INR: 1.8 Ordered ESR and CRP Wound Cx colloected and sent to lab. B/L 3 views X-ray; reviewed; Left posterior calcaneal erosions consistent with OM. Calcific vessels noted b/l. B/l Massive soft tissue swelling. Right foot shows no signs of OM. Ordered MRI Left foot. Patient will be admitted by the primary team. ID consulted for the patient. Patient will be admitted by the primary team. Patient will go to the OR for Left heel ulcer debridement after medical optimization and cardiac clearance Left heel ulcer dressed using betadine and DSD. Right foot ulcer dressed using bacitracin and DSD. Ordered bactroban to be added to the wound dressing starting from tomorrow. B/L JUAN bandage applied to the LE. Ordered b/l Multipodus boot. Multipodus boot to be applied all the times the patient is in her bed. Podiatry will F/U the patient while in house. - Date & Time Date: 07/31/18 Time: 15:29
--- NOTE | 2018-07-31 15:28 | RAD ---
Date of service: 07/31/2018 PROCEDURE: CHEST RADIOGRAPH, 1 VIEW HISTORY: med screening COMPARISON: 04/16/2018 FINDINGS: LUNGS: No focal infiltrate. Mild interstitial change although mildly improved from prior study. A portion of this may be related to chronic congestion. PLEURA: No pneumothorax or pleural fluid seen. CARDIOVASCULAR: Cardiomegaly. OSSEOUS STRUCTURES: No significant abnormalities. VISUALIZED UPPER ABDOMEN: Normal. OTHER FINDINGS: None. IMPRESSION: Cardiomegaly. Mild interval improvement in aeration with mild decrease in vascular congestion.
--- NOTE | 2018-07-31 15:33 | RAD ---
Date of service: 07/31/2018 PROCEDURE: Bilateral Feet Radiographs. HISTORY: fiabetic foot ulcerations COMPARISON: 05/22/2018 FINDINGS: BONES: Right Foot: Two views of the right and left foot are compared to the prior study. There is healed fracture of the right 5th metatarsal. No definite destruction of the phalanges or metatarsals is seen. No new erosions are noted. No new periosteal reaction is identified. Moderate soft tissue swelling of the feet is noted, greater on the left. No radiopaque foreign body is identified. Degenerative changes are stable when compared to prior study. Left Foot: See above. JOINTS: Right Foot: See above. Left Foot: See above. SOFT TISSUES: Right Foot: Soft tissue swelling Left Foot: Soft tissue swelling OTHER FINDINGS: None. IMPRESSION: No appreciable plain film evidence of acute fracture or plain film evidence of osteomyelitis. Healed right 5th metatarsal fracture. Moderate soft tissue swelling. MRI may prove helpful for further evaluation if there is strong clinical concern for osteomyelitis..
[2018-07-31] MEDS ORDERED: Lidocaine 5% Patch TD PRN (16:51)
[2018-07-31] MEDS ORDERED: Mupirocin 2% Cream TOP SCH (17:00)
[2018-07-31] MEDS: Lactobacillus Acidophilus 500 MU Cap PO SCH (17:55)
[2018-07-31] MEDS: Potassium Chloride 20 mEq ER Tab PO SCH (17:55)
[2018-07-31] MEDS: Fluticasone-Salmeterol 250-50mcg Diskus IH SCH (18:32)
[2018-07-31] MEDS: Insulin Regular 100 units/ml SC SCH (22:08)
[2018-07-31] MEDS: Piperacillin/Tazobact 3.375 GM in Sodium Chloride 0.9% 100 ML IVPB SCH (22:48)
[2018-08-01] MEDS: Piperacillin/Tazobact 3.375 GM in Sodium Chloride 0.9% 100 ML IVPB SCH ×3 (05:53→21:36)
[2018-08-01] MEDS: Fluticasone-Salmeterol 250-50mcg Diskus IH SCH ×3 (05:53→16:27)
[2018-08-01] MEDS: Levothyroxine 75 MCG TAB PO SCH (05:54)
[2018-08-01 07:26] LABS: INR 1.8; PROTHROMBIN TIME 20.1 Seconds (9.8-13.1)
--- NOTE | 2018-08-01 08:01 | CARD ---
APPROVED REPORT Date of service: 07/31/2018 EKG Measurement Heart [id number] <Conclusion> Atrial fibrillation Anteroseptal infarct, age undetermined Abnormal ECG
[2018-08-01] MEDS: Potassium Chloride 20 mEq ER Tab PO SCH ×2 (08:59→16:27)
[2018-08-01] MEDS: Enoxaparin 30 mg Syringe SC SCH (09:00)
[2018-08-01] MEDS: Patient's Own Med (Amino Acids/Protein Hydrolys [Prostat 15 G Packet] 30 ml) PO SCH (09:02)
[2018-08-01] MEDS: Insulin Regular 100 units/ml SC SCH ×4 (09:03→21:38)
[2018-08-01] MEDS: Lactobacillus Acidophilus 500 MU Cap PO SCH ×2 (09:07→16:26)
--- NOTE | 2018-08-01 10:25 | CP.PCM.PN ---
Subjective - Date & Time of Evaluation Date of Evaluation: 08/01/18 Time of Evaluation: 12:24 - Subjective Subjective: Podiatry consult note for Dr. Manley, 72 Y/O female patient seen and evaluated in the bedside for b/l LE ulcerations. Patient is in no acute distress, AAO x3. Patient denies any overnight foot pain. Patient denies any other pedal complaint. Patient denies any overnight F/N/V/C or SOB. Spoke to her curator natural history museum which indicates that the patient is high risk and it's preferred to do the surgery under local anesthesia and sedation. Objective - Vital Signs/Intake and Output Vital Signs (last 24 hours): Temp Pulse Resp BP Pulse Ox 97.6 F 86 19 145/80 95 08/01/18 08:04 08/01/18 09:03 08/01/18 08:04 08/01/18 09:03 08/01/18 08:04 - Medications Medications: Current Medications Acetaminophen (Tylenol 325mg Tab) 650 mg PO Q4 PRN PRN Reason: Pain, Mild (1-3) Atorvastatin Calcium (Lipitor) 20 mg PO HS COUNTS INCLUDE 234 BEDS AT THE [facility] Last Admin: 07/31/18 22:07 Dose: 20 mg Carvedilol (Coreg) 6.25 mg PO Q12 COUNTS INCLUDE 234 BEDS AT THE [facility] Last Admin: 08/01/18 09:03 Dose: 6.25 mg Docusate Sodium (Colace) 100 mg PO BID COUNTS INCLUDE 234 BEDS AT THE [facility] Last Admin: 08/01/18 09:01 Dose: 100 mg Enoxaparin Sodium (Lovenox) 30 mg SC DAILY COUNTS INCLUDE 234 BEDS AT THE [facility]; Protocol Last Admin: 08/01/18 09:00 Dose: 30 mg Ergocalciferol (Drisdol 50,000 Intl Units Cap) 1 cap PO WE COUNTS INCLUDE 234 BEDS AT THE [facility] Famotidine (Pepcid) 20 mg PO HS COUNTS INCLUDE 234 BEDS AT THE [facility] Last Admin: 07/31/18 22:07 Dose: 20 mg Furosemide (Lasix) 20 mg PO DAILY COUNTS INCLUDE 234 BEDS AT THE [facility] Last Admin: 08/01/18 09:01 Dose: 20 mg Gabapentin (Neurontin) 100 mg PO TID COUNTS INCLUDE 234 BEDS AT THE [facility] Last Admin: 08/01/18 08:59 Dose: 100 mg Home Med (Amino Acids/Protein Hydrolys [Prostat 15 G Packet]) 30 ml PO DAILY COUNTS INCLUDE 234 BEDS AT THE [facility] Last Admin: 08/01/18 09:02 Dose: Not Given Vancomycin HCl 1 gm/ Sodium (Chloride) 250 mls @ 166.667 mls/hr IVPB Q12 DAVID; Protocol Last Admin: 08/01/18 09:06 Dose: 166.667 mls/hr Piperacillin Sod/Tazobactam (Sod 3.375 gm/ Sodium Chloride) 100 mls @ 100 mls/hr IVPB Q8H DAVID; Protocol Last Admin: 08/01/18 05:53 Dose: 100 mls/hr Insulin Human Regular (Humulin R) 0 units SC ACHS DAVID; Protocol Last Admin: 08/01/18 09:03 Dose: Not Given Lactobacillus Acidophilus (Bacid Acidophilus) 1 cap PO BID COUNTS INCLUDE 234 BEDS AT THE [facility] Last Admin: 08/01/18 09:07 Dose: 1 cap Levothyroxine Sodium (Synthroid) 75 mcg PO DAILY@0630 COUNTS INCLUDE 234 BEDS AT THE [facility] Last Admin: 08/01/18 05:54 Dose: 75 mcg Lidocaine (Lidoderm) 1 ea TD ONCE PRN PRN Reason: Pain, Mild (1-3) Losartan Potassium (Cozaar) 100 mg PO DAILY COUNTS INCLUDE 234 BEDS AT THE [facility] Last Admin: 08/01/18 09:00 Dose: 100 mg Metformin HCl (Glucophage) 500 mg PO TID COUNTS INCLUDE 234 BEDS AT THE [facility] Last Admin: 08/01/18 08:59 Dose: 500 mg Mupirocin (Bactroban Ointment) 1 applic TOP BID COUNTS INCLUDE 234 BEDS AT THE [facility] Last Admin: 08/01/18 09:02 Dose: 1 appl Nystatin (Nystop Topical Powder) 1 applic TOP Q12 COUNTS INCLUDE 234 BEDS AT THE [facility] Last Admin: 08/01/18 09:00 Dose: 1 applic Potassium Chloride (K-Dur 20 Meq Er Tab) 20 meq PO BID COUNTS INCLUDE 234 BEDS AT THE [facility] Last Admin: 08/01/18 08:59 Dose: 20 meq Repaglinide (Prandin) 2 mg PO TID COUNTS INCLUDE 234 BEDS AT THE [facility] Last Admin: 08/01/18 09:01 Dose: 2 mg Fluticasone/Salmeterol (Advair Diskus 250/50) 1 puff IH Q12H COUNTS INCLUDE 234 BEDS AT THE [facility] Last Admin: 08/01/18 05:59 Dose: Not Given Sertraline HCl (Zoloft) 25 mg PO DAILY COUNTS INCLUDE 234 BEDS AT THE [facility] Last Admin: 08/01/18 08:59 Dose: 25 mg Sitagliptin Phosphate (Januvia) 100 mg PO DAILY COUNTS INCLUDE 234 BEDS AT THE [facility] Last Admin: 08/01/18 09:01 Dose: 100 mg - Labs Labs: 07/31/18 14:12 07/31/18 14:12 PT 20.1 Seconds (9.8-13.1) H 08/01/18 05:20 INR 1.8 08/01/18 05:20 APTT 34.0 Seconds (25.6-37.1) 07/31/18 14:12 - Constitutional Appears: Well, Non-toxic, No Acute Distress - Head Exam Head Exam: ATRAUMATIC, NORMOCEPHALIC - Extremities Exam Additional comments: B/L LE Focused exam: UNNA boot was intact. it was broken down for examination. Vasc: DP/PT not palpable. Cap refill < 3 sec in all digits. Temp gradient warm t o warm b/l. Massive non pitting edema extending up to the tibial tuberosity b/l with L > R. Neuro: Gross and protective sensations deminished b/l. Derm: Right foot: An ulcer measuring 2 cm X 2 cm X 0.1 cm. Base is necrotic and fibrous 80:20. No malodor. Minimal serous drainage. No probing to bone, No undermining, No tracking. Minimal sonal-wound erythema. Left foot: An ulcer measuring 3 cm X 2 cm X 0.4 cm. Base is necrotic and fibrous 70:30. positive malodor. Hyperkeratotic border. positive drainage of purulent discharge. positive probing to bone, No undermining, No tracking. sonal- wound erythema noted. Skin lines appears in B/L LE indicating partially resolved edema by the UNNA boot. B/L skin changes of the anterior legs in the form of excoriation L > R MSK: No pain on palpating the sonal-wound area. Muscle power intact 5/5 in all groups. - Neurological Exam Neurological Exam: Alert, Awake, Normal Gait - Psychiatric Exam Psychiatric exam: Normal Affect, Normal Mood Assessment and Plan - Assessment and Plan (Free Text) Assessment: 72 Y/O female patient seen and evaluated in the ED for B/L LE ulcerations. Plan: Patient seen and evaluated in the ED Plan discussed in details with attending Sindhu Longoria Chart, Labs and vitals reviews; Afebrile, WBCs 8.8 INR: 1.8 ESR and CRP: pending Spoke to her curator natural history museum which indicates that the patient is high risk and it's preferred to do the surgery under local anesthesia and sedation. Wound Cx: Pending B/L 3 views X-ray; reviewed; Left posterior calcaneal erosions consistent with OM. Calcific vessels noted b/l. B/l Massive soft tissue swelling. Right foot shows no signs of OM. Ordered MRI Left foot. ID consulted for the patient. Patient planned to go to the OR for Left heel ulcer debridement after medical optimization and cardiac clearance Left heel ulcer dressed using bactroban and DSD. Right foot ulcer dressed using bactroban and DSD. B/L JUAN bandage applied to the LE. Multipodus boot to be applied all the times the patient is in her bed. Podiatry will F/U the patient while in house.
--- NOTE | 2018-08-01 11:56 | CP.PCM.CON ---
History of Present Illness - History of Present Illness History of Present Illness: This 72-year-old female a long-standing diabetic, hypertensive and an ex-smoker who has been chronically overweight is hospitalized for a nonhealing ulcer on her left heel. The patient has had a long history of atrial fibrillation and is being managed with a beta gee as well as an oral anticoagulation. The patient indicates that she has never suffered a myocardial infarction and has never needed a coronary stent. Interrogating her son confirms this. The patient has had an unsteady gait and some degree of short-term memory loss. She has had falls in the past and there is a history of wrist injury. She denies any orthopnea. Her physical activities are significantly reduced and she denies effort related dyspnea. She spends prolonged period of time sitting in a chair and has had chronic pedal edema. She uses a walker at this point. Physical examination shows an elderly overweight female who recognizes me readily. She has a respiratory rate off 16-18 breaths per minute and she can carry on a conversation without any difficulty while sitting up in the bed. She has a heart rate of 80 bpm irregularly irregular and a blood pressure of 130/70 mmHg. Her jugular venous pressure was not elevated. There was pitting edema over both lower extremities which were firmly bandaged. The patient was examined during the political science professor's visit. Pedal pulses were not palpable. The apex was not palpable the first and second heart sounds were distant but normal. An apical systolic murmur of mitral regurgitation was audible. There were no rales. Abdomen was protuberant no organomegaly could be detected. Her electro-cardial gram shows atrial fibrillation at moderate heart rates with a pattern suggestive of an old septal wall myocardial infarction. Review off multiple echocardiograms going back to October 2017 show a similar pattern. An echocardiogram of February 2018 shows a moderately depressed left ventricular systolic function with a markedly enlarged left atrium as well as right atrium. There was mitral regurgitation and moderate pulmonary hypertension. The lab data was noted. Her BUN/creatinine and electrolytes were normal. Her INR was 1.8 yesterday in the emergency room as well as 1.8 this morning. Impression: A nonhealing ulcer on the left heel. Diabetes mellitus with hypertension. Chronic exogenous obesity. Chronic atrial fibrillation with left ventricular systolic dysfunction. Congestive cardiac failure which is chronic left ventricular and systolic. At this point the patient appears hemodynamically stable. I have discussed her case with the podiatry resident and if possible a regional block with IV sedation may be a better way to anesthetize her. The patient should have evaluation of her circulatory status of lower extremities. Past Patient History - Infectious Disease Hx of Infectious Diseases: None - Past Medical History & Family History Past Medical History?: Yes - Past Social History Smoking Status: Light Smoker < 10 Cigarettes Daily - CARDIAC Hx Cardiac Disorders: Yes Hx Atrial Fibrillation: Yes Hx Hypercholesterolemia: Yes Hx Hypertension: Yes Hx Pacemaker: No - PULMONARY Hx Respiratory Disorders: No - NEUROLOGICAL Hx Neurological Disorder: No - HEENT Hx HEENT Problems: Yes - RENAL Hx Chronic Kidney Disease: No - ENDOCRINE/METABOLIC Hx Endocrine Disorders: Yes Hx Diabetes Mellitus Type 2: Yes Hx Hypothyroidism: Yes - HEMATOLOGICAL/ONCOLOGICAL Hx Blood Disorders: No Hx Human Immunodeficiency Virus (HIV): No - INTEGUMENTARY Hx Dermatological Problems: No - MUSCULOSKELETAL/RHEUMATOLOGICAL Hx Musculoskeletal Disorders: Yes Hx Arthritis: Yes Hx Back Pain: Yes Hx Falls: Yes - GASTROINTESTINAL Hx Gastrointestinal Disorders: Yes Hx Colitis: Yes - GENITOURINARY/GYNECOLOGICAL Hx Genitourinary Disorders: No - PSYCHIATRIC Hx Psychophysiologic Disorder: Yes Hx Depression: Yes Hx Substance Use: No - SURGICAL HISTORY Hx Surgeries: No Hx Cholecystectomy: No - ANESTHESIA Hx Anesthesia: Yes Hx Anesthesia Reactions: No Meds Allergies/Adverse Reactions: Allergies Allergy/AdvReac Type Severity Reaction Status Date / Time No Known Allergies Allergy Verified 07/31/18 13:27 - Medications Medications: Current Medications Acetaminophen (Tylenol 325mg Tab) 650 mg PO Q4 PRN PRN Reason: Pain, Mild (1-3) Atorvastatin Calcium (Lipitor) 20 mg PO HS [facility] Last Admin: 07/31/18 22:07 Dose: 20 mg Carvedilol (Coreg) 6.25 mg PO Q12 [facility] Last Admin: 08/01/18 09:03 Dose: 6.25 mg Docusate Sodium (Colace) 100 mg PO BID [facility] Last Admin: 08/01/18 09:01 Dose: 100 mg Enoxaparin Sodium (Lovenox) 30 mg SC DAILY [facility]; Protocol Last Admin: 08/01/18 09:00 Dose: 30 mg Ergocalciferol (Drisdol 50,000 Intl Units Cap) 1 cap PO WE [facility] Famotidine (Pepcid) 20 mg PO HS [facility] Last Admin: 10/06/18 22:07 Dose: 20 mg Furosemide (Lasix) 20 mg PO DAILY [facility] Last Admin: 08/01/18 09:01 Dose: 20 mg Gabapentin (Neurontin) 100 mg PO TID [facility] Last Admin: 08/01/18 08:59 Dose: 100 mg Home Med (Amino Acids/Protein Hydrolys [Prostat 15 G Packet]) 30 ml PO DAILY [facility] Last Admin: 08/01/18 09:02 Dose: Not Given Vancomycin HCl 1 gm/ Sodium (Chloride) 250 mls @ 166.667 mls/hr IVPB Q12 [facility]; Protocol Last Admin: 08/01/18 09:06 Dose: 166.667 mls/hr Piperacillin Sod/Tazobactam (Sod 3.375 gm/ Sodium Chloride) 100 mls @ 100 mls/hr IVPB Q8H [facility]; Protocol Last Admin: 08/01/18 05:53 Dose: 100 mls/hr Insulin Human Regular (Humulin R) 0 units SC ACHS [facility]; Protocol Last Admin: 08/01/18 09:03 Dose: Not Given Lactobacillus Acidophilus (Bacid Acidophilus) 1 cap PO BID [facility] Last Admin: 08/01/18 09:07 Dose: 1 cap Levothyroxine Sodium (Synthroid) 75 mcg PO DAILY@0630 [facility] Last Admin: 08/01/18 05:54 Dose: 75 mcg Lidocaine (Lidoderm) 1 ea TD ONCE PRN PRN Reason: Pain, Mild (1-3) Losartan Potassium (Cozaar) 100 mg PO DAILY [facility] Last Admin: 08/01/18 09:00 Dose: 100 mg Metformin HCl (Glucophage) 500 mg PO TID [facility] Last Admin: 08/01/18 08:59 Dose: 500 mg Mupirocin (Bactroban Ointment) 1 applic TOP BID [facility] Last Admin: 08/01/18 09:02 Dose: 1 appl Nystatin (Nystop Topical Powder) 1 applic TOP Q12 [facility] Last Admin: 08/01/18 09:00 Dose: 1 applic Potassium Chloride (K-Dur 20 Meq Er Tab) 20 meq PO BID [facility] Last Admin: 08/01/18 08:59 Dose: 20 meq Repaglinide (Prandin) 2 mg PO TID [facility] Last Admin: 08/01/18 09:01 Dose: 2 mg Fluticasone/Salmeterol (Advair Diskus 250/50) 1 puff IH Q12H [facility] Last Admin: 08/01/18 05:59 Dose: Not Given Sertraline HCl (Zoloft) 25 mg PO DAILY [facility] Last Admin: 08/01/18 08:59 Dose: 25 mg Sitagliptin Phosphate (Januvia) 100 mg PO DAILY [facility] Last Admin: 08/01/18 09:01 Dose: 100 mg Results - Vital Signs Recent Vital Signs: Last Vital Signs Temp 97.6 F 08/01/18 08:04 Pulse 86 08/01/18 09:03 Resp 19 08/01/18 08:04 BP 145/80 08/01/18 09:03 Pulse Ox 95 08/01/18 08:04 - Labs Result Diagrams: 07/31/18 14:12 07/31/18 14:12 Labs: Laboratory Results - last 24 hr 07/31/18 07/31/18 07/31/18 14:12 14:12 14:12 WBC 8.8 RBC 4.32 Hgb 11.9 L Hct 36.1 MCV 83.5 D MCH 27.6 MCHC 33.0 RDW 15.3 H Plt Count 209 MPV 8.9 Neut % (Auto) 72.4 Lymph % (Auto) 15.9 L [place] % (Auto) 6.2 Eos % (Auto) 5.1 H Baso % (Auto) 0.4 Neut # (Auto) 6.3 Lymph # (Auto) 1.4 [place] # (Auto) 0.5 Eos # (Auto) 0.4 Baso # (Auto) 0.0 ESR PT 20.0 H INR 1.8 APTT 34.0 Sodium 142 Potassium 4.0 Chloride 104 Carbon Dioxide 32 H Anion Gap 10 BUN 15 Creatinine 0.8 Est GFR ( Amer) > 60 Est GFR (Non-Af Amer) > 60 POC Glucose (mg/dL) Random Glucose 104 Calcium 9.3 Total Bilirubin 0.2 AST 21 ALT 18 Alkaline Phosphatase 80 Troponin I < 0.0120 C-Reactive Protein Total Protein 7.4 Albumin 3.5 Globulin 3.9 Albumin/Globulin Ratio 0.9 L 07/31/18 07/31/18 07/31/18 15:10 15:21 15:34 WBC RBC Hgb Hct MCV MCH MCHC RDW Plt Count MPV Neut % (Auto) Lymph % (Auto) [place] % (Auto) Eos % (Auto) Baso % (Auto) Neut # (Auto) Lymph # (Auto) [place] # (Auto) Eos # (Auto) Baso # (Auto) ESR 48 H PT INR APTT Sodium Potassium Chloride Carbon Dioxide Anion Gap BUN Creatinine Est GFR ( Amer) Est GFR (Non-Af Amer) POC Glucose (mg/dL) 122 H Random Glucose Calcium Total Bilirubin AST ALT Alkaline Phosphatase Troponin I C-Reactive Protein 19.50 H Total Protein Albumin Globulin Albumin/Globulin Ratio 07/31/18 07/31/18 08/01/18 16:52 21:26 05:20 WBC RBC Hgb Hct MCV MCH MCHC RDW Plt Count MPV Neut % (Auto) Lymph % (Auto) [place] % (Auto) Eos % (Auto) Baso % (Auto) Neut # (Auto) Lymph # (Auto) [place] # (Auto) Eos # (Auto) Baso # (Auto) ESR PT 20.1 H INR 1.8 APTT Sodium Potassium Chloride Carbon Dioxide Anion Gap BUN Creatinine Est GFR ( Amer) Est GFR (Non-Af Amer) POC Glucose (mg/dL) 118 H 91 Random Glucose Calcium Total Bilirubin AST ALT Alkaline Phosphatase Troponin I C-Reactive Protein Total Protein Albumin Globulin Albumin/Globulin Ratio 08/01/18 08/01/18 05:32 11:35 WBC RBC Hgb Hct MCV MCH MCHC RDW Plt Count MPV Neut % (Auto) Lymph % (Auto) [place] % (Auto) Eos % (Auto) Baso % (Auto) Neut # (Auto) Lymph # (Auto) [place] # (Auto) Eos # (Auto) Baso # (Auto) ESR PT INR APTT Sodium Potassium Chloride Carbon Dioxide Anion Gap BUN Creatinine Est GFR ( Amer) Est GFR (Non-Af Amer) POC Glucose (mg/dL) 76 119 H Random Glucose Calcium Total Bilirubin AST ALT Alkaline Phosphatase Troponin I C-Reactive Protein Total Protein Albumin Globulin Albumin/Globulin Ratio
--- NOTE | 2018-08-01 14:04 | CP.PCM.CON ---
History of Present Illness - History of Present Illness History of Present Illness: 72 Y/O female patient seen and evaluated for b/l LE ulcerations and nonhealing ulcer left heel Patient has chronic venous stasis with stasis dermatitis and was admitted here for cellulitis in April - at that time had MRSA of wounds Now admitted with infected ulcer left heel Patient cant provide details of left heel ulcer but comes from [facility] and has been getting regular wound care PMH: DM, Morbid obesity, A-fib on coumadin, HTN, HLD, hypothyroid. SHx: Cholecystectomy Allergies: NKDA Social Hx: Lives with family, Smoker 2-3 cigarettes/day for many years, Denies EtOH or illicit drug use Review of Systems - Review of Systems All systems: reviewed and no additional remarkable complaints except - Constitutional Constitutional: As Per HPI - EENT Eyes: absent: As Per HPI, Blind Spots, Blurred Vision, Change in Vision, Decreased Night Vision, Diplopia, Discharge, Dry Eye, Exophthalmos, Floaters, Irritation, Itchy Eyes, Loss of Peripheral Vision, Pain, Photophobia, Requires Corrective Lenses, Sees Flashes, Spots in Vision, Tunnel Vision, Other Visual Disturbances, Loss of Vision, Other Ears: absent: As Per HPI, Decreased Hearing, Ear Discharge, Ear Pain, Tinnitus, Abnormal Hearing, Disequilibrium, Dizziness, Other Nose/Mouth/Throat: absent: As Per HPI, Epistaxis, Nasal Congestion, Nasal Discharge, Nasal Obstruction, Nasal Trauma, Nose Pain, Post Nasal Drip, Sinus Pain, Sinus Pressure, Bleeding Gums, Change in Voice, Dental Pain, Dry Mouth, Dysphagia, Halitosis, Hoarsness, Lip Swelling, Mouth Lesions, Mouth Pain, O dynophagia, Sore Throat, Throat Swelling, Tongue Swelling, Facial Pain, Neck Pain, Neck Mass, Other - Breasts Breasts: absent: As Per HPI, Change in Shape, Mass, Pain, Nipple Discharge, Nipple Inversion, Skin Changes, Swelling, Other - Cardiovascular Cardiovascular: As Per HPI - Respiratory Respiratory: absent: As Per HPI, Cough, Dyspnea, Hemoptysis, Dyspnea on Exertion, Wheezing, Snoring, Stridor, Pain on Inspiration, Chest Congestion, Excessive Mucous Production, Change in Mucous Color, Pain with Coughing, Other - Gastrointestinal Gastrointestinal: absent: As Per HPI, Abdominal Pain, Belching, Bloating, Change in Bowel Habits, Change in Stool Character, Coffee Ground Emesis, Constipation, Cramping, Diarrhea, Dyspepsia, Dysphagia, Early Satiety, Excessive Flatus, Fecal Incontinence, Heartburn, Hematemesis, Hematochezia, Loose Stools, Melena, Nausea, Odynophagia, Temesmus, Vomiting, Other - Genitourinary Genitourinary: absent: As Per HPI, Change in Urinary Stream, Difficulty Urinating, Dysuria, Flank Pain, Hematuria, Pyuria, Nocturia, Urinary Incontinence, Urinary Frequency, Urinary Hesitance, Urinary Urgency, Voiding Freq/Small Amts, Freq UTI, Hx Renal/Bladder Calculi, Hx /Renal Surgery, Bladder Distension, Other - Reproductive: Female Reproductive:Female: absent: As Per HPI, Amenorrhea, Amenorrhea/ Control, Currently Menstual, Cycle <21 Days, Cycle >35 Days, Cycle Variable, Menses 1-7 Days, Menses >/= 8 Days, Menses Variable, Cycle > 4 Weeks Between, No Menses for 6 Months, Heavy Menses, Light Menses, Normal Menses, Spotting Between Cycles, S/P Hysterectomy, Menopausal, Post Menopausal, Premenarche, Abnormal Vaginal Bleeding, Dysmenorrhea, Dyspareunia, Genital Lesions, Genital Pruritis, Pelvic Pain, Prolapse Symptoms, Sexual Dysfunction, Vaginal Discharge, Vaginal Dryness, Vaginal Odor, Vaginal Pruritis, Other - Menstruation Menstruation: absent: As Per HPI, Amenorrhea, Amenorrhea/ Control, Currently Menstual, Cycle <21 Days, Cycle >35 Days, Cycle Variable, Menses 1-7 Days, Menses >/= 8 Days, Menses Variable, Cycle > 4 Weeks Between, No Menses for 6 Months, Heavy Menses, Light Menses, Normal Menses, Spotting Between Cycles, S/P Hysterectomy, Menopausal, Post Menopausal, Premenarche, Abnormal Vaginal Bleeding, Dysmenorrhea, Other - Musculoskeletal Musculoskeletal: As Per HPI - Integumentary Integumentary: As Per HPI, Skin Pain, Wounds - Neurological Neurological: absent: As Per HPI, Abnormal Gait, Abnormal Hearing, Abnormal Movements, Abnormal Speech, Behavioral Changes, Burning Sensations, Confusion, Convulsions, Disequilibrium, Dizziness, Numbness, Focal Weakness, Frequent Falls, Headaches, Lack of Coordination, Loss of Vision, Memory Loss, Parest hesias, Radicular Pain, Restless Legs, Sensory Deficit, Syncope, Tingling, Tremor, Vertigo, Weakness, Other Visual Disturbances, Other - Psychiatric Psychiatric: absent: As Per HPI, Abnormal Sleep Pattern, Anhedonia, Anxiety, Auditory Hallucinations, Behavioral Changes, Change in Appetite, Change in Libido, Confusion, Depression, Difficulty Concentrating, Hallucinations, Homicidal Ideation, Hopelessness, Irritability, Memory Loss, Mood Swings, Panic Attacks, Paranoia, Suicidal Ideation, Visual Hallucinations, Tactile Hallucinations, Other - Endocrine Endocrine: As Per HPI - Hematologic/Lymphatic Hematologic: absent: As Per HPI, Easy Bleeding, Easy Bruising, Lymphadenopathy, Other Past Patient History - Infectious Disease Hx of Infectious Diseases: None - Past Medical History & Family History Past Medical History?: Yes - Past Social History Smoking Status: Light Smoker < 10 Cigarettes Daily - CARDIAC Hx Cardiac Disorders: Yes Hx Atrial Fibrillation: Yes Hx Hypercholesterolemia: Yes Hx Hypertension: Yes Hx Pacemaker: No - PULMONARY Hx Respiratory Disorders: No - NEUROLOGICAL Hx Neurological Disorder: No - HEENT Hx HEENT Problems: Yes - RENAL Hx Chronic Kidney Disease: No - ENDOCRINE/METABOLIC Hx Endocrine Disorders: Yes Hx Diabetes Mellitus Type 2: Yes Hx Hypothyroidism: Yes - HEMATOLOGICAL/ONCOLOGICAL Hx Blood Disorders: No Hx Human Immunodeficiency Virus (HIV): No - INTEGUMENTARY Hx Dermatological Problems: No - MUSCULOSKELETAL/RHEUMATOLOGICAL Hx Musculoskeletal Disorders: Yes Hx Arthritis: Yes Hx Back Pain: Yes Hx Falls: Yes - GASTROINTESTINAL Hx Gastrointestinal Disorders: Yes Hx Colitis: Yes - GENITOURINARY/GYNECOLOGICAL Hx Genitourinary Disorders: No - PSYCHIATRIC Hx Psychophysiologic Disorder: Yes Hx Depression: Yes Hx Substance Use: No - SURGICAL HISTORY Hx Surgeries: No Hx Cholecystectomy: No - ANESTHESIA Hx Anesthesia: Yes Hx Anesthesia Reactions: No Meds Allergies/Adverse Reactions: Allergies Allergy/AdvReac Type Severity Reaction Status Date / Time No Known Allergies Allergy Verified 07/31/18 13:27 - Medications Medications: Current Medications Acetaminophen (Tylenol 325mg Tab) 650 mg PO Q4 PRN PRN Reason: Pain, Mild (1-3) Atorvastatin Calcium (Lipitor) 20 mg PO HS [facility] Last Admin: 07/31/18 22:07 Dose: 20 mg Carvedilol (Coreg) 6.25 mg PO Q12 [facility] Last Admin: 08/01/18 09:03 Dose: 6.25 mg Docusate Sodium (Colace) 100 mg PO BID [facility] Last Admin: 08/01/18 09:01 Dose: 100 mg Enoxaparin Sodium (Lovenox) 30 mg SC DAILY [facility]; Protocol Last Admin: 08/01/18 09:00 Dose: 30 mg Ergocalciferol (Drisdol 50,000 Intl Units Cap) 1 cap PO [facility] Famotidine (Pepcid) 20 mg PO HS [facility] Last Admin: 07/31/18 22:07 Dose: 20 mg Furosemide (Lasix) 20 mg PO DAILY [facility] Last Admin: 08/01/18 09:01 Dose: 20 mg Gabapentin (Neurontin) 100 mg PO TID [facility] Last Admin: 08/01/18 13:08 Dose: 100 mg Home Med (Amino Acids/Protein Hydrolys [Prostat 15 G Packet]) 30 ml PO DAILY [facility] Last Admin: 08/01/18 09:02 Dose: Not Given Vancomycin HCl 1 gm/ Sodium (Chloride) 250 mls @ 166.667 mls/hr IVPB Q12 [facility]; Protocol Last Admin: 08/01/18 09:06 Dose: 166.667 mls/hr Piperacillin Sod/Tazobactam (Sod 3.375 gm/ Sodium Chloride) 100 mls @ 100 mls/hr IVPB Q8H [facility]; Protocol Last Admin: 08/01/18 13:08 Dose: 100 mls/hr Insulin Human Regular (Humulin R) 0 units SC ACHS [facility]; Protocol Last Admin: 08/01/18 13:09 Dose: Not Given Lactobacillus Acidophilus (Bacid Acidophilus) 1 cap PO BID [facility] Last Admin: 08/01/18 09:07 Dose: 1 cap Levothyroxine Sodium (Synthroid) 75 mcg PO DAILY@0630 [facility] Last Admin: 08/01/18 05:54 Dose: 75 mcg Lidocaine (Lidoderm) 1 ea TD ONCE PRN PRN Reason: Pain, Mild (1-3) Losartan Potassium (Cozaar) 100 mg PO DAILY [facility] Last Admin: 08/01/18 09:00 Dose: 100 mg Metformin HCl (Glucophage) 500 mg PO TID [facility] Last Admin: 08/01/18 13:09 Dose: 500 mg Mupirocin (Bactroban Ointment) 1 applic TOP BID [facility] Last Admin: 08/01/18 09:02 Dose: 1 appl Nystatin (Nystop Topical Powder) 1 applic TOP Q12 [facility] Last Admin: 10/07/18 09:00 Dose: 1 applic Potassium Chloride (K-Dur 20 Meq Er Tab) 20 meq PO BID [facility] Last Admin: 08/01/18 08:59 Dose: 20 meq Repaglinide (Prandin) 2 mg PO TID [facility] Last Admin: 08/01/18 13:08 Dose: 2 mg Fluticasone/Salmeterol (Advair Diskus 250/50) 1 puff IH Q12H [facility] Last Admin: 08/01/18 05:59 Dose: Not Given Sertraline HCl (Zoloft) 25 mg PO DAILY [facility] Last Admin: 08/01/18 08:59 Dose: 25 mg Sitagliptin Phosphate (Januvia) 100 mg PO DAILY [facility] Last Admin: 08/01/18 09:01 Dose: 100 mg Physical Exam - Constitutional Appears: Non-toxic, No Acute Distress, Chronically Ill - Head Exam Head Exam: ATRAUMATIC, NORMAL INSPECTION, NORMOCEPHALIC - Eye Exam Eye Exam: EOMI, PERRL. absent: Scleral icterus - ENT Exam ENT Exam: Mucous Membranes Dry, Normal External Ear Exam, Normal Oropharynx - Neck Exam Neck exam: Negative for: Lymphadenopathy - Respiratory Exam Respiratory Exam: Decreased Breath Sounds, Prolonged Expiratory Phase, Rhonchi - Cardiovascular Exam Cardiovascular Exam: REGULAR RHYTHM, +S1, +S2 - GI/Abdominal Exam GI & Abdominal Exam: Diminished Bowel Sounds, Distended, Soft. absent: Guarding, Rebound, Rigid, Tenderness - Rectal Exam Rectal Exam: Deferred - Exam Exam: NORMAL INSPECTION - Extremities Exam Extremities exam: Positive for: pedal edema. Negative for: calf tenderness, tenderness, pedal pulses present Additional comments: B/L LE Focused exam: UNNA boot was intact. it was broken down for examination. Vasc: DP/PT not palpable. Cap refill < 3 sec in all digits. Temp gradient warm to warm b/l. Massive non pitting edema extending up to the tibial tuberosity b/l with L > R. Neuro: Gross and protective sensations deminished b/l. Derm: Right foot: An ulcer measuring 2 cm X 2 cm X 0.1 cm. Base is necrotic and fibrous 80:20. No malodor. Minimal serous drainage. No probing to bone, No undermining, No tracking. Minimal sonal-wound erythema. Left foot: An ulcer measuring 3 cm X 2 cm X 0.4 cm. Base is necrotic and fibrous 70:30. positive malodor. Hyperkeratotic border. positive drainage of pu rulent discharge. positive probing to bone, No undermining, No tracking. sonal- wound erythema noted. Skin lines appears in B/L LE indicating partially resolved edema by the UNNA boot. B/L skin changes of the anterior legs in the form of excoriation L > R MSK: No pain on palpating the sonal-wound area. Muscle power intact 5/5 in all groups. - Back Exam Back exam: absent: CVA tenderness (L), CVA tenderness (R) - Neurological Exam Neurological exam: Alert, CN II-XII Intact, Oriented x3, Reflexes Normal - Psychiatric Exam Psychiatric exam: Depressed - Skin Skin Exam: Dry Results - Vital Signs Recent Vital Signs: Last Vital Signs Temp 97.6 F 08/01/18 08:04 Pulse 86 08/01/18 09:03 Resp 19 08/01/18 08:04 BP 145/80 08/01/18 09:03 Pulse Ox 95 08/01/18 08:04 - Labs Result Diagrams: 07/31/18 14:12 07/31/18 14:12 Labs: Laboratory Results - last 24 hr 07/31/18 07/31/18 07/31/18 14:12 14:12 14:12 WBC 8.8 RBC 4.32 Hgb 11.9 L Hct 36.1 MCV 83.5 D MCH 27.6 MCHC 33.0 RDW 15.3 H Plt Count 209 MPV 8.9 Neut % (Auto) 72.4 Lymph % (Auto) 15.9 L Hinds % (Auto) 6.2 Eos % (Auto) 5.1 H Baso % (Auto) 0.4 Neut # (Auto) 6.3 Lymph # (Auto) 1.4 Hinds # (Auto) 0.5 Eos # (Auto) 0.4 Baso # (Auto) 0.0 ESR PT 20.0 H INR 1.8 APTT 34.0 Sodium 142 Potassium 4.0 Chloride 104 Carbon Dioxide 32 H Anion Gap 10 BUN 15 Creatinine 0.8 Est GFR ( Amer) > 60 Est GFR (Non-Af Amer) > 60 POC Glucose (mg/dL) Random Glucose 104 Calcium 9.3 Total Bilirubin 0.2 AST 21 ALT 18 Alkaline Phosphatase 80 Troponin I < 0.0120 C-Reactive Protein Total Protein 7.4 Albumin 3.5 Globulin 3.9 Albumin/Globulin Ratio 0.9 L 07/31/18 07/31/18 07/31/18 15:10 15:21 15:34 WBC RBC Hgb Hct MCV MCH MCHC RDW Plt Count MPV Neut % (Auto) Lymph % (Auto) Hinds % (Auto) Eos % (Auto) Baso % (Auto) Neut # (Auto) Lymph # (Auto) Hinds # (Auto) Eos # (Auto) Baso # (Auto) ESR 48 H PT INR APTT Sodium Potassium Chloride Carbon Dioxide Anion Gap BUN Creatinine Est GFR ( Amer) Est GFR (Non-Af Amer) POC Glucose (mg/dL) 122 H Random Glucose Calcium Total Bilirubin AST ALT Alkaline Phosphatase Troponin I C-Reactive Protein 19.50 H Total Protein Albumin Globulin Albumin/Globulin Ratio 07/31/18 07/31/18 08/01/18 16:52 21:26 05:20 WBC RBC Hgb Hct MCV MCH MCHC RDW Plt Count MPV Neut % (Auto) Lymph % (Auto) Hinds % (Auto) Eos % (Auto) Baso % (Auto) Neut # (Auto) Lymph # (Auto) Hinds # (Auto) Eos # (Auto) Baso # (Auto) ESR PT 20.1 H INR 1.8 APTT Sodium Potassium Chloride Carbon Dioxide Anion Gap BUN Creatinine Est GFR ( Amer) Est GFR (Non-Af Amer) POC Glucose (mg/dL) 118 H 91 Random Glucose Calcium Total Bilirubin AST ALT Alkaline Phosphatase Troponin I C-Reactive Protein Total Protein Albumin Globulin Albumin/Globulin Ratio 08/01/18 08/01/18 05:32 11:35 WBC RBC Hgb Hct MCV MCH MCHC RDW Plt Count MPV Neut % (Auto) Lymph % (Auto) Hinds % (Auto) Eos % (Auto) Baso % (Auto) Neut # (Auto) Lymph # (Auto) Hinds # (Auto) Eos # (Auto) Baso # (Auto) ESR PT INR APTT Sodium Potassium Chloride Carbon Dioxide Anion Gap BUN Creatinine Est GFR ( Amer) Est GFR (Non-Af Amer) POC Glucose (mg/dL) 76 119 H Random Glucose Calcium Total Bilirubin AST ALT Alkaline Phosphatase Troponin I C-Reactive Protein Total Protein Albumin Globulin Albumin/Globulin Ratio Assessment & Plan (1) Diabetic foot ulcer Status: Acute (2) Chronic a-fib Status: Acute (3) DM2 (diabetes mellitus, type 2) Status: Acute (4) Diabetic foot ulcer Status: Acute (5) Obesity Status: Acute (6) Systolic and diastolic CHF, chronic Status: Acute - Assessment and Plan (Free Text) Assessment: nonhealing ulcer left heela and right foot r/o OM consider vascular eval, MRI for debridement await cultures cont IV Vanco/ zosyn
--- NOTE | 2018-08-01 18:31 | HP ---
CHIEF COMPLAINT: Infected foot ulcer. HISTORY OF PRESENT ILLNESS: This is a 72-year-old female, who was in [facility] due to a PICC line for treatment of her feet ulcer and the patient was evaluated by Podiatry and thought the patient would need surgery, so the patient was sent to the hospital for preop optimization and possible surgery on Thursday. REVIEW OF SYSTEMS: Review of systems at this time is negative for headache, dizziness, syncope, loss of consciousness, chest pain, shortness of breath, nausea, vomiting, diarrhea, and constipation. Review of systems is positive for discomfort and pain in foot, which is controlled. Review of systems of all other organ systems are unremarkable. PAST MEDICAL HISTORY: Significant for hypertension, diabetes, atrial fibrillation, elevated cholesterol, obesity, and hypothyroidism. PAST SURGICAL HISTORY: Remarkable for gallbladder surgery. PERSONAL HISTORY: The patient is currently nonsmoker, nondrinker. No substance abuse. MEDICATIONS: The patient is on Symbicort, vitamin D, Zocor, Glucophage, Coreg, Cozaar, Januvia, Lasix, Lipitor, Colace, vancomycin, Tylenol, , Pepcid, Neurontin, NovoLog, Lidoderm, and KCl. ALLERGIES: THE PATIENT IS NOT ALLERGIC TO ANY MEDICATIONS. FAMILY HISTORY: Noncontributory. PHYSICAL EXAMINATION: GENERAL: Well built, well nourished, morbidly obese 72-year-old female, in no acute distress. VITAL SIGNS: Temperature 98.2, pulse 86, respirations 18, and blood pressure 143/92. HEENT: Pupils reacting to light. No JVD. No thyromegaly. No lymphadenopathy. No nystagmus. Normocephalic, atraumatic skull. HEART: S1 and S2, normal and regular. LUNGS: Good bilateral air exchange. ABDOMEN: Soft and nontender. EXTREMITIES: The patient has bilateral lower extremity under podiatric dressing. Feet exam is as per podiatric evaluation and was reviewed. No edema. No calf swelling. No tenderness. No acute ischemia. 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 DIAGNOSTIC DATA: Available diagnostic data reviewed. Accu-Cheks are acceptable. WBC 8.8, hemoglobin 11.9, hematocrit 36.1, and platelets 209. Sodium 142, potassium 4.2, chloride 104, bicarb 32, BUN 16, and creatinine 0.8. Glucose is 104. ADMITTING IMPRESSION: 1. Infected foot ulcer. 2. Type 2 diabetes with hypoglycemia. 3. Elevated cholesterol. 4. Morbid obesity with body mass index of 44.9. 5. Hypertension. 6. Diabetes. 7. Depression. 8. Chronic back pain. 9. Arthritis. 10. Atrial fibrillation. 11. Hypothyroidism. PLAN: As ordered. Case and plan discussed with the patient. Kushal Harmon MD
[2018-08-02] MEDS: Piperacillin/Tazobact 3.375 GM in Sodium Chloride 0.9% 100 ML IVPB SCH ×3 (05:28→22:14)
[2018-08-02] MEDS: Fluticasone-Salmeterol 250-50mcg Diskus IH SCH ×3 (05:28→18:37)
[2018-08-02] MEDS: Levothyroxine 75 MCG TAB PO SCH (05:29)
--- NOTE | 2018-08-02 06:10 | CP.PCM.PN ---
Subjective - Date & Time of Evaluation Date of Evaluation: 08/02/18 Time of Evaluation: 12:14 - Subjective Subjective: Podiatry progress note for Dr. Malney, 72 Y/O female patient seen and evaluated in the bedside for b/l LE ulcerations. Patient is in no acute distress, AAO x3. Patient denies any overnight foot pain. Patient denies any other pedal complaint. Patient denies any overnight F/N/V/C or SOB. Patient will be sent to [facility] to get LAMONT/PVR. Patient will go to the OR in Thursday (08/04) for left heel ulcer debridement. Objective - Vital Signs/Intake and Output Vital Signs (last 24 hours): Temp Pulse Resp BP Pulse Ox 97.6 F 80 18 112/53 L 95 08/02/18 01:00 08/02/18 01:00 08/02/18 01:00 08/02/18 01:00 08/02/18 01:00 - Medications Medications: Current Medications Acetaminophen (Tylenol 325mg Tab) 650 mg PO Q4 PRN PRN Reason: Pain, Mild (1-3) Atorvastatin Calcium (Lipitor) 20 mg PO HS [facility] Last Admin: 08/01/18 21:33 Dose: 20 mg Carvedilol (Coreg) 6.25 mg PO Q12 [facility] Last Admin: 08/01/18 21:35 Dose: 6.25 mg Docusate Sodium (Colace) 100 mg PO BID [facility] Last Admin: 08/01/18 16:27 Dose: 100 mg Enoxaparin Sodium (Lovenox) 30 mg SC DAILY [facility]; Protocol Last Admin: 08/01/18 09:00 Dose: 30 mg Ergocalciferol (Drisdol 50,000 Intl Units Cap) 1 cap PO [facility] Famotidine (Pepcid) 20 mg PO HS [facility] Last Admin: 08/01/18 21:33 Dose: 20 mg Furosemide (Lasix) 20 mg PO DAILY [facility] Last Admin: 08/01/18 09:01 Dose: 20 mg Gabapentin (Neurontin) 100 mg PO TID [facility] Last Admin: 08/01/18 16:27 Dose: 100 mg Home Med (Amino Acids/Protein Hydrolys [Prostat 15 G Packet]) 30 ml PO DAILY [facility] Last Admin: 08/01/18 09:02 Dose: Not Given Vancomycin HCl 1 gm/ Sodium (Chloride) 250 mls @ 166.667 mls/hr IVPB Q12 [facility]; Protocol Last Admin: 08/01/18 20:01 Dose: 166.667 mls/hr Piperacillin Sod/Tazobactam (Sod 3.375 gm/ Sodium Chloride) 100 mls @ 100 mls/hr IVPB Q8H [facility]; Protocol Last Admin: 08/02/18 05:28 Dose: 100 mls/hr Insulin Human Regular (Humulin R) 0 units SC ACHS [facility]; Protocol Last Admin: 08/01/18 21:38 Dose: Not Given Lactobacillus Acidophilus (Bacid Acidophilus) 1 cap PO BID [facility] Last Admin: 08/01/18 16:26 Dose: 1 cap Levothyroxine Sodium (Synthroid) 75 mcg PO DAILY@0630 [facility] Last Admin: 08/02/18 05:29 Dose: 75 mcg Lidocaine (Lidoderm) 1 ea TD ONCE PRN PRN Reason: Pain, Mild (1-3) Losartan Potassium (Cozaar) 100 mg PO DAILY [facility] Last Admin: 08/01/18 09:00 Dose: 100 mg Metformin HCl (Glucophage) 500 mg PO TID [facility] Last Admin: 08/01/18 16:27 Dose: 500 mg Mupirocin (Bactroban Ointment) 1 applic TOP BID [facility] Last Admin: 08/01/18 16:26 Dose: 1 appl Nystatin (Nystop Topical Powder) 1 applic TOP Q12 [facility] Last Admin: 08/01/18 21:33 Dose: 1 applic Potassium Chloride (K-Dur 20 Meq Er Tab) 20 meq PO BID [facility] Last Admin: 08/01/18 16:27 Dose: 20 meq Repaglinide (Prandin) 2 mg PO TID [facility] Last Admin: 08/01/18 16:28 Dose: 2 mg Fluticasone/Salmeterol (Advair Diskus 250/50) 1 puff IH Q12H [facility] Last Admin: 08/02/18 05:30 Dose: Not Given Sertraline HCl (Zoloft) 25 mg PO DAILY [facility] Last Admin: 08/01/18 08:59 Dose: 25 mg Sitagliptin Phosphate (Januvia) 100 mg PO DAILY [facility] Last Admin: 08/01/18 09:01 Dose: 100 mg - Labs Labs: 07/31/18 14:12 07/31/18 14:12 PT 20.1 Seconds (9.8-13.1) H 08/01/18 05:20 INR 1.8 08/01/18 05:20 APTT 34.0 Seconds (25.6-37.1) 07/31/18 14:12 - Constitutional Appears: Well, Non-toxic, No Acute Distress - Head Exam Head Exam: ATRAUMATIC, NORMOCEPHALIC - Extremities Exam Additional comments: B/L LE Focused exam: UNNA boot was intact. it was broken down for examination. Vasc: DP/PT not palpable. Cap refill < 3 sec in all digits. Temp gradient warm to warm b/l. Massive non pitting edema extending up to the tibial tuberosity b/l with L > R. Neuro: Gross and protective sensations deminished b/l. Derm: Right foot: An ulcer measuring 2 cm X 2 cm X 0.1 cm. Base is necrotic and fibrous 80:20. No malodor. Minimal serous drainage. No probing to bone, No undermining, No tracking. Minimal sonal-wound erythema. Left foot: An ulcer measuring 3 cm X 2 cm X 0.4 cm in the left heel. Base is necrotic and fibrous 70:30. positive malodor. Hyperkeratotic border. positive drainage of purulent discharge. positive probing to bone, No undermining, No tr acking. sonal-wound erythema noted. B/L skin changes of the anterior legs in the form of excoriation L > R MSK: No pain on palpating the sonal-wound area. Muscle power intact 5/5 in all groups. - Neurological Exam Neurological Exam: Alert, Awake, Oriented x3 - Psychiatric Exam Psychiatric exam: Normal Affect, Normal Mood Assessment and Plan - Assessment and Plan (Free Text) Assessment: 72 Y/O female patient seen and evaluated in the ED for B/L LE ulcerations. Plan: Patient seen and evaluated in the bedside with Dr. Manley Plan discussed in details with attending Sindhu Longoria Chart, Labs and vitals reviews; Afebrile, WBCs 8.8 (10/6) INR: 1.6 ESR and CRP: pending Wound Cx: Pending B/L 3 views X-ray; reviewed; Left posterior calcaneal erosions consistent with OM. Calcific vessels noted b/l. B/l Massive soft tissue swelling. Right foot shows no signs of OM. Ordered MRI Left foot. ID onboard. Patient will go to the OR Thursday (08/04) for left heel ulcer debridment Left heel ulcer dressed using bactroban and DSD. Right foot ulcer dressed using bactroban and DSD. B/L JUAN bandage applied to the LE. Multipodus boot to be applied all the times the patient is in her bed. Podiatry will F/U the patient while in house.
[2018-08-02 08:40] LABS: INR 1.6; PROTHROMBIN TIME 18.2 Seconds (9.8-13.1)
--- NOTE | 2018-08-02 09:45 | CP.PCM.PN ---
Subjective - Date & Time of Evaluation Date of Evaluation: 08/02/18 Time of Evaluation: 09:00 - Subjective Subjective: Pt sitting OOB in a chair, appears comfortable Denies any dyspnoea overnight A Fib at 80 BPM BP 130/70 mm HG JVP flat, no rales Apical syst murmur of MR+ INR today 1.6 (Has been off of Warfarin for 2 full days) Rec Sx with regional block/local with IV sedation Objective - Vital Signs/Intake and Output Vital Signs (last 24 hours): Temp Pulse Resp BP Pulse Ox 98.1 F 70 19 128/79 97 08/02/18 07:40 08/02/18 07:40 08/02/18 07:40 08/02/18 07:40 08/02/18 07:40 - Medications Medications: Current Medications Acetaminophen (Tylenol 325mg Tab) 650 mg PO Q4 PRN PRN Reason: Pain, Mild (1-3) Atorvastatin Calcium (Lipitor) 20 mg PO HS [facility] Last Admin: 08/01/18 21:33 Dose: 20 mg Carvedilol (Coreg) 6.25 mg PO Q12 [facility] Last Admin: 08/01/18 21:35 Dose: 6.25 mg Docusate Sodium (Colace) 100 mg PO BID [facility] Last Admin: 08/01/18 16:27 Dose: 100 mg Enoxaparin Sodium (Lovenox) 30 mg SC DAILY [facility]; Protocol Last Admin: 08/01/18 09:00 Dose: 30 mg Ergocalciferol (Drisdol 50,000 Intl Units Cap) 1 cap PO WE [facility] Famotidine (Pepcid) 20 mg PO HS [facility] Last Admin: 08/01/18 21:33 Dose: 20 mg Furosemide (Lasix) 20 mg PO DAILY [facility] Last Admin: 08/01/18 09:01 Dose: 20 mg Gabapentin (Neurontin) 100 mg PO TID [facility] Last Admin: 08/01/18 16:27 Dose: 100 mg Home Med (Amino Acids/Protein Hydrolys [Prostat 15 G Packet]) 30 ml PO DAILY S Last Admin: 08/01/18 09:02 Dose: Not Given Vancomycin HCl 1 gm/ Sodium (Chloride) 250 mls @ 166.667 mls/hr IVPB Q12 [facility]; Protocol Last Admin: 08/01/18 20:01 Dose: 166.667 mls/hr Piperacillin Sod/Tazobactam (Sod 3.375 gm/ Sodium Chloride) 100 mls @ 100 mls/hr IVPB Q8H [facility]; Protocol Last Admin: 08/02/18 05:28 Dose: 100 mls/hr Insulin Human Regular (Humulin R) 0 units SC ACHS [facility]; Protocol Last Admin: 08/01/18 21:38 Dose: Not Given Lactobacillus Acidophilus (Bacid Acidophilus) 1 cap PO BID [facility] Last Admin: 08/01/18 16:26 Dose: 1 cap Levothyroxine Sodium (Synthroid) 75 mcg PO DAILY@0630 [facility] Last Admin: 08/02/18 05:29 Dose: 75 mcg Lidocaine (Lidoderm) 1 ea TD ONCE PRN PRN Reason: Pain, Mild (1-3) Losartan Potassium (Cozaar) 100 mg PO DAILY [facility] Last Admin: 08/01/18 09:00 Dose: 100 mg Metformin HCl (Glucophage) 500 mg PO TID [facility] Last Admin: 08/01/18 16:27 Dose: 500 mg Mupirocin (Bactroban Ointment) 1 applic TOP BID [facility] Last Admin: 08/01/18 16:26 Dose: 1 appl Nystatin (Nystop Topical Powder) 1 applic TOP Q12 [facility] Last Admin: 08/01/18 21:33 Dose: 1 applic Potassium Chloride (K-Dur 20 Meq Er Tab) 20 meq PO BID [facility] Last Admin: 08/01/18 16:27 Dose: 20 meq Repaglinide (Prandin) 2 mg PO TID [facility] Last Admin: 08/01/18 16:28 Dose: 2 mg Fluticasone/Salmeterol (Advair Diskus 250/50) 1 puff IH Q12H [facility] Last Admin: 08/02/18 05:30 Dose: Not Given Sertraline HCl (Zoloft) 25 mg PO DAILY [facility] Last Admin: 08/01/18 08:59 Dose: 25 mg Sitagliptin Phosphate (Januvia) 100 mg PO DAILY [facility] Last Admin: 08/01/18 09:01 Dose: 100 mg - Labs Labs: 07/31/18 14:12 07/31/18 14:12 PT 18.2 Seconds (9.8-13.1) H 08/02/18 08:28 INR 1.6 08/02/18 08:28 APTT 34.0 Seconds (25.6-37.1) 07/31/18 14:12
[2018-08-02] MEDS: Insulin Regular 100 units/ml SC SCH ×3 (10:03→16:12)
[2018-08-02] MEDS: Patient's Own Med (Amino Acids/Protein Hydrolys [Prostat 15 G Packet] 30 ml) PO SCH (10:06)
[2018-08-02] MEDS: Potassium Chloride 20 mEq ER Tab PO SCH ×2 (10:12→18:40)
[2018-08-02] MEDS: Enoxaparin 30 mg Syringe SC SCH (10:13)
[2018-08-02] MEDS: Lactobacillus Acidophilus 500 MU Cap PO SCH ×2 (10:22→18:39)
--- NOTE | 2018-08-02 11:30 | PN ---
DATE: 08/02/2018 SUBJECTIVE: The patient remains in . Consults noted and appreciated. Cardiology followup and Podiatry followup and interventions noted and appreciated. The patient remains in regular medical floor, awake, responsive, sitting in chair. Denies any specific complaint. No chest pain. No shortness of breath. PHYSICAL EXAMINATION: GENERAL: The patient is in no acute distress. VITAL SIGNS: Stable. HEART: S1 and S2, normal and regular. LUNGS: Good bilateral air exchange. ABDOMEN: Soft, nontender. EXTREMITIES: No calf swelling. No tenderness. No acute ischemia. The patient has chronic nonhealing leg ulcers. 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 DIAGNOSTIC DATA: Available diagnostic data reviewed. ASSESSMENT AND PLAN: The patient is tentatively scheduled for surgery. Medically, the patient is stable. Plan as ordered. Kushal Harmon MD
[2018-08-02] MEDS ORDERED: Gadodiamide 287 MG/ML VIAL (15ML) IV ONE (15:50)
[2018-08-03] MEDS: Insulin Regular 100 units/ml SC SCH ×4 (01:31→16:56)
[2018-08-03 05:21] LABS: HEMOGLOBIN 11.7 g/dL (12.0-16.0); MEAN CELL VOLUME 84.6 fl (81.0-99.0); MEAN CORPUSCULAR HEMOGLOBIN 27.3 pg (27.0-31.0); MEAN CORPUSCULAR HGB CONC 32.3 g/dL (33.0-37.0); RBC 4.28 Mil/uL (3.80-5.20); RED CELL DISTRIBUTION WIDTH 15.1 % (11.5-14.5); WHITE BLOOD COUNT 8.1 K/uL (4.8-10.8)
[2018-08-03 05:37] LABS: ALBUMIN 3.6 g/dL (3.5-5.0); ALT/SGPT 22 U/L (9-52); AST/SGOT 21 U/L (14-36); BLOOD UREA NITROGEN 16 mg/dl (7-17); CALCIUM 9.3 mg/dL (8.4-10.2); GFR NON-AFRICAN AMERICAN > 60
[2018-08-03] MEDS: Fluticasone-Salmeterol 250-50mcg Diskus IH SCH ×2 (05:40→16:50)
[2018-08-03] MEDS: Levothyroxine 75 MCG TAB PO SCH (05:41)
[2018-08-03] MEDS: Piperacillin/Tazobact 3.375 GM in Sodium Chloride 0.9% 100 ML IVPB SCH ×2 (05:41→16:52)
--- NOTE | 2018-08-03 07:30 | CP.PCM.PN ---
Subjective - Date & Time of Evaluation Date of Evaluation: 08/03/18 Time of Evaluation: 10:43 - Subjective Subjective: Podiatry progress note for Dr. Manley, 72 Y/O female patient seen and evaluated in the bedside for b/l LE ulcerations. Patient is in no acute distress, AAO x3. Patient denies any overnight foot pain. Patient denies any other pedal complaint. Patient denies any overnight F/N/V/C or SOB. Patient will be sent to [facility] to get LAMONT/PVR today. Patient will go to the OR in Thursday (08/04) for left heel ulcer debridement. Objective - Vital Signs/Intake and Output Vital Signs (last 24 hours): Temp Pulse Resp BP Pulse Ox 97.5 F L 74 18 117/64 95 08/03/18 01:00 08/03/18 01:00 08/03/18 01:00 08/03/18 01:00 08/03/18 01:00 - Medications Medications: Current Medications Acetaminophen (Tylenol 325mg Tab) 650 mg PO Q4 PRN PRN Reason: Pain, Mild (1-3) Atorvastatin Calcium (Lipitor) 20 mg PO HS [facility] Last Admin: 08/02/18 22:12 Dose: 20 mg Carvedilol (Coreg) 6.25 mg PO Q12 [facility] Last Admin: 08/02/18 22:13 Dose: 6.25 mg Docusate Sodium (Colace) 100 mg PO BID [facility] Last Admin: 08/02/18 18:40 Dose: 100 mg Enoxaparin Sodium (Lovenox) 30 mg SC DAILY [facility]; Protocol Last Admin: 08/02/18 10:13 Dose: 30 mg Ergocalciferol (Drisdol 50,000 Intl Units Cap) 1 cap PO WE [facility] Famotidine (Pepcid) 20 mg PO HS [facility] Last Admin: 08/02/18 22:13 Dose: 20 mg Furosemide (Lasix) 20 mg PO DAILY [facility] Last Admin: 08/02/18 10:11 Dose: 20 mg Gabapentin (Neurontin) 100 mg PO TID [facility] Last Admin: 08/02/18 18:40 Dose: 100 mg Home Med (Amino Acids/Protein Hydrolys [Prostat 15 G Packet]) 30 ml PO DAILY [facility] Last Admin: 08/02/18 10:06 Dose: Not Given Vancomycin HCl 1 gm/ Sodium (Chloride) 250 mls @ 166.667 mls/hr IVPB Q12 [facility]; Protocol Last Admin: 08/02/18 20:41 Dose: 166.667 mls/hr Piperacillin Sod/Tazobactam (Sod 3.375 gm/ Sodium Chloride) 100 mls @ 100 mls/hr IVPB Q8H [facility]; Protocol Last Admin: 08/03/18 05:41 Dose: 100 mls/hr Insulin Human Regular (Humulin R) 0 units SC ACHS [facility]; Protocol Last Admin: 08/03/18 01:31 Dose: Not Given Lactobacillus Acidophilus (Bacid Acidophilus) 1 cap PO BID [facility] Last Admin: 08/02/18 18:39 Dose: 1 cap Levothyroxine Sodium (Synthroid) 75 mcg PO DAILY@0630 [facility] Last Admin: 08/03/18 05:41 Dose: 75 mcg Lidocaine (Lidoderm) 1 ea TD ONCE PRN PRN Reason: Pain, Mild (1-3) Losartan Potassium (Cozaar) 100 mg PO DAILY [facility] Last Admin: 08/02/18 10:12 Dose: 100 mg Metformin HCl (Glucophage) 500 mg PO TID [facility] Last Admin: 08/02/18 18:40 Dose: 500 mg Mupirocin (Bactroban Ointment) 1 applic TOP BID [facility] Last Admin: 08/02/18 18:42 Dose: 1 appl Nystatin (Nystop Topical Powder) 1 applic TOP Q12 [facility] Last Admin: 08/02/18 22:14 Dose: 1 applic Potassium Chloride (K-Dur 20 Meq Er Tab) 20 meq PO BID [facility] Last Admin: 08/02/18 18:40 Dose: 20 meq Repaglinide (Prandin) 2 mg PO TID [facility] Last Admin: 08/02/18 18:39 Dose: 2 mg Fluticasone/Salmeterol (Advair Diskus 250/50) 1 puff IH Q12H [facility] Last Admin: 08/03/18 05:40 Dose: Not Given Sertraline HCl (Zoloft) 25 mg PO DAILY [facility] Last Admin: 08/02/18 10:11 Dose: 25 mg Sitagliptin Phosphate (Januvia) 100 mg PO DAILY [facility] Last Admin: 08/02/18 10:16 Dose: 100 mg - Labs Labs: 08/03/18 04:45 08/03/18 04:45 PT 18.2 Seconds (9.8-13.1) H 08/02/18 08:28 INR 1.6 08/02/18 08:28 APTT 34.0 Seconds (25.6-37.1) 07/31/18 14:12 - Constitutional Appears: Well, Non-toxic, No Acute Distress - Head Exam Head Exam: ATRAUMATIC, NORMOCEPHALIC - Extremities Exam Additional comments: B/L LE Focused exam: Vasc: DP/PT not palpable. Cap refill < 3 sec in all digits. Temp gradient warm to warm b/l. Moderate non pitting edema extending up to the tibial tuberosity b/l with L > R. Neuro: Gross and protective sensations deminished b/l. Derm: Right foot: An ulcer measuring 2 cm X 2 cm X 0.1 cm. Base is necrotic and fibrous 80:20. No malodor. Minimal serous drainage. No probing to bone, No undermining, No tracking. Minimal sonal-wound erythema. Left foot: An ulcer measuring 3 cm X 2 cm X 0.4 cm in the left heel. Base is necrotic and fibrous 70:30. positive malodor. Hyperkeratotic border. positive drainage of purulent discharge. positive probing to bone, No undermining, No tracking. sonal-wound erythema noted. Left anterior leg skin changes in the form of excoriation. MSK: No pain on palpating the sonal-wound area. Muscle power intact 5/5 in all groups. - Neurological Exam Neurological Exam: Alert, Awake, Oriented x3 - Psychiatric Exam Psychiatric exam: Normal Affect, Normal Mood Assessment and Plan - Assessment and Plan (Free Text) Assessment: 72 Y/O female patient seen and evaluated in the ED for B/L LE ulcerations. Plan: Patient seen and evaluated in the bedside with Dr. Manley Plan discussed in details with attending Sindhu Longoria Chart, Labs and vitals reviews; Afebrile, WBCs 8.1 INR: 1.6 (08/02) ESR: 48 Wound Cx: Pending B/L 3 views X-ray; reviewed; Left posterior calcaneal erosions consistent with OM. Calcific vessels noted b/l. B/l Massive soft tissue swelling. Right foot shows no signs of OM. Ordered MRI Left foot. ID onboard. recommendations appreciated. Continue IV Abx as per ID. Patient will go to the OR Thursday (08/04) for left heel ulcer debridment Left heel ulcer dressed using bactroban and DSD. Right foot ulcer dressed using bactroban and DSD. B/L JUAN bandage applied to the LE. Multipodus boot to be applied all the times the patient is in her bed. Podiatry will F/U the patient while in house.
--- NOTE | 2018-08-03 08:10 | CP.PCM.PN ---
<Sultan Dorian - Last Filed: 08/03/18 10:49> Subjective - Date & Time of Evaluation Date of Evaluation: 08/03/18 Time of Evaluation: 07:30 - Subjective Subjective: Patient seen and examined with Dr. Harmon this AM. Lying comfortably in a chair, not in acute distress. Denies any chest pain, dyspnea or foot pain. Scheduled for OR tomorrow for left heel ulcer debridement. Objective - Vital Signs/Intake and Output Vital Signs (last 24 hours): Temp Pulse Resp BP Pulse Ox 97.9 F 75 19 115/75 96 08/03/18 07:41 08/03/18 07:41 08/03/18 07:41 08/03/18 07:41 08/03/18 07:41 - Medications Medications: Current Medications Acetaminophen (Tylenol 325mg Tab) 650 mg PO Q4 PRN PRN Reason: Pain, Mild (1-3) Atorvastatin Calcium (Lipitor) 20 mg PO HS [facility] Last Admin: 08/02/18 22:12 Dose: 20 mg Carvedilol (Coreg) 6.25 mg PO Q12 [facility] Last Admin: 08/02/18 22:13 Dose: 6.25 mg Docusate Sodium (Colace) 100 mg PO BID [facility] Last Admin: 08/02/18 18:40 Dose: 100 mg Enoxaparin Sodium (Lovenox) 30 mg SC DAILY [facility]; Protocol Last Admin: 08/02/18 10:13 Dose: 30 mg Ergocalciferol (Drisdol 50,000 Intl Units Cap) [address] [facility] Famotidine (Pepcid) 20 mg PO HS [facility] Last Admin: 08/02/18 22:13 Dose: 20 mg Furosemide (Lasix) 20 mg PO DAILY [facility] Last Admin: 08/02/18 10:11 Dose: 20 mg Gabapentin (Neurontin) 100 mg PO TID [facility] Last Admin: 08/02/18 18:40 Dose: 100 mg Home Med (Amino Acids/Protein Hydrolys [Prostat 15 G Packet]) 30 ml PO DAILY [facility] Last Admin: 08/02/18 10:06 Dose: Not Given Vancomycin HCl 1 gm/ Sodium (Chloride) 250 mls @ 166.667 mls/hr IVPB Q12 [facility]; Protocol Last Admin: 08/02/18 20:41 Dose: 166.667 mls/hr Piperacillin Sod/Tazobactam (Sod 3.375 gm/ Sodium Chloride) 100 mls @ 100 mls/hr IVPB Q8H [facility]; Protocol Last Admin: 08/03/18 05:41 Dose: 100 mls/hr Insulin Human Regular (Humulin R) 0 units SC ACHS [facility]; Protocol Last Admin: 08/03/18 01:31 Dose: Not Given Lactobacillus Acidophilus (Bacid Acidophilus) 1 cap PO BID [facility] Last Admin: 08/02/18 18:39 Dose: 1 cap Levothyroxine Sodium (Synthroid) 75 mcg PO DAILY@0630 [facility] Last Admin: 08/03/18 05:41 Dose: 75 mcg Lidocaine (Lidoderm) 1 ea TD ONCE PRN PRN Reason: Pain, Mild (1-3) Losartan Potassium (Cozaar) 100 mg PO DAILY [facility] Last Admin: 08/02/18 10:12 Dose: 100 mg Metformin HCl (Glucophage) 500 mg PO TID [facility] Last Admin: 08/02/18 18:40 Dose: 500 mg Mupirocin (Bactroban Ointment) 1 applic TOP BID [facility] Last Admin: 08/02/18 18:42 Dose: 1 appl Nystatin (Nystop Topical Powder) 1 applic TOP Q12 [facility] Last Admin: 08/02/18 22:14 Dose: 1 applic Potassium Chloride (K-Dur 20 Meq Er Tab) 20 meq PO BID [facility] Last Admin: 08/02/18 18:40 Dose: 20 meq Repaglinide (Prandin) 2 mg PO TID [facility] Last Admin: 08/02/18 18:39 Dose: 2 mg Fluticasone/Salmeterol (Advair Diskus 250/50) 1 puff IH Q12H [facility] Last Admin: 08/03/18 05:40 Dose: Not Given Sertraline HCl (Zoloft) 25 mg PO DAILY [facility] Last Admin: 08/02/18 10:11 Dose: 25 mg Sitagliptin Phosphate (Januvia) 100 mg PO DAILY [facility] Last Admin: 08/02/18 10:16 Dose: 100 mg - Labs Labs: 08/03/18 04:45 08/03/18 04:45 PT 18.2 Seconds (9.8-13.1) H 08/02/18 08:28 INR 1.6 08/02/18 08:28 APTT 34.0 Seconds (25.6-37.1) 07/31/18 14:12 - Constitutional Appears: Non-toxic, No Acute Distress - Head Exam Head Exam: NORMAL INSPECTION - Eye Exam Eye Exam: EOMI, Normal appearance - ENT Exam ENT Exam: Mucous Membranes Moist - Respiratory Exam Respiratory Exam: Clear to Ausculation Bilateral. absent: Rhonchi, Wheezes - Cardiovascular Exam Cardiovascular Exam: REGULAR RHYTHM, +S1, +S2 - GI/Abdominal Exam GI & Abdominal Exam: Soft, Normal Bowel Sounds. absent: Tenderness - Extremities Exam Additional comments: JUAN wrap on B/L foot. - Neurological Exam Neurological Exam: Alert, Awake, Oriented x3 - Psychiatric Exam Psychiatric exam: Normal Affect, Normal Mood - Skin Skin Exam: Normal Color Assessment and Plan - Assessment and Plan (Free Text) Assessment: 72 yo female admitted for B/L LE ulcerations. Patient is scheduled to go to OR tomorrow for left heel ulcer debridement. Plan: Podiatry consult appreciated OR tomorrow for left heel ulcer debridement Cardiology consult appreciated, Dr. Leo Patient is medically optimized for OR tomorrow Rest of the plan as ordered. Plan discussed with Dr. Eden Alarcon, pgy-2 <Kushal Harmon - Last Filed: 08/07/18 11:41> Objective - Vital Signs/Intake and Output Vital Signs (last 24 hours): Temp Pulse Resp BP Pulse Ox 98.3 F 75 20 148/72 97 08/04/18 17:01 08/04/18 17:01 08/04/18 17:01 08/04/18 17:01 08/04/18 17:01 - Labs Labs: 08/03/18 04:45 08/03/18 04:45 PT 15.4 Seconds (9.8-13.1) H 08/03/18 20:30 INR 1.4 08/03/18 20:30 APTT 34.0 Seconds (25.6-37.1) 07/31/18 14:12 Assessment and Plan - Assessment and Plan (Free Text) Assessment: Patient was personally seen and examined by me in rounds with residents. Available labs and diagnostic data reviewed. Case, Patient's condition and management plan discussed with residents in rounds. Agree with resident's progress note. Plan: As ordered.
--- NOTE | 2018-08-03 09:33 | MRI ---
MRI left foot HISTORY: Heel ulcer. Evaluate for osteomyelitis. COMPARISON: X-ray dated 07/31/2018 TECHNIQUE: Multi-echo multiplanar sequences were performed through the left hindfoot without the use of intravenous contrast. Findings: Limited exam. Exam was terminated prematurely given patient inability to tolerate pain. Prominent reticulation and edema seen throughout the left foot suggestive for underlying cellulitis. Prominent soft tissue defect/ulceration seen at the level of the posterior calcaneus. At the level of the posterior calcaneus, there is no gross T1 signal abnormality; however, there is some minimal reactive edema seen within the medial posterior calcaneus as demonstrated on series 5, image 11 and series 7, image 23. These findings likely do not represent a gross acute osteomyelitis; however, some early acute mild infectious and or inflammatory changes cannot entirely be excluded. Continued interval follow-up may be helpful if clinically indicated. Achilles tendon is preserved. Thickening of the plantar fascia measuring up to 1 centimeter with associated bony spurring of the inferior calcaneus suggestive for a moderate plantar fascitis. 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 No significant ankle joint effusion. Patchy reactive edema seen within the lateral distal pole of the cuboid bone. Mild tenosynovitis of the peroneal tendon sheaths. Degenerative changes in the midfoot. Degenerative changes at the base of the 1st metatarsal bone with osteochondral change. Moderate hallux valgus deformity. Some fraying with mild increased signal seen at the Lisfranc ligament which may represent a sprain and or partial tear. Clinical correlation. Prominent degenerative changes noted at the talonavicular joint space with associated osteochondral change. Subchondral flattening of the posterior navicular bone at its articulation with the talus with associated bony spurring. Osteochondral change and or mild reactive edema seen at the lateral mid pole of the cuboid bone. Impression: Limited exam. Exam was terminated prematurely given patient inability to tolerate pain. 1. Prominent reticulation and edema seen throughout the left foot suggestive for underlying cellulitis. 2. Prominent soft tissue defect/ulceration seen at the level of the posterior calcaneus. At the level of the posterior calcaneus, there is no gross T1 signal abnormality; however, there is some minimal reactive edema seen within the medial posterior calcaneus as demonstrated on series 5, image 11 and series 7, image 23. These findings likely do not represent a gross acute osteomyelitis; however, some early acute mild infectious and or inflammatory changes cannot entirely be excluded. Continued interval follow-up may be helpful if clinically indicated. 3. Thickening of the plantar fascia measuring up to 1 centimeter with associated bony spurring of the inferior calcaneus suggestive for a moderate plantar fascitis. 4. 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 5. Patchy reactive edema seen within the lateral distal pole of the cuboid bone. 6. Mild tenosynovitis of the peroneal tendon sheaths. 7. Degenerative changes in the midfoot. Degenerative changes at the base of the 1st metatarsal bone with osteochondral change. 8. Moderate hallux valgus deformity. 9. Some fraying with mild increased signal seen at the Lisfranc ligament which may represent a sprain and or partial tear. Clinical correlation. 10. Prominent degenerative changes noted at the talonavicular joint space with associated osteochondral change. Subchondral flattening of the posterior navicular bone at its articulation with the talus with associated bony spurring. 11. Osteochondral change and or mild reactive edema seen at the lateral mid pole of the cuboid bone. These findings were preliminarily reported at 8:39 p.m. on 08/02/[address] Jerad Mead from [employer].
[2018-08-03] MEDS: Enoxaparin 30 mg Syringe SC SCH (09:44)
[2018-08-03] MEDS: Potassium Chloride 20 mEq ER Tab PO SCH (09:46)
[2018-08-03] MEDS: Lactobacillus Acidophilus 500 MU Cap PO SCH ×2 (09:58→16:59)
[2018-08-03] MEDS: Patient's Own Med (Amino Acids/Protein Hydrolys [Prostat 15 G Packet] 30 ml) PO SCH (11:31)
--- NOTE | 2018-08-03 15:57 | RAD ---
Date of service: 08/03/2018 HISTORY: CHF COMPARISON: 07/31/2018 FINDINGS: LUNGS: Pulmonary vascular congestion progressive compared to the prior study. PLEURA: No significant pleural effusion identified, no pneumothorax apparent. CARDIOVASCULAR: Stable cardiomegaly. Macro PICC OSSEOUS STRUCTURES: No significant abnormalities. VISUALIZED UPPER ABDOMEN: Normal. OTHER FINDINGS: None. IMPRESSION: Cardiomegaly/acute CHF
[2018-08-03] MEDS ORDERED: Dextrose 5%/0.45% NS 1,000 ML IV SCH (19:45)
[2018-08-03 21:14] LABS: INR 1.4; PROTHROMBIN TIME 15.4 Seconds (9.8-13.1)
[2018-08-04] MEDS: Piperacillin/Tazobact 3.375 GM in Sodium Chloride 0.9% 100 ML IVPB SCH ×2 (00:18→09:01)
[2018-08-04 00:27] VITALS: O2SAT 97
[2018-08-04] MEDS: Insulin Regular 100 units/ml SC SCH ×5 (03:40→16:48)
[2018-08-04] MEDS: Fluticasone-Salmeterol 250-50mcg Diskus IH SCH ×3 (05:50→16:28)
[2018-08-04] MEDS: Levothyroxine 75 MCG TAB PO SCH (05:51)
--- NOTE | 2018-08-04 06:35 | CP.PCM.PN ---
Subjective - Date & Time of Evaluation Date of Evaluation: 08/04/18 Time of Evaluation: 07:30 - Subjective Subjective: Podiatry progress note for Dr. Manley, 72 Y/O female patient seen and evaluated in the bedside for b/l LE ulcerations. Patient is in no acute distress, AAO x3. Patient denies any overnight foot pain. Patient denies any other pedal complaint. Patient denies any overnight F/N/V/C or SOB. Patient confirmed hher NPO status for surgery. Patient is aware that she is having a surgery today. Objective - Vital Signs/Intake and Output Vital Signs (last 24 hours): Temp Pulse Resp BP Pulse Ox 97.7 F 73 19 112/58 L 97 08/04/18 01:00 08/04/18 01:00 08/04/18 01:00 08/04/18 01:00 08/04/18 01:00 - Medications Medications: Current Medications Acetaminophen (Tylenol 325mg Tab) 650 mg PO Q4 PRN PRN Reason: Pain, Mild (1-3) Atorvastatin Calcium (Lipitor) 20 mg PO HS [facility] Last Admin: 08/03/18 21:57 Dose: 20 mg Carvedilol (Coreg) 6.25 mg PO Q12 [facility] Last Admin: 08/03/18 21:58 Dose: 6.25 mg Docusate Sodium (Colace) 100 mg PO BID [facility] Last Admin: 08/03/18 16:50 Dose: 100 mg Ergocalciferol (Drisdol 50,000 Intl Units Cap) 1 cap PO [facility] Famotidine (Pepcid) 20 mg PO HS [facility] Last Admin: 08/03/18 21:57 Dose: 20 mg Furosemide (Lasix) 20 mg PO DAILY [facility] Last Admin: 08/03/18 09:45 Dose: 20 mg Gabapentin (Neurontin) 100 mg PO TID [facility] Last Admin: 08/03/18 16:55 Dose: 100 mg Home Med (Amino Acids/Protein Hydrolys [Prostat 15 G Packet]) 30 ml PO DAILY [facility] Last Admin: 08/03/18 11:31 Dose: Not Given Vancomycin HCl 1 gm/ Sodium (Chloride) 250 mls @ 166.667 mls/hr IVPB Q12 [facility]; Protocol Last Admin: 08/03/18 20:34 Dose: 166.667 mls/hr Piperacillin Sod/Tazobactam (Sod 3.375 gm/ Sodium Chloride) 100 mls @ 100 mls/hr IVPB Q8 [facility]; Protocol Last Admin: 08/04/18 00:18 Dose: 100 mls/hr Dextrose/Sodium Chloride (Dextrose 5%/0.45% Ns 1000 Ml) 1,000 mls @ 30 mls/hr IV .Q24H [facility] Stop: 08/04/18 19:44 Last Admin: 08/03/18 21:54 Dose: 30 mls/hr Insulin Human Regular (Humulin R) 0 units SC ACHS [facility]; Protocol Last Admin: 08/04/18 03:40 Dose: Not Given Lactobacillus Acidophilus (Bacid Acidophilus) 1 cap PO BID [facility] Last Admin: 08/03/18 16:59 Dose: 1 cap Levothyroxine Sodium (Synthroid) 75 mcg PO DAILY@0630 [facility] Last Admin: 08/04/18 05:51 Dose: Not Given Lidocaine (Lidoderm) 1 ea TD ONCE PRN PRN Reason: Pain, Mild (1-3) Losartan Potassium (Cozaar) 100 mg PO DAILY [facility] Last Admin: 08/03/18 09:47 Dose: 100 mg Metformin HCl (Glucophage) 500 mg PO TID [facility] Last Admin: 08/03/18 16:51 Dose: 500 mg Mupirocin (Bactroban Ointment) 1 applic TOP BID [facility] Last Admin: 08/03/18 16:50 Dose: Not Given Nystatin (Nystop Topical Powder) 1 applic TOP Q12 [facility] Last Admin: 08/03/18 21:57 Dose: 1 applic Potassium Chloride (K-Dur 20 Meq Er Tab) 20 meq PO BID [facility] Last Admin: 08/03/18 09:46 Dose: 20 meq Fluticasone/Salmeterol (Advair Diskus 250/50) 1 puff IH Q12H [facility] Last Admin: 08/04/18 05:50 Dose: Not Given Sertraline HCl (Zoloft) 25 mg PO DAILY [facility] Last Admin: 08/03/18 09:49 Dose: 25 mg Sitagliptin Phosphate (Januvia) 100 mg PO DAILY [facility] Last Admin: 08/03/18 09:48 Dose: 100 mg - Labs Labs: 08/03/18 04:45 08/03/18 04:45 PT 15.4 Seconds (9.8-13.1) H 08/03/18 20:30 INR 1.4 08/03/18 20:30 APTT 34.0 Seconds (25.6-37.1) 07/31/18 14:12 - Constitutional Appears: Well, Non-toxic, No Acute Distress - Head Exam Head Exam: ATRAUMATIC, NORMOCEPHALIC - Extremities Exam Additional comments: B/L LE Focused exam: Vasc: DP/PT non palpable b/l. Cap refill < 3 sec in all digits. Temp gradient warm to warm b/l. Moderate non pitting edema extending up to the tibial tuberosity b/l with L > R. Neuro: Gross and protective sensations deminished b/l. Derm: Right foot: An ulcer measuring 2 cm X 2 cm X 0.1 cm. Base is necrotic and fibrous 80:20. No malodor. Minimal serous drainage. No probing to bone, No undermining, No tracking. Minimal sonal-wound erythema. Left foot: An ulcer measuring 3 cm X 2 cm X 0.4 cm in the left heel. Base is necrotic and fibrous 40:60. No malodor. Hyperkeratotic border. positive drainage of purulent discharge. positive probing to bone, No undermining, No tracking. sonal-wound erythema noted. Left anterior leg skin changes in the form of excoriation. MSK: No pain on palpating the sonal-wound area. Muscle power intact 5/5 in all groups. - Neurological Exam Neurological Exam: Alert, Awake, Oriented x3 - Psychiatric Exam Psychiatric exam: Normal Affect, Normal Mood Assessment and Plan - Assessment and Plan (Free Text) Assessment: 72 Y/O female patient seen and evaluated in the ED for B/L LE ulcerations. Plan: Patient seen and evaluated in the bedside with Dr. Manley Plan discussed in details with attending Sindhu Longoria Chart, Labs and vitals reviews; Afebrile, WBCs 8.1 INR: 1.4 ESR: 48 Wound Cx: Pending B/L 3 views X-ray; reviewed; Left posterior calcaneal erosions consistent with OM. Calcific vessels noted b/l. B/l Massive soft tissue swelling. Right foot shows No signs of OM. L ankle MRI: Soft tissue cellulitis and ulcerations with some reactive edema of the medial posterior calcaneous which doesnt represent osteomyelitis. but at the same time mild infectious and inflammatory changes cant be entirely excluded. ID onboard. recommendations appreciated. Continue IV Abx as per ID. Patient will go to the OR today (08/04) for left heel ulcer debridment Pt NPO status was confirmed All pre-op testing and clearance in chart Pt has exhausted all conservative treatment at this time and is opting for surgical intervention Pt was explained procedure and post-operative course All pt's questions were answered to satisfaction No guarantees were made Pt understands all risks, benefits and complications of procedure Patient cleared for surgery by cardiology. Patient optimized for surgery by her primary team. Left heel ulcer dressed using bactroban and DSD. Right foot ulcer dressed using bactroban and DSD. B/L JUAN bandage applied to the LE. Multipodus boot to be applied all the times the patient is in her bed. Podiatry will F/U the patient while in house. Patient will follow up with Dr. Manley upon discharge.
[2018-08-04 08:02] VITALS: PULSE 75
--- NOTE | 2018-08-04 08:56 | CP.PCM.PN ---
Subjective - Date & Time of Evaluation Date of Evaluation: 08/04/18 Time of Evaluation: 08:30 - Subjective Subjective: Pt seen at bedside, sitting up in a chair Appears comfortable, can carry on conversation Breathes at 16 BPM Pulse oximetry 99% on room air HR 76 BPM< irreg No rales, no gallop Pedal oedema unchanged Chest x-ray reviewed (reported as "acute" CHF) Discussed this finding with the anesthesiologist (Dr. Diez) Labs reviewd Pt medically stable to proceed with the planned Sx Objective - Vital Signs/Intake and Output Vital Signs (last 24 hours): Temp Pulse Resp BP Pulse Ox 97.5 F L 75 19 117/68 97 08/04/18 08:01 08/04/18 08:01 08/04/18 08:01 08/04/18 08:01 08/04/18 08:01 - Medications Medications: Current Medications Acetaminophen (Tylenol 325mg Tab) 650 mg PO Q4 PRN PRN Reason: Pain, Mild (1-3) Atorvastatin Calcium (Lipitor) 20 mg PO [facility] Last Admin: 08/03/18 21:57 Dose: 20 mg Carvedilol (Coreg) 6.25 mg PO Q12 [facility] Last Admin: 08/03/18 21:58 Dose: 6.25 mg Docusate Sodium (Colace) 100 mg PO BID [facility] Last Admin: 08/03/18 16:50 Dose: 100 mg Ergocalciferol (Drisdol 50,000 Intl Units Cap) 1 cap PO [facility] Famotidine (Pepcid) 20 mg PO HS [facility] Last Admin: 08/03/18 21:57 Dose: 20 mg Furosemide (Lasix) 20 mg PO DAILY [facility] Last Admin: 08/03/18 09:45 Dose: 20 mg Gabapentin (Neurontin) 100 mg PO TID [facility] Last Admin: 08/03/18 16:55 Dose: 100 mg Home Med (Amino Acids/Protein Hydrolys [Prostat 15 G Packet]) 30 ml PO DAILY [facility] Last Admin: 08/03/18 11:31 Dose: Not Given Vancomycin HCl 1 gm/ Sodium (Chloride) 250 mls @ 166.667 mls/hr IVPB Q12 [facility]; Protocol Last Admin: 08/03/18 20:34 Dose: 166.667 mls/hr Piperacillin Sod/Tazobactam (Sod 3.375 gm/ Sodium Chloride) 100 mls @ 100 mls/hr IVPB Q8 [facility]; Protocol Last Admin: 08/04/18 00:18 Dose: 100 mls/hr Dextrose/Sodium Chloride (Dextrose 5%/0.45% Ns 1000 Ml) 1,000 mls @ 30 mls/hr IV .Q24H [facility] Stop: 08/04/18 19:44 Last Admin: 08/03/18 21:54 Dose: 30 mls/hr Insulin Human Regular (Humulin R) 0 units SC ACHS [facility]; Protocol Last Admin: 08/04/18 03:40 Dose: Not Given Lactobacillus Acidophilus (Bacid Acidophilus) 1 cap PO BID [facility] Last Admin: 08/03/18 16:59 Dose: 1 cap Levothyroxine Sodium (Synthroid) 75 mcg PO DAILY@0630 [facility] Last Admin: 08/04/18 05:51 Dose: Not Given Lidocaine (Lidoderm) 1 ea TD ONCE PRN PRN Reason: Pain, Mild (1-3) Losartan Potassium (Cozaar) 100 mg PO DAILY [facility] Last Admin: 08/03/18 09:47 Dose: 100 mg Metformin HCl (Glucophage) 500 mg PO TID [facility] Last Admin: 08/03/18 16:51 Dose: 500 mg Mupirocin (Bactroban Ointment) 1 applic TOP BID [facility] Last Admin: 08/03/18 16:50 Dose: Not Given Nystatin (Nystop Topical Powder) 1 applic TOP Q12 [facility] Last Admin: 08/03/18 21:57 Dose: 1 applic Potassium Chloride (K-Dur 20 Meq Er Tab) 20 meq PO BID [facility] Last Admin: 08/03/18 09:46 Dose: 20 meq Fluticasone/Salmeterol (Advair Diskus 250/50) 1 puff IH Q12H [facility] Last Admin: 08/04/18 05:50 Dose: Not Given Sertraline HCl (Zoloft) 25 mg PO DAILY [facility] Last Admin: 08/03/18 09:49 Dose: 25 mg Sitagliptin Phosphate (Januvia) 100 mg PO DAILY [facility] Last Admin: 08/03/18 09:48 Dose: 100 mg - Labs Labs: 08/03/18 04:45 08/03/18 04:45 PT 15.4 Seconds (9.8-13.1) H 08/03/18 20:30 INR 1.4 08/03/18 20:30 APTT 34.0 Seconds (25.6-37.1) 07/31/18 14:12
[2018-08-04] MEDS: Lactobacillus Acidophilus 500 MU Cap PO SCH ×3 (09:22→16:25)
[2018-08-04] MEDS: Patient's Own Med (Amino Acids/Protein Hydrolys [Prostat 15 G Packet] 30 ml) PO SCH (09:22)
[2018-08-04] MEDS: Potassium Chloride 20 mEq ER Tab PO SCH ×4 (09:23→16:27)
[2018-08-04] MEDS ORDERED: Lidocaine 1% Inj (20ml) IJ ONE (09:34)
[2018-08-04] MEDS ORDERED: Bupivacaine 0.5% Inj(30mL) IJ ONE (09:34)
[2018-08-04] MEDS ORDERED: Sodium Chloride 0.9% 1,000 ML IV SCH (09:45)
[2018-08-04] MEDS ORDERED: Bacitracin Ointment 30 GM TUBE ONE (10:07)
[2018-08-04] MEDS ORDERED: Bupivacaine HCl 0.5% PF (30 ml) Inj ONE (10:09)
[2018-08-04] MEDS ORDERED: Lactated Ringer's 1,000 ML IV ONE (10:10)
[2018-08-04] MEDS ORDERED: Lidocaine 2% MPF (5 ml) Inj ONE (10:11)
[2018-08-04] MEDS ORDERED: Vancomycin 1 g Inj IVPB ONE (10:27)
[2018-08-04] MEDS ORDERED: Lidocaine 2% MPF (5 ml) Inj INJ ONE (10:35)
[2018-08-04] MEDS ORDERED: Bacitracin OINT 15GM TOP ONE (10:35)
[2018-08-04] MEDS ORDERED: Bupivacaine HCl 0.5% PF (30 ml) Inj IJ ONE (10:35)
--- NOTE | 2018-08-04 11:09 | PCM.SURG1 ---
Surgeon's Initial Post Op Note - Surgeon's Notes Surgeon: Dr. Manley DPM Scarfing Machine Operator: Dr. Jorge PGY1 Type of Anesthesia: MAC, Local Anesthesia Administered By: Phylicia Pre-Operative Diagnosis: Left heel nonhealing ulcer Operative Findings: see dictation. I: 18 cc 1:1 mix 0.5% macraine plain 2% lidocaine plain. M: bacitracin xeroform DSD JUAN (baci pulse lavage) Post-Operative Diagnosis: same Operation Performed: left heel wound debridement with removal of all nonviable tissue Specimen/Specimens Removed: none Estimated Blood Loss: EBL {In ML}: 5 Blood Products Given: N/A Drains Used: No Drains Post-Op Condition: Good Date of Surgery/Procedure: 08/04/18 Time of Surgery/Procedure: 11:10
--- NOTE | 2018-08-04 11:52 | CP.PCM.PN ---
<PhoenixSultan - Last Filed: 08/04/18 11:55> Subjective - Date & Time of Evaluation Date of Evaluation: 08/04/18 Time of Evaluation: 09:30 - Subjective Subjective: Patient seen and examined this morning. Sitting comfortably in a chair, not in acute distress. Reports some pain in the left foot. Denies any chest pain, dyspnea or foot pain. Scheduled for OR this morning for left heel ulcer debridement. Objective - Vital Signs/Intake and Output Vital Signs (last 24 hours): Temp Pulse Resp BP Pulse Ox 97.5 F L 75 19 117/68 97 08/04/18 08:01 08/04/18 08:01 08/04/18 08:01 08/04/18 09:03 08/04/18 08:01 Intake and Output: 08/04/18 08/04/18 06:59 18:59 Intake Total 400 Balance 400 - Medications Medications: Current Medications Acetaminophen (Tylenol 325mg Tab) 650 mg PO Q4 PRN PRN Reason: Pain, Mild (1-3) Atorvastatin Calcium (Lipitor) 20 mg PO [facility] Last Admin: 08/03/18 21:57 Dose: 20 mg Carvedilol (Coreg) 6.25 mg PO Q12 [facility] Last Admin: 08/04/18 09:03 Dose: 6.25 mg Docusate Sodium (Colace) 100 mg PO BID [facility] Last Admin: 08/04/18 09:22 Dose: Not Given Ergocalciferol (Drisdol 50,000 Intl Units Cap) [address] [facility] Famotidine (Pepcid) 20 mg PO [facility] Last Admin: 08/03/18 21:57 Dose: 20 mg Furosemide (Lasix) 20 mg PO DAILY [facility] Last Admin: 08/04/18 09:23 Dose: Not Given Gabapentin (Neurontin) 100 mg PO TID [facility] Last Admin: 08/04/18 09:23 Dose: Not Given Home Med (Amino Acids/Protein Hydrolys [Prostat 15 G Packet]) 30 ml PO DAILY [facility] Last Admin: 08/04/18 09:22 Dose: Not Given Piperacillin Sod/Tazobactam (Sod 3.375 gm/ Sodium Chloride) 100 mls @ 100 mls/hr IVPB Q8 [facility]; Protocol Last Admin: 08/04/18 09:01 Dose: 100 mls/hr Dextrose/Sodium Chloride (Dextrose 5%/0.45% Ns 1000 Ml) 1,000 mls @ 30 mls/hr IV .Q24H [facility] Stop: 08/04/18 19:44 Last Admin: 08/03/18 21:54 Dose: 30 mls/hr Insulin Human Regular (Humulin R) 0 units SC ACHS [facility]; Protocol Last Admin: 08/04/18 08:38 Dose: Not Given Lactobacillus Acidophilus (Bacid Acidophilus) 1 cap PO BID [facility] Last Admin: 08/04/18 09:22 Dose: Not Given Levothyroxine Sodium (Synthroid) 75 mcg PO DAILY@0630 [facility] Last Admin: 08/04/18 05:51 Dose: Not Given Lidocaine (Lidoderm) 1 ea TD ONCE PRN PRN Reason: Pain, Mild (1-3) Losartan Potassium (Cozaar) 100 mg PO DAILY [facility] Last Admin: 08/04/18 09:23 Dose: Not Given Metformin HCl (Glucophage) 500 mg PO TID [facility] Last Admin: 08/04/18 09:23 Dose: Not Given Mupirocin (Bactroban Ointment) 1 applic TOP BID [facility] Last Admin: 08/04/18 09:21 Dose: 1 appl Nystatin (Nystop Topical Powder) 1 applic TOP Q12 [facility] Last Admin: 08/04/18 09:20 Dose: 1 applic Potassium Chloride (K-Dur 20 Meq Er Tab) 20 meq PO BID [facility] Last Admin: 08/04/18 09:23 Dose: Not Given Fluticasone/Salmeterol (Advair Diskus 250/50) 1 puff IH Q12H [facility] Last Admin: 08/04/18 05:50 Dose: Not Given Sertraline HCl (Zoloft) 25 mg PO DAILY [facility] Last Admin: 08/04/18 09:23 Dose: Not Given Sitagliptin Phosphate (Januvia) 100 mg PO DAILY [facility] Last Admin: 08/04/18 09:23 Dose: Not Given - Labs Labs: 08/03/18 04:45 08/03/18 04:45 PT 15.4 Seconds (9.8-13.1) H 08/03/18 20:30 INR 1.4 08/03/18 20:30 APTT 34.0 Seconds (25.6-37.1) 07/31/18 14:12 - Additional Findings Additional findings: - Constitutional Appears: Non-toxic, No Acute Distress - Head Exam Head Exam: NORMAL INSPECTION - Eye Exam Eye Exam: EOMI, Normal appearance - ENT Exam ENT Exam: Mucous Membranes Moist - Respiratory Exam Respiratory Exam: Clear to Ausculation Bilateral. absent: Rhonchi, Wheezes - Cardiovascular Exam Cardiovascular Exam: IRREGULAR RHYTHM, +S1, +S2 - GI/Abdominal Exam GI & Abdominal Exam: Soft, Normal Bowel Sounds. absent: Tenderness - Extremities Exam Additional comments: JUAN wrap on B/L foot. - Neurological Exam Neurological Exam: Alert, Awake, Oriented x3 - Psychiatric Exam Psychiatric exam: Normal Affect, Normal Mood - Skin Skin Exam: Normal Color Assessment and Plan - Assessment and Plan (Free Text) Assessment: 72 yo female admitted for B/L LE ulcerations. Patient is scheduled to go to OR today for left heel ulcer debridement. Plan: Podiatry consult appreciated OR today for left heel ulcer debridement Cardiology consult appreciated, Dr. Leo ID consult appreciated, Dr. Hickey Wound cx grew klebsiella and Pseudomonas, both sensitive to Zosyn. Rest of the plan as ordered. Plan discussed with Dr. Eden Alarcon, pgy-2 <Kushal Harmon - Last Filed: 08/07/18 11:43> Objective - Vital Signs/Intake and Output Vital Signs (last 24 hours): Temp Pulse Resp BP Pulse Ox 98.3 F 75 20 148/72 97 08/04/18 17:01 08/04/18 17:01 08/04/18 17:01 08/04/18 17:01 08/04/18 17:01 - Labs Labs: 08/03/18 04:45 08/03/18 04:45 PT 15.4 Seconds (9.8-13.1) H 08/03/18 20:30 INR 1.4 08/03/18 20:30 APTT 34.0 Seconds (25.6-37.1) 07/31/18 14:12 Assessment and Plan - Assessment and Plan (Free Text) Assessment: Patient was personally seen and examined by me in rounds with residents. Available labs and diagnostic data reviewed. Case, Patient's condition and management plan discussed with residents in rounds. Agree with resident's progress note. Plan: As ordered.
--- NOTE | 2018-08-04 13:36 | CP.PCM.PN ---
Subjective - Date & Time of Evaluation Date of Evaluation: 08/04/18 Time of Evaluation: 08:00 - Subjective Subjective: events noted wound + Klebs (ESBL) and pseudomonas Objective - Vital Signs/Intake and Output Vital Signs (last 24 hours): Temp Pulse Resp BP Pulse Ox 97.5 F L 75 19 117/68 97 08/04/18 08:01 08/04/18 08:01 08/04/18 08:01 08/04/18 09:03 08/04/18 08:01 Intake and Output: 08/04/18 08/04/18 06:59 18:59 Intake Total 400 Balance 400 - Medications Medications: Current Medications Acetaminophen (Tylenol 325mg Tab) 650 mg PO Q4 PRN PRN Reason: Pain, Mild (1-3) Atorvastatin Calcium (Lipitor) 20 mg PO HS [facility] Last Admin: 08/03/18 21:57 Dose: 20 mg Carvedilol (Coreg) 6.25 mg PO Q12 [facility] Last Admin: 08/04/18 09:03 Dose: 6.25 mg Docusate Sodium (Colace) 100 mg PO BID [facility] Last Admin: 08/04/18 09:22 Dose: Not Given Ergocalciferol (Drisdol 50,000 Intl Units Cap) [address] [facility] Famotidine (Pepcid) 20 mg PO HS [facility] Last Admin: 08/03/18 21:57 Dose: 20 mg Furosemide (Lasix) 20 mg PO DAILY [facility] Last Admin: 08/04/18 09:23 Dose: Not Given Gabapentin (Neurontin) 100 mg PO TID [facility] Last Admin: 08/04/18 09:23 Dose: Not Given Home Med (Amino Acids/Protein Hydrolys [Prostat 15 G Packet]) 30 ml PO DAILY [facility] Last Admin: 08/04/18 09:22 Dose: Not Given Piperacillin Sod/Tazobactam (Sod 3.375 gm/ Sodium Chloride) 100 mls @ 100 mls/hr IVPB Q8 [facility]; Protocol Last Admin: 08/04/18 09:01 Dose: 100 mls/hr Dextrose/Sodium Chloride (Dextrose 5%/0.45% Ns 1000 Ml) 1,000 mls @ 30 mls/hr IV .Q24H [facility] Stop: 08/04/18 19:44 Last Admin: 08/03/18 21:54 Dose: 30 mls/hr Insulin Human Regular (Humulin R) 0 units SC ACHS [facility]; Protocol Last Admin: 08/04/18 08:38 Dose: Not Given Lactobacillus Acidophilus (Bacid Acidophilus) 1 cap PO BID [facility] Last Admin: 08/04/18 09:22 Dose: Not Given Levothyroxine Sodium (Synthroid) 75 mcg PO DAILY@0630 [facility] Last Admin: 08/04/18 05:51 Dose: Not Given Lidocaine (Lidoderm) 1 ea TD ONCE PRN PRN Reason: Pain, Mild (1-3) Losartan Potassium (Cozaar) 100 mg PO DAILY [facility] Last Admin: 08/04/18 09:23 Dose: Not Given Metformin HCl (Glucophage) 500 mg PO TID [facility] Last Admin: 08/04/18 09:23 Dose: Not Given Mupirocin (Bactroban Ointment) 1 applic TOP BID [facility] Last Admin: 08/04/18 09:21 Dose: 1 appl Nystatin (Nystop Topical Powder) 1 applic TOP Q12 [facility] Last Admin: 08/04/18 09:20 Dose: 1 applic Potassium Chloride (K-Dur 20 Meq Er Tab) 20 meq PO BID [facility] Last Admin: 08/04/18 09:23 Dose: Not Given Fluticasone/Salmeterol (Advair Diskus 250/50) 1 puff IH Q12H [facility] Last Admin: 08/04/18 05:50 Dose: Not Given Sertraline HCl (Zoloft) 25 mg PO DAILY [facility] Last Admin: 08/04/18 09:23 Dose: Not Given Sitagliptin Phosphate (Januvia) 100 mg PO DAILY [facility] Last Admin: 08/04/18 09:23 Dose: Not Given - Labs Labs: 08/03/18 04:45 08/03/18 04:45 PT 15.4 Seconds (9.8-13.1) H 08/03/18 20:30 INR 1.4 08/03/18 20:30 APTT 34.0 Seconds (25.6-37.1) 07/31/18 14:12 - Constitutional Appears: Non-toxic, Chronically Ill - Head Exam Head Exam: NORMOCEPHALIC - Eye Exam Eye Exam: PERRL - ENT Exam ENT Exam: Mucous Membranes Dry - Neck Exam Neck Exam: absent: Lymphadenopathy - Respiratory Exam Respiratory Exam: Decreased Breath Sounds - Cardiovascular Exam Cardiovascular Exam: REGULAR RHYTHM - GI/Abdominal Exam GI & Abdominal Exam: Distended, Soft Assessment and Plan (1) Diabetic foot ulcer Status: Acute (2) Chronic a-fib Status: Acute (3) DM2 (diabetes mellitus, type 2) Status: Acute (4) Diabetic foot ulcer Status: Acute (5) Obesity Status: Acute (6) Systolic and diastolic CHF, chronic Status: Acute - Assessment and Plan (Free Text) Assessment: rx as OM 6 weeks merrem prognosis guarded
[2018-08-04] MEDS: Meropenem 1 GM in Sodium Chloride 0.9% 100 ML IVPB SCH ×2 (15:32→16:27)
[2018-08-04] MEDS ORDERED: Ergocalciferol 50,000 Intl Units Cap PO SCH (16:51)
[2018-08-04 17:01] VITALS: BP 148/72; RESP 20; TEMP 98.3
--- NOTE | 2018-08-06 21:31 | OP ---
PROCEDURE DATE: 08/04/2018 PATIENT'S AGE: 72. PATIENT'S SEX: Female. SURGEON: Mk Manley DPM. CREDIT COLLECTIONS SPECIALIST: Greg Jorge, PGY-1. ANESTHESIOLOGIST: Ankit Whatley MD ANESTHESIA: MAC with local. PREOPERATIVE DIAGNOSIS: Left heel nonhealing ulcer. POSTOPERATIVE DIAGNOSIS: Left heel nonhealing ulcer. PROCEDURE: Left heel wound debridement with removal of all nonviable tissue. INDICATIONS: The patient is a 72-year-old female with the above diagnosis. The patient has exhausted all conservative treatment at this time and now requires surgical intervention. The patient signed the consent after careful explanation of risks, benefits, complications, and alternatives for surgical procedure. No guarantees were given nor implied. N.p.o. status was confirmed prior to taking the patient to the OR. PREPARATION: The patient was brought into the operating room and placed on the operating room table in a supine position. Time-out was performed for identification of the correct patient and procedure. After induction of MAC sedation, the patient received a total of 18 mL of 1:1 mixture of 0.5% Marcaine plain and 2% lidocaine plain in a V-block fashion to the left heel. Once local anesthesia was achieved, the left lower extremity was then prepped and draped in normal sterile manner and the procedure begun. No tourniquet was used during the procedure. DESCRIPTION OF PROCEDURE: Attention was directed to the left posterior heel where approximately 2.6 cm x 2.4 cm ulceration was noted with increased depth throughout the wound. The ulceration was noted to be composed of mostly fibrotic tissue with minimal granular tissue with no visible bone exposure. No drainage was noted to the wound bed. Mechanical debridement was performed with a sterile #15 blade and Adson pickup as well as curettes removed all fibrotic and nonviable tissue from the wound base and the wound margins. The surgical site was then irrigated using sterile saline solution with bacitracin via pulse lavage. The site was then dressed with Bacitracin, Xeroform, 4 x 4 gauze, Katie wrap, Kerlix, and Carlos wrap. POSTOPERATIVE CONDITION: The patient tolerated the anesthesia and procedure well and was escorted to recovery room with vital signs stable and neurovascular status intact to the left lower extremity. The patient is to be weightbearing as tolerated to the left forefoot in a surgical shoe. Podiatry will continue to follow the patient while in-house and will be seen by Dr. Manley at his office upon discharge. Greg Jorge kM Manley DPM
== END 2018-08-04 20:00 | DRG 638 ==
LOC: H.ER 13:24 → H.ERHOLD 14:49 → H.MEDSURG1 16:13
PROVIDERS: ADMIT Internal Medicine; ATTEND Internal Medicine
PROC: 0JDR3ZZ Extraction of Left Foot Subcutaneous Tissue and Fascia, Percutaneous Approach (ICD-10-PCS; principal; 2018-08-04 07:45)
DX: E11.621 Type 2 diabetes mellitus with foot ulcer (principal); Z68.41 Body mass index [BMI] 40.0-44.9, adult; I50.42 Chronic combined systolic (congestive) and diastolic (congestive) heart failure; L03.116 Cellulitis of left lower limb; L97.429 Non-pressure chronic ulcer of left heel and midfoot with unspecified severity; E66.01 Morbid (severe) obesity due to excess calories; I48.2 Chronic atrial fibrillation; E03.9 Hypothyroidism, unspecified; E11.649 Type 2 diabetes mellitus with hypoglycemia without coma; E78.00 Pure hypercholesterolemia, unspecified; E78.5 Hyperlipidemia, unspecified; I11.0 Hypertensive heart disease with heart failure; F32.9 Major depressive disorder, single episode, unspecified; G89.29 Other chronic pain; I27.20 Pulmonary hypertension, unspecified; I34.0 Nonrheumatic mitral (valve) insufficiency; I87.2 Venous insufficiency (chronic) (peripheral); B96.1 Klebsiella pneumoniae [K. pneumoniae] as the cause of diseases classified elsewhere; B96.5 Pseudomonas (aeruginosa) (mallei) (pseudomallei) as the cause of diseases classified elsewhere; M19.90 Unspecified osteoarthritis, unspecified site; L97.519 Non-pressure chronic ulcer of other part of right foot with unspecified severity; Z79.01 Long term (current) use of anticoagulants; Z87.891 Personal history of nicotine dependence; Z90.49 Acquired absence of other specified parts of digestive tract; R26.81 Unsteadiness on feet; R41.3 Other amnesia; M54.9 Dorsalgia, unspecified; I25.2 Old myocardial infarction; I87.8 Other specified disorders of veins; K52.9 Noninfective gastroenteritis and colitis, unspecified

== ENCOUNTER 2018-11-17 15:44 | Inpatient (IN) | payer MEDICARE, OTHER ==
[2018-11-17 15:45] VITALS: BMI 38.7
[2018-11-17] MEDS ORDERED: Piperacillin/Tazobact 3.375 GM in Sodium Chloride 0.9% 100 ML IVPB STA (17:12)
--- NOTE | 2018-11-17 18:25 | ED PDOC ---
Lower Extremity Pain/Injury Time Seen by Provider: 11/17/18 16:39 Chief Complaint (Nursing): Lower Extremity Problem/Injury Chief Complaint (Provider): Lower Extremity Problem/Injury History Per: Patient History/Exam Limitations: no limitations Onset/Duration Of Symptoms: Days (x 1 month) Current Symptoms Are (Timing): Still Present Additional Complaint(s): 73 year old female with a history of CHF, DM, controlled HTN, atrial fibrillation and diabetic neuropathy presents to the ED after a referral by Dr. Manley, podatrist. Patient reports recurrent bilateral leg swelling for the last month with ulcer on top of right leg and bottom of left foot. She was sent by Dr. Manley due to cellulitis and possible DVT, as well as a workup for infection. Patient takes Warfarin and gabapentin. Denies fever and other pain. PMD: Dr Harmon Past Medical History Reviewed: Historical Data Vital Signs: Last Vital Signs Temp 98.4 F 11/17/18 16:26 Pulse 86 11/17/18 16:26 Resp 17 11/17/18 16:26 BP 128/65 11/17/18 16:26 Pulse Ox 99 11/17/18 16:26 - Medical History PMH: Arthritis, Atrial Fibrillation, Back Problems (Chronic), Depression, Diabetes, HTN, Hypercholesterolemia, Hypothyroidism Denies: HIV, Chronic Kidney Disease - Surgical History Surgical History: Denies: Cholecystectomy, Pacemaker - Family History Family History: States: Unknown Family Hx - Home Medications Home Medications: Ambulatory Orders Medication Instructions Recorded RX: Budesonide/Formoterol Fumarate 2 puff IH Q12H 11/13/17 [Symbicort 160-4.5 Mcg Inhaler] RX: Ergocalciferol (Vitamin D2) 50,000 unit PO WE 11/13/17 [Vitamin D2] RX: Levothyroxine [Synthroid] 75 mcg PO DAILY 11/13/17 RX: Repaglinide [Prandin] 2 mg PO DAILY 11/13/17 RX: Sertraline [Zoloft] 25 mg PO DAILY 11/13/17 RX: Simvastatin [Zocor] 40 mg PO HS 11/13/17 RX: metFORMIN [glucOPHAGE] 500 mg PO TID 11/13/17 RX: Carvedilol [Coreg] 6.25 mg PO Q12 tab 03/24/18 RX: Losartan [Cozaar] 100 mg PO DAILY tab 03/24/18 RX: Furosemide [Lasix] 20 mg PO DAILY 04/16/18 RX: Famotidine [Pepcid] 20 mg PO DAILY 07/31/18 RX: Gabapentin [Neurontin] 200 mg PO Q8 07/31/18 RX: Potassium Chloride [K-Dur 20 20 meq PO Q12 07/31/18 mEq ER Tab] Cefuroxime Axetil [Cefuroxime] 500 mg PO BID 11/17/18 RX: Warfarin [Coumadin] 5 mg PO QPM 11/17/18 SITagliptin [Januvia] 50 mg PO DAILY 11/17/18 - Allergies Allergies/Adverse Reactions: Allergies Allergy/AdvReac Type Severity Reaction Status Date / Time No Known Allergies Allergy Verified 11/17/18 16:29 Review of Systems ROS Statement: Except As Marked, All Systems Reviewed And Found Negative Constitutional: Negative for: Fever, Chills Cardiovascular: Negative for: Chest Pain Respiratory: Negative for: Cough, Shortness of Breath Gastrointestinal: Negative for: Abdominal Pain Musculoskeletal: Negative for: Other (leg swelling and ulcers) Physical Exam - Reviewed Nursing Documentation Reviewed: Yes Vital Signs Reviewed: Yes - Physical Exam Appears: Positive for: No Acute Distress (obese) Head Exam: Positive for: ATRAUMATIC, NORMAL INSPECTION, NORMOCEPHALIC Skin: Positive for: Normal Color, Warm, Dry. Negative for: Rash Eye Exam: Positive for: EOMI, Normal appearance, PERRL Neck: Positive for: Normal, Painless ROM. Negative for: Supple Cardiovascular/Chest: Positive for: Regular Rate, Rhythm. Negative for: Murmur Respiratory: Positive for: Normal Breath Sounds. Negative for: Wheezing, Respiratory Distress Gastrointestinal/Abdominal: Positive for: Normal Exam, Soft. Negative for: Tenderness Extremity: Positive for: Swelling, Other (Redness Right lower leg. Ulcers on both feet. ) Neurologic/Psych: Positive for: Alert, Oriented (x 3). Negative for: Motor/Se nsory Deficits - Laboratory Results Result Diagrams: 11/17/18 18:40 11/17/18 18:40 - ECG O2 Sat by Pulse Oximetry: 99 (RA) Pulse Ox Interpretation: Normal Medical Decision Making Medical Decision Makin Impression: cellulitis of right leg, diabetic ulcers Initial Plan: --BMP --CBC --ESR --PTT/ PT --B/l foot x-ray --vancomycin 1 gm in 250 ml --Zosyn 3.3.75 gm in 100 ml IVPB --Blood cx --urine cx --Duplex LE US 17:56 Patient will be admitted as inpatient to Dr. Harmon for diabetic ulcers and cellulitis. Podiatry has been consulted. Scribe Attestation: Documented by Carline Joyce acting as a scribe for Florencia Kelsey MD Provider Scribe Attestation: All medical record entries made by the Scribe were at my direction and personally dictated by me. I have reviewed the chart and agree that the record accurately reflects my personal performance of the history, physical exam, medical decision making, and the department course for this patient. I have also personally directed, reviewed, and agree with the discharge instructions and disposition. Disposition - Clinical Impression Clinical Impression: Cellulitis, Decubital ulcer - Patient ED Disposition Is Patient to be Admitted: Yes Discussed With DrAllan: Kushal Harmon Doctor Will See Patient In The: Hospital - Disposition Disposition Time: 17:56 Condition: FAIR - Pt Status Changed To: Hospital Disposition Of: Inpatient - Admit Certification Admit to Inpatient:: After my assessment, the patient will require hospitali zation for at least two midnights. This is because of the severity of symptoms shown, intensity of services needed, and/or the medical risk in this patient being treated as an outpatient. - POA Present On Arrival: Pressure Ulcer
[2018-11-17 18:45] LABS: BASO # 0.1 K/uL (0.0-0.2); BASO % 1.1 % (0.0-2.0); EOS # 0.3 K/uL (0.0-0.7); EOS % 2.1 % (0.0-4.0); LYMPH # 1.4 K/uL (1.0-4.3); LYMPH % 12.1 % (20.0-40.0); MEAN CELL VOLUME 81.9 fl (81.0-99.0); MEAN CORPUSCULAR HEMOGLOBIN 26.1 pg (27.0-31.0); MEAN CORPUSCULAR HGB CONC 31.8 g/dL (33.0-37.0); MEAN PLATELET VOLUME 9.3 fl (7.2-11.7); MONO # 0.7 K/uL (0.0-0.8); MONO % 5.8 % (0.0-10.0); NEUT # 9.4 K/uL (1.8-7.0); NEUT % 78.9 % (50.0-75.0); NRBC % 0.1 % (0.0-0.0); RBC 4.22 Mil/uL (3.80-5.20); RED CELL DISTRIBUTION WIDTH 15.5 % (11.5-14.5); WHITE BLOOD COUNT 11.9 K/uL (4.8-10.8)
[2018-11-17 18:54] LABS: BLOOD UREA NITROGEN 21 mg/dl (7-17); CALCIUM 9.5 mg/dL (8.4-10.2); GFR NON-AFRICAN AMERICAN > 60
[2018-11-17] MEDS ORDERED: Vancomycin 1 g Inj ONE (19:11)
[2018-11-17] MEDS ORDERED: Piperacillin/Tazobact 3.375 gm Inj IVPB ONE (19:11)
[2018-11-17 19:16] LABS: INR 1.9; PROTHROMBIN TIME 21.6 Seconds (9.8-13.1)
[2018-11-17 19:19] LABS: PARTIAL THROMBOPLASTIN TIME 30.8 Seconds (25.6-37.1)
--- NOTE | 2018-11-17 20:50 | CP.PCM.CON ---
History of Present Illness - History of Present Illness History of Present Illness: Podiatry Consult Note for Dr. Manley 73F with PMHx of CHF, DM, controlled HTN, atrial fibrillation and diabetic neuropathyseen in ED for multiple chronic diabetic ulcerations to her right foot. Patient is AAO x 3 and NAD. She states that she has had these wounds for many months and typically follows up with Dr. Manley at the wound care center in [place]. She states that she was seen by him there today and he informed her that she should report to the Emergency Department immediately. She also states that she has a small heel ulcer on her right foot. She denies any pain to the right foot but does state that it has been draining and smells bad. She states that she is mostly confined to her wheelchair when at home. She denies any further pedal complaints at this time. Denies any recent N/V/F/C/CP/SOB/D Review of Systems - Review of Systems All systems: reviewed and no additional remarkable complaints except Review of Systems: as per HPI Past Patient History - Infectious Disease Hx of Infectious Diseases: None - Past Medical History & Family History Past Medical History?: Yes - Past Social History Smoking Status: Light Smoker < 10 Cigarettes Daily - CARDIAC Hx Atrial Fibrillation: Yes Hx Hypercholesterolemia: Yes Hx Hypertension: Yes Hx Pacemaker: No - PULMONARY Hx Respiratory Disorders: No - NEUROLOGICAL Hx Neurological Disorder: No - HEENT Hx HEENT Problems: Yes - RENAL Hx Chronic Kidney Disease: No - ENDOCRINE/METABOLIC Hx Hypothyroidism: Yes - HEMATOLOGICAL/ONCOLOGICAL Hx Human Immunodeficiency Virus (HIV): No - INTEGUMENTARY Hx Dermatological Problems: No - MUSCULOSKELETAL/RHEUMATOLOGICAL Hx Arthritis: Yes - GASTROINTESTINAL Hx Gastrointestinal Disorders: Yes Hx Colitis: Yes - GENITOURINARY/GYNECOLOGICAL Hx Genitourinary Disorders: No - PSYCHIATRIC Hx Depression: Yes - SURGICAL HISTORY Hx Cholecystectomy: No - ANESTHESIA Hx Anesthesia: Yes Hx Anesthesia Reactions: No Meds Allergies/Adverse Reactions: Allergies Allergy/AdvReac Type Severity Reaction Status Date / Time No Known Allergies Allergy Verified 11/17/18 16:29 Physical Exam - Constitutional Appears: Well, Non-toxic, No Acute Distress - Extremities Exam Additional comments: RLE focused exam: Vasc: DP/PT pulses faintly palpable secondary to 2+ non-pitting edema. CFT < 3 seconds to all digits. Skin temperature increased to RLE compared to LLE. Erythema noted to RLE Derm: Multiple circular ulcerations measuring approximately 3mm in depth noted to the dorsal, lateral and plantar aspect of the right foot. Serous drainage and malodor appreciated at all sites with maceration appreciated to periwound skin. No tracking, tunneling or undermining noted to any ulcerations. Dressings to left foot left intact at Dr. Manley's request Neuro: Epicritic and protective sensation grossly diminished to RLE MSK: Pain on palpation noted to plantar ulceration. ROM at all major joints diminished due to swelling and body habitus. MMT 4/5 in all major muscle groups. No gross deformities appreciated - Neurological Exam Neurological exam: Alert, Oriented x3 - Psychiatric Exam Psychiatric exam: Normal Affect, Normal Mood Results - Vital Signs Recent Vital Signs: Last Vital Signs Temp 98.4 F 11/17/18 16:26 Pulse 86 11/17/18 16:26 Resp 17 11/17/18 16:26 BP 128/65 11/17/18 16:26 Pulse Ox 99 11/17/18 18:30 - Labs Result Diagrams: 11/17/18 18:40 11/17/18 18:40 Labs: Laboratory Results - last 24 hr 11/17/18 11/17/18 11/17/18 18:40 18:40 18:40 WBC 11.9 H RBC 4.22 Hgb 11.0 L Hct 34.5 MCV 81.9 D MCH 26.1 L MCHC 31.8 L RDW 15.5 H Plt Count 231 MPV 9.3 Neut % (Auto) 78.9 H Lymph % (Auto) 12.1 L Young % (Auto) 5.8 Eos % (Auto) 2.1 Baso % (Auto) 1.1 Neut # (Auto) 9.4 H Lymph # (Auto) 1.4 Young # (Auto) 0.7 Eos # (Auto) 0.3 Baso # (Auto) 0.1 ESR 59 H PT 21.6 H INR 1.9 APTT 30.8 Sodium 138 Potassium 4.0 Chloride 101 Carbon Dioxide 30 Anion Gap 11 BUN 21 H Creatinine 0.7 Est GFR ( Amer) > 60 Est GFR (Non-Af Amer) > 60 Random Glucose 109 H Calcium 9.5 Assessment & Plan - Assessment and Plan (Free Text) Assessment: 73F with PMHx of CHF, DM, controlled HTN, atrial fibrillation and diabetic neuropathyseen in ED for multiple chronic diabetic ulcerations to her right foot. Plan: Patient seen and evaluated Plan discussed with Dr. Manley Afebrile, WBC 11.9 Patient started on Vancomycin/Zosyn Wound cx taken, f/u results RLE venous duplex performed, awaiting final read Patient unable to have xray taken because oral surgery technician's could not move her and she could not move herself Patient's wounds flushed with copious amounts of normal, sterile saline and dressed with Telfa, gauze, ABD, DSD ID consult placed Patient will be admitted to the floors for antibiotic treatment Podiatry will continue to follow while patient in house - Date & Time Date: 11/11/18 Time: 21:04
[2018-11-18] MEDS ORDERED: Dextrose 50% SYRINGE Inj (50 ml) IV PRN (06:12)
[2018-11-18] MEDS ORDERED: Glucagon Recombinant 1 mg Inj IM PRN (06:12)
[2018-11-18 07:11] LABS: INR 1.7; PROTHROMBIN TIME 19.7 Seconds (9.8-13.1)
[2018-11-18 07:14] LABS: PARTIAL THROMBOPLASTIN TIME 31.2 Seconds (25.6-37.1)
[2018-11-18] MEDS ORDERED: Piperacillin/Tazobact 3.375 GM in Sodium Chloride 0.9% 100 ML IVPB SCH (09:00)
[2018-11-18] MEDS: Fluticasone-Salmeterol 250-50mcg Diskus IH SCH ×3 (09:29→18:00)
[2018-11-18] MEDS: Potassium Chloride 20 mEq ER Tab PO SCH ×2 (09:30→20:46)
[2018-11-18] MEDS: Levothyroxine 75 MCG TAB PO SCH (09:31)
[2018-11-18] MEDS: Insulin Regular 100 units/ml SC SCH ×4 (09:33→22:00)
--- NOTE | 2018-11-18 10:16 | US ---
Date of service: 11/17/2018 PROCEDURE: Bilateral lower extremity venous duplex Doppler. HISTORY: right leg swelling/left leg swelling COMPARISON: Bilateral lower extremity venous duplex ultrasound performed 03/23/2018. TECHNIQUE: Bilateral common femoral, superficial femoral, popliteal and posterior tibial veins were evaluated. Flow was assessed with color Doppler, compressibility, assessment of phasic flow and augmentation response. FINDINGS: COMMON FEMORAL VEIN: Right CFV: Unremarkable. Left CFV: Unremarkable. SUPERFICIAL FEMORAL VEIN: Right SFV: Unremarkable. Left SFV: Unremarkable. POPLITEAL VEIN: Right Popliteal: Unremarkable. Left Popliteal: Unremarkable. POSTERIOR TIBIAL VEIN: Right PTV: Unremarkable. Left PTV: Unremarkable. OTHER FINDINGS: None. IMPRESSION: No evidence of deep venous thrombosis.
--- NOTE | 2018-11-18 10:19 | CP.PCM.CON ---
History of Present Illness - History of Present Illness History of Present Illness: Infectious Disease Consultation Note- asked to see this patietn at the request of podiatry team and Dr. Harmon for infected diabetic foot ulcers. HPI- Patient is a 71 year old female with PMH of obesity, DM II, HTN, A.Fib, and diabetic neuropathy who is admitted for right foot infected ulcers Pt. was admitted to [facility] ED from podiatry clinic Dr. Manley for management of lower ext ulcers but was noted to have increased swelling and redness and discharge from the right foot ulcers and was advised to be admitetd for IV antibiotics and further management of the ulcers . Pt. states she was also recently at rehab for multiple falls . she denies any injury to the right foot but states has been getting progressively more red and swollen and has discharge now. PMHx: morbid obesity, A fib on coumadin, HTN, HLD, hypothyroid SHx: Cholecystectomy FHx: Reviewed, no relevant findings SHx: Lives with family, no tobacco, no EtOH or illicit drug use Allergies: NKDA Review of Systems - Review of Systems Review of Systems: ROS- denies any fever or chills, denies any GUTIERREZ, denies any cough or sob, denies any chest pain, denie ay abd. pain, denies any nausea or vomiting, denies any dysurea, denies any diarrhea has left heel dry ulcer chronic, right bairon with multiple ulcers on the sole of the foot but has increased swelling and redness and now yellow discharge on the foot. Past Patient History - Infectious Disease Hx of Infectious Diseases: None - Past Medical History & Family History Past Medical History?: Yes - Past Social History Smoking Status: Never Smoked Home Situation {Lives}: With Family - CARDIAC Hx Cardiac Disorders: Yes Hx Atrial Fibrillation: Yes Hx Congestive Heart Failure: Yes Hx Hypercholesterolemia: Yes Hx Hypertension: Yes - PULMONARY Hx Respiratory Disorders: No - NEUROLOGICAL Hx Neurological Disorder: No - HEENT Hx HEENT Problems: Yes - RENAL Hx Chronic Kidney Disease: No - ENDOCRINE/METABOLIC Hx Diabetes Mellitus Type 2: Yes Hx Hypothyroidism: Yes - HEMATOLOGICAL/ONCOLOGICAL Hx Blood Disorders: No - INTEGUMENTARY Hx Dermatological Problems: No - MUSCULOSKELETAL/RHEUMATOLOGICAL Hx Arthritis: Yes Hx Back Pain: Yes Hx Falls: No - GASTROINTESTINAL Hx Gastrointestinal Disorders: Yes Hx Colitis: Yes - GENITOURINARY/GYNECOLOGICAL Hx Genitourinary Disorders: No Hx Incontinence: Yes - PSYCHIATRIC Hx Depression: Yes Hx Substance Use: No - SURGICAL HISTORY Hx Cholecystectomy: No - ANESTHESIA Hx Anesthesia: Yes Hx Anesthesia Reactions: No Meds Allergies/Adverse Reactions: Allergies Allergy/AdvReac Type Severity Reaction Status Date / Time No Known Allergies Allergy Verified 11/17/18 16:29 - Medications Medications: Current Medications Acetaminophen (Tylenol 325mg Tab) 650 mg PO Q4 PRN PRN Reason: Pain, moderate (4-7) Atorvastatin Calcium (Lipitor) 20 mg PO HS [facility] Carvedilol (Coreg) 6.25 mg PO Q12 [facility] Last Admin: 11/18/18 09:31 Dose: 6.25 mg Dextrose (Dextrose 50% Inj) 0 ml IV STAT PRN; Protocol PRN Reason: Hypoglycemia Protocol Dextrose (Glutose 15) 0 gm PO ONCE PRN; Protocol PRN Reason: Hypoglycemia Protocol Ergocalciferol (Drisdol 50,000 Intl Units Cap) 1 cap PO WE [facility] Famotidine (Pepcid) 20 mg PO DAILY [facility] Last Admin: 11/18/18 09:34 Dose: 20 mg Furosemide (Lasix) 20 mg PO DAILY [facility] Last Admin: 11/18/18 09:31 Dose: 20 mg Gabapentin (Neurontin) 200 mg PO Q8 [facility] Last Admin: 11/18/18 09:32 Dose: 200 mg Glucagon (Glucagen Diagnostic Kit) 0 mg IM STAT PRN; Protocol PRN Reason: Hypoglycemia Protocol Vancomycin HCl 1 gm/ Sodium (Chloride) 250 mls @ 166.667 mls/hr IVPB Q12 [facility]; Protocol Last Admin: 11/18/18 09:35 Dose: 166.667 mls/hr Piperacillin Sod/Tazobactam (Sod 3.375 gm/ Sodium Chloride) 100 mls @ 100 mls/hr IVPB Q8 [facility]; Protocol Last Admin: 11/18/18 09:36 Dose: 100 mls/hr Insulin Human Regular (Humulin R) 0 units SC ACHS [facility]; Protocol Last Admin: 11/18/18 09:33 Dose: Not Given Levothyroxine Sodium (Synthroid) 75 mcg PO DAILY@0630 [facility] Last Admin: 11/18/18 09:31 Dose: 75 mcg Losartan Potassium (Cozaar) 100 mg PO DAILY [facility] Last Admin: 11/18/18 09:33 Dose: 100 mg Metformin HCl (Glucophage) 500 mg PO TID [facility] Last Admin: 11/18/18 09:33 Dose: 500 mg Potassium Chloride (K-Dur 20 Meq Er Tab) 20 meq PO Q12 [facility] Last Admin: 11/18/18 09:30 Dose: 20 meq Repaglinide (Prandin) 2 mg PO DAILY [facility] Last Admin: 11/18/18 09:31 Dose: 2 mg Fluticasone/Salmeterol (Advair Diskus 250/50) 1 puff IH Q12H [facility] Last Admin: 11/18/18 09:42 Dose: Not Given Sertraline HCl (Zoloft) 25 mg PO DAILY [facility] Last Admin: 11/18/18 09:33 Dose: 25 mg Sitagliptin Phosphate (Januvia) 50 mg PO DAILY [facility] Last Admin: 11/18/18 09:33 Dose: 50 mg Warfarin Sodium (Coumadin) 5 mg PO QPM [facility]; Protocol Stop: 11/18/18 18:01 Physical Exam - Constitutional Appears: No Acute Distress - Head Exam Head Exam: ATRAUMATIC - Eye Exam Eye Exam: EOMI, PERRL - Neck Exam Neck exam: Positive for: Full Rom - Respiratory Exam Respiratory Exam: Clear to Auscultation Bilateral, NORMAL BREATHING PATTERN - Cardiovascular Exam Cardiovascular Exam: RRR, +S1, +S2 - GI/Abdominal Exam GI & Abdominal Exam: Normal Bowel Sounds, Soft Additional comments: NT, ND - Extremities Exam Additional comments: right foot edematous up to ankle and lower third of the calf region with erythema , malodorous yellow discharge from the mid posrtionof the foot and 2 round ulceration on the plantar aspect of the right foot left heel with dry ulcer - Neurological Exam Neurological exam: Alert, Oriented x3 Results - Vital Signs Recent Vital Signs: Last Vital Signs Temp 97.3 F L 11/18/18 00:06 Pulse 84 11/18/18 00:06 Resp 18 11/18/18 00:06 BP 103/70 11/18/18 09:31 Pulse Ox 95 11/18/18 00:06 - Labs Result Diagrams: 11/17/18 18:40 11/17/18 18:40 Labs: Laboratory Results - last 24 hr 11/17/18 11/17/18 11/17/18 18:40 18:40 18:40 WBC 11.9 H RBC 4.22 Hgb 11.0 L Hct 34.5 MCV 81.9 D MCH 26.1 L MCHC 31.8 L RDW 15.5 H Plt Count 231 MPV 9.3 Neut % (Auto) 78.9 H Lymph % (Auto) 12.1 L Patrick % (Auto) 5.8 Eos % (Auto) 2.1 Baso % (Auto) 1.1 Neut # (Auto) 9.4 H Lymph # (Auto) 1.4 Patrick # (Auto) 0.7 Eos # (Auto) 0.3 Baso # (Auto) 0.1 ESR 59 H PT 21.6 H INR 1.9 APTT 30.8 Sodium 138 Potassium 4.0 Chloride 101 Carbon Dioxide 30 Anion Gap 11 BUN 21 H Creatinine 0.7 Est GFR ( Amer) > 60 Est GFR (Non-Af Amer) > 60 POC Glucose (mg/dL) Random Glucose 109 H Calcium 9.5 Phosphorus Magnesium TSH 3rd Generation 11/17/18 11/18/18 11/18/18 21:43 05:50 05:55 WBC RBC Hgb Hct MCV MCH MCHC RDW Plt Count MPV Neut % (Auto) Lymph % (Auto) Patrick % (Auto) Eos % (Auto) Baso % (Auto) Neut # (Auto) Lymph # (Auto) Patrick # (Auto) Eos # (Auto) Baso # (Auto) ESR PT 19.7 H INR 1.7 APTT 31.2 Sodium Potassium Chloride Carbon Dioxide Anion Gap BUN Creatinine Est GFR ( Amer) Est GFR (Non-Af Amer) POC Glucose (mg/dL) 131 H 99 Random Glucose Calcium Phosphorus Magnesium TSH 3rd Generation 11/18/18 09:22 WBC RBC Hgb Hct MCV MCH MCHC RDW Plt Count MPV Neut % (Auto) Lymph % (Auto) Patrick % (Auto) Eos % (Auto) Baso % (Auto) Neut # (Auto) Lymph # (Auto) Patrick # (Auto) Eos # (Auto) Baso # (Auto) ESR PT INR APTT Sodium Potassium Chloride Carbon Dioxide Anion Gap BUN Creatinine Est GFR ( Amer) Est GFR (Non-Af Amer) POC Glucose (mg/dL) Random Glucose Calcium Phosphorus 3.5 Magnesium 1.7 TSH 3rd Generation 4.20 Laboratory Results - last 72 hr 11/17/18 11/17/18 11/17/18 18:40 18:40 18:40 WBC 11.9 H RBC 4.22 Hgb 11.0 L Hct 34.5 MCV 81.9 D MCH 26.1 L MCHC 31.8 L RDW 15.5 H Plt Count 231 MPV 9.3 Neut % (Auto) 78.9 H Lymph % (Auto) 12.1 L Patrick % (Auto) 5.8 Eos % (Auto) 2.1 Baso % (Auto) 1.1 Neut # (Auto) 9.4 H Lymph # (Auto) 1.4 Patrick # (Auto) 0.7 Eos # (Auto) 0.3 Baso # (Auto) 0.1 ESR 59 H PT 21.6 H INR 1.9 APTT 30.8 Sodium 138 Potassium 4.0 Chloride 101 Carbon Dioxide 30 Anion Gap 11 BUN 21 H Creatinine 0.7 Est GFR ( Amer) > 60 Est GFR (Non-Af Amer) > 60 POC Glucose (mg/dL) Random Glucose 109 H Calcium 9.5 Phosphorus Magnesium Vitamin B12 TSH 3rd Generation 11/17/18 11/18/18 11/18/18 21:43 05:50 05:55 WBC RBC Hgb Hct MCV MCH MCHC RDW Plt Count MPV Neut % (Auto) Lymph % (Auto) Patrick % (Auto) Eos % (Auto) Baso % (Auto) Neut # (Auto) Lymph # (Auto) Patrick # (Auto) Eos # (Auto) Baso # (Auto) ESR PT 19.7 H INR 1.7 APTT 31.2 Sodium Potassium Chloride Carbon Dioxide Anion Gap BUN Creatinine Est GFR ( Amer) Est GFR (Non-Af Amer) POC Glucose (mg/dL) 131 H 99 Random Glucose Calcium Phosphorus Magnesium Vitamin B12 TSH 3rd Generation 11/18/18 11/18/18 09:22 11:08 WBC RBC Hgb Hct MCV MCH MCHC RDW Plt Count MPV Neut % (Auto) Lymph % (Auto) Patrick % (Auto) Eos % (Auto) Baso % (Auto) Neut # (Auto) Lymph # (Auto) Patrick # (Auto) Eos # (Auto) Baso # (Auto) ESR PT INR APTT Sodium Potassium Chloride Carbon Dioxide Anion Gap BUN Creatinine Est GFR ( Amer) Est GFR (Non-Af Amer) POC Glucose (mg/dL) 124 H Random Glucose Calcium Phosphorus 3.5 Magnesium 1.7 Vitamin B12 286 TSH 3rd Generation 4.20 Microbiology 07/31/18 15:10 Foot - Left Gram Stain - Final 07/31/18 15:10 Foot - Left Wound Culture - Final Klebsiella Pneumoniae Ssp Pneu Pseudomonas Aeruginosa 07/31/18 14:30 Blood Blood Culture - Final 07/31/18 14:30 Blood Gram Stain - Final NO GROWTH AFTER 5 DAYS TEST NOT PERFORMED 07/31/18 14:12 Blood Blood Culture - Final 07/31/18 14:12 Blood Gram Stain - Final NO GROWTH AFTER 5 DAYS TEST NOT PERFORMED 05/22/18 15:50 Leg - Right Gram Stain - Final 05/22/18 15:50 Leg - Right Wound Culture - Final Methicillin Resistant S Aureus Accession No. : [id number] Patient Name / ID : JEAN Saravia / [id number] Exam Date : 11/17/2018 18:42:49 ( Approved ) Study Comment : Sex / Age : F / 73Y Creator : Thomas Clay MD Dictator : Thomas Clay MD Senior Regulatory Affairs Specialist : [employer] Specialist : Thomas Clay MD Approver2 : Report Date : 11/18/2018 10:12:43 My Comment : Date of service: 11/17/2018 PROCEDURE: Bilateral lower extremity venous duplex Doppler. HISTORY: right leg swelling/left leg swelling COMPARISON: Bilateral lower extremity venous duplex ultrasound performed 03/23/2018. TECHNIQUE: Bilateral common femoral, superficial femoral, popliteal and posterior tibial veins were evaluated. Flow was assessed with color Doppler, compressibility, assessment of phasic flow and augmentation response. FINDINGS: COMMON FEMORAL VEIN: Right CFV: Unremarkable. Left CFV: Unremarkable. SUPERFICIAL FEMORAL VEIN: Right SFV: Unremarkable. Left SFV: Unremarkable. POPLITEAL VEIN: Right Popliteal: Unremarkable. Left Popliteal: Unremarkable. POSTERIOR TIBIAL VEIN: Right PTV: Unremarkable. Left PTV: Unremarkable. OTHER FINDINGS: None. IMPRESSION: No evidence of deep venous thrombosis. Assessment & Plan (1) DM2 (diabetes mellitus, type 2) Status: Acute (2) Cellulitis Status: Acute (3) Chronic a-fib Status: Acute (4) Diabetic foot ulcer Status: Acute - Assessment and Plan (Free Text) Assessment: A/P- 73 year old female with obesity, DM II, A.fib chronic diabetic foot ulcers but now right foot ulcers are infected and has LE cellulitis as well. PLan- check wound cx. check Blood cx. advise to get imaging of the LE and rule out bone involevement or check bone biopsy if possible r/o OM. based on her previous wounds cx of ESBL in 07/2018 advise to strt pt. on IV meropenem pending further cx result and also advise to continue with IV vancomyicn. Keep vanco trough <15. keep legs elevated. wound care and possible debridement as per podiatry team. All labs and imaging and relevant chart notes reviewed. Thank you for allowing me to take part in the care of this patient.
--- NOTE | 2018-11-18 10:43 | CP.PCM.HP ---
<Dee Mix - Last Filed: 11/18/18 10:51> History of Present Illness - History of Present Illness History of Present Illness: HPI: 71 YO Female with PMHx of CHF, DM, controlled HTN, atrial fibrillation and diabetic neuropathy presented to [facility] ED from podiatory clinic Dr. Manley for management of lower ext. Pt was being managed as outpatient for multiple lower ext ulcerations, but subsequently had increase pain and swelling. PMHx: morbid obesity, A fib on coumadin, HTN, HLD, hypothyroid SHx: Cholecystectomy FHx: Reviewed, no relevant findings SHx: Lives with family, no tobacco, no EtOH or illicit drug use Allergies: NKDA Present on Admission - Present on Admission Any Indicators Present on Admission: No Review of Systems - Constitutional Constitutional: absent: Chills, Fever - Cardiovascular Cardiovascular: absent: Chest Pain - Respiratory Respiratory: absent: Cough, Dyspnea - Gastrointestinal Gastrointestinal: absent: Abdominal Pain - Musculoskeletal Musculoskeletal: Other (lower ext pain b/l ) Past Patient History - Infectious Disease Hx of Infectious Diseases: None - Past Medical History & Family History Past Medical History?: Yes - Past Social History Smoking Status: Never Smoked Alcohol: None Drugs: Denies Home Situation {Lives}: With Family - CARDIAC Hx Cardiac Disorders: Yes Hx Atrial Fibrillation: Yes Hx Congestive Heart Failure: Yes Hx Hypercholesterolemia: Yes Hx Hypertension: Yes - PULMONARY Hx Respiratory Disorders: No - NEUROLOGICAL Hx Neurological Disorder: No - HEENT Hx HEENT Problems: Yes - RENAL Hx Chronic Kidney Disease: No - ENDOCRINE/METABOLIC Hx Diabetes Mellitus Type 2: Yes Hx Hypothyroidism: Yes - HEMATOLOGICAL/ONCOLOGICAL Hx Human Immunodeficiency Virus (HIV): No - INTEGUMENTARY Hx Dermatological Problems: No - MUSCULOSKELETAL/RHEUMATOLOGICAL Hx Arthritis: Yes Hx Back Pain: Yes Hx Falls: No - GASTROINTESTINAL Hx Gastrointestinal Disorders: Yes Hx Colitis: Yes - GENITOURINARY/GYNECOLOGICAL Hx Genitourinary Disorders: No Hx Incontinence: Yes - PSYCHIATRIC Hx Depression: Yes Hx Substance Use: No - SURGICAL HISTORY Hx Cholecystectomy: No - ANESTHESIA Hx Anesthesia: Yes Hx Anesthesia Reactions: No Meds Allergies/Adverse Reactions: Allergies Allergy/AdvReac Type Severity Reaction Status Date / Time No Known Allergies Allergy Verified 11/17/18 16:29 Physical Exam - Constitutional Appears: No Acute Distress - Head Exam Head Exam: NORMAL INSPECTION - Eye Exam Eye Exam: Normal appearance - Respiratory Exam Respiratory Exam: Clear to Auscultation Bilateral, NORMAL BREATHING PATTERN. absent: Wheezes - Cardiovascular Exam Cardiovascular Exam: REGULAR RHYTHM, +S1, +S2 - GI/Abdominal Exam GI & Abdominal Exam: Normal Bowel Sounds, Soft. absent: Tenderness - Extremities Exam Extremities exam: Positive for: pedal edema. Negative for: calf tenderness Additional comments: b/l lower ext in dressing, no drain or dischage noted in dressing full ROM of the ankle Redness noted extending up to the mid simons on RLE - Neurological Exam Neurological exam: Alert, Oriented x3 Results - Vital Signs Recent Vital Signs: Last Vital Signs Temp 97.3 F L 11/18/18 00:06 Pulse 84 11/18/18 00:06 Resp 18 11/18/18 00:06 BP 103/70 11/18/18 09:31 Pulse Ox 95 11/18/18 00:06 - Labs Result Diagrams: 11/17/18 18:40 11/17/18 18:40 Labs: Laboratory Results - last 24 hr 11/17/18 11/17/18 11/17/18 18:40 18:40 18:40 WBC 11.9 H RBC 4.22 Hgb 11.0 L Hct 34.5 MCV 81.9 D MCH 26.1 L MCHC 31.8 L RDW 15.5 H Plt Count 231 MPV 9.3 Neut % (Auto) 78.9 H Lymph % (Auto) 12.1 L Kings % (Auto) 5.8 Eos % (Auto) 2.1 Baso % (Auto) 1.1 Neut # (Auto) 9.4 H Lymph # (Auto) 1.4 Kings # (Auto) 0.7 Eos # (Auto) 0.3 Baso # (Auto) 0.1 ESR 59 H PT 21.6 H INR 1.9 APTT 30.8 Sodium 138 Potassium 4.0 Chloride 101 Carbon Dioxide 30 Anion Gap 11 BUN 21 H Creatinine 0.7 Est GFR ( Amer) > 60 Est GFR (Non-Af Amer) > 60 POC Glucose (mg/dL) Random Glucose 109 H Calcium 9.5 Phosphorus Magnesium Vitamin B12 TSH 3rd Generation 11/17/18 11/18/18 11/18/18 21:43 05:50 05:55 WBC RBC Hgb Hct MCV MCH MCHC RDW Plt Count MPV Neut % (Auto) Lymph % (Auto) Kings % (Auto) Eos % (Auto) Baso % (Auto) Neut # (Auto) Lymph # (Auto) Kings # (Auto) Eos # (Auto) Baso # (Auto) ESR PT 19.7 H INR 1.7 APTT 31.2 Sodium Potassium Chloride Carbon Dioxide Anion Gap BUN Creatinine Est GFR ( Amer) Est GFR (Non-Af Amer) POC Glucose (mg/dL) 131 H 99 Random Glucose Calcium Phosphorus Magnesium Vitamin B12 TSH 3rd Generation 11/18/18 09:22 WBC RBC Hgb Hct MCV MCH MCHC RDW Plt Count MPV Neut % (Auto) Lymph % (Auto) Kings % (Auto) Eos % (Auto) Baso % (Auto) Neut # (Auto) Lymph # (Auto) Kings # (Auto) Eos # (Auto) Baso # (Auto) ESR PT INR APTT Sodium Potassium Chloride Carbon Dioxide Anion Gap BUN Creatinine Est GFR ( Amer) Est GFR (Non-Af Amer) POC Glucose (mg/dL) Random Glucose Calcium Phosphorus 3.5 Magnesium 1.7 Vitamin B12 286 TSH 3rd Generation 4.20 Assessment & Plan (1) Cellulitis Status: Acute (2) Diabetic foot ulcer Status: Chronic (3) Atrial fibrillation Status: Chronic (4) Diabetes mellitus Status: Chronic (5) HTN (hypertension) Status: Chronic (6) Hypothyroid Status: Chronic - Assessment and Plan (Free Text) Assessment: Assessment/Plan: 71 YO Female with PMHx of CHF, DM, controlled HTN, atrial fibrillation and diabetic neuropathy is admitted for worsening diabetic foot ulcer and cellulites. Cellulites, acute -noted in RLE -afebrile with mild leukocytosis -ext u/s no DVT appreciated -c/w with IV abx -Id on board, follow up recs Diabetic foot ulcer -acute on chronic -Podiatry on board -foot XR pending -wound management per podiatry and wound care A fib/ HTN/ NIDDM -c.w home meds -adjustments as needed DVT: warfarin <Harmon,Kushal K - Last Filed: 11/19/18 13:30> Results - Vital Signs Recent Vital Signs: Last Vital Signs Temp 97.8 F 11/19/18 08:32 Pulse 73 11/19/18 10:26 Resp 20 11/19/18 08:32 BP 127/61 11/19/18 10:30 Pulse Ox 98 11/19/18 08:32 - Labs Result Diagrams: 11/19/18 06:09 11/19/18 06:09 Labs: Laboratory Results - last 24 hr 11/18/18 11/18/18 11/19/18 16:10 21:39 05:43 WBC RBC Hgb Hct MCV MCH MCHC RDW Plt Count PT INR Sodium Potassium Chloride Carbon Dioxide Anion Gap BUN Creatinine Est GFR ( Amer) Est GFR (Non-Af Amer) POC Glucose (mg/dL) 88 111 H 86 Random Glucose Calcium Total Bilirubin AST ALT Alkaline Phosphatase Total Protein Albumin Globulin Albumin/Globulin Ratio 11/19/18 11/19/18 11/19/18 06:09 06:09 08:37 WBC 8.9 RBC 3.94 Hgb 10.5 L Hct 32.6 L MCV 82.8 MCH 26.6 L MCHC 32.1 L RDW 15.5 H Plt Count 232 PT 18.0 H INR 1.6 Sodium 137 Potassium 4.6 Chloride 101 Carbon Dioxide 30 Anion Gap 11 BUN 24 H Creatinine 0.9 Est GFR ( Amer) > 60 Est GFR (Non-Af Amer) > 60 POC Glucose (mg/dL) Random Glucose 101 Calcium 9.6 Total Bilirubin 0.4 AST 30 ALT 18 Alkaline Phosphatase 88 Total Protein 7.7 Albumin 3.5 Globulin 4.2 H Albumin/Globulin Ratio 0.8 L 11/19/18 11:48 WBC RBC Hgb Hct MCV MCH MCHC RDW Plt Count PT INR Sodium Potassium Chloride Carbon Dioxide Anion Gap BUN Creatinine Est GFR ( Amer) Est GFR (Non-Af Amer) POC Glucose (mg/dL) 109 Random Glucose Calcium Total Bilirubin AST ALT Alkaline Phosphatase Total Protein Albumin Globulin Albumin/Globulin Ratio Assessment & Plan - Assessment and Plan (Free Text) Assessment: Patient was personally seen and examined by me in rounds with residents. Available labs and diagnostic data reviewed. Case, Patient's condition and management plan discussed with residents in rounds. Agree with resident's progress note. Plan: As ordered.
--- NOTE | 2018-11-18 12:49 | CP.PCM.PN ---
Subjective - Date & Time of Evaluation Date of Evaluation: 11/18/18 Time of Evaluation: 12:48 - Subjective Subjective: Podiatry Progress Note: Dr. Manley 73 year old female patient seen and evaluated for chronic diabetic ulceration to her R foot. Patient resting comfortably and in NAD. Patient states that she in in no pain to her b/l lower extremities today. Denies N/V/F/SOB/CP. Objective - Vital Signs/Intake and Output Vital Signs (last 24 hours): Temp Pulse Resp BP Pulse Ox 97.3 F L 84 18 103/70 99 11/18/18 00:06 11/18/18 00:06 11/18/18 00:06 11/18/18 09:31 11/18/18 12:46 - Medications Medications: Current Medications Acetaminophen (Tylenol 325mg Tab) 650 mg PO Q4 PRN PRN Reason: Pain, moderate (4-7) Atorvastatin Calcium (Lipitor) 20 mg PO HS [facility] Carvedilol (Coreg) 6.25 mg PO Q12 [facility] Last Admin: 11/18/18 09:31 Dose: 6.25 mg Dextrose (Dextrose 50% Inj) 0 ml IV STAT PRN; Protocol PRN Reason: Hypoglycemia Protocol Dextrose (Glutose 15) 0 gm PO ONCE PRN; Protocol PRN Reason: Hypoglycemia Protocol Ergocalciferol (Drisdol 50,000 Intl Units Cap) [address] [facility] Famotidine (Pepcid) 20 mg PO DAILY [facility] Last Admin: 11/18/18 09:34 Dose: 20 mg Furosemide (Lasix) 20 mg PO DAILY [facility] Last Admin: 11/18/18 09:31 Dose: 20 mg Gabapentin (Neurontin) 200 mg PO Q8 [facility] Last Admin: 11/18/18 09:32 Dose: 200 mg Glucagon (Glucagen Diagnostic Kit) 0 mg IM STAT PRN; Protocol PRN Reason: Hypoglycemia Protocol Vancomycin HCl 1 gm/ Sodium (Chloride) 250 mls @ 166.667 mls/hr IVPB Q12 [facility]; Protocol Last Admin: 11/18/18 09:35 Dose: 166.667 mls/hr Piperacillin Sod/Tazobactam (Sod 3.375 gm/ Sodium Chloride) 100 mls @ 100 mls/hr IVPB Q8 [facility]; Protocol Last Admin: 11/18/18 09:36 Dose: 100 mls/hr Insulin Human Regular (Humulin R) 0 units SC ACHS [facility]; Protocol Last Admin: 11/18/18 12:15 Dose: Not Given Levothyroxine Sodium (Synthroid) 75 mcg PO DAILY@0630 [facility] Last Admin: 11/18/18 09:31 Dose: 75 mcg Losartan Potassium (Cozaar) 100 mg PO DAILY [facility] Last Admin: 11/18/18 09:33 Dose: 100 mg Metformin HCl (Glucophage) 500 mg PO TID [facility] Last Admin: 11/18/18 09:33 Dose: 500 mg Potassium Chloride (K-Dur 20 Meq Er Tab) 20 meq PO Q12 [facility] Last Admin: 11/18/18 09:30 Dose: 20 meq Repaglinide (Prandin) 2 mg PO DAILY [facility] Last Admin: 11/18/18 09:31 Dose: 2 mg Fluticasone/Salmeterol (Advair Diskus 250/50) 1 puff IH Q12H [facility] Last Admin: 11/18/18 09:42 Dose: Not Given Sertraline HCl (Zoloft) 25 mg PO DAILY [facility] Last Admin: 11/18/18 09:33 Dose: 25 mg Sitagliptin Phosphate (Januvia) 50 mg PO DAILY [facility] Last Admin: 11/18/18 09:33 Dose: 50 mg Warfarin Sodium (Coumadin) 5 mg PO QPM [facility]; Protocol Stop: 11/18/18 18:01 - Labs Labs: 11/17/18 18:40 11/17/18 18:40 PT 19.7 Seconds (9.8-13.1) H 11/18/18 05:55 INR 1.7 11/18/18 05:55 APTT 31.2 Seconds (25.6-37.1) 11/18/18 05:55 - Constitutional Appears: Non-toxic, No Acute Distress - Head Exam Head Exam: ATRAUMATIC, NORMOCEPHALIC - Extremities Exam Additional comments: RLE focused exam: Vasc: DP/PT pulses faintly palpable secondary to 2+ non-pitting edema. CFT < 3 seconds to all digits. Skin temperature increased to RLE compared to LLE. Erythema noted to RLE Derm: Multiple circular ulcerations measuring approximately 3mm in depth noted to the dorsal, lateral and plantar aspect of the right foot with periwound maceration. Serous drainage and malodor appreciated at all sites with maceration appreciated to periwound skin. No tracking, tunneling or undermining noted to any ulcerations. Neuro: Gross and protective sensation diminished Ortho: Pain on palpation noted to plantar ulceration. ROM at all major joints diminished due to swelling and body habitus. MMT 4/5 in all major muscle groups. No gross deformities appreciated - Neurological Exam Neurological Exam: Alert, Awake, Oriented x3 Assessment and Plan - Assessment and Plan (Free Text) Assessment: 73F with for multiple chronic diabetic ulcerations to her right foot. Plan: Patient seen and evaluated Plan discussed with Dr. Manley Afebdejuan, WBC 11.9 Continue with IV abx per ID reccs Wound cx taken; results pending RLE venous duplex performed; no evidence of DVT Patient unable to have xray taken because technician assistant's could not move her and she could not move herself Patient's wounds flushed with copious amounts of normal, sterile saline and dressed with Betadine, ABD, DSD Will continue to follow
[2018-11-18] MEDS: Meropenem 1 GM in Sodium Chloride 0.9% 100 ML IVPB SCH (16:45)
[2018-11-19] MEDS: Meropenem 1 GM in Sodium Chloride 0.9% 100 ML IVPB SCH ×3 (00:25→18:07)
[2018-11-19] MEDS: Levothyroxine 75 MCG TAB PO SCH (06:01)
[2018-11-19 06:23] LABS: HEMOGLOBIN 10.5 g/dL (12.0-16.0); MEAN CELL VOLUME 82.8 fl (81.0-99.0); MEAN CORPUSCULAR HEMOGLOBIN 26.6 pg (27.0-31.0); MEAN CORPUSCULAR HGB CONC 32.1 g/dL (33.0-37.0); RBC 3.94 Mil/uL (3.80-5.20); RED CELL DISTRIBUTION WIDTH 15.5 % (11.5-14.5); WHITE BLOOD COUNT 8.9 K/uL (4.8-10.8)
[2018-11-19 06:51] LABS: ALB/GLOB RATIO 0.8 (1.0-2.1); ALBUMIN 3.5 g/dL (3.5-5.0); ALT/SGPT 18 U/L (9-52); AST/SGOT 30 U/L (14-36); BLOOD UREA NITROGEN 24 mg/dl (7-17); CALCIUM 9.6 mg/dL (8.4-10.2); GFR NON-AFRICAN AMERICAN > 60
--- NOTE | 2018-11-19 07:08 | CP.PCM.PN ---
Subjective - Date & Time of Evaluation Date of Evaluation: 11/19/18 Time of Evaluation: 07:08 - Subjective Subjective: Podiatry Progress Note: Dr. Manley 73 year old female patient seen and evaluated for chronic diabetic ulceration to her R foot. Patient resting comfortably and in NAD.Patient states that she continues to sleep with her legs down, in the dependent position, causing them to swell. Denies N/V/F/SOB/CP. Objective - Vital Signs/Intake and Output Vital Signs (last 24 hours): Temp Pulse Resp BP Pulse Ox 97.6 F 93 H 18 128/77 95 11/18/18 23:34 11/18/18 23:34 11/18/18 23:34 11/18/18 23:34 11/18/18 23:34 - Medications Medications: Current Medications Acetaminophen (Tylenol 325mg Tab) 650 mg PO Q4 PRN PRN Reason: Pain, moderate (4-7) Atorvastatin Calcium (Lipitor) 20 mg PO HS [facility] Last Admin: 11/18/18 21:19 Dose: 20 mg Carvedilol (Coreg) 6.25 mg PO Q12 [facility] Last Admin: 11/18/18 20:45 Dose: 6.25 mg Dextrose (Dextrose 50% Inj) 0 ml IV STAT PRN; Protocol PRN Reason: Hypoglycemia Protocol Dextrose (Glutose 15) 0 gm PO ONCE PRN; Protocol PRN Reason: Hypoglycemia Protocol Ergocalciferol (Drisdol 50,000 Intl Units Cap) 1 cap PO [facility] Famotidine (Pepcid) 20 mg PO DAILY [facility] Last Admin: 11/18/18 09:34 Dose: 20 mg Furosemide (Lasix) 20 mg PO DAILY [facility] Last Admin: 11/18/18 09:31 Dose: 20 mg Gabapentin (Neurontin) 200 mg PO Q8 [facility] Last Admin: 11/19/18 00:26 Dose: 200 mg Glucagon (Glucagen Diagnostic Kit) 0 mg IM STAT PRN; Protocol PRN Reason: Hypoglycemia Protocol Vancomycin HCl 1 gm/ Sodium (Chloride) 250 mls @ 166.667 mls/hr IVPB Q12 [facility]; Protocol Last Admin: 11/18/18 20:38 Dose: 166.667 mls/hr Meropenem 1 gm/ Sodium (Chloride) 100 mls @ 100 mls/hr IVPB Q8 [facility]; Protocol Last Admin: 11/19/18 00:25 Dose: 100 mls/hr Insulin Human Regular (Humulin R) 0 units SC ACHS [facility]; Protocol Last Admin: 11/18/18 22:00 Dose: Not Given Levothyroxine Sodium (Synthroid) 75 mcg PO DAILY@0630 [facility] Last Admin: 11/19/18 06:01 Dose: 75 mcg Losartan Potassium (Cozaar) 100 mg PO DAILY [facility] Last Admin: 11/18/18 09:33 Dose: 100 mg Metformin HCl (Glucophage) 500 mg PO TID [facility] Last Admin: 11/18/18 16:47 Dose: 500 mg Potassium Chloride (K-Dur 20 Meq Er Tab) 20 meq PO Q12 [facility] Last Admin: 11/18/18 20:46 Dose: 20 meq Repaglinide (Prandin) 2 mg PO DAILY [facility] Last Admin: 11/18/18 09:31 Dose: 2 mg Fluticasone/Salmeterol (Advair Diskus 250/50) 1 puff IH Q12H [facility] Last Admin: 11/18/18 18:00 Dose: Not Given Sertraline HCl (Zoloft) 25 mg PO DAILY [facility] Last Admin: 11/18/18 09:33 Dose: 25 mg Sitagliptin Phosphate (Januvia) 50 mg PO DAILY [facility] Last Admin: 11/18/18 09:33 Dose: 50 mg - Labs Labs: 11/19/18 06:09 11/19/18 06:09 PT 19.7 Seconds (9.8-13.1) H 11/18/18 05:55 INR 1.7 11/18/18 05:55 APTT 31.2 Seconds (25.6-37.1) 11/18/18 05:55 - Constitutional Appears: Non-toxic, No Acute Distress - Head Exam Head Exam: ATRAUMATIC, NORMOCEPHALIC - Extremities Exam Additional comments: RLE focused exam: Vasc: DP/PT pulses faintly palpable secondary to 2+ non-pitting edema. CFT < 3 seconds to all digits. Skin temperature increased to RLE compared to LLE. Erythema noted to RLE Derm: Multiple circular diabetic ulceration measuring approximately 5cm x 4cm x 3mm in depth noted to the dorsal, lateral and plantar aspect of the right foot with periwound maceration. Serous drainage and malodor appreciated at all sites with maceration appreciated to periwound skin. No tracking, tunneling or undermining noted to any ulcerations. Neuro: Gross and protective sensation diminished Ortho: Pain on palpation noted to plantar ulceration. ROM at all major joints diminished due to swelling and body habitus. MMT 4/5 in all major muscle groups. No gross deformities appreciated - Neurological Exam Neurological Exam: Alert, Awake, Oriented x3 - Psychiatric Exam Psychiatric exam: Normal Affect, Normal Mood Assessment and Plan - Assessment and Plan (Free Text) Assessment: 73F with for multiple chronic diabetic ulcerations to her right foot secondary to diabetes Plan: Patient seen and evaluated Plan discussed with Dr. Sindhu MOISE, WBC 8.9 Continue with IV abx per ID reccs Wound cx taken; gram - audrey, gram + cocco RLE venous duplex performed; no evidence of DVT R foot x-ray ordered Patient unable to have xray taken because polysomnographic technologist's could not move her and she could not move herself Patient's wounds flushed with copious amounts of normal, sterile saline and dressed with Betadine, ABD, DSD Will continue to follow
--- NOTE | 2018-11-19 08:38 | CP.PCM.PN ---
<Dee Mix - Last Filed: 11/19/18 08:38> Subjective - Date & Time of Evaluation Date of Evaluation: 11/19/18 Time of Evaluation: 06:30 - Subjective Subjective: No acute overnight events. Pt seen and examined by bedside this AM Seen by ID yesterday additional abx coverage added to regimen. No new c/o this AM, pt states that she still has pain in her feet but getting better. Good PO intake. Objective - Vital Signs/Intake and Output Vital Signs (last 24 hours): Temp Pulse Resp BP Pulse Ox 97.8 F 75 20 131/85 98 11/19/18 08:32 11/19/18 08:32 11/19/18 08:32 11/19/18 08:32 11/19/18 08:32 - Medications Medications: Current Medications Acetaminophen (Tylenol 325mg Tab) 650 mg PO Q4 PRN PRN Reason: Pain, moderate (4-7) Atorvastatin Calcium (Lipitor) 20 mg PO HS [facility] Last Admin: 11/18/18 21:19 Dose: 20 mg Carvedilol (Coreg) 6.25 mg PO Q12 [facility] Last Admin: 11/18/18 20:45 Dose: 6.25 mg Dextrose (Dextrose 50% Inj) 0 ml IV STAT PRN; Protocol PRN Reason: Hypoglycemia Protocol Dextrose (Glutose 15) 0 gm PO ONCE PRN; Protocol PRN Reason: Hypoglycemia Protocol Ergocalciferol (Drisdol 50,000 Intl Units Cap) 1 cap PO [facility] Famotidine (Pepcid) 20 mg PO DAILY [facility] Last Admin: 11/18/18 09:34 Dose: 20 mg Furosemide (Lasix) 20 mg PO DAILY [facility] Last Admin: 11/18/18 09:31 Dose: 20 mg Gabapentin (Neurontin) 200 mg PO Q8 [facility] Last Admin: 11/19/18 00:26 Dose: 200 mg Glucagon (Glucagen Diagnostic Kit) 0 mg IM STAT PRN; Protocol PRN Reason: Hypoglycemia Protocol Vancomycin HCl 1 gm/ Sodium (Chloride) 250 mls @ 166.667 mls/hr IVPB Q12 [facility]; Protocol Last Admin: 11/18/18 20:38 Dose: 166.667 mls/hr Meropenem 1 gm/ Sodium (Chloride) 100 mls @ 100 mls/hr IVPB Q8 [facility]; Protocol Last Admin: 11/19/18 00:25 Dose: 100 mls/hr Insulin Human Regular (Humulin R) 0 units SC ACHS [facility]; Protocol Last Admin: 11/18/18 22:00 Dose: Not Given Levothyroxine Sodium (Synthroid) 75 mcg PO DAILY@0630 [facility] Last Admin: 11/19/18 06:01 Dose: 75 mcg Losartan Potassium (Cozaar) 100 mg PO DAILY [facility] Last Admin: 11/18/18 09:33 Dose: 100 mg Metformin HCl (Glucophage) 500 mg PO TID [facility] Last Admin: 11/18/18 16:47 Dose: 500 mg Potassium Chloride (K-Dur 20 Meq Er Tab) 20 meq PO Q12 [facility] Last Admin: 11/18/18 20:46 Dose: 20 meq Repaglinide (Prandin) 2 mg PO DAILY [facility] Last Admin: 11/18/18 09:31 Dose: 2 mg Fluticasone/Salmeterol (Advair Diskus 250/50) 1 puff IH Q12H [facility] Last Admin: 11/18/18 18:00 Dose: Not Given Sertraline HCl (Zoloft) 25 mg PO DAILY [facility] Last Admin: 11/18/18 09:33 Dose: 25 mg Sitagliptin Phosphate (Januvia) 50 mg PO DAILY [facility] Last Admin: 11/18/18 09:33 Dose: 50 mg - Labs Labs: 11/19/18 06:09 11/19/18 06:09 PT 19.7 Seconds (9.8-13.1) H 11/18/18 05:55 INR 1.7 11/18/18 05:55 APTT 31.2 Seconds (25.6-37.1) 11/18/18 05:55 - Constitutional Appears: No Acute Distress, Other (sitting on chair ) - Head Exam Head Exam: NORMAL INSPECTION - ENT Exam ENT Exam: Mucous Membranes Moist - Respiratory Exam Respiratory Exam: Clear to Ausculation Bilateral, NORMAL BREATHING PATTERN. absent: Wheezes - Cardiovascular Exam Cardiovascular Exam: REGULAR RHYTHM, +S1, +S2 - GI/Abdominal Exam GI & Abdominal Exam: Soft, Normal Bowel Sounds. absent: Tenderness - Extremities Exam Additional comments: b/l lower ext dressing intact moving knee and ankle - Neurological Exam Neurological Exam: Alert, Awake Assessment and Plan (1) Cellulitis Status: Acute (2) Diabetic foot ulcer Status: Chronic (3) Atrial fibrillation Status: Chronic (4) Diabetes mellitus Status: Chronic (5) HTN (hypertension) Status: Chronic (6) Hypothyroid Status: Chronic - Assessment and Plan (Free Text) Assessment: Assessment/Plan: 71 YO Female with PMHx of CHF, DM, controlled HTN, atrial fibrillation and di abetic neuropathy is admitted for worsening diabetic foot ulcer and cellulites. Cellulites, acute -noted in RLE -afebrile, leukocytosis resolved -ext u/s no DVT appreciated -c/w with IV abx -ID on board; new abx added (avni) imaging pending -MRI of b/l lower ext pending, rlo OM Diabetic foot ulcer -acute on chronic -Podiatry on board -foot MRI pending -wound management per podiatry and wound care A fib/ HTN/ NIDDM -c.w home meds -adjustments as needed Anemia -chronic -c/t to monitor -consider FESOl if remains low DVT: warfarin <Harmon,Kushal K - Last Filed: 11/19/18 13:25> Objective - Vital Signs/Intake and Output Vital Signs (last 24 hours): Temp Pulse Resp BP Pulse Ox 97.8 F 73 20 127/61 98 11/19/18 08:32 11/19/18 10:26 11/19/18 08:32 11/19/18 10:30 11/19/18 08:32 - Medications Medications: Current Medications Acetaminophen (Tylenol 325mg Tab) 650 mg PO Q4 PRN PRN Reason: Pain, moderate (4-7) Atorvastatin Calcium (Lipitor) 20 mg PO HS [facility] Last Admin: 11/18/18 21:19 Dose: 20 mg Carvedilol (Coreg) 6.25 mg PO Q12 [facility] Last Admin: 11/19/18 10:26 Dose: 6.25 mg Dextrose (Dextrose 50% Inj) 0 ml IV STAT PRN; Protocol PRN Reason: Hypoglycemia Protocol Dextrose (Glutose 15) 0 gm PO ONCE PRN; Protocol PRN Reason: Hypoglycemia Protocol Ergocalciferol (Drisdol 50,000 Intl Units Cap) 1 cap PO [facility] Famotidine (Pepcid) 20 mg PO DAILY [facility] Last Admin: 11/19/18 10:31 Dose: 20 mg Furosemide (Lasix) 20 mg PO DAILY [facility] Last Admin: 11/19/18 10:30 Dose: 20 mg Gabapentin (Neurontin) 200 mg PO Q8 [facility] Last Admin: 11/19/18 10:31 Dose: 200 mg Glucagon (Glucagen Diagnostic Kit) 0 mg IM STAT PRN; Protocol PRN Reason: Hypoglycemia Protocol Vancomycin HCl 1 gm/ Sodium (Chloride) 250 mls @ 166.667 mls/hr IVPB Q12 [facility]; Protocol Last Admin: 11/18/18 20:38 Dose: 166.667 mls/hr Meropenem 1 gm/ Sodium (Chloride) 100 mls @ 100 mls/hr IVPB Q8 [facility]; Protocol Last Admin: 11/19/18 00:25 Dose: 100 mls/hr Insulin Human Regular (Humulin R) 0 units SC ACHS [facility]; Protocol Last Admin: 11/19/18 10:28 Dose: Not Given Levothyroxine Sodium (Synthroid) 75 mcg PO DAILY@0630 [facility] Last Admin: 11/19/18 06:01 Dose: 75 mcg Losartan Potassium (Cozaar) 100 mg PO DAILY [facility] Last Admin: 11/19/18 10:26 Dose: 100 mg Metformin HCl (Glucophage) 500 mg PO TID [facility] Last Admin: 11/18/18 16:47 Dose: 500 mg Pantoprazole Sodium (Protonix Ec Tab) 40 mg PO DAILY [facility] Last Admin: 11/19/18 10:32 Dose: 40 mg Potassium Chloride (K-Dur 20 Meq Er Tab) 20 meq PO Q12 [facility] Last Admin: 11/19/18 10:29 Dose: 20 meq Repaglinide (Prandin) 2 mg PO DAILY [facility] Last Admin: 11/19/18 10:32 Dose: 2 mg Fluticasone/Salmeterol (Advair Diskus 250/50) 1 puff IH Q12H [facility] Last Admin: 11/18/18 18:00 Dose: Not Given Sertraline HCl (Zoloft) 25 mg PO DAILY [facility] Last Admin: 11/19/18 10:32 Dose: 25 mg Sitagliptin Phosphate (Januvia) 50 mg PO DAILY [facility] Last Admin: 11/19/18 10:29 Dose: 50 mg Warfarin Sodium (Coumadin) 5 mg PO QD5 [facility]; Protocol Stop: 11/19/18 17:01 - Labs Labs: 11/19/18 06:09 11/19/18 06:09 PT 18.0 Seconds (9.8-13.1) H 11/19/18 08:37 INR 1.6 11/19/18 08:37 APTT 31.2 Seconds (25.6-37.1) 11/18/18 05:55 Assessment and Plan - Assessment and Plan (Free Text) Assessment: Patient was personally seen and examined by me in rounds with residents. Available labs and diagnostic data reviewed. Case, Patient's condition and management plan discussed with residents in rounds. Agree with resident's progress note. Plan: As ordered.
[2018-11-19 08:48] LABS: INR 1.6
--- NOTE | 2018-11-19 10:07 | CP.PCM.PN ---
Subjective - Date & Time of Evaluation Date of Evaluation: 11/19/18 Time of Evaluation: 10:07 - Subjective Subjective: ID Note- Patient seen and examined today. patient states she feels better today. denies any fever or chills. Objective - Vital Signs/Intake and Output Vital Signs (last 24 hours): Temp Pulse Resp BP Pulse Ox 97.8 F 75 20 131/85 98 11/19/18 08:32 11/19/18 08:32 11/19/18 08:32 11/19/18 08:32 11/19/18 08:32 - Medications Medications: Current Medications Acetaminophen (Tylenol 325mg Tab) 650 mg PO Q4 PRN PRN Reason: Pain, moderate (4-7) Atorvastatin Calcium (Lipitor) 20 mg PO HS [facility] Last Admin: 11/18/18 21:19 Dose: 20 mg Carvedilol (Coreg) 6.25 mg PO Q12 [facility] Last Admin: 11/18/18 20:45 Dose: 6.25 mg Dextrose (Dextrose 50% Inj) 0 ml IV STAT PRN; Protocol PRN Reason: Hypoglycemia Protocol Dextrose (Glutose 15) 0 gm PO ONCE PRN; Protocol PRN Reason: Hypoglycemia Protocol Ergocalciferol (Drisdol 50,000 Intl Units Cap) 1 cap PO [facility] Famotidine (Pepcid) 20 mg PO DAILY [facility] Last Admin: 11/18/18 09:34 Dose: 20 mg Furosemide (Lasix) 20 mg PO DAILY [facility] Last Admin: 11/18/18 09:31 Dose: 20 mg Gabapentin (Neurontin) 200 mg PO Q8 [facility] Last Admin: 11/19/18 00:26 Dose: 200 mg Glucagon (Glucagen Diagnostic Kit) 0 mg IM STAT PRN; Protocol PRN Reason: Hypoglycemia Protocol Vancomycin HCl 1 gm/ Sodium (Chloride) 250 mls @ 166.667 mls/hr IVPB Q12 [facility]; Protocol Last Admin: 11/18/18 20:38 Dose: 166.667 mls/hr Meropenem 1 gm/ Sodium (Chloride) 100 mls @ 100 mls/hr IVPB Q8 [facility]; Protocol Last Admin: 11/19/18 00:25 Dose: 100 mls/hr Insulin Human Regular (Humulin R) 0 units SC ACHS [facility]; Protocol Last Admin: 11/18/18 22:00 Dose: Not Given Levothyroxine Sodium (Synthroid) 75 mcg PO DAILY@0630 [facility] Last Admin: 11/19/18 06:01 Dose: 75 mcg Losartan Potassium (Cozaar) 100 mg PO DAILY [facility] Last Admin: 11/18/18 09:33 Dose: 100 mg Metformin HCl (Glucophage) 500 mg PO TID [facility] Last Admin: 11/18/18 16:47 Dose: 500 mg Pantoprazole Sodium (Protonix Ec Tab) 40 mg PO DAILY [facility] Potassium Chloride (K-Dur 20 Meq Er Tab) 20 meq PO Q12 [facility] Last Admin: 11/18/18 20:46 Dose: 20 meq Repaglinide (Prandin) 2 mg PO DAILY [facility] Last Admin: 11/18/18 09:31 Dose: 2 mg Fluticasone/Salmeterol (Advair Diskus 250/50) 1 puff IH Q12H [facility] Last Admin: 11/18/18 18:00 Dose: Not Given Sertraline HCl (Zoloft) 25 mg PO DAILY [facility] Last Admin: 11/18/18 09:33 Dose: 25 mg Sitagliptin Phosphate (Januvia) 50 mg PO DAILY [facility] Last Admin: 11/18/18 09:33 Dose: 50 mg Warfarin Sodium (Coumadin) 5 mg PO QD5 [facility]; Protocol Stop: 11/19/18 17:01 - Labs Labs: - Additional Findings Additional findings: - Constitutional Appears: No Acute Distress - Head Exam Head Exam: ATRAUMATIC - Eye Exam Eye Exam: EOMI, PERRL - Neck Exam Neck exam: Positive for: Full Rom - Respiratory Exam Respiratory Exam: Clear to Auscultation Bilateral, NORMAL BREATHING PATTERN - Cardiovascular Exam Cardiovascular Exam: RRR, +S1, +S2 - GI/Abdominal Exam GI & Abdominal Exam: Normal Bowel Sounds, Soft Additional comments: NT, ND - Extremities Exam Additional comments: right foot wrapped in gauze and florin band as per podiatry erythema in lower calf and ankle region is somewhat less today - Neurological Exam Neurological exam: Alert, Oriented x 3 Laboratory Results - last 72 hr 11/17/18 11/17/18 11/17/18 18:40 18:40 18:40 WBC 11.9 H RBC 4.22 Hgb 11.0 L Hct 34.5 MCV 81.9 D MCH 26.1 L MCHC 31.8 L RDW 15.5 H Plt Count 231 MPV 9.3 Neut % (Auto) 78.9 H Lymph % (Auto) 12.1 L Armstrong % (Auto) 5.8 Eos % (Auto) 2.1 Baso % (Auto) 1.1 Neut # (Auto) 9.4 H Lymph # (Auto) 1.4 Armstrong # (Auto) 0.7 Eos # (Auto) 0.3 Baso # (Auto) 0.1 ESR 59 H PT 21.6 H INR 1.9 APTT 30.8 Sodium 138 Potassium 4.0 Chloride 101 Carbon Dioxide 30 Anion Gap 11 BUN 21 H Creatinine 0.7 Est GFR ( Amer) > 60 Est GFR (Non-Af Amer) > 60 POC Glucose (mg/dL) Random Glucose 109 H Calcium 9.5 Phosphorus Magnesium Total Bilirubin AST ALT Alkaline Phosphatase Total Protein Albumin Globulin Albumin/Globulin Ratio Vitamin B12 TSH 3rd Generation 11/17/18 11/18/18 11/18/18 21:43 05:50 05:55 WBC RBC Hgb Hct MCV MCH MCHC RDW Plt Count MPV Neut % (Auto) Lymph % (Auto) Armstrong % (Auto) Eos % (Auto) Baso % (Auto) Neut # (Auto) Lymph # (Auto) Armstrong # (Auto) Eos # (Auto) Baso # (Auto) ESR PT 19.7 H INR 1.7 APTT 31.2 Sodium Potassium Chloride Carbon Dioxide Anion Gap BUN Creatinine Est GFR ( Amer) Est GFR (Non-Af Amer) POC Glucose (mg/dL) 131 H 99 Random Glucose Calcium Phosphorus Magnesium Total Bilirubin AST ALT Alkaline Phosphatase Total Protein Albumin Globulin Albumin/Globulin Ratio Vitamin B12 TSH 3rd Generation 11/18/18 11/18/18 11/18/18 09:22 11:08 16:10 WBC RBC Hgb Hct MCV MCH MCHC RDW Plt Count MPV Neut % (Auto) Lymph % (Auto) Armstrong % (Auto) Eos % (Auto) Baso % (Auto) Neut # (Auto) Lymph # (Auto) Armstrong # (Auto) Eos # (Auto) Baso # (Auto) ESR PT INR APTT Sodium Potassium Chloride Carbon Dioxide Anion Gap BUN Creatinine Est GFR ( Amer) Est GFR (Non-Af Amer) POC Glucose (mg/dL) 124 H 88 Random Glucose Calcium Phosphorus 3.5 Magnesium 1.7 Total Bilirubin AST ALT Alkaline Phosphatase Total Protein Albumin Globulin Albumin/Globulin Ratio Vitamin B12 286 TSH 3rd Generation 4.20 11/18/18 11/19/18 11/19/18 21:39 05:43 06:09 WBC 8.9 RBC 3.94 Hgb 10.5 L Hct 32.6 L MCV 82.8 MCH 26.6 L MCHC 32.1 L RDW 15.5 H Plt Count 232 MPV Neut % (Auto) Lymph % (Auto) Armstrong % (Auto) Eos % (Auto) Baso % (Auto) Neut # (Auto) Lymph # (Auto) Armstrong # (Auto) Eos # (Auto) Baso # (Auto) ESR PT INR APTT Sodium Potassium Chloride Carbon Dioxide Anion Gap BUN Creatinine Est GFR ( Amer) Est GFR (Non-Af Amer) POC Glucose (mg/dL) 111 H 86 Random Glucose Calcium Phosphorus Magnesium Total Bilirubin AST ALT Alkaline Phosphatase Total Protein Albumin Globulin Albumin/Globulin Ratio Vitamin B12 TSH 3rd Generation 11/19/18 11/19/18 11/19/18 06:09 08:37 11:48 WBC RBC Hgb Hct MCV MCH MCHC RDW Plt Count MPV Neut % (Auto) Lymph % (Auto) Armstrong % (Auto) Eos % (Auto) Baso % (Auto) Neut # (Auto) Lymph # (Auto) Armstrong # (Auto) Eos # (Auto) Baso # (Auto) ESR PT 18.0 H INR 1.6 APTT Sodium 137 Potassium 4.6 Chloride 101 Carbon Dioxide 30 Anion Gap 11 BUN 24 H Creatinine 0.9 Est GFR ( Amer) > 60 Est GFR (Non-Af Amer) > 60 POC Glucose (mg/dL) 109 Random Glucose 101 Calcium 9.6 Phosphorus Magnesium Total Bilirubin 0.4 AST 30 ALT 18 Alkaline Phosphatase 88 Total Protein 7.7 Albumin 3.5 Globulin 4.2 H Albumin/Globulin Ratio 0.8 L Vitamin B12 TSH 3rd Generation Microbiology 11/17/18 12:00 Leg - Right Gram Stain - Final 11/17/18 12:00 Leg - Right Wound Culture - Preliminary Gram Negative Jose Carlos Gram Positive Cocci 11/17/18 18:45 Blood-Venous Blood Culture - Preliminary NO GROWTH AFTER 24 HOURS 11/17/18 18:40 Blood-Venous Blood Culture - Preliminary NO GROWTH AFTER 24 HOURS Assessment and Plan (1) DM2 (diabetes mellitus, type 2) Status: Acute (2) Cellulitis Status: Acute (3) Chronic a-fib Status: Acute (4) Diabetic foot ulcer Status: Acute - Assessment and Plan (Free Text) Assessment: A/P- 73 year old female with obesity, DM II, A.fib chronic diabetic foot ulcers but now right foot ulcers are infected and has LE cellulitis as well. afebrile blood cx- neg x 2 right foot wound cx prelim- GNR, GPC PLan- Await ID and sens of the wound cx. advise to get imaging of the LE and rule out bone involvement or check bone biopsy if possible r/o OM. advise to continue with IV meropnem to cover for the previous wound cx ( ESBL) day #2. pending further cx result and also advise to continue with IV vancomyicn. day #3 Keep vanco trough <15. keep legs elevated. wound care and possible debridement as per podiatry team.
[2018-11-19] MEDS: Insulin Regular 100 units/ml SC SCH ×4 (10:28→21:56)
[2018-11-19] MEDS: Potassium Chloride 20 mEq ER Tab PO SCH ×2 (10:29→21:22)
[2018-11-19] MEDS: Pantoprazole 40 mg EC Tab PO SCH (10:32)
--- NOTE | 2018-11-19 12:35 | PQF ---
PROVIDER RESPONSE TEXT: Chronic combined systolic and diastolic heart failure REVIEWER QUERY TEXT: Heart Failure Acuity and Type Congestive Heart Failure is documented in the Medical Record. Please document the type and acuity (in cludes probable or suspected) OR: No CHF: history only and not a chronic condition Such as: Type: -- Combined systolic and diastolic (heart failure with reduced ejection fraction and diastolic) dysfu nction -- Diastolic (HFpEF) -- Systolic (HFrEF) -- Left heart failure -- Right heart failure -- Right heart failure due to left heart failure -- High output failure -- End stage heart failure -- Other, please specify Acuity: -- Acute -- Chronic -- Acute on chronic -- Other, please specify H and P includes: Hx. of CHF - oral coreg and lasix The patient's Clinical Indicators include: --- Query created by: Lyla Thomas on 11/19/2018 12:18 PM Electronically signed by: Kushal Harmon 11/19/2018 12:32 PM
--- NOTE | 2018-11-19 14:17 | PQF ---
PROVIDER RESPONSE TEXT: DVT prophylaxis and a fib REVIEWER QUERY TEXT: Conflicting Documentation Clarification Deep Vein Thrombosis versus DVT prophylaxis -- Other, please specify H and P includes: -ext u/s no DVT appreciated Assessment includes: DVT: warfarin The patient's Clinical Indicators include: --- Query created by: Lyla Thomas on 11/19/2018 12:23 PM Electronically signed by: Dee Mix 11/19/2018 2:14 PM
[2018-11-19] MEDS: Fluticasone-Salmeterol 250-50mcg Diskus IH SCH (17:58)
[2018-11-20] MEDS: Meropenem 1 GM in Sodium Chloride 0.9% 100 ML IVPB SCH ×3 (00:31→17:00)
[2018-11-20] MEDS: Fluticasone-Salmeterol 250-50mcg Diskus IH SCH ×4 (05:51→20:54)
[2018-11-20] MEDS: Levothyroxine 75 MCG TAB PO SCH (05:52)
[2018-11-20 06:46] LABS: HEMOGLOBIN 10.4 g/dL (12.0-16.0); MEAN CELL VOLUME 82.9 fl (81.0-99.0); MEAN CORPUSCULAR HEMOGLOBIN 26.4 pg (27.0-31.0); MEAN CORPUSCULAR HGB CONC 31.9 g/dL (33.0-37.0); RBC 3.93 Mil/uL (3.80-5.20); RED CELL DISTRIBUTION WIDTH 15.7 % (11.5-14.5); WHITE BLOOD COUNT 7.9 K/uL (4.8-10.8)
[2018-11-20 06:51] LABS: ALB/GLOB RATIO 0.8 (1.0-2.1); ALBUMIN 3.4 g/dL (3.5-5.0); ALT/SGPT 20 U/L (9-52); AST/SGOT 24 U/L (14-36); BLOOD UREA NITROGEN 23 mg/dl (7-17); CALCIUM 9.3 mg/dL (8.4-10.2); GFR NON-AFRICAN AMERICAN > 60
[2018-11-20] MEDS: Insulin Regular 100 units/ml SC SCH ×4 (07:46→22:00)
--- NOTE | 2018-11-20 08:32 | PN ---
DATE: 11/20/2018 SUBJECTIVE: The patient seen and examined. Interim events noted. Consults noted and appreciated. The patient remains in regular medical floor, awake, responsive, feels okay. Pain is controlled. No new complaint of chest pain. No shortness of breath. PHYSICAL EXAMINATION: GENERAL: The patient is in no acute distress. VITAL SIGNS: Stable. HEART: S1 and S2, normal and regular. LUNGS: Good bilateral air exchange. ABDOMEN: Soft, nontender. EXTREMITIES: The patient's foot is under surgical dressing. No sign of distal complication. No calf swelling. No tenderness. No acute ischemia. GEARMAN: Exam is essentially unchanged. DIAGNOSTIC DATA: Available diagnostic data reviewed. ASSESSMENT AND PLAN: Overall, the patient's general medical condition is stable. Plan as ordered. Kushal Harmon MD
[2018-11-20] MEDS: Potassium Chloride 20 mEq ER Tab PO SCH ×2 (10:13→20:49)
[2018-11-20] MEDS: Pantoprazole 40 mg EC Tab PO SCH (10:24)
--- NOTE | 2018-11-20 10:26 | CP.PCM.PN ---
<kM Manley - Last Filed: 11/20/18 10:26> Subjective - Date & Time of Evaluation Date of Evaluation: 11/20/18 Time of Evaluation: 10:26 Objective - Vital Signs/Intake and Output Vital Signs (last 24 hours): Temp Pulse Resp BP Pulse Ox 97.9 F 73 18 137/61 96 11/20/18 00:08 11/20/18 10:12 11/20/18 00:08 11/20/18 10:13 11/20/18 00:08 - Medications Medications: Current Medications Acetaminophen (Tylenol 325mg Tab) 650 mg PO Q4 PRN PRN Reason: Pain, moderate (4-7) Atorvastatin Calcium (Lipitor) 20 mg PO HS [facility] Last Admin: 11/19/18 21:22 Dose: 20 mg Carvedilol (Coreg) 6.25 mg PO Q12 [facility] Last Admin: 11/20/18 10:12 Dose: 6.25 mg Dextrose (Dextrose 50% Inj) 0 ml IV STAT PRN; Protocol PRN Reason: Hypoglycemia Protocol Dextrose (Glutose 15) 0 gm PO ONCE PRN; Protocol PRN Reason: Hypoglycemia Protocol Ergocalciferol (Drisdol 50,000 Intl Units Cap) 1 cap PO WE [facility] Famotidine (Pepcid) 20 mg PO DAILY [facility] Last Admin: 11/20/18 10:15 Dose: 20 mg Furosemide (Lasix) 20 mg PO DAILY [facility] Last Admin: 11/20/18 10:13 Dose: 20 mg Gabapentin (Neurontin) 200 mg PO Q8 [facility] Last Admin: 11/20/18 10:15 Dose: 200 mg Glucagon (Glucagen Diagnostic Kit) 0 mg IM STAT PRN; Protocol PRN Reason: Hypoglycemia Protocol Vancomycin HCl 1 gm/ Sodium (Chloride) 250 mls @ 166.667 mls/hr IVPB Q12 [facility]; Protocol Last Admin: 11/20/18 10:16 Dose: 166.667 mls/hr Meropenem 1 gm/ Sodium (Chloride) 100 mls @ 100 mls/hr IVPB Q8 [facility]; Protocol Last Admin: 11/20/18 10:14 Dose: 100 mls/hr Insulin Human Regular (Humulin R) 0 units SC ACHS [facility]; Protocol Last Admin: 11/20/18 07:46 Dose: Not Given Levothyroxine Sodium (Synthroid) 75 mcg PO DAILY@0630 [facility] Last Admin: 11/20/18 05:52 Dose: 75 mcg Losartan Potassium (Cozaar) 100 mg PO DAILY [facility] Last Admin: 11/20/18 10:12 Dose: 100 mg Metformin HCl (Glucophage) 500 mg PO TID [facility] Last Admin: 11/20/18 10:13 Dose: 500 mg Pantoprazole Sodium (Protonix Ec Tab) 40 mg PO DAILY [facility] Last Admin: 11/20/18 10:24 Dose: 40 mg Potassium Chloride (K-Dur 20 Meq Er Tab) 20 meq PO Q12 [facility] Last Admin: 11/20/18 10:13 Dose: 20 meq Repaglinide (Prandin) 2 mg PO DAILY [facility] Last Admin: 11/20/18 10:15 Dose: 2 mg Fluticasone/Salmeterol (Advair Diskus 250/50) 1 puff IH Q12H [facility] Last Admin: 11/20/18 05:53 Dose: Not Given Sertraline HCl (Zoloft) 25 mg PO DAILY [facility] Last Admin: 11/20/18 10:17 Dose: 25 mg Sitagliptin Phosphate (Januvia) 50 mg PO DAILY [facility] Last Admin: 11/20/18 10:13 Dose: 50 mg - Labs Labs: 11/20/18 05:50 11/20/18 05:50 PT 18.0 Seconds (9.8-13.1) H 11/19/18 08:37 INR 1.6 11/19/18 08:37 APTT 31.2 Seconds (25.6-37.1) 11/18/18 05:55 <Bella Garland - Last Filed: 11/20/18 11:57> Subjective - Subjective Subjective: Podiatry Progress Note: Dr. Manley 73 year old female patient seen and evaluated for chronic diabetic ulceration to her R foot. Patient resting comfortably and in NAD.Patient states that she continues to sleep with her legs down, in the dependent position, causing them to swell. Denies N/V/F/SOB/CP. Objective - Vital Signs/Intake and Output Vital Signs (last 24 hours): Temp Pulse Resp BP Pulse Ox 97.9 F 73 18 137/61 96 11/20/18 00:08 11/20/18 10:12 11/20/18 00:08 11/20/18 10:13 11/20/18 00:08 - Medications Medications: Current Medications Acetaminophen (Tylenol 325mg Tab) 650 mg PO Q4 PRN PRN Reason: Pain, moderate (4-7) Atorvastatin Calcium (Lipitor) 20 mg PO HS [facility] Last Admin: 11/19/18 21:22 Dose: 20 mg Carvedilol (Coreg) 6.25 mg PO Q12 [facility] Last Admin: 11/20/18 10:12 Dose: 6.25 mg Dextrose (Dextrose 50% Inj) 0 ml IV STAT PRN; Protocol PRN Reason: Hypoglycemia Protocol Dextrose (Glutose 15) 0 gm PO ONCE PRN; Protocol PRN Reason: Hypoglycemia Protocol Ergocalciferol (Drisdol 50,000 Intl Units Cap) 1 cap PO [facility] Famotidine (Pepcid) 20 mg PO DAILY [facility] Last Admin: 11/20/18 10:15 Dose: 20 mg Furosemide (Lasix) 20 mg PO DAILY [facility] Last Admin: 11/20/18 10:13 Dose: 20 mg Gabapentin (Neurontin) 200 mg PO Q8 [facility] Last Admin: 11/20/18 10:15 Dose: 200 mg Glucagon (Glucagen Diagnostic Kit) 0 mg IM STAT PRN; Protocol PRN Reason: Hypoglycemia Protocol Vancomycin HCl 1 gm/ Sodium (Chloride) 250 mls @ 166.667 mls/hr IVPB Q12 [facility]; Protocol Last Admin: 11/20/18 10:16 Dose: 166.667 mls/hr Meropenem 1 gm/ Sodium (Chloride) 100 mls @ 100 mls/hr IVPB Q8 [facility]; Protocol Last Admin: 11/20/18 10:14 Dose: 100 mls/hr Insulin Human Regular (Humulin R) 0 units SC ACHS [facility]; Protocol Last Admin: 11/20/18 07:46 Dose: Not Given Levothyroxine Sodium (Synthroid) 75 mcg PO DAILY@0630 [facility] Last Admin: 11/20/18 05:52 Dose: 75 mcg Losartan Potassium (Cozaar) 100 mg PO DAILY [facility] Last Admin: 11/20/18 10:12 Dose: 100 mg Metformin HCl (Glucophage) 500 mg PO TID [facility] Last Admin: 11/20/18 10:13 Dose: 500 mg Pantoprazole Sodium (Protonix Ec Tab) 40 mg PO DAILY [facility] Last Admin: 11/20/18 10:24 Dose: 40 mg Potassium Chloride (K-Dur 20 Meq Er Tab) 20 meq PO Q12 [facility] Last Admin: 11/20/18 10:13 Dose: 20 meq Repaglinide (Prandin) 2 mg PO DAILY [facility] Last Admin: 11/20/18 10:15 Dose: 2 mg Fluticasone/Salmeterol (Advair Diskus 250/50) 1 puff IH Q12H [facility] Last Admin: 11/20/18 05:53 Dose: Not Given Sertraline HCl (Zoloft) 25 mg PO DAILY [facility] Last Admin: 11/20/18 10:17 Dose: 25 mg Sitagliptin Phosphate (Januvia) 50 mg PO DAILY [facility] Last Admin: 11/20/18 10:13 Dose: 50 mg - Labs Labs: 11/20/18 05:50 11/20/18 05:50 PT 18.0 Seconds (9.8-13.1) H 11/19/18 08:37 INR 1.6 11/19/18 08:37 APTT 31.2 Seconds (25.6-37.1) 11/18/18 05:55 - Constitutional Appears: Well, Non-toxic, No Acute Distress - Head Exam Head Exam: ATRAUMATIC, NORMOCEPHALIC - Extremities Exam Additional comments: RLE focused exam: Vasc: DP/PT pulses faintly palpable secondary to 2+ non-pitting edema. CFT < 3 seconds to all digits. Skin temperature increased to RLE compared to LLE. Erythema noted to RLE Derm: Multiple circular diabetic ulceration measuring approximately 5cm x 4cm x 3mm in depth noted to the dorsal, lateral and plantar aspect of the right foot with periwound maceration. Serous drainage and malodor appreciated at all sites with maceration appreciated to periwound skin. No tracking, tunneling or undermining noted to any ulcerations. Neuro: Gross and protective sensation diminished Ortho: Pain on palpation noted to plantar ulceration. ROM at all major joints diminished due to swelling and body habitus. MMT 4/5 in all major muscle groups. No gross deformities appreciated - Neurological Exam Neurological Exam: Alert, Awake, Oriented x3 - Psychiatric Exam Psychiatric exam: Normal Affect, Normal Mood Assessment and Plan - Assessment and Plan (Free Text) Assessment: 73F with for multiple chronic diabetic ulcerations to her right foot secondary to diabetes Plan: Patient seen and evaluated with Dr. Manley Plan discussed with Dr. Manley VSS, WBC 8.9 Continue with IV abx per ID reccs Wound cx taken: Enterobacter Cloacae, E Faecalis RLE venous duplex performed: no evidence of DVT Cancelled Right foot xray at this time MRI Pending to r/o OM Patient unable to have xray taken because technical manager's could not move her and she could not move herself Patient's wounds flushed with copious amounts of normal, sterile saline and dressed with Betadine, ABD, DSD Will continue to follow Patient to be discharged to [facility] on Thursday if possible for further wound care
--- NOTE | 2018-11-20 16:42 | RAD ---
Date of service: 11/20/2018 PROCEDURE: Right Foot Radiographs. Three standard views of the right foot performed and compared with prior study 07/31/2018. Note the that overlying bandages/gauze artifact partially obscures fine soft tissue and bone detail HISTORY: Right foot ulcer COMPARISON: None. FINDINGS: BONES: Significant soft tissue swelling consistent with cellulitis most pronounced at the level of the metatarsals dorsal greater than plantar. The no definitive evidence of subcutaneous emphysema. Probable old fracture deformity left 5th metatarsal. Diffuse demineralization. No gross cortical destructive changes identified however evaluation for subtle early cortical destructive changes is limited due to significant soft tissue swelling and bandage artifact. Consider follow-up MRI if early osteomyelitis suspected clinically. Small plantar and posterior calcaneal enthesophytes are present JOINTS: Multi articular degenerative osteoarthritis. SOFT TISSUES: Normal. OTHER FINDINGS: None. IMPRESSION: Study is slightly limited due to overlying bandages/gauze artifact. Significant of soft tissue swelling also limits evaluation to some degree. Significant soft tissue swelling consistent with cellulitis most pronounced at the level of the metatarsals dorsal greater than plantar. The no definitive evidence of subcutaneous emphysema. Probable old fracture deformity left 5th metatarsal. Diffuse demineralization. No gross cortical destructive changes identified however evaluation for subtle early cortical destructive changes is limited due to significant soft tissue swelling and bandage artifact. Consider follow-up MRI if early osteomyelitis suspected clinically.
[2018-11-20 18:06] LABS: INR 1.7; PROTHROMBIN TIME 19.3 Seconds (9.8-13.1)
[2018-11-21] MEDS: Levothyroxine 75 MCG TAB PO SCH (05:35)
[2018-11-21] MEDS: Fluticasone-Salmeterol 250-50mcg Diskus IH SCH ×2 (05:35→17:58)
[2018-11-21 08:25] LABS: INR 1.6; PROTHROMBIN TIME 18.6 Seconds (9.8-13.1)
[2018-11-21] MEDS: Meropenem 1 GM in Sodium Chloride 0.9% 100 ML IVPB SCH ×3 (08:32→16:28)
[2018-11-21] MEDS: Pantoprazole 40 mg EC Tab PO SCH (08:36)
[2018-11-21] MEDS: Potassium Chloride 20 mEq ER Tab PO SCH ×2 (08:38→21:09)
[2018-11-21] MEDS: Insulin Regular 100 units/ml SC SCH ×5 (08:39→22:00)
[2018-11-21] MEDS: SILVASORB ANTIMICROBIAL WOUND GEL TP SCH (08:40)
--- NOTE | 2018-11-21 09:11 | PN ---
DATE: 11/21/2018 SUBJECTIVE: The patient seen and examined. Interim events noted. Consults noted and appreciated. Podiatry followup and interventions noted and appreciated. The patient remains in regular medical floor. The patient was uncooperative with function and MRI. The patient feels okay. Denies any specific complaint. Rib pain is adequately controlled. PHYSICAL EXAMINATION: GENERAL: The patient is in no acute distress. VITAL SIGNS: Stable. HEART: S1 and S2, normal and regular. LUNGS: Good bilateral air exchange. ABDOMEN: Soft and nontender. EXTREMITIES: No edema. No calf swelling. No tenderness. No acute ischemia. The patient is status post wound debridement. No sign of distal complication. ASSESSMENT AND PLAN: Overall, the patient's general medical condition is stable. The patient wants to go [facility] for rehab. Plan as ordered. Kushal Harmon MD
--- NOTE | 2018-11-21 14:04 | CP.PCM.PN ---
Subjective - Date & Time of Evaluation Date of Evaluation: 11/21/18 Time of Evaluation: 14:02 - Subjective Subjective: Podiatry Progress Note: Dr. Manley 73 year old female patient seen and evaluated for chronic diabetic ulceration to her R foot. Patient resting comfortably and in NAD.Patient states that she continues to sleep with her legs down, in the dependent position, causing them to swell. Denies N/V/F/SOB/CP. Objective - Vital Signs/Intake and Output Vital Signs (last 24 hours): Temp Pulse Resp BP Pulse Ox 98 F 76 20 126/75 95 11/21/18 08:42 11/21/18 08:42 11/21/18 08:42 11/21/18 08:42 11/21/18 08:42 - Medications Medications: Current Medications Acetaminophen (Tylenol 325mg Tab) 650 mg PO Q4 PRN PRN Reason: Pain, moderate (4-7) Atorvastatin Calcium (Lipitor) 20 mg PO HS [facility] Last Admin: 11/20/18 21:44 Dose: 20 mg Carvedilol (Coreg) 6.25 mg PO Q12 [facility] Last Admin: 11/21/18 08:40 Dose: 6.25 mg Dextrose (Dextrose 50% Inj) 0 ml IV STAT PRN; Protocol PRN Reason: Hypoglycemia Protocol Dextrose (Glutose 15) 0 gm PO ONCE PRN; Protocol PRN Reason: Hypoglycemia Protocol Ergocalciferol (Drisdol 50,000 Intl Units Cap) 1 cap PO [facility] Famotidine (Pepcid) 20 mg PO DAILY [facility] Last Admin: 11/21/18 08:37 Dose: 20 mg Furosemide (Lasix) 20 mg PO DAILY [facility] Last Admin: 11/21/18 08:37 Dose: 20 mg Gabapentin (Neurontin) 200 mg PO Q8 [facility] Last Admin: 11/21/18 08:37 Dose: 200 mg Glucagon (Glucagen Diagnostic Kit) 0 mg IM STAT PRN; Protocol PRN Reason: Hypoglycemia Protocol Meropenem 1 gm/ Sodium (Chloride) 100 mls @ 100 mls/hr IVPB Q8 [facility]; Protocol Last Admin: 11/21/18 08:32 Dose: 100 mls/hr Insulin Human Regular (Humulin R) 0 units SC ACHS [facility]; Protocol Last Admin: 11/21/18 12:16 Dose: Not Given Levothyroxine Sodium (Synthroid) 75 mcg PO DAILY@0630 [facility] Last Admin: 11/21/18 05:35 Dose: 75 mcg Losartan Potassium (Cozaar) 100 mg PO DAILY [facility] Last Admin: 11/21/18 08:40 Dose: 100 mg Metformin HCl (Glucophage) 500 mg PO TID [facility] Last Admin: 11/21/18 12:43 Dose: 500 mg Pantoprazole Sodium (Protonix Ec Tab) 40 mg PO DAILY [facility] Last Admin: 11/21/18 08:36 Dose: 40 mg Potassium Chloride (K-Dur 20 Meq Er Tab) 20 meq PO Q12 [facility] Last Admin: 11/21/18 08:38 Dose: 20 meq Repaglinide (Prandin) 2 mg PO DAILY [facility] Last Admin: 11/21/18 08:36 Dose: 2 mg Fluticasone/Salmeterol (Advair Diskus 250/50) 1 puff IH Q12H [facility] Last Admin: 11/21/18 05:35 Dose: Not Given Sertraline HCl (Zoloft) 25 mg PO DAILY [facility] Last Admin: 11/21/18 08:35 Dose: 25 mg Sitagliptin Phosphate (Januvia) 50 mg PO DAILY [facility] Last Admin: 11/21/18 08:39 Dose: 50 mg Warfarin Sodium (Coumadin) 3 mg PO ONCE ONE; Protocol Stop: 11/21/18 17:01 - Labs Labs: 11/20/18 05:50 11/20/18 05:50 PT 18.6 Seconds (9.8-13.1) H 11/21/18 08:00 INR 1.6 11/21/18 08:00 APTT 31.2 Seconds (25.6-37.1) 11/18/18 05:55 - Constitutional Appears: Well, Non-toxic, No Acute Distress - Head Exam Head Exam: ATRAUMATIC, NORMOCEPHALIC - Extremities Exam Additional comments: RLE focused exam: Vasc: DP/PT pulses faintly palpable secondary to 2+ non-pitting edema. CFT < 3 seconds to all digits. Skin temperature increased to RLE compared to LLE. Erythema noted to RLE Derm: Multiple circular diabetic ulceration measuring approximately 5cm x 4cm x 3mm in depth noted to the dorsal, lateral and plantar aspect of the right foot with periwound maceration. Serous drainage and malodor appreciated at all sites with maceration appreciated to periwound skin. No tracking, tunneling or undermining noted to any ulcerations. Neuro: Gross and protective sensation diminished Ortho: Pain on palpation noted to plantar ulceration. ROM at all major joints diminished due to swelling and body habitus. MMT 4/5 in all major muscle groups. No gross deformities appreciated - Neurological Exam Neurological Exam: Alert, Awake, Oriented x3 - Psychiatric Exam Psychiatric exam: Normal Affect, Normal Mood Assessment and Plan - Assessment and Plan (Free Text) Assessment: 73F with for multiple chronic diabetic ulcerations to her right foot secondary to diabetes Plan: Patient seen and evaluated with Dr. Manley Plan discussed with Dr. Manley VSS, WBC 8.9 Continue with IV abx per ID reccs Wound cx taken: Enterobacter Cloacae, E Faecalis RLE venous duplex performed: no evidence of DVT Patient refused MRI Foot X-ray: significant soft tissue swelling consistent with cellulitis, no subc emphysema Patient's wounds flushed with copious amounts of normal, sterile saline and dressed with Silvasorb, xeroform, ABD, DSD Will continue to follow Patient to be discharged to [facility] on Thursday if possible for further wound care
[2018-11-22] MEDS: Meropenem 1 GM in Sodium Chloride 0.9% 100 ML IVPB SCH ×3 (01:41→17:32)
[2018-11-22 06:04] LABS: INR 1.7; PROTHROMBIN TIME 19.5 Seconds (9.8-13.1)
[2018-11-22 06:07] LABS: PARTIAL THROMBOPLASTIN TIME 32.3 Seconds (25.6-37.1)
[2018-11-22] MEDS: Levothyroxine 75 MCG TAB PO SCH (06:22)
[2018-11-22] MEDS: Fluticasone-Salmeterol 250-50mcg Diskus IH SCH ×2 (06:22→17:31)
--- NOTE | 2018-11-22 06:31 | CP.PCM.PN ---
Subjective - Date & Time of Evaluation Date of Evaluation: 11/22/18 Time of Evaluation: 06:31 - Subjective Subjective: Podiatry Progress Note: Dr. Manley 73 year old female patient seen and evaluated for chronic diabetic ulceration to her R foot. Patient resting comfortably in her wheelchair at bedside and in NAD. Patient states that she has mild pain to her right foot during dressing changes. Patient is aware of plan for [facility] today. Denies N/V/F. Objective - Vital Signs/Intake and Output Vital Signs (last 24 hours): Temp Pulse Resp BP Pulse Ox 98 F 70 19 108/66 98 11/22/18 00:32 11/22/18 00:32 11/22/18 00:32 11/22/18 00:32 11/22/18 00:32 - Medications Medications: Current Medications Acetaminophen (Tylenol 325mg Tab) 650 mg PO Q4 PRN PRN Reason: Pain, moderate (4-7) Atorvastatin Calcium (Lipitor) 20 mg PO HS [facility] Last Admin: 11/21/18 21:09 Dose: 20 mg Carvedilol (Coreg) 6.25 mg PO Q12 [facility] Last Admin: 11/21/18 21:10 Dose: 6.25 mg Dextrose (Dextrose 50% Inj) 0 ml IV STAT PRN; Protocol PRN Reason: Hypoglycemia Protocol Dextrose (Glutose 15) 0 gm PO ONCE PRN; Protocol PRN Reason: Hypoglycemia Protocol Ergocalciferol (Drisdol 50,000 Intl Units Cap) 1 cap PO [facility] Famotidine (Pepcid) 20 mg PO DAILY [facility] Last Admin: 11/21/18 08:37 Dose: 20 mg Furosemide (Lasix) 20 mg PO DAILY [facility] Last Admin: 11/21/18 08:37 Dose: 20 mg Gabapentin (Neurontin) 200 mg PO Q8 [facility] Last Admin: 11/22/18 01:50 Dose: 200 mg Glucagon (Glucagen Diagnostic Kit) 0 mg IM STAT PRN; Protocol PRN Reason: Hypoglycemia Protocol Meropenem 1 gm/ Sodium (Chloride) 100 mls @ 100 mls/hr IVPB Q8 [facility]; Protocol Last Admin: 11/22/18 01:41 Dose: 100 mls/hr Insulin Human Regular (Humulin R) 0 units SC ACHS [facility]; Protocol Last Admin: 11/21/18 22:00 Dose: Not Given Levothyroxine Sodium (Synthroid) 75 mcg PO DAILY@0630 [facility] Last Admin: 11/22/18 06:22 Dose: 75 mcg Losartan Potassium (Cozaar) 100 mg PO DAILY [facility] Last Admin: 11/21/18 08:40 Dose: 100 mg Metformin HCl (Glucophage) 500 mg PO TID [facility] Last Admin: 11/21/18 16:22 Dose: 500 mg Pantoprazole Sodium (Protonix Ec Tab) 40 mg PO DAILY [facility] Last Admin: 11/21/18 08:36 Dose: 40 mg Potassium Chloride (K-Dur 20 Meq Er Tab) 20 meq PO Q12 [facility] Last Admin: 11/21/18 21:09 Dose: 20 meq Repaglinide (Prandin) 2 mg PO DAILY [facility] Last Admin: 11/21/18 08:36 Dose: 2 mg Fluticasone/Salmeterol (Advair Diskus 250/50) 1 puff IH Q12H [facility] Last Admin: 11/22/18 06:22 Dose: Not Given Sertraline HCl (Zoloft) 25 mg PO DAILY [facility] Last Admin: 11/21/18 08:35 Dose: 25 mg Sitagliptin Phosphate (Januvia) 50 mg PO DAILY [facility] Last Admin: 11/21/18 08:39 Dose: 50 mg - Labs Labs: 11/20/18 05:50 11/20/18 05:50 PT 19.5 Seconds (9.8-13.1) H 11/22/18 05:20 INR 1.7 11/22/18 05:20 APTT 32.3 Seconds (25.6-37.1) 11/22/18 05:20 - Constitutional Appears: Non-toxic, No Acute Distress - Head Exam Head Exam: ATRAUMATIC, NORMOCEPHALIC - Extremities Exam Additional comments: RLE focused exam: Vasc: DP/PT pulses faintly palpable secondary to 2+ non-pitting edema. CFT < 3 seconds to all digits. Skin temperature increased to RLE compared to LLE. Ortho: Pain on palpation noted to plantar ulceration. ROM at all major joints diminished due to swelling and body habitus. MMT 4/5 in all major muscle groups. No gross deformities appreciated Neuro: Gross and protective sensation diminished Derm: Multiple circular diabetic ulceration measuring approximately 5cm x 4cm x 3mm in depth noted to the dorsal, lateral and plantar aspect of the right foot with periwound maceration. Serous drainage and malodor appreciated at all sites with maceration appreciated to periwound skin. No tracking, tunneling or undermining noted to any ulcerations. - Neurological Exam Neurological Exam: Alert, Awake, Oriented x3 - Psychiatric Exam Psychiatric exam: Normal Affect, Normal Mood Assessment and Plan - Assessment and Plan (Free Text) Assessment: 73 year old female with for multiple chronic diabetic ulcerations to her right foot secondary to diabetes Plan: Patient seen and evaluated with Dr. Manley Plan discussed with Dr. Manley Afebrile Continue with IV abx per ID reccs Wound cx taken: Enterobacter Cloacae, E Faecalis RLE venous duplex performed: no evidence of DVT Patient refused MRI Foot X-ray: significant soft tissue swelling consistent with cellulitis, no subc emphysema Patient's wounds flushed with copious amounts of normal, sterile saline and dressed with Silvasorb, xeroform, ABD, DSD Patient to be discharged to [facility] on Thursday for further wound care
[2018-11-22] MEDS: Insulin Regular 100 units/ml SC SCH ×3 (08:30→17:36)
[2018-11-22] MEDS: Potassium Chloride 20 mEq ER Tab PO SCH ×2 (08:41→21:22)
[2018-11-22] MEDS: Pantoprazole 40 mg EC Tab PO SCH (08:42)
[2018-11-22] MEDS: SILVASORB ANTIMICROBIAL WOUND GEL TP SCH (08:43)
--- NOTE | 2018-11-22 11:19 | CP.PCM.PN ---
Subjective - Date & Time of Evaluation Date of Evaluation: 11/22/18 Time of Evaluation: 11:19 - Subjective Subjective: ID Note- Patient seen and examined today. She denies any fever or chills. she has refused MRI. She states she is being d/c back to [facility] today. denies any diarrhea. Objective - Vital Signs/Intake and Output Vital Signs (last 24 hours): Temp Pulse Resp BP Pulse Ox 97.8 F 79 20 150/64 98 11/22/18 08:22 11/22/18 08:22 11/22/18 08:22 11/22/18 08:41 11/22/18 08:22 - Medications Medications: Current Medications Acetaminophen (Tylenol 325mg Tab) 650 mg PO Q4 PRN PRN Reason: Pain, moderate (4-7) Atorvastatin Calcium (Lipitor) 20 mg PO HS [facility] Last Admin: 11/21/18 21:09 Dose: 20 mg Carvedilol (Coreg) 6.25 mg PO Q12 [facility] Last Admin: 11/22/18 08:40 Dose: 6.25 mg Dextrose (Dextrose 50% Inj) 0 ml IV STAT PRN; Protocol PRN Reason: Hypoglycemia Protocol Dextrose (Glutose 15) 0 gm PO ONCE PRN; Protocol PRN Reason: Hypoglycemia Protocol Ergocalciferol (Drisdol 50,000 Intl Units Cap) 1 cap PO [facility] Famotidine (Pepcid) 20 mg PO DAILY [facility] Last Admin: 11/22/18 08:42 Dose: 20 mg Furosemide (Lasix) 20 mg PO DAILY [facility] Last Admin: 11/22/18 08:41 Dose: 20 mg Gabapentin (Neurontin) 200 mg PO Q8 [facility] Last Admin: 11/22/18 08:42 Dose: 200 mg Glucagon (Glucagen Diagnostic Kit) 0 mg IM STAT PRN; Protocol PRN Reason: Hypoglycemia Protocol Meropenem 1 gm/ Sodium (Chloride) 100 mls @ 100 mls/hr IVPB Q8 [facility]; Protocol Last Admin: 11/22/18 08:37 Dose: 100 mls/hr Insulin Human Regular (Humulin R) 0 units SC ACHS [facility]; Protocol Last Admin: 11/22/18 08:30 Dose: Not Given Levothyroxine Sodium (Synthroid) 75 mcg PO DAILY@0630 [facility] Last Admin: 11/22/18 06:22 Dose: 75 mcg Losartan Potassium (Cozaar) 100 mg PO DAILY [facility] Last Admin: 11/22/18 08:40 Dose: 100 mg Metformin HCl (Glucophage) 500 mg PO TID [facility] Last Admin: 11/22/18 08:40 Dose: 500 mg Pantoprazole Sodium (Protonix Ec Tab) 40 mg PO DAILY [facility] Last Admin: 11/22/18 08:42 Dose: 40 mg Potassium Chloride (K-Dur 20 Meq Er Tab) 20 meq PO Q12 [facility] Last Admin: 11/22/18 08:41 Dose: 20 meq Repaglinide (Prandin) 2 mg PO DAILY [facility] Last Admin: 11/22/18 08:42 Dose: 2 mg Fluticasone/Salmeterol (Advair Diskus 250/50) 1 puff IH Q12H [facility] Last Admin: 11/22/18 06:22 Dose: Not Given Sertraline HCl (Zoloft) 25 mg PO DAILY [facility] Last Admin: 11/22/18 08:42 Dose: 25 mg Sitagliptin Phosphate (Januvia) 50 mg PO DAILY [facility] Last Admin: 11/22/18 08:40 Dose: 50 mg Warfarin Sodium (Coumadin) 3 mg PO ONCE ONE; Protocol Stop: 11/22/18 17:01 Warfarin Sodium (Coumadin) 4 mg PO 1700 ONE Stop: 11/22/18 17:01 - Labs Labs: - Additional Findings Additional findings: - Constitutional Appears: No Acute Distress - Head Exam Head Exam: ATRAUMATIC - Eye Exam Eye Exam: EOMI, PERRL - Neck Exam Neck exam: Positive for: Full Rom - Respiratory Exam Respiratory Exam: Clear to Auscultation Bilateral, NORMAL BREATHING PATTERN - Cardiovascular Exam Cardiovascular Exam: RRR, +S1, +S2 - GI/Abdominal Exam GI & Abdominal Exam: Normal Bowel Sounds, Soft Additional comments: NT, ND - Extremities Exam Additional comments: right foot wrapped in gauze and florin band as per podiatry erythema in lower calf and ankle region is somewhat less today - Neurological Exam Neurological exam: Alert, Oriented x 3 Laboratory Results - last 72 hr 11/19/18 11/19/18 11/19/18 10:08 16:18 21:38 WBC RBC Hgb Hct MCV MCH MCHC RDW Plt Count PT INR APTT Sodium Potassium Chloride Carbon Dioxide Anion Gap BUN Creatinine Est GFR ( Amer) Est GFR (Non-Af Amer) POC Glucose (mg/dL) 108 145 H Random Glucose Hemoglobin A1c 6.0 Calcium Total Bilirubin AST ALT Alkaline Phosphatase Total Protein Albumin Globulin Albumin/Globulin Ratio 11/20/18 11/20/18 11/20/18 05:20 05:50 05:50 WBC 7.9 RBC 3.93 Hgb 10.4 L Hct 32.6 L MCV 82.9 MCH 26.4 L MCHC 31.9 L RDW 15.7 H Plt Count 236 PT INR APTT Sodium 139 Potassium 4.6 Chloride 104 Carbon Dioxide 28 Anion Gap 12 BUN 23 H Creatinine 0.8 Est GFR ( Amer) > 60 Est GFR (Non-Af Amer) > 60 POC Glucose (mg/dL) 116 H Random Glucose 122 H Hemoglobin A1c Calcium 9.3 Total Bilirubin 0.2 AST 24 ALT 20 Alkaline Phosphatase 90 Total Protein 7.6 Albumin 3.4 L Globulin 4.2 H Albumin/Globulin Ratio 0.8 L 11/20/18 11/20/18 11/20/18 11:07 15:54 17:45 WBC RBC Hgb Hct MCV MCH MCHC RDW Plt Count PT 19.3 H INR 1.7 APTT Sodium Potassium Chloride Carbon Dioxide Anion Gap BUN Creatinine Est GFR ( Amer) Est GFR (Non-Af Amer) POC Glucose (mg/dL) 120 H 96 Random Glucose Hemoglobin A1c Calcium Total Bilirubin AST ALT Alkaline Phosphatase Total Protein Albumin Globulin Albumin/Globulin Ratio 11/20/18 11/21/18 11/21/18 20:52 05:40 08:00 WBC RBC Hgb Hct MCV MCH MCHC RDW Plt Count PT 18.6 H INR 1.6 APTT Sodium Potassium Chloride Carbon Dioxide Anion Gap BUN Creatinine Est GFR ( Amer) Est GFR (Non-Af Amer) POC Glucose (mg/dL) 140 H 173 H Random Glucose Hemoglobin A1c Calcium Total Bilirubin AST ALT Alkaline Phosphatase Total Protein Albumin Globulin Albumin/Globulin Ratio 11/21/18 11/21/18 11/22/18 16:36 21:23 05:20 WBC RBC Hgb Hct MCV MCH MCHC RDW Plt Count PT 19.5 H INR 1.7 APTT 32.3 Sodium Potassium Chloride Carbon Dioxide Anion Gap BUN Creatinine Est GFR ( Amer) Est GFR (Non-Af Amer) POC Glucose (mg/dL) 115 H 104 Random Glucose Hemoglobin A1c Calcium Total Bilirubin AST ALT Alkaline Phosphatase Total Protein Albumin Globulin Albumin/Globulin Ratio 11/22/18 11/22/18 05:42 11:05 WBC RBC Hgb Hct MCV MCH MCHC RDW Plt Count PT INR APTT Sodium Potassium Chloride Carbon Dioxide Anion Gap BUN Creatinine Est GFR ( Amer) Est GFR (Non-Af Amer) POC Glucose (mg/dL) 92 92 Random Glucose Hemoglobin A1c Calcium Total Bilirubin AST ALT Alkaline Phosphatase Total Protein Albumin Globulin Albumin/Globulin Ratio Microbiology 11/17/18 18:45 Blood-Venous Blood Culture - Preliminary NO GROWTH AFTER 4 DAYS 11/17/18 18:40 Blood-Venous Blood Culture - Preliminary NO GROWTH AFTER 4 DAYS 11/18/18 15:40 Blood-Venous Blood Culture - Preliminary NO GROWTH AFTER 3 DAYS 11/18/18 15:30 Blood-Venous Blood Culture - Preliminary NO GROWTH AFTER 3 DAYS 11/17/18 12:00 Leg - Right Gram Stain - Final 11/17/18 12:00 Leg - Right Wound Culture - Final Enterobacter Cloacae Ssp Cloac Enterococcus Faecalis Assessment and Plan (1) DM2 (diabetes mellitus, type 2) Status: Acute (2) Cellulitis Status: Acute (3) Chronic a-fib Status: Acute (4) Diabetic foot ulcer Status: Acute - Assessment and Plan (Free Text) Assessment: A/P- 73 year old female with obesity, DM II, A.fib chronic diabetic foot ulcers but now right foot ulcers are infected and has LE cellulitis as well. afebrile blood cx- neg x 4 right foot wound cx prelim- Enterobacter cloacae and e.fecalis PLan- base don the ID and sens of the wound cx ,advise to continue with IV meropnem to cover for the previous wound cx ( ESBL) day #5 also advise to continue with IV vancomyicn. day #6 Keep vanco trough <15. keep legs elevated. advise total of 3 weeks of above antibiotics at [facility]. advise to check vanco trough every 4th day and keep is <15. check creatinine once a week. advise close f/u with podiatry and wound care. All above d/w patient at length and she verbalizes full understanding of all above and agrees with above plan of care. 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
--- NOTE | 2018-11-22 11:29 | CP.PCM.PCO ---
Assessment & Plan - Assessment and Plan (Free Text) Assessment: patient will require 3 more weeks of iv abx, Merrem 1gm ivpb q8 and Vancomycin 1gm iv q12 as per check vanco trough prior to every 4 th dose monitor cbc, renal fx
--- NOTE | 2018-11-22 11:35 | PN ---
DATE: 11/22/2018 SUBJECTIVE: The patient seen and examined. Interim events noted. Consults noted and appreciated. The patient remains in regular medical floor, awake, responsive, feels okay and wants to go to rehab, tired of being in hospital. No chest pain, no shortness of breath. Foot pain is adequately controlled. PHYSICAL EXAMINATION: GENERAL: The patient is in no acute distress. VITAL SIGNS: Stable. HEART: S1 and S2, normal and regular. LUNGS: Good bilateral air exchange. ABDOMEN: Soft and nontender. EXTREMITIES: The patient's foot are under surgical dressings. No sign of distal complication. No edema. No calf swelling. No tenderness. No acute ischemia. The patient does have dependent edema. CENTRAL NERVOUS SYSTEM: Essentially unchanged. DIAGNOSTIC DATA: Available diagnostic data reviewed. ASSESSMENT AND PLAN: Overall, the patient is medically stable. Plan as ordered. Kushal Harmon MD
[2018-11-23] MEDS: Meropenem 1 GM in Sodium Chloride 0.9% 100 ML IVPB SCH ×3 (01:53→17:22)
[2018-11-23] MEDS: Levothyroxine 75 MCG TAB PO SCH (05:35)
--- NOTE | 2018-11-23 07:56 | CP.PCM.PN ---
Subjective - Date & Time of Evaluation Date of Evaluation: 11/23/18 Time of Evaluation: 07:56 - Subjective Subjective: Podiatry Progress Note: Dr. Manley 73 year old female patient seen and evaluated for chronic diabetic ulceration to her R foot. Patient resting comfortably in her wheelchair and in NAD. Patient denies any acute events overnight. Patient states that her foot hurts during dressing changes. Denies N/V/F/CP. Objective - Vital Signs/Intake and Output Vital Signs (last 24 hours): Temp Pulse Resp BP Pulse Ox 97.6 F 70 18 138/65 95 11/22/18 23:20 11/22/18 23:20 11/22/18 23:20 11/22/18 23:20 11/22/18 23:20 - Medications Medications: Current Medications Acetaminophen (Tylenol 325mg Tab) 650 mg PO Q4 PRN PRN Reason: Pain, moderate (4-7) Atorvastatin Calcium (Lipitor) 20 mg PO HS [facility] Last Admin: 11/22/18 21:22 Dose: 20 mg Carvedilol (Coreg) 6.25 mg PO Q12 [facility] Last Admin: 11/22/18 21:20 Dose: 6.25 mg Dextrose (Dextrose 50% Inj) 0 ml IV STAT PRN; Protocol PRN Reason: Hypoglycemia Protocol Dextrose (Glutose 15) 0 gm PO ONCE PRN; Protocol PRN Reason: Hypoglycemia Protocol Ergocalciferol (Drisdol 50,000 Intl Units Cap) 1 cap PO [facility] Famotidine (Pepcid) 20 mg PO DAILY [facility] Last Admin: 11/22/18 08:42 Dose: 20 mg Furosemide (Lasix) 20 mg PO DAILY [facility] Last Admin: 11/22/18 08:41 Dose: 20 mg Gabapentin (Neurontin) 200 mg PO Q8 [facility] Last Admin: 11/23/18 01:53 Dose: 200 mg Glucagon (Glucagen Diagnostic Kit) 0 mg IM STAT PRN; Protocol PRN Reason: Hypoglycemia Protocol Meropenem 1 gm/ Sodium (Chloride) 100 mls @ 100 mls/hr IVPB Q8 [facility]; Protocol Last Admin: 11/23/18 01:53 Dose: Not Given Vancomycin HCl 1 gm/ Sodium (Chloride) 250 mls @ 166.667 mls/hr IVPB DAILY [facility]; Protocol Last Admin: 11/22/18 16:16 Dose: Not Given Insulin Human Regular (Humulin R) 0 units SC ACHS [facility]; Protocol Last Admin: 11/22/18 17:36 Dose: Not Given Levothyroxine Sodium (Synthroid) 75 mcg PO DAILY@0630 [facility] Last Admin: 11/23/18 05:35 Dose: 75 mcg Losartan Potassium (Cozaar) 100 mg PO DAILY [facility] Last Admin: 11/22/18 08:40 Dose: 100 mg Metformin HCl (Glucophage) 500 mg PO TID [facility] Last Admin: 11/22/18 17:31 Dose: 500 mg Pantoprazole Sodium (Protonix Ec Tab) 40 mg PO DAILY [facility] Last Admin: 11/22/18 08:42 Dose: 40 mg Potassium Chloride (K-Dur 20 Meq Er Tab) 20 meq PO Q12 [facility] Last Admin: 11/22/18 21:22 Dose: 20 meq Repaglinide (Prandin) 2 mg PO DAILY [facility] Last Admin: 11/22/18 08:42 Dose: 2 mg Fluticasone/Salmeterol (Advair Diskus 250/50) 1 puff IH Q12H [facility] Last Admin: 11/22/18 17:31 Dose: Not Given Sertraline HCl (Zoloft) 25 mg PO DAILY [facility] Last Admin: 11/22/18 08:42 Dose: 25 mg Sitagliptin Phosphate (Januvia) 50 mg PO DAILY [facility] Last Admin: 11/22/18 08:40 Dose: 50 mg - Labs Labs: 11/20/18 05:50 11/20/18 05:50 PT 19.5 Seconds (9.8-13.1) H 11/22/18 05:20 INR 1.7 11/22/18 05:20 APTT 32.3 Seconds (25.6-37.1) 11/22/18 05:20 - Constitutional Appears: Non-toxic, No Acute Distress - Head Exam Head Exam: ATRAUMATIC, NORMOCEPHALIC - Extremities Exam Additional comments: RLE focused exam: Vasc: DP/PT pulses faintly palpable secondary to 2+ non-pitting edema. CFT < 3 seconds to all digits. Skin temperature increased to RLE compared to LLE. Ortho: Pain on palpation noted to plantar ulceration. ROM at all major joints diminished due to swelling and body habitus. MMT 4/5 in all major muscle groups. No gross deformities appreciated Neuro: Gross and protective sensation diminished Derm: Multiple circular diabetic ulceration measuring approximately 5cm x 4cm x 3mm in depth noted to the dorsal, lateral and plantar aspect of the right foot with periwound maceration. Serous drainage and malodor appreciated at all sites with maceration appreciated to periwound skin. No tracking, tunneling or und ermining noted to any ulcerations. - Neurological Exam Neurological Exam: Alert, Awake, Oriented x3 - Psychiatric Exam Psychiatric exam: Normal Affect, Normal Mood Assessment and Plan - Assessment and Plan (Free Text) Assessment: 73 year old female with for multiple chronic diabetic ulcerations to her right foot secondary to diabetes Plan: Patient seen and evaluated Plan discussed with Dr. Manley Afebrile Continue with IV abx per ID reccs; Per chart review, patient will require 3 more weeks of iv abx, Merrem 1gm ivpb q8 and Vancomycin 1gm iv q12 as per Wound cx taken: Enterobacter Cloacae, E Faecalis RLE venous duplex performed: no evidence of DVT Patient refused MRI Foot X-ray: significant soft tissue swelling consistent with cellulitis, no subc emphysema Patient's wounds flushed with copious amounts of normal, sterile saline and dressed with Silvasorb, xeroform, ABD, DSD No surgical intervention from podiatric standpoint at this time
[2018-11-23] MEDS: Potassium Chloride 20 mEq ER Tab PO SCH ×2 (09:31→21:46)
[2018-11-23] MEDS: Insulin Regular 100 units/ml SC SCH ×4 (09:31→22:00)
[2018-11-23] MEDS: SILVASORB ANTIMICROBIAL WOUND GEL TP SCH (09:32)
[2018-11-23] MEDS: Pantoprazole 40 mg EC Tab PO SCH (09:32)
--- NOTE | 2018-11-23 09:46 | PQF ---
PROVIDER RESPONSE TEXT: Agree with dx obesity with BMI 47 REVIEWER QUERY TEXT: Clarification of Clinical Diagnostic Findings Please clarify if you are in agreement with the BMI: 47.4? OR: Disagree OR: Other explanation of clinical finding Listed in the EMR: 5ft 5in 285lb BMI:47.4 H and P: A/P- 73 year old female with obesity The patient's Clinical Indicators include: --- Query created by: Lyla Thomas on 11/19/2018 2:29 PM Electronically signed by: Dee Mix 11/23/2018 9:44 AM
[2018-11-23] MEDS ORDERED: Lidocaine 1% Inj (20ml) ONE (10:38)
--- NOTE | 2018-11-23 11:13 | PCM.SURG1 ---
Surgeon's Initial Post Op Note - Surgeon's Notes Surgeon: Freddie Gerardo MD Solution Design Engineer: NONE Type of Anesthesia: Local Pre-Operative Diagnosis: Poor venous access Operative Findings: US showed a patent right basilic vein Post-Operative Diagnosis: Poor venous access Operation Performed: single lumen picc right arm, 39 cm. Specimen/Specimens Removed: NONE Estimated Blood Loss: EBL {In ML}: 2 Blood Products Given: N/A Drains Used: No Drains Post-Op Condition: Fair Date of Surgery/Procedure: 11/23/18 Time of Surgery/Procedure: 11:10
--- NOTE | 2018-11-23 12:23 | CP.PCM.PN ---
<Dee Mix - Last Filed: 11/23/18 12:36> Subjective - Date & Time of Evaluation Date of Evaluation: 11/23/18 Time of Evaluation: 07:15 - Subjective Subjective: No acute overnight events. Pt seen and examined by bedside this AM. No new c/o this AM. Pt wants to go to longterm, waiting for acceptance to [facility]. Podiatry dressing this AM. Tolerating IV abx. Objective - Vital Signs/Intake and Output Vital Signs (last 24 hours): Temp Pulse Resp BP Pulse Ox 97.0 F L 92 H 18 162/90 H 98 11/23/18 11:16 11/23/18 11:16 11/23/18 11:16 11/23/18 11:16 11/23/18 11:16 - Medications Medications: Current Medications Acetaminophen (Tylenol 325mg Tab) 650 mg PO Q4 PRN PRN Reason: Pain, moderate (4-7) Atorvastatin Calcium (Lipitor) 20 mg PO HS [facility] Last Admin: 11/22/18 21:22 Dose: 20 mg Carvedilol (Coreg) 6.25 mg PO Q12 [facility] Last Admin: 11/23/18 09:30 Dose: 6.25 mg Dextrose (Dextrose 50% Inj) 0 ml IV STAT PRN; Protocol PRN Reason: Hypoglycemia Protocol Dextrose (Glutose 15) 0 gm PO ONCE PRN; Protocol PRN Reason: Hypoglycemia Protocol Ergocalciferol (Drisdol 50,000 Intl Units Cap) 1 cap PO [facility] Famotidine (Pepcid) 20 mg PO DAILY [facility] Last Admin: 11/23/18 09:32 Dose: 20 mg Furosemide (Lasix) 20 mg PO DAILY [facility] Last Admin: 11/23/18 09:31 Dose: 20 mg Gabapentin (Neurontin) 200 mg PO Q8 [facility] Last Admin: 11/23/18 09:32 Dose: 200 mg Glucagon (Glucagen Diagnostic Kit) 0 mg IM STAT PRN; Protocol PRN Reason: Hypoglycemia Protocol Meropenem 1 gm/ Sodium (Chloride) 100 mls @ 100 mls/hr IVPB Q8 [facility]; Protocol Last Admin: 11/23/18 01:53 Dose: Not Given Vancomycin HCl 1 gm/ Sodium (Chloride) 250 mls @ 166.667 mls/hr IVPB DAILY [facility]; Protocol Last Admin: 11/22/18 16:16 Dose: Not Given Insulin Human Regular (Humulin R) 0 units SC [facility]; Protocol Last Admin: 11/23/18 09:31 Dose: Not Given Levothyroxine Sodium (Synthroid) 75 mcg PO DAILY@0630 [facility] Last Admin: 11/23/18 05:35 Dose: 75 mcg Losartan Potassium (Cozaar) 100 mg PO DAILY [facility] Last Admin: 11/23/18 09:30 Dose: 100 mg Metformin HCl (Glucophage) 500 mg PO TID [facility] Last Admin: 11/23/18 09:30 Dose: 500 mg Pantoprazole Sodium (Protonix Ec Tab) 40 mg PO DAILY [facility] Last Admin: 11/23/18 09:32 Dose: 40 mg Potassium Chloride (K-Dur 20 Meq Er Tab) 20 meq PO Q12 [facility] Last Admin: 11/23/18 09:31 Dose: 20 meq Repaglinide (Prandin) 2 mg PO DAILY [facility] Last Admin: 11/23/18 09:32 Dose: 2 mg Fluticasone/Salmeterol (Advair Diskus 250/50) 1 puff IH Q12H [facility] Last Admin: 11/22/18 17:31 Dose: Not Given Sertraline HCl (Zoloft) 25 mg PO DAILY [facility] Last Admin: 11/23/18 09:32 Dose: 25 mg Sitagliptin Phosphate (Januvia) 50 mg PO DAILY [facility] Last Admin: 11/23/18 09:31 Dose: 50 mg - Labs Labs: 11/20/18 05:50 11/20/18 05:50 PT 19.5 Seconds (9.8-13.1) H 11/22/18 05:20 INR 1.7 11/22/18 05:20 APTT 32.3 Seconds (25.6-37.1) 11/22/18 05:20 - Constitutional Appears: No Acute Distress, Other (sitting in chair ) - Head Exam Head Exam: NORMAL INSPECTION - Eye Exam Eye Exam: Normal appearance - ENT Exam ENT Exam: Mucous Membranes Moist - Respiratory Exam Respiratory Exam: Clear to Ausculation Bilateral, NORMAL BREATHING PATTERN. absent: Wheezes - Cardiovascular Exam Cardiovascular Exam: REGULAR RHYTHM, +S1, +S2 - GI/Abdominal Exam GI & Abdominal Exam: Soft, Normal Bowel Sounds. absent: Tenderness - Extremities Exam Additional comments: lower ext b/l dressing intact Assessment and Plan (1) Cellulitis Status: Acute (2) Diabetic foot ulcer Status: Chronic (3) Atrial fibrillation Status: Chronic (4) Diabetes mellitus Status: Chronic (5) HTN (hypertension) Status: Chronic (6) Hypothyroid Status: Chronic - Assessment and Plan (Free Text) Assessment: Assessment/Plan: 71 YO Female with PMHx of CHF, DM, controlled HTN, atrial fibrillation and diabetic neuropathy is admitted for worsening diabetic foot ulcer and cellulites. Pending placement to residential rehab for Iv abx and Physical therapy and rehab. Cellulites, acute -noted in RLE -afebrile, leukocytosis resolved -ext u/s no DVT appreciated -c/w with IV abx -ID on board; patient will require 3 more weeks of iv abx, Merrem 1gm ivpb q8 and Vancomycin 1gm iv q12 -PICC line today Diabetic foot ulcer, infected -acute on chronic -Podiatry, wound care on board A fib/ HTN/ NIDDM -c.w home meds -adjustments as needed Anemia -chronic -c/t to monitor -consider FESOl if remains low DVT prolx and a fib: warfarin Plan as ordered <Kushal Harmon K - Last Filed: 11/25/18 11:50> Objective - Vital Signs/Intake and Output Vital Signs (last 24 hours): Temp Pulse Resp BP Pulse Ox 98.1 F 63 20 137/82 96 11/24/18 08:30 11/24/18 09:23 11/24/18 08:30 11/24/18 09:22 11/24/18 08:30 - Labs Labs: 11/24/18 05:45 11/24/18 05:45 PT 21.0 Seconds (9.8-13.1) H 11/24/18 05:45 INR 1.8 11/24/18 05:45 APTT 34.9 Seconds (25.6-37.1) 11/23/18 14:57 Assessment and Plan - Assessment and Plan (Free Text) Assessment: Patient was personally seen and examined by me in rounds with residents. Available labs and diagnostic data reviewed. Case, Patient's condition and management plan discussed with residents in rounds. Agree with resident's progress note. Plan: As ordered.
[2018-11-23 15:12] LABS: PROTHROMBIN TIME 22.2 Seconds (9.8-13.1)
[2018-11-23 15:15] LABS: PARTIAL THROMBOPLASTIN TIME 34.9 Seconds (25.6-37.1)
[2018-11-23 16:29] VITALS: RESP 20
[2018-11-23] MEDS: Fluticasone-Salmeterol 250-50mcg Diskus IH SCH (17:19)
[2018-11-24 00:40] VITALS: TEMP 98.1
[2018-11-24] MEDS: Meropenem 1 GM in Sodium Chloride 0.9% 100 ML IVPB SCH (01:11)
[2018-11-24] MEDS: Levothyroxine 75 MCG TAB PO SCH (05:37)
[2018-11-24] MEDS: Fluticasone-Salmeterol 250-50mcg Diskus IH SCH ×2 (05:37→05:48)
[2018-11-24] MEDS ORDERED: Ergocalciferol 50,000 Intl Units Cap PO SCH (06:16)
[2018-11-24 06:47] LABS: HEMOGLOBIN 10.3 g/dL (12.0-16.0); MEAN CELL VOLUME 82.1 fl (81.0-99.0); MEAN CORPUSCULAR HEMOGLOBIN 26.6 pg (27.0-31.0); MEAN CORPUSCULAR HGB CONC 32.4 g/dL (33.0-37.0); RBC 3.89 Mil/uL (3.80-5.20); RED CELL DISTRIBUTION WIDTH 15.7 % (11.5-14.5); WHITE BLOOD COUNT 7.8 K/uL (4.8-10.8)
[2018-11-24 06:54] LABS: INR 1.8
[2018-11-24 06:55] LABS: BLOOD UREA NITROGEN 21 mg/dl (7-17); CALCIUM 9.3 mg/dL (8.4-10.2); GFR NON-AFRICAN AMERICAN > 60
[2018-11-24] MEDS: Insulin Regular 100 units/ml SC SCH ×2 (07:56→12:00)
[2018-11-24 08:30] VITALS: BP 137/82; O2SAT 96
[2018-11-24] MEDS: SILVASORB ANTIMICROBIAL WOUND GEL TP SCH (09:22)
[2018-11-24] MEDS: Pantoprazole 40 mg EC Tab PO SCH (09:23)
[2018-11-24] MEDS: Potassium Chloride 20 mEq ER Tab PO SCH (09:24)
--- NOTE | 2018-11-24 11:36 | CP.PCM.DIS ---
Provider - Provider Date of Admission: 11/17/18 17:56 Attending physician: Kushal Harmon MD Consults: 11/17/18 21:06 Infectious Disease Consult Stat Comment: Consulting Provider: Carolann Conway Consulting Physician: Carolann Conway Reason for Consult: Diabetic foot infection of right foot 11/18/18 02:07 Nursing Referral for Wound Care Routine Comment: Physician Instructions: Reason For Exam: sacral readness 11/18/18 06:22 Case Management Referral Routine Comment: Physician Instructions: Reason For Exam: Reason for Referral: [facility] Consult Routine Comment: Consulting Provider: Mk Manley Consulting Physician: Mk aMnley Reason for Consult: sweeeling,redness bilateral lower ext 11/18/18 10:46 Wound Care [Nursing Referral for Wound Care] Routine Comment: Physician Instructions: Reason For Exam: ulcer on foot Time Spent in preparation of Discharge (in minutes): 35 Diagnosis - Discharge Diagnosis (1) Cellulitis Status: Acute (2) Diabetic foot ulcer Status: Chronic (3) Atrial fibrillation Status: Chronic (4) Diabetes mellitus Status: Chronic (5) HTN (hypertension) Status: Chronic (6) Hypothyroid Status: Chronic Hospital Course - Lab Results Lab Results: Micro Results 11/18/18 15:40 Blood-Venous Blood Culture - Final NO GROWTH AFTER 5 DAYS 11/18/18 15:40 Blood-Venous Gram Stain - Final TEST NOT PERFORMED 11/18/18 15:30 Blood-Venous Blood Culture - Final NO GROWTH AFTER 5 DAYS 11/18/18 15:30 Blood-Venous Gram Stain - Final TEST NOT PERFORMED 11/17/18 18:45 Blood-Venous Blood Culture - Final NO GROWTH AFTER 5 DAYS 11/17/18 18:45 Blood-Venous Gram Stain - Final TEST NOT PERFORMED 11/17/18 18:40 Blood-Venous Blood Culture - Final NO GROWTH AFTER 5 DAYS 11/17/18 18:40 Blood-Venous Gram Stain - Final TEST NOT PERFORMED 11/17/18 12:00 Leg - Right Gram Stain - Final 11/17/18 12:00 Leg - Right Wound Culture - Final Enterobacter Cloacae Ssp Cloac Enterococcus Faecalis Most Recent Lab Values WBC 7.8 K/uL (4.8-10.8) 11/24/18 05:45 RBC 3.89 Mil/uL (3.80-5.20) 11/24/18 05:45 Hgb 10.3 g/dL (12.0-16.0) L 11/24/18 05:45 Hct 31.9 % (34.0-47.0) L 11/24/18 05:45 MCV 82.1 fl (81.0-99.0) 11/24/18 05:45 MCH 26.6 pg (27.0-31.0) L 11/24/18 05:45 MCHC 32.4 g/dL (33.0-37.0) L 11/24/18 05:45 RDW 15.7 % (11.5-14.5) H 11/24/18 05:45 Plt Count 204 K/uL (130-400) 11/24/18 05:45 MPV 9.3 fl (7.2-11.7) 11/17/18 18:40 Neut % (Auto) 78.9 % (50.0-75.0) H 11/17/18 18:40 Lymph % (Auto) 12.1 % (20.0-40.0) L 11/17/18 18:40 [place] % (Auto) 5.8 % (0.0-10.0) 11/17/18 18:40 Eos % (Auto) 2.1 % (0.0-4.0) 11/17/18 18:40 Baso % (Auto) 1.1 % (0.0-2.0) 11/17/18 18:40 Neut # (Auto) 9.4 K/uL (1.8-7.0) H 11/17/18 18:40 Lymph # (Auto) 1.4 K/uL (1.0-4.3) 11/17/18 18:40 [place] # (Auto) 0.7 K/uL (0.0-0.8) 11/17/18 18:40 Eos # (Auto) 0.3 K/uL (0.0-0.7) 11/17/18 18:40 Baso # (Auto) 0.1 K/uL (0.0-0.2) 11/17/18 18:40 ESR 59 mm/hr (0-30) H 11/17/18 18:40 PT 21.0 Seconds (9.8-13.1) H 11/24/18 05:45 INR 1.8 11/24/18 05:45 APTT 34.9 Seconds (25.6-37.1) 11/23/18 14:57 Sodium 141 mmol/l (132-148) 11/24/18 05:45 Potassium 4.7 MMOL/L (3.6-5.0) 11/24/18 05:45 Chloride 100 mmol/L (98-107) 11/24/18 05:45 Carbon Dioxide 32 mmol/L (22-30) H 11/24/18 05:45 Anion Gap 14 (10-20) 11/24/18 05:45 BUN 21 mg/dl (7-17) H 11/24/18 05:45 Creatinine 0.9 mg/dl (0.7-1.2) 11/24/18 05:45 Est GFR ( Amer) > 60 11/24/18 05:45 Est GFR (Non-Af Amer) > 60 11/24/18 05:45 POC Glucose (mg/dL) 135 mg/dL (65-110) H 11/24/18 05:23 Random Glucose 133 mg/dL (65-105) H 11/24/18 05:45 Hemoglobin A1c 6.0 % (4.2-6.5) 11/19/18 10:08 Calcium 9.3 mg/dL (8.4-10.2) 11/24/18 05:45 Phosphorus 3.5 mg/dl (2.5-4.5) 11/18/18 09:22 Magnesium 1.7 MG/DL (1.6-2.3) 11/18/18 09:22 Total Bilirubin 0.2 mg/dl (0.2-1.3) 11/20/18 05:50 AST 24 U/L (14-36) 11/20/18 05:50 ALT 20 U/L (9-52) 11/20/18 05:50 Alkaline Phosphatase 90 U/L (38-126) 11/20/18 05:50 Total Protein 7.6 G/DL (6.3-8.2) 11/20/18 05:50 Albumin 3.4 g/dL (3.5-5.0) L 11/20/18 05:50 Globulin 4.2 gm/dL (2.2-3.9) H 11/20/18 05:50 Albumin/Globulin Ratio 0.8 (1.0-2.1) L 11/20/18 05:50 Vitamin B12 286 pg/mL (239-931) 11/18/18 09:22 TSH 3rd Generation 4.20 mIU/ML (0.46-4.68) 11/18/18 09:22 Vancomycin Trough 15.3 ug/mL (5.0-10.0) H 11/22/18 12:19 - Hospital Course Hospital Course: 71 YO Female with PMHx of CHF, DM, controlled HTN, atrial fibrillation and diabetic neuropathy is admitted for worsening diabetic foot ulcer and cellulites. Podiatry was consulted, findings sig for infected foot ulcers and cellulites. Area was clean and wound care applied. ID was consulted, recs include 3 weeks of IV abx with Meropenem and vancomycin, and advise to check vanco trough every 4th day and keep vanc <15 and check creatinine once a week. PICC line was appreciated on 11/23. Pt seen and examined by bedside this AM, tolerating IV abx and doing well. Will d/c patient to [facility] for rehab, PT and IV abx. Pt to follow up with PMD and Podiatry in 1 week. Discharge Exam - Head Exam Head Exam: NORMAL INSPECTION - Eye Exam Eye Exam: Normal appearance - ENT Exam ENT Exam: Mucous Membranes Moist - Respiratory Exam Respiratory Exam: Decreased Breath Sounds, Clear to PA & Lateral, NORMAL BREATHING PATTERN. absent: Wheezes - Cardiovascular Exam Cardiovascular Exam: Irregular Rhythm, +S1, +S2 - GI/Abdominal Exam GI & Abdominal Exam: Normal Bowel Sounds, Soft. absent: Tenderness - Extremities Exam Additional comments: lower ext b/l dressing intact Sitting in chair, no acute distress, comfortable - Neurological Exam Neurological exam: Alert, Oriented x3 Discharge Plan - Follow Up Plan Condition: FAIR Disposition: REHAB FACILITY/REHAB UNIT Instructions: Diabetic Foot Ulcer (DC), Cellulitis (Skin Infection), Adult (DC), Foot Care for Diabetics Additional Instructions: follow up with primary MD and domestic laundry worker 1 week Referrals: Kushal Harmon MD [Family Provider] - Mk Manley DPM [Doctor Podiatric Medicine] -
[2018-11-24 13:13] VITALS: PULSE 63
--- NOTE | 2018-11-25 13:50 | VASCULAR ---
PROCEDURE: Date of procedure: 11/23/2018 Procedure: 1. Placement of a right arm PICC with ultrasound and fluoroscopic guidance, CPT 36165 2. PICC tip confirmation with spot radiograph and is in the superior vena cava Medications: 1 percent lidocaine Total Fluoro time: 1.7 Seconds Radiation: 0.34 MGy EBL: 2 cc HISTORY: Infection requiring long-term IV antibiotics TECHNIQUE: Following informed consent and procedure time-out, the patient was placed supine on the interventional table and the right arm prepped and draped in the usual sterile fashion. Ultrasound showed a patent and compressible right basilic vein. After the skin was anesthetized with lidocaine, the basilic vein was accessed with micro micropuncture technique using ultrasound guidance. A guidewire was then advanced under fluoroscopic guidance into the superior vena cava. An image documenting ultrasound guidance for vascular access was permanently saved. The length of the single-lumen 4 [place] PICC was trimmed to 39 centimeters and advanced through a peel-away sheath. The PICC was position with tip of PICC confirm a spot radiograph the superior vena cava. The PICC was secured to the patient's skin. The PICC was flushed. A biopatch and sterile dressing was applied. IMPRESSION: Placement of a single-lumen 4 [place] PICC trimmed to 39 centimeters via right basilic vein. The tip of the PICC is confirmed with spot radiograph and is in the superior vena cava.
== END 2018-11-24 15:00 | DRG 638 ==
LOC: H.ER 15:44 → H.ERHOLD 17:56 → H.MEDSURG1 22:06
PROVIDERS: ADMIT Internal Medicine; ATTEND Internal Medicine
PROC: 05HY33Z Insertion of Infusion Device into Upper Vein, Percutaneous Approach (ICD-10-PCS; principal; 2018-11-23)
PROC: 3E03329 Introduction of Other Anti-infective into Peripheral Vein, Percutaneous Approach (ICD-10-PCS; 2018-11-23)
DX: E11.621 Type 2 diabetes mellitus with foot ulcer (principal); L03.115 Cellulitis of right lower limb; L97.419 Non-pressure chronic ulcer of right heel and midfoot with unspecified severity; I50.42 Chronic combined systolic (congestive) and diastolic (congestive) heart failure; Z68.42 Body mass index [BMI] 45.0-49.9, adult; E11.628 Type 2 diabetes mellitus with other skin complications; E11.40 Type 2 diabetes mellitus with diabetic neuropathy, unspecified; I48.2 Chronic atrial fibrillation; I11.0 Hypertensive heart disease with heart failure; E66.01 Morbid (severe) obesity due to excess calories; B95.2 Enterococcus as the cause of diseases classified elsewhere; B96.89 Other specified bacterial agents as the cause of diseases classified elsewhere; L97.519 Non-pressure chronic ulcer of other part of right foot with unspecified severity; E03.9 Hypothyroidism, unspecified; E78.00 Pure hypercholesterolemia, unspecified; E78.5 Hyperlipidemia, unspecified; D64.9 Anemia, unspecified; R29.6 Repeated falls; M19.90 Unspecified osteoarthritis, unspecified site; F17.210 Nicotine dependence, cigarettes, uncomplicated; Z79.84 Long term (current) use of oral hypoglycemic drugs; Z79.01 Long term (current) use of anticoagulants; Z99.3 Dependence on wheelchair

== ENCOUNTER 2019-01-17 02:28 | Inpatient (IN) | payer MEDICARE, OTHER ==
--- NOTE | 2019-01-17 04:01 | ED PDOC ---
HPI: Neurologic - General Time Seen by Provider: 01/17/19 02:47 Chief Complaint (Nursing): Trauma Chief Complaint (Provider): Generalized Weakness Source: patient - History of Present Illness Allergies/Adverse Reactions: Allergies No Known Allergies Allergy (Verified 01/17/19 02:58) Home Medications: Ambulatory Orders Budesonide/Formoterol Fumarate [Symbicort 160-4.5 Mcg Inhaler] 2 puff IH Q12H 11/13/17 Ergocalciferol (Vitamin D2) [Vitamin D2] 50,000 unit PO WE 11/13/17 Levothyroxine [Synthroid] 75 mcg PO DAILY 11/13/17 Repaglinide [Prandin] 2 mg PO DAILY 11/13/17 Sertraline [Zoloft] 25 mg PO DAILY 11/13/17 Simvastatin [Zocor] 40 mg PO HS 11/13/17 metFORMIN [glucOPHAGE] 500 mg PO TID 11/13/17 Carvedilol [Coreg] 6.25 mg PO Q12 tab 03/24/18 Losartan [Cozaar] 100 mg PO DAILY tab 03/24/18 Furosemide [Lasix] 20 mg PO DAILY 04/16/18 Famotidine [Pepcid] 20 mg PO DAILY 07/31/18 Gabapentin [Neurontin] 200 mg PO Q8 07/31/18 Potassium Chloride [K-Dur 20 mEq ER Tab] 20 meq PO Q12 07/31/18 Cefuroxime Axetil [Cefuroxime] 500 mg PO BID 11/17/18 SITagliptin [Januvia] 50 mg PO DAILY 11/17/18 Warfarin [Coumadin] 5 mg PO QPM 11/17/18 Additional Complaint(s): 73 y/o female with history of diabetes, AFib, hypertension, chronic cellulitis of lower extremities, morbid obesity, and CHF presents to the ED with generalized weakness. Patient states she fell out of a wheel chair that she uses at home and reported she was unable to get up. Her son called 911 as patient's functional status deteriorated and she was unable to move at home. Patient denies any pain or shortness of breath at present time. Patient has bilateral lower extremity dressing from recent debridement performed by Dr. Manley, patient's fiber technologist. PMD: [facility]: Sindhu Past Medical History Reviewed: Historical Data, Nursing Documentation, Vital Signs Vital Signs: Last Vital Signs Temp 98.3 F 01/17/19 02:59 Pulse 105 H 01/17/19 02:59 Resp 18 01/17/19 02:59 BP Pulse Ox 95 01/17/19 02:59 - Medical History PMH: Arthritis, Atrial Fibrillation, Back Problems (Chronic), CHF, Depression, Diabetes, HTN, Hypercholesterolemia, Hypothyroidism Denies: HIV, Chronic Kidney Disease - Surgical History Surgical History: Denies: Cholecystectomy, Pacemaker Other surgeries: multiple debridements of lower extremities - Family History Family History: States: Unknown Family Hx - Home Medications Home Medications: Ambulatory Orders Medication Instructions Recorded Budesonide/Formoterol Fumarate 2 puff IH Q12H 11/13/17 [Symbicort 160-4.5 Mcg Inhaler] Ergocalciferol (Vitamin D2) 50,000 unit PO WE 11/13/17 [Vitamin D2] Levothyroxine [Synthroid] 75 mcg PO DAILY 11/13/17 Repaglinide [Prandin] 2 mg PO DAILY 11/13/17 Sertraline [Zoloft] 25 mg PO DAILY 11/13/17 Simvastatin [Zocor] 40 mg PO HS 11/13/17 metFORMIN [glucOPHAGE] 500 mg PO TID 11/13/17 Carvedilol [Coreg] 6.25 mg PO Q12 tab 03/24/18 Losartan [Cozaar] 100 mg PO DAILY tab 03/24/18 Furosemide [Lasix] 20 mg PO DAILY 04/16/18 Famotidine [Pepcid] 20 mg PO DAILY 07/31/18 Gabapentin [Neurontin] 200 mg PO Q8 07/31/18 Potassium Chloride [K-Dur 20 mEq 20 meq PO Q12 07/31/18 ER Tab] Cefuroxime Axetil [Cefuroxime] 500 mg PO BID 11/17/18 SITagliptin [Januvia] 50 mg PO DAILY 11/17/18 Warfarin [Coumadin] 5 mg PO QPM 11/17/18 - Allergies Allergies/Adverse Reactions: Allergies Allergy/AdvReac Type Severity Reaction Status Date / Time No Known Allergies Allergy Verified 01/17/19 02:58 Review of Systems ROS Statement: Except As Marked, All Systems Reviewed And Found Negative Constitutional: Positive for: Weakness Physical Exam - Reviewed Nursing Documentation Reviewed: Yes Vital Signs Reviewed: Yes - Physical Exam Appears: Positive for: No Acute Distress (morbidly obese) Head Exam: Positive for: ATRAUMATIC, NORMAL INSPECTION, NORMOCEPHALIC Skin: Positive for: Pallor, Rash (disseminated rash to abdomen and waist consistent with Kristan) Eye Exam: Positive for: EOMI, Normal appearance, PERRL Cardiovascular/Chest: Positive for: Regular Rate, Rhythm, Tachycardia. Negative for: Murmur Respiratory: Positive for: Normal Breath Sounds. Negative for: Respiratory D istress Gastrointestinal/Abdominal: Positive for: Other (obese abdomen) Extremity: Positive for: Other (dressing to lower extremities; provider removed dressing - bilateral legs positive erythema positive induration) Neurological/Psych: Positive for: Awake, Alert, Normal Tone. Negative for: Motor/Sensory Deficits - Laboratory Results Result Diagrams: 01/17/19 05:55 01/17/19 05:55 - ECG O2 Sat by Pulse Oximetry: 95 (RA) Pulse Ox Interpretation: Normal Medical Decision Making Medical Decision Making: Time: 03:11 Impression: 73 y/o with extremely poor functional status and generalized weakness in setting of multiple co-morbidities and morbid obesity Initial Plan: * Labs * CXR 06:28 Labs reviewed significant for marked elevation of WBCs. CXR shows cardiomegaly but no other active diseases. Source is likely acute on chronic cellulitis given her extensive history. Spoke to Roseline Gibbs, podiatry resident. Discussed case with Dr. Harmon. PRUDENCE Carter and Gurpreet sanderson. Diagnosis is bilateral lower extremity cellulitis with sepsis Scribe Attestation: Documented by Jf Elias, acting as a scribe Jin Sandy MD Provider Scribe Attestation: All medical record entries made by the Scribe were at my direction and personally dictated by me. I have reviewed the chart and agree that the record accurately reflects my personal performance of the history, physical exam, medical decision making, and the department course for this patient. I have also personally directed, reviewed, and agree with the discharge instructions and d isposition Disposition - Clinical Impression Clinical Impression: Sepsis, Cellulitis - Patient ED Disposition Is Patient to be Admitted: Yes - Disposition Disposition Time: 06:28 Condition: FAIR
[2019-01-17 06:09] LABS: BASO % 0.1 % (0.0-2.0); HEMOGLOBIN 10.3 g/dL (12.0-16.0); LYMPH # 0.9 K/uL (1.0-4.3); LYMPH % 5.5 % (20.0-40.0); MEAN CELL VOLUME 80.6 fl (81.0-99.0); MEAN CORPUSCULAR HGB CONC 32.3 g/dL (33.0-37.0); MEAN PLATELET VOLUME 8.6 fl (7.2-11.7); MONO # 0.8 K/uL (0.0-0.8); MONO % 4.8 % (0.0-10.0); NEUT # 14.8 K/uL (1.8-7.0); NEUT % 89.6 % (50.0-75.0); PLATELET COUNT 281 K/uL (130-400); RBC 3.97 Mil/uL (3.80-5.20); RED CELL DISTRIBUTION WIDTH 16.4 % (11.5-14.5); WHITE BLOOD COUNT 16.5 K/uL (4.8-10.8)
[2019-01-17 06:16] LABS: ALB/GLOB RATIO 0.8 (1.0-2.1); ALBUMIN 3.1 g/dL (3.5-5.0); ALT/SGPT 28 U/L (9-52); AST/SGOT 47 U/L (14-36); BLOOD UREA NITROGEN 24 mg/dl (7-17); GFR NON-AFRICAN AMERICAN 54
[2019-01-17 07:26] LABS: BANDS 4 % (0-2); LYMPHOCYTE 5 % (20-50); MONOCYTE 6 % (0-10); NEUTROPHIL 85 % (42-75); PLATELET ESTIMATE NORMAL (NORMAL); TOTAL CELLS COUNTED 100
[2019-01-17] MEDS ORDERED: Vancomycin 1 g Inj ONE (07:49)
--- NOTE | 2019-01-17 08:20 | CP.PCM.CON ---
History of Present Illness - History of Present Illness History of Present Illness: Podiatry Consult Note: Dr. Manley 73 year old female patient, with PMHx DM, CHF, HTN, A-fib, seen and evaluated in the ED for bilateral diabetic ulcerations. Patient states that her legs and feet have been draining a lot more over the past week and starting to smell bad. She states that she is unable to take care of her wounds herself. At home, patient sits in her wheelchair, or bedside chair with legs in the dependent position. Rosendo mcdonald is well known to Dr. Manley. She reports mild pain to b/l lower extremities at this time. Denies nausea/vomiting/fever/chest pain. Past Patient History - Infectious Disease Hx of Infectious Diseases: None - Past Medical History & Family History Past Medical History?: Yes - Past Social History Smoking Status: Never Smoked - CARDIAC Hx Atrial Fibrillation: Yes Hx Congestive Heart Failure: Yes Hx Hypercholesterolemia: Yes Hx Hypertension: Yes Hx Pacemaker: No - PULMONARY Hx Respiratory Disorders: No - NEUROLOGICAL Hx Neurological Disorder: No - HEENT Hx HEENT Problems: Yes - RENAL Hx Chronic Kidney Disease: No - ENDOCRINE/METABOLIC Hx Hypothyroidism: Yes - HEMATOLOGICAL/ONCOLOGICAL Hx Human Immunodeficiency Virus (HIV): No - INTEGUMENTARY Hx Dermatological Problems: No - MUSCULOSKELETAL/RHEUMATOLOGICAL Hx Arthritis: Yes - GASTROINTESTINAL Hx Gastrointestinal Disorders: Yes Hx Colitis: Yes - GENITOURINARY/GYNECOLOGICAL Hx Genitourinary Disorders: No Hx Incontinence: Yes - PSYCHIATRIC Hx Depression: Yes - SURGICAL HISTORY Hx Cholecystectomy: No - ANESTHESIA Hx Anesthesia: Yes Hx Anesthesia Reactions: No Meds Allergies/Adverse Reactions: Allergies Allergy/AdvReac Type Severity Reaction Status Date / Time No Known Allergies Allergy Verified 01/17/19 02:58 Physical Exam - Constitutional Appears: Non-toxic, No Acute Distress - Head Exam Head Exam: ATRAUMATIC, NORMOCEPHALIC - Extremities Exam Additional comments: B/L LE exam: Vasc: DP/PT pulses faintly palpable secondary to 2+ non-pitting edema. CFT < 3 seconds to all digits. Skin temperature increased to RLE compared to LLE. Ortho: Pain on palpation noted to plantar ulceration. ROM at all major joints diminished due to swelling and body habitus. MMT 4/5 in all major muscle groups. No gross osseous deformities appreciated Neuro: Gross and protective sensation diminished Derm: Cellulitic changes to b/l lower extremities RLE: Multiple circular diabetic ulcerations, one to the forefoot measuring 3 x 4 x .5 cm with fibrotic base down to the level of muscle. Additional ulceration noted to the level of the 5th met base 3 x 2 x .4 cm with granular base to the level of the fat/muscle. + malodor, + drainage, + clinical signs of infection, erythema appreciated to entire footAdditional DTI measured to the R heel with necrotic cap. LLE: Bullae appreciated to L heel with necrotic base, DTI. + malodor, + drainage, + clinical signs of infection, erythema appreciated to entire foot - Neurological Exam Neurological exam: Alert, Oriented x3 - Psychiatric Exam Psychiatric exam: Normal Affect, Normal Mood Results - Vital Signs Recent Vital Signs: Last Vital Signs Temp 98.4 F 01/17/19 04:43 Pulse 77 01/17/19 04:43 Resp 18 01/17/19 04:43 BP 104/55 L 01/17/19 04:43 Pulse Ox 95 01/17/19 06:53 - Labs Result Diagrams: 01/17/19 05:55 01/17/19 05:55 Labs: Laboratory Results - last 24 hr 01/17/19 01/17/19 01/17/19 05:55 05:55 05:55 WBC 16.5 H D RBC 3.97 Hgb 10.3 L Hct 32.0 L MCV 80.6 L MCH 26.0 L MCHC 32.3 L RDW 16.4 H Plt Count 281 MPV 8.6 Neut % (Auto) 89.6 H Lymph % (Auto) 5.5 L [place] % (Auto) 4.8 Eos % (Auto) 0.0 Baso % (Auto) 0.1 Neut # (Auto) 14.8 H Lymph # (Auto) 0.9 L [place] # (Auto) 0.8 Eos # (Auto) 0.0 Baso # (Auto) 0.0 Neutrophils % (Manual) 85 H Band Neutrophils % 4 H Lymphocytes % (Manual) 5 L Monocytes % (Manual) 6 Platelet Estimate Normal RBC Morphology Normal Sodium 136 Potassium 4.2 Chloride 101 Carbon Dioxide 27 Anion Gap 12 BUN 24 H Creatinine 1.0 Est GFR ( Amer) > 60 Est GFR (Non-Af Amer) 54 Random Glucose 223 H Lactic Acid 1.5 Calcium 9.0 Total Bilirubin 0.5 AST 47 H D ALT 28 Alkaline Phosphatase 87 Troponin I 0.0430 Total Protein 7.2 Albumin 3.1 L Globulin 4.1 H Albumin/Globulin Ratio 0.8 L Assessment & Plan - Assessment and Plan (Free Text) Assessment: 73 year old female patient, with PMHx DM, CHF, HTN, A-fib, seen and evaluated in the ED for bilateral diabetic ulcerations Plan: Patient seen and evaluated Discussed in detail with Dr. Manley Afebrile, WBC 16.5, PT 18.6, INR 1.6, ESR/CRP pending B/L foot x-rays taken; dorsal soft tissue swelling over the metatarsals bilaterally ID consult; reccs appreciated Vasc consult; reccs appreciated Wound cx taken: pending L bullae lanced and drained Local wound care; betadine, DSD NPO after midnight Please provide medical/cardiac risk assessment Plan for b/l wound debridement tomorrow with Dr. Manley Will continue to follow Thank you for the consultetes - Date & Time Date: 01/17/19 Time: 15:25
--- NOTE | 2019-01-17 08:40 | CARD ---
APPROVED REPORT Date of service: 01/17/2019 EKG Measurement Heart [id number] <Conclusion> Atrial fibrillation Possible Anterior infarct, age undetermined Abnormal ECG
--- NOTE | 2019-01-17 09:46 | RAD ---
Date of service: 01/17/2019 PROCEDURE: Bilateral Feet Radiographs. HISTORY: L foot ulceration COMPARISON: None. TECHNIQUE: 6 views obtained. FINDINGS: BONES: Right Foot: Limited examination. No fracture identified. Plantar calcaneal spur noted. Left Foot: Limited examination. No fracture identified. Plantar calcaneal spur noted. JOINTS: Right Foot: Normal. No osteoarthritis. Left Foot: Normal. No osteoarthritis. SOFT TISSUES: Right Foot: Dorsal soft tissue swelling over metatarsals. Left Foot: Dorsal soft tissue swelling over metatarsals. OTHER FINDINGS: None. IMPRESSION: Dorsal soft tissue swelling over the metatarsals bilaterally.
[2019-01-17] MEDS ORDERED: Piperacillin/Tazobact 3.375 gm Inj IVPB ONE (10:50)
[2019-01-17] MEDS: Piperacillin/Tazobact 3.375 GM in Sodium Chloride 0.9% 100 ML IVPB SCH ×2 (10:51→16:57)
[2019-01-17] MEDS: Fluticasone-Salmeterol 250-50mcg Diskus IH SCH (14:25)
[2019-01-17 15:25] LABS: PARTIAL THROMBOPLASTIN TIME 35.4 Seconds (25.6-37.1)
[2019-01-17 15:45] LABS: INR 4.8; PROTHROMBIN TIME 54.2 Seconds (9.8-13.1)
[2019-01-17] MEDS ORDERED: Phytonadione 10 mg/ml Inj (Adult) IVPB ONE (15:59)
--- NOTE | 2019-01-17 16:09 | RAD ---
Date of service: 01/17/2019 HISTORY: admit COMPARISON: Comparison is made to the previous study dated 08/03/2018 TECHNIQUE: 1 view obtained. FINDINGS: LUNGS: There is a new nodule at mid left lung measures 1.5 centimeter. Again noted are reticular nodular opacities in the lungs. PLEURA: No significant pleural effusion identified, no pneumothorax apparent. CARDIOVASCULAR: Atherosclerotic calcification at the aortic knob is again noted. Cardiac silhouette is enlarged. [id number] pulmonary vascular congestion. OSSEOUS STRUCTURES: No significant abnormalities. VISUALIZED UPPER ABDOMEN: Normal. OTHER FINDINGS: None. IMPRESSION: 1.5 centimeter nodule at the left lung. Further evaluation by CT is recommended. Cardiomegaly and pulmonary vascular congestion.
[2019-01-17] MEDS ORDERED: Phytonadione 10 MG in Sodium Chloride 0.9% 50 ML IV ONE (16:15)
--- NOTE | 2019-01-17 20:11 | HP ---
CHIEF COMPLAINT: Generalized weakness, fall, and leg pain. HISTORY OF PRESENT ILLNESS: This is a 73-year-old female known case of chronic lower extremity ulcers, atrial fibrillation, morbid obesity, CHF, depression, diabetes, hypertension, elevated cholesterol, hypothyroidism, who was seen in generalized weakness and also had a fall from wheelchair and she was not able to get up. The 911 was called and the patient was brought to emergency room and was admitted for further management. REVIEW OF SYSTEMS: Positive for generalized weakness, leg pain. Review of system otherwise is negative for headache, dizziness, syncope, loss of consciousness, chest pain, shortness of breath, nausea, vomiting, diarrhea, or constipation. Review of system of all other organ system is unremarkable. PAST MEDICAL HISTORY: Significant for morbid obesity, atrial fibrillation, hypertension, elevated cholesterol, diabetes, depression, congestive heart failure, arthritis. PAST SURGICAL HISTORY: Remarkable for a pacemaker and cholecystectomy. PERSONAL HISTORY: The patient is currently nonsmoker, nondrinker. No substance abuse, and dependent on ADL. FAMILY HISTORY: Noncontributory. MEDICATIONS: The patient is on Symbicort, vitamin D, Synthroid, Prandin, Zoloft, Zocor, Glucophage, Cozaar, Coreg, Lasix, Pepcid, Neurontin, potassium, Januvia, and Coumadin. ALLERGIES: THE PATIENT IS NOT ALLERGIC TO ANY MEDICATION. PHYSICAL EXAMINATION: GENERAL: Well-built, well-nourished, moderately obese female in no acute distress. VITAL SIGNS: Temperature 98.4, pulse 77, respirations 18, blood pressure 104/55, saturation 99%. HEENT: Pupils reacting to light. No JVD. No thyromegaly. No lymphadenopathy. No nystagmus. Normocephalic, atraumatic skull. HEART: S1 and S2, normal and regular. No significant murmur, gallop, or rub is heard. LUNGS: Shows good bilateral air exchange. No rales or rhonchi. ABDOMEN: Soft and nontender. No organomegaly. No fluid. Bowel sounds are plus and normal. EXTREMITIES: The patient's both extremity with dressing covered which are open. Right lower extremity has a large necrotic heel ulcer, also has a purulent ulcer on the second and third metatarsal bone and also has cellulitis almost the entire foot extending up to the mid leg. Left lower extremity also has a blister filled at heel, but skin is intact, but definitely fluids can be seen underneath, has some redness, but that is blanching and probably has small cellulitis up to lower leg. Her right leg is much, much worse than left leg. Bilateral legs are extremely edematous, but there is no sign of acute gangrene. CENTRAL NERVOUS SYSTEM: Essentially unchanged. LABORATORY DATA: Available diagnostic data reviewed. WBC 16.5, hemoglobin 10.3, hematocrit 32, platelets 281. Sodium 136, potassium 4.2, chloride 101, bicarb 27, BUN 24, creatinine 1. ADMITTING IMPRESSION: Septicemia; bilateral lower extremity cellulitis, right more than left, most likely osteomyelitis; type 2 diabetes with hyperglycemia; atrial fibrillation; hypertension; morbid obesity with body mass index of 46; elevated cholesterol; depression; chronic back pain; arthritis; hypothyroidism. PLAN: As ordered. Case and plan discussed with the patient and laborer cook house at bedside. Kushal Harmon MD
[2019-01-17] MEDS: Potassium Chloride 20 mEq ER Tab PO SCH (22:03)
[2019-01-17] MEDS: Insulin Regular 100 units/ml SC SCH (23:00)
[2019-01-18] MEDS: Fluticasone-Salmeterol 250-50mcg Diskus IH SCH ×3 (01:02→15:05)
[2019-01-18] MEDS: Piperacillin/Tazobact 3.375 GM in Sodium Chloride 0.9% 100 ML IVPB SCH ×3 (01:03→16:43)
[2019-01-18] MEDS: Levothyroxine 125 MCG TAB PO SCH (07:14)
[2019-01-18 07:54] LABS: INR 1.6; PROTHROMBIN TIME 18.6 Seconds (9.8-13.1)
[2019-01-18] MEDS ORDERED: Povidone Iodine Topical 10% Sol ONE ×2 (08:27→14:36)
[2019-01-18] MEDS: Insulin Regular 100 units/ml SC SCH ×4 (08:41→23:13)
[2019-01-18] MEDS: Potassium Chloride 20 mEq ER Tab PO SCH ×2 (08:42→22:18)
--- NOTE | 2019-01-18 09:08 | CP.PCM.PN ---
Subjective - Date & Time of Evaluation Date of Evaluation: 01/18/19 Time of Evaluation: 09:08 - Subjective Subjective: Podiatry Consult Note: Dr. Manley 73 year old female patient, with bilateral diabetic ulcerations. Patient resting comfortably and in NAD. She reports mild pain to b/l lower extremities at this time. Patient aware for plan for OR today for b/l wound debridement with Dr. Manley. She does not have any questions or concerns at this time. Denies nausea/vomiting/fever/chest pain. Objective - Vital Signs/Intake and Output Vital Signs (last 24 hours): Temp Pulse Resp BP Pulse Ox 97.3 F L 84 18 125/82 97 01/17/19 23:53 01/18/19 08:55 01/17/19 23:53 01/18/19 08:55 01/17/19 23:53 - Medications Medications: Current Medications Atorvastatin Calcium (Lipitor) 20 mg PO HS [facility] Last Admin: 01/17/19 22:03 Dose: 20 mg Carvedilol (Coreg) 6.25 mg PO Q12 [facility] Last Admin: 01/18/19 08:55 Dose: 6.25 mg Ergocalciferol (Drisdol 50,000 Intl Units Cap) 1 cap PO WE [facility] Famotidine (Pepcid) 20 mg PO HS [facility] Last Admin: 01/17/19 22:03 Dose: 20 mg Ferrous Sulfate (Feosol) 325 mg PO DAILY [facility] Last Admin: 01/18/19 08:42 Dose: Not Given Furosemide (Lasix) 20 mg PO DAILY [facility] Gabapentin (Neurontin) 200 mg PO Q8 [facility] Last Admin: 01/18/19 08:42 Dose: Not Given Vancomycin HCl 1 gm/ Sodium (Chloride) 250 mls @ 166.667 mls/hr IVPB Q12 [facility]; Protocol Last Admin: 01/17/19 22:32 Dose: 166.667 mls/hr Piperacillin Sod/Tazobactam (Sod 3.375 gm/ Sodium Chloride) 100 mls @ 100 mls/hr IVPB Q8 [facility]; Protocol Last Admin: 01/18/19 08:50 Dose: 100 mls/hr Insulin Human Regular (Humulin R) 0 units SC ACHS [facility]; Protocol Last Admin: 01/18/19 08:41 Dose: Not Given Levothyroxine Sodium (Synthroid) 125 mcg PO DAILY@0630 [facility] Last Admin: 01/18/19 07:14 Dose: 125 mcg Losartan Potassium (Cozaar) 100 mg PO DAILY [facility] Last Admin: 01/18/19 08:42 Dose: Not Given Metformin HCl (Glucophage) 500 mg PO TID [facility] Last Admin: 01/18/19 08:42 Dose: Not Given Potassium Chloride (K-Dur 20 Meq Er Tab) 20 meq PO Q12 [facility] Last Admin: 01/18/19 08:42 Dose: Not Given Repaglinide (Prandin) 2 mg PO DAILY [facility] Last Admin: 01/18/19 08:42 Dose: Not Given Fluticasone/Salmeterol (Advair Diskus 250/50) 1 puff IH Q12H [facility] Last Admin: 01/18/19 01:04 Dose: Not Given Sertraline HCl (Zoloft) 25 mg PO DAILY [facility] Last Admin: 01/18/19 08:42 Dose: Not Given Sitagliptin Phosphate (Januvia) 50 mg PO DAILY [facility] Last Admin: 01/18/19 08:42 Dose: Not Given - Labs Labs: 01/17/19 05:55 01/17/19 05:55 PT 18.6 Seconds (9.8-13.1) H D 01/18/19 06:50 INR 1.6 01/18/19 06:50 APTT 35.4 Seconds (25.6-37.1) 01/17/19 13:50 - Constitutional Appears: Non-toxic, No Acute Distress - Head Exam Head Exam: ATRAUMATIC, NORMOCEPHALIC - Extremities Exam Additional comments: B/L LE exam: Vasc: DP/PT pulses faintly palpable secondary to 2+ non-pitting edema. CFT < 3 seconds to all digits. Skin temperature increased to RLE compared to LLE. Ortho: Pain on palpation noted to plantar ulceration. ROM at all major joints diminished due to swelling and body habitus. MMT 4/5 in all major muscle groups. No gross osseous deformities appreciated Neuro: Gross and protective sensation diminished Derm: Cellulitic changes to b/l lower extremities RLE: Multiple circular diabetic ulcerations, one to the forefoot measuring 3 x 4 x .5 cm with fibrotic base down to the level of muscle. Additional ulceration noted to the level of the 5th met base 3 x 2 x .4 cm with granular base to the level of the fat/muscle. + malodor, + drainage, + clinical signs of infection, erythema appreciated to entire footAdditional DTI measured to the R heel with necrotic cap. LLE: Lanced bullae appreciated to L heel with necrotic base, DTI. + malodor, + drainage, + clinical signs of infection, erythema appreciated to entire foot - Neurological Exam Neurological Exam: Alert, Awake, Oriented x3 - Psychiatric Exam Psychiatric exam: Normal Affect, Normal Mood Assessment and Plan - Assessment and Plan (Free Text) Assessment: 73 year old female patient, with PMHx DM, CHF, HTN, A-fib, with bilateral diabetic ulcerations Plan: Patient seen and evaluated Discussed in detail with Dr. Manley Afebrile, WBC 16.5, PT 18.6, INR 1.6, ESR/CRP pending B/L foot x-rays taken; dorsal soft tissue swelling over the metatarsals bilaterally ID consult; reccs appreciated Vasc consult; reccs appreciated Wound cx taken: pending Local wound care; betadine, DSD Plan for b/l wound debridement today with Dr. Manley
[2019-01-18 10:51] LABS: HEMOGLOBIN 9.5 g/dL (12.0-16.0); MEAN CELL VOLUME 80.1 fl (81.0-99.0); MEAN CORPUSCULAR HEMOGLOBIN 26.5 pg (27.0-31.0); MEAN CORPUSCULAR HGB CONC 33.1 g/dL (33.0-37.0); RBC 3.58 Mil/uL (3.80-5.20); WHITE BLOOD COUNT 10.6 K/uL (4.8-10.8)
--- NOTE | 2019-01-18 11:09 | CP.PCM.CON ---
History of Present Illness - History of Present Illness History of Present Illness: 73 year old female patient, with bilateral diabetic ulcerations. Patient resting comfortably and in NAD. She reports mild pain to b/l lower extremities at this time. Patient aware for plan for OR today for b/l wound debridement with Dr. Manley. IV antibiotics ordered PMH DM HTN HLD OA Review of Systems - Review of Systems All systems: reviewed and no additional remarkable complaints except - Constitutional Constitutional: As Per HPI - EENT Eyes: absent: As Per HPI, Blind Spots, Blurred Vision, Change in Vision, Decreased Night Vision, Diplopia, Discharge, Dry Eye, Exophthalmos, Floaters, Irritation, Itchy Eyes, Loss of Peripheral Vision, Pain, Photophobia, Requires Corrective Lenses, Sees Flashes, Spots in Vision, Tunnel Vision, Other Visual Disturbances, Loss of Vision, Other Ears: absent: As Per HPI, Decreased Hearing, Ear Discharge, Ear Pain, Tinnitus, Abnormal Hearing, Disequilibrium, Dizziness, Other Nose/Mouth/Throat: absent: As Per HPI, Epistaxis, Nasal Congestion, Nasal Discharge, Nasal Obstruction, Nasal Trauma, Nose Pain, Post Nasal Drip, Sinus Pain, Sinus Pressure, Bleeding Gums, Change in Voice, Dental Pain, Dry Mouth, Dysphagia, Halitosis, Hoarsness, Lip Swelling, Mouth Lesions, Mouth Pain, Odynophagia, Sore Throat, Throat Swelling, Tongue Swelling, Facial Pain, Neck Pain, Neck Mass, Other - Breasts Breasts: absent: As Per HPI, Change in Shape, Mass, Pain, Nipple Discharge, Nipple Inversion, Skin Changes, Swelling, Other - Cardiovascular Cardiovascular: As Per HPI - Respiratory Respiratory: absent: As Per HPI, Cough, Dyspnea, Hemoptysis, Dyspnea on Exertion, Wheezing, Snoring, Stridor, Pain on Inspiration, Chest Congestion, Excessive Mucous Production, Change in Mucous Color, Pain with Coughing, Other - Gastrointestinal Gastrointestinal: absent: As Per HPI, Abdominal Pain, Belching, Bloating, Change in Bowel Habits, Change in Stool Character, Coffee Ground Emesis, Constipation, Cramping, Diarrhea, Dyspepsia, Dysphagia, Early Satiety, Excessive Flatus, Fecal Incontinence, Heartburn, Hematemesis, Hematochezia, Loose Stools, Melena, N ausea, Odynophagia, Temesmus, Vomiting, Other - Genitourinary Genitourinary: absent: As Per HPI, Change in Urinary Stream, Difficulty Urinating, Dysuria, Flank Pain, Hematuria, Pyuria, Nocturia, Urinary Incontinence, Urinary Frequency, Urinary Hesitance, Urinary Urgency, Voiding Freq/Small Amts, Freq UTI, Hx Renal/Bladder Calculi, Hx /Renal Surgery, Bladder Distension, Other - Reproductive: Female Reproductive:Female: absent: As Per HPI, Amenorrhea, Amenorrhea/ Control, Currently Menstual, Cycle <21 Days, Cycle >35 Days, Cycle Variable, Menses 1-7 Days, Menses >/= 8 Days, Menses Variable, Cycle > 4 Weeks Between, No Menses for 6 Months, Heavy Menses, Light Menses, Normal Menses, Spotting Between Cycles, S/ P Hysterectomy, Menopausal, Post Menopausal, Premenarche, Abnormal Vaginal Bleeding, Dysmenorrhea, Dyspareunia, Genital Lesions, Genital Pruritis, Pelvic Pain, Prolapse Symptoms, Sexual Dysfunction, Vaginal Discharge, Vaginal Dryness, Vaginal Odor, Vaginal Pruritis, Other - Menstruation Menstruation: absent: As Per HPI, Amenorrhea, Amenorrhea/ Control, C urrently Menstual, Cycle <21 Days, Cycle >35 Days, Cycle Variable, Menses 1-7 Days, Menses >/= 8 Days, Menses Variable, Cycle > 4 Weeks Between, No Menses for 6 Months, Heavy Menses, Light Menses, Normal Menses, Spotting Between Cycles, S/P Hysterectomy, Menopausal, Post Menopausal, Premenarche, Abnormal Vaginal Bleeding, Dysmenorrhea, Other - Musculoskeletal Musculoskeletal: As Per HPI - Integumentary Integumentary: As Per HPI, Skin Pain, Wounds - Neurological Neurological: absent: As Per HPI, Abnormal Gait, Abnormal Hearing, Abnormal Movements, Abnormal Speech, Behavioral Changes, Burning Sensations, Confusion, Convulsions, Disequilibrium, Dizziness, Numbness, Focal Weakness, Frequent Falls, Headaches, Lack of Coordination, Loss of Vision, Memory Loss, Paresthesias, Radicular Pain, Restless Legs, Sensory Deficit, Syncope, Tingling, Tremor, Vertigo, Weakness, Other Visual Disturbances, Other - Psychiatric Psychiatric: absent: As Per HPI, Abnormal Sleep Pattern, Anhedonia, Anxiety, Auditory Hallucinations, Behavioral Changes, Change in Appetite, Change in Libido, Confusion, Depression, Difficulty Concentrating, Hallucinations, Homicidal Ideation, Hopelessness, Irritability, Memory Loss, Mood Swings, Panic Attacks, Paranoia, Suicidal Ideation, Visual Hallucinations, Tactile Hallucinations, Other Past Patient History - Infectious Disease Hx of Infectious Diseases: None - Past Medical History & Family History Past Medical History?: Yes - Past Social History Smoking Status: Never Smoked - CARDIAC Hx Atrial Fibrillation: Yes Hx Congestive Heart Failure: Yes Hx Hypercholesterolemia: Yes Hx Hypertension: Yes Hx Pacemaker: No - PULMONARY Hx Respiratory Disorders: No - NEUROLOGICAL Hx Neurological Disorder: No - HEENT Hx HEENT Problems: Yes - RENAL Hx Chronic Kidney Disease: No - ENDOCRINE/METABOLIC Hx Hypothyroidism: Yes - HEMATOLOGICAL/ONCOLOGICAL Hx Human Immunodeficiency Virus (HIV): No - INTEGUMENTARY Hx Dermatological Problems: No - MUSCULOSKELETAL/RHEUMATOLOGICAL Hx Arthritis: Yes - GASTROINTESTINAL Hx Gastrointestinal Disorders: Yes Hx Colitis: Yes - GENITOURINARY/GYNECOLOGICAL Hx Genitourinary Disorders: No Hx Incontinence: Yes - PSYCHIATRIC Hx Depression: Yes - SURGICAL HISTORY Hx Cholecystectomy: No - ANESTHESIA Hx Anesthesia: Yes Hx Anesthesia Reactions: No Meds Allergies/Adverse Reactions: Allergies Allergy/AdvReac Type Severity Reaction Status Date / Time No Known Allergies Allergy Verified 01/17/19 02:58 - Medications Medications: Current Medications Atorvastatin Calcium (Lipitor) 20 mg PO HS [facility] Last Admin: 01/17/19 22:03 Dose: 20 mg Carvedilol (Coreg) 6.25 mg PO Q12 [facility] Last Admin: 01/18/19 08:55 Dose: 6.25 mg Ergocalciferol (Drisdol 50,000 Intl Units Cap) 1 cap PO [facility] Famotidine (Pepcid) 20 mg PO HS [facility] Last Admin: 01/17/19 22:03 Dose: 20 mg Ferrous Sulfate (Feosol) 325 mg PO DAILY [facility] Last Admin: 01/18/19 08:42 Dose: Not Given Furosemide (Lasix) 20 mg PO DAILY [facility] Last Admin: 01/18/19 10:12 Dose: Not Given Gabapentin (Neurontin) 200 mg PO Q8 [facility] Last Admin: 01/18/19 08:42 Dose: Not Given Vancomycin HCl 1 gm/ Sodium (Chloride) 250 mls @ 166.667 mls/hr IVPB Q12 [facility]; Protocol Last Admin: 01/18/19 10:42 Dose: 166.667 mls/hr Piperacillin Sod/Tazobactam (Sod 3.375 gm/ Sodium Chloride) 100 mls @ 100 mls/hr IVPB Q8 [facility]; Protocol Last Admin: 01/18/19 08:50 Dose: 100 mls/hr Insulin Human Regular (Humulin R) 0 units SC ACHS [facility]; Protocol Last Admin: 01/18/19 08:41 Dose: Not Given Levothyroxine Sodium (Synthroid) 125 mcg PO DAILY@0630 [facility] Last Admin: 01/18/19 07:14 Dose: 125 mcg Losartan Potassium (Cozaar) 100 mg PO DAILY [facility] Last Admin: 01/18/19 08:42 Dose: Not Given Metformin HCl (Glucophage) 500 mg PO TID [facility] Last Admin: 01/18/19 08:42 Dose: Not Given Potassium Chloride (K-Dur 20 Meq Er Tab) 20 meq PO Q12 [facility] Last Admin: 01/18/19 08:42 Dose: Not Given Repaglinide (Prandin) 2 mg PO DAILY [facility] Last Admin: 01/18/19 08:42 Dose: Not Given Fluticasone/Salmeterol (Advair Diskus 250/50) 1 puff IH Q12H [facility] Last Admin: 01/18/19 01:04 Dose: Not Given Sertraline HCl (Zoloft) 25 mg PO DAILY [facility] Last Admin: 01/18/19 08:42 Dose: Not Given Sitagliptin Phosphate (Januvia) 50 mg PO DAILY [facility] Last Admin: 01/18/19 08:42 Dose: Not Given Physical Exam - Constitutional Appears: Non-toxic, Chronically Ill - Head Exam Head Exam: NORMOCEPHALIC - Eye Exam Eye Exam: absent: Scleral icterus Pupil Exam: NORMAL ACCOMODATION - ENT Exam ENT Exam: Mucous Membranes Dry, Normal External Ear Exam - Neck Exam Neck exam: Negative for: Lymphadenopathy - Respiratory Exam Respiratory Exam: Decreased Breath Sounds, Rhonchi - Cardiovascular Exam Cardiovascular Exam: REGULAR RHYTHM, +S1, +S2 - GI/Abdominal Exam GI & Abdominal Exam: Diminished Bowel Sounds, Soft. absent: Guarding, Tenderness - Rectal Exam Rectal Exam: Deferred - Exam Exam: NORMAL INSPECTION - Extremities Exam Extremities exam: Positive for: pedal edema, tenderness, pedal pulses present. Negative for: calf tenderness Additional comments: B/L LE exam: Vasc: DP/PT pulses faintly palpable secondary to 2+ non-pitting edema. CFT < 3 seconds to all digits. Skin temperature increased to RLE compared to LLE. Ortho: Pain on palpation noted to plantar ulceration. ROM at all major joints diminished due to swelling and body habitus. MMT 4/5 in all major muscle groups. No gross osseous deformities appreciated Neuro: Gross and protective sensation diminished Derm: Cellulitic changes to b/l lower extremities RLE: Multiple circular diabetic ulcerations, one to the forefoot measuring 3 x 4 x .5 cm with fibrotic base down to the level of muscle. Additional ulceration noted to the level of the 5th met base 3 x 2 x .4 cm with granular base to the level of the fat/muscle. + malodor, + drainage, + clinical signs of infection, erythema appreciated to entire footAdditional DTI measured to the R heel with necrotic cap. LLE: Lanced bullae appreciated to L heel with necrotic base, DTI. + malodor, + d rainage, + clinical signs of infection, erythema appreciated to entire foot - Back Exam Back exam: absent: CVA tenderness (L), CVA tenderness (R) - Neurological Exam Neurological exam: Alert, CN II-XII Intact, Oriented x3, Reflexes Normal - Psychiatric Exam Psychiatric exam: Normal Mood - Skin Skin Exam: Dry Results - Vital Signs Recent Vital Signs: Last Vital Signs Temp 97.3 F L 01/17/19 23:53 Pulse 84 01/18/19 08:55 Resp 18 01/17/19 23:53 BP 125/82 01/18/19 08:55 Pulse Ox 97 01/17/19 23:53 - Labs Result Diagrams: 01/19/19 07:55 01/19/19 07:55 Labs: Laboratory Results - last 24 hr 01/17/19 01/17/19 01/17/19 11:24 13:50 22:08 WBC RBC Hgb Hct MCV MCH MCHC RDW Plt Count PT 54.2 H* INR 4.8 APTT 35.4 POC Glucose (mg/dL) 119 H Vitamin B12 279 TSH 3rd Generation 1.59 01/18/19 01/18/19 01/18/19 05:13 06:50 10:45 WBC 10.6 RBC 3.58 L Hgb 9.5 L Hct 28.7 L MCV 80.1 L MCH 26.5 L MCHC 33.1 RDW 16.0 H Plt Count 263 PT 18.6 H D INR 1.6 APTT POC Glucose (mg/dL) 83 Vitamin B12 TSH 3rd Generation Assessment & Plan (1) Cellulitis Status: Acute (2) Bilateral lower leg cellulitis Status: Acute (3) Chronic a-fib Status: Acute (4) DM2 (diabetes mellitus, type 2) Status: Acute (5) Decubital ulcer Status: Acute (6) Diabetic foot ulcer Status: Acute - Assessment and Plan (Free Text) Assessment: cont iv rx / wound care imaging to r/o OM await cultures vasc eval
[2019-01-18 11:13] LABS: INR 1.6; PROTHROMBIN TIME 17.8 Seconds (9.8-13.1)
[2019-01-18 11:14] LABS: ALB/GLOB RATIO 0.7 (1.0-2.1); ALBUMIN 2.7 g/dL (3.5-5.0); ALT/SGPT 31 U/L (9-52); AST/SGOT 47 U/L (14-36); BLOOD UREA NITROGEN 21 mg/dl (7-17); CALCIUM 8.9 mg/dL (8.4-10.2); GFR NON-AFRICAN AMERICAN > 60
[2019-01-18 11:16] LABS: PARTIAL THROMBOPLASTIN TIME 28.2 Seconds (25.6-37.1)
--- NOTE | 2019-01-18 11:53 | CP.PCM.HP ---
<Ismael Means - Last Filed: 01/18/19 11:40> History of Present Illness - History of Present Illness History of Present Illness: HPI: 71 YO Female with PMHx of Morbid Obesity, CHF, DM, controlled HTN, atrial fibrillation and diabetic neuropathy presented to [facility] ED for evaluation of lower ext ulcers as she was having increase in foul odor drainage. Pt was being managed as outpatient for multiple lower ext ulcerations by Podiatry under Dr. Manley. denies fever/chills, hx of clots. PMHx: morbid obesity, A fib on coumadin, HTN, HLD, hypothyroid SHx: Cholecystectomy FHx: Reviewed, no relevant findings SHx: Lives with family, no tobacco, no EtOH or illicit drug use Allergies: NKDA Present on Admission - Present on Admission Any Indicators Present on Admission: No History of DVT/PE: No History of Uncontrolled Diabetes: No Urinary Catheter: No Decubitus Ulcer Present: No Decubitus Ulcer Location: Back , Decubitus Decubitus Ulcer Stage: III Review of Systems - Constitutional Constitutional: absent: Fever, Frequent Falls, Lethargy - Cardiovascular Cardiovascular: absent: Chest Pain - Respiratory Respiratory: absent: Cough, Dyspnea - Gastrointestinal Gastrointestinal: absent: Abdominal Pain Past Patient History - Infectious Disease Hx of Infectious Diseases: None - Past Medical History & Family History Past Medical History?: Yes - Past Social History Smoking Status: Never Smoked - CARDIAC Hx Atrial Fibrillation: Yes Hx Congestive Heart Failure: Yes Hx Hypercholesterolemia: Yes Hx Hypertension: Yes Hx Pacemaker: No - PULMONARY Hx Respiratory Disorders: No - NEUROLOGICAL Hx Neurological Disorder: No - HEENT Hx HEENT Problems: Yes - RENAL Hx Chronic Kidney Disease: No - ENDOCRINE/METABOLIC Hx Hypothyroidism: Yes - HEMATOLOGICAL/ONCOLOGICAL Hx Human Immunodeficiency Virus (HIV): No - INTEGUMENTARY Hx Dermatological Problems: No - MUSCULOSKELETAL/RHEUMATOLOGICAL Hx Arthritis: Yes - GASTROINTESTINAL Hx Gastrointestinal Disorders: Yes Hx Colitis: Yes - GENITOURINARY/GYNECOLOGICAL Hx Genitourinary Disorders: No Hx Incontinence: Yes - PSYCHIATRIC Hx Depression: Yes - SURGICAL HISTORY Hx Cholecystectomy: No - ANESTHESIA Hx Anesthesia: Yes Hx Anesthesia Reactions: No Meds Allergies/Adverse Reactions: Allergies Allergy/AdvReac Type Severity Reaction Status Date / Time Iodinated Contrast- Oral and Allergy ANAPHYLAXIS Verified 01/20/19 10:08 IV Dye Physical Exam - Constitutional Appears: No Acute Distress - Head Exam Head Exam: NORMAL INSPECTION - Eye Exam Eye Exam: Normal appearance (morbidly obese female, no acute distress ) - ENT Exam ENT Exam: Mucous Membranes Moist - Respiratory Exam Respiratory Exam: Clear to Auscultation Bilateral - Cardiovascular Exam Cardiovascular Exam: REGULAR RHYTHM - GI/Abdominal Exam GI & Abdominal Exam: Normal Bowel Sounds, Soft. absent: Tenderness - Extremities Exam Additional comments: BL cellulitis (erythema, warmth, and tenderness) BL non pitting edema +2 R LE- Heel ulcer with necrotic base draining foul odor fliud L LE- Heel ulcer with necrotic base draining foul odor fluid Capillary refill <2 seconds DP palpable +2 BL Results - Vital Signs Recent Vital Signs: Last Vital Signs Temp 97.3 F L 01/17/19 23:53 Pulse 84 01/18/19 08:55 Resp 18 01/17/19 23:53 BP 125/82 01/18/19 08:55 Pulse Ox 97 01/17/19 23:53 - Labs Result Diagrams: 01/18/19 10:45 01/18/19 10:45 Labs: Laboratory Results - last 24 hr 01/17/19 01/17/19 01/17/19 11:24 13:50 22:08 PT 54.2 H* INR 4.8 APTT 35.4 POC Glucose (mg/dL) 119 H Vitamin B12 279 TSH 3rd Generation 1.59 01/18/19 01/18/19 05:13 06:50 PT 18.6 H D INR 1.6 APTT POC Glucose (mg/dL) 83 Vitamin B12 TSH 3rd Generation Assessment & Plan - Assessment and Plan (Free Text) Assessment: HPI: 71 Y/o female with PMHx of CHF, DM, HTN, atrial fibrillation (on Coumadin) and diabetic neuropathy presents to [facility] ED for evaluation of BL lower ext ulcers (Right >>Left) as she was having increase in foul odor drainage. Pt has been managed as outpatient for multiple lower ext ulcerations by Podiatry under Dr. Manley. #Chronic Diabetic Ulcers, acute on chronic infection #Atrial Fibtrillation on Coumadin # Decubitus Ulcer, R. and L. Ischium #HTN - Plan for Debridement in OR by Podiatry pending cardiac clearance - Vascular on Board, Dr. 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 Frequent repositioning q 2 hours. - F/U CBC, Coagulation labs, Bcx, Wcx - Management of chronic conditions as ordered Discussed plan with Dr. Eden Means, PGY2 <Kushal Harmon - Last Filed: 01/26/19 06:16> Results - Vital Signs Recent Vital Signs: Last Vital Signs Temp 97 F L 01/22/19 16:02 Pulse 71 01/22/19 16:02 Resp 20 01/22/19 16:02 BP 145/81 01/22/19 16:02 Pulse Ox 93 L 01/22/19 16:02 - Labs Result Diagrams: 01/22/19 05:05 01/22/19 05:05 Assessment & Plan - Assessment and Plan (Free Text) Assessment: Patient was personally seen and examined by me in rounds with residents. Available labs and diagnostic data reviewed. Case, Patient's condition and management plan discussed with residents in rounds. Agree with resident's progress note. Plan: As ordered.
[2019-01-18] MEDS: Dextrose 5%/0.45% NS 1,000 ML IV SCH (11:58)
--- NOTE | 2019-01-18 13:49 | CT ---
Date of service: 01/18/2019 PROCEDURE: CT Chest without contrast HISTORY: pulmonary nodule COMPARISON: 10/23/2012 TECHNIQUE: Contiguous axial images were obtained through the chest without intravenous contrast enhancement. Sagittal and coronal reconstructions were performed. Radiation dose (DLP): 604.76 mGy-cm. This CT exam was performed using one or more of the following dose reduction techniques: Automated exposure control, adjustment of the mA and/or kV according to patient size, and/or use of iterative reconstruction technique. FINDINGS: LUNGS: No infiltrate. Minimal bilateral lower lobe subsegmental atelectasis. No pulmonary mass. 2 mm calcified granuloma anterior basal segment right lower lobe. MEDIASTINUM: Unremarkable thoracic aorta. No aneurysm. Multi chamber cardiac enlargement. Coronary arterial calcification. Dilatation of the main pulmonary artery to a diameter of approximately 3.5 cm. This may correlate with pulmonary arterial hypertension. No lymphadenopathy. There is atherosclerotic calcification of the thoracic aorta. PLEURA: No pleural fluid. No pneumothorax. BONES: Old healed fracture left posterior 7th rib. No acute fracture. UPPER ABDOMEN: Two right renal cortical cysts, 4.9 cm and 3.6 cm, respectively. Cholelithiasis without mural thickening of the gallbladder. OTHER FINDINGS: None. IMPRESSION: No pulmonary nodule identified. 2 mm calcified granuloma in right lower lobe. No infiltrate. Nonacute findings as above.
--- NOTE | 2019-01-18 14:14 | CP.PCM.CON ---
<Sherrell Rivera - Last Filed: 01/18/19 14:19> History of Present Illness - History of Present Illness History of Present Illness: Sherrell Rivera, PGY-1, Cardiolog Consult Note for Dr. Odom 73 year old female with past medical history of atrial fibrillation on home coumadin, hypertension, hyperlipidemia, hypothyroidism, and diabetes mellitus presents with multiple episodes of falling out of wheelchair and weakness. Patient reports that she has been in and out of rehabilitation for the past few months and has never gotten back to baseline. Patient has progressively gotten weaker. Initially, she walked with a walker, and now she is wheelchair bound. Patient presents with lower extremity ulcers for debridement. Patient's ulcers are managed outpatient with Dr. Manley. Patient denies any other symptoms at this time. PMH: as stated above PSH: ulcer debridement 2-3 months ago FMHx: Mother from stomach cancer. Two brothers from [place] and brain aneurysm SHx: smokes 1 PPD for the last 50 years. denies alcohol and recreational drug use Allergies: NKDA PMD: Dr. 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 Stress test: few years ago and unremarkable Possible cardiac catheterization 10 years ago Review of Systems - Review of Systems Review of Systems: except as stated in HPI Past Patient History - Infectious Disease Hx of Infectious Diseases: None - Past Medical History & Family History Past Medical History?: Yes - Past Social History Smoking Status: Never Smoked - CARDIAC Hx Atrial Fibrillation: Yes Hx Congestive Heart Failure: Yes Hx Hypercholesterolemia: Yes Hx Hypertension: Yes Hx Pacemaker: No - PULMONARY Hx Respiratory Disorders: No - NEUROLOGICAL Hx Neurological Disorder: No - HEENT Hx HEENT Problems: Yes - RENAL Hx Chronic Kidney Disease: No - ENDOCRINE/METABOLIC Hx Hypothyroidism: Yes - HEMATOLOGICAL/ONCOLOGICAL Hx Human Immunodeficiency Virus (HIV): No - INTEGUMENTARY Hx Dermatological Problems: No - MUSCULOSKELETAL/RHEUMATOLOGICAL Hx Arthritis: Yes - GASTROINTESTINAL Hx Gastrointestinal Disorders: Yes Hx Colitis: Yes - GENITOURINARY/GYNECOLOGICAL Hx Genitourinary Disorders: No Hx Incontinence: Yes - PSYCHIATRIC Hx Depression: Yes - SURGICAL HISTORY Hx Cholecystectomy: No - ANESTHESIA Hx Anesthesia: Yes Hx Anesthesia Reactions: No Meds Allergies/Adverse Reactions: Allergies Allergy/AdvReac Type Severity Reaction Status Date / Time No Known Allergies Allergy Verified 01/17/19 02:58 - Medications Medications: Current Medications Atorvastatin Calcium (Lipitor) 20 mg PO HS [facility] Last Admin: 01/17/19 22:03 Dose: 20 mg Carvedilol (Coreg) 6.25 mg PO Q12 [facility] Last Admin: 01/18/19 08:55 Dose: 6.25 mg Cyanocobalamin (Vitamin B12 1000 Mcg/Ml Inj) 1,000 mcg IM DAILY [facility] Ergocalciferol (Drisdol 50,000 Intl Units Cap) 1 cap PO WE [facility] Famotidine (Pepcid) 20 mg PO HS [facility] Last Admin: 01/17/19 22:03 Dose: 20 mg Ferrous Sulfate (Feosol) 325 mg PO DAILY [facility] Last Admin: 01/18/19 08:42 Dose: Not Given Furosemide (Lasix) 20 mg PO DAILY [facility] Last Admin: 01/18/19 10:12 Dose: Not Given Gabapentin (Neurontin) 200 mg PO Q8 [facility] Last Admin: 01/18/19 08:42 Dose: Not Given Vancomycin HCl 1 gm/ Sodium (Chloride) 250 mls @ 166.667 mls/hr IVPB Q12 [facility]; Protocol Last Admin: 01/18/19 10:42 Dose: 166.667 mls/hr Piperacillin Sod/Tazobactam (Sod 3.375 gm/ Sodium Chloride) 100 mls @ 100 mls/hr IVPB Q8 [facility]; Protocol Last Admin: 01/18/19 08:50 Dose: 100 mls/hr Dextrose/Sodium Chloride (Dextrose 5%/0.45% Ns 1000 Ml) 1,000 mls @ 60 mls/hr IV .[id number] [facility] Stop: 01/19/19 11:35 Last Admin: 01/18/19 11:58 Dose: 60 mls/hr Insulin Human Regular (Humulin R) 0 units SC ACHS [facility]; Protocol Last Admin: 01/18/19 12:48 Dose: Not Given Levothyroxine Sodium (Synthroid) 125 mcg PO DAILY@0630 [facility] Last Admin: 01/18/19 07:14 Dose: 125 mcg Losartan Potassium (Cozaar) 100 mg PO DAILY [facility] Last Admin: 01/18/19 08:42 Dose: Not Given Metformin HCl (Glucophage) 500 mg PO TID [facility] Last Admin: 01/18/19 08:42 Dose: Not Given Nystatin (Nystop Topical Powder) 1 applic TOP TID [facility] Potassium Chloride (K-Dur 20 Meq Er Tab) 20 meq PO Q12 [facility] Last Admin: 01/18/19 08:42 Dose: Not Given Repaglinide (Prandin) 2 mg PO DAILY [facility] Last Admin: 01/18/19 08:42 Dose: Not Given Fluticasone/Salmeterol (Advair Diskus 250/50) 1 puff IH Q12H [facility] Last Admin: 01/18/19 01:04 Dose: Not Given Sertraline HCl (Zoloft) 25 mg PO DAILY [facility] Last Admin: 01/18/19 08:42 Dose: Not Given Sitagliptin Phosphate (Januvia) 50 mg PO DAILY [facility] Last Admin: 01/18/19 08:42 Dose: Not Given Physical Exam - Constitutional Appears: Well, Non-toxic, No Acute Distress - Head Exam Head Exam: ATRAUMATIC, NORMAL INSPECTION, NORMOCEPHALIC - Eye Exam Eye Exam: EOMI, PERRL - ENT Exam ENT Exam: Mucous Membranes Moist - Respiratory Exam Respiratory Exam: Wheezes (diffuse), NORMAL BREATHING PATTERN - Cardiovascular Exam Cardiovascular Exam: Irregular Rhythm, +S1, +S2 - GI/Abdominal Exam GI & Abdominal Exam: Normal Bowel Sounds, Soft. absent: Tenderness - Extremities Exam Extremities exam: Positive for: full ROM, joint swelling, normal inspection, tenderness Additional comments: erhythema of bilateral lower extremities with both feet wrapped - Neurological Exam Neurological exam: Alert, CN II-XII Intact, Oriented x3 Additional comments: numbness of bilateral lower extremities - Psychiatric Exam Psychiatric exam: Normal Affect, Normal Mood Results - Vital Signs Recent Vital Signs: Last Vital Signs Temp 98.1 F 01/18/19 09:00 Pulse 84 01/18/19 09:00 Resp 20 01/18/19 09:00 BP 125/82 01/18/19 09:00 Pulse Ox 94 L 01/18/19 09:00 - Labs Result Diagrams: 01/18/19 10:45 01/18/19 10:45 Labs: Laboratory Results - last 24 hr 01/17/19 01/17/19 01/18/19 13:50 22:08 05:13 WBC RBC Hgb Hct MCV MCH MCHC RDW Plt Count ESR PT 54.2 H* INR 4.8 APTT 35.4 Sodium Potassium Chloride Carbon Dioxide Anion Gap BUN Creatinine Est GFR ( Amer) Est GFR (Non-Af Amer) POC Glucose (mg/dL) 119 H 83 Random Glucose Calcium Total Bilirubin AST ALT Alkaline Phosphatase Total Protein Albumin Globulin Albumin/Globulin Ratio 01/18/19 01/18/19 01/18/19 06:50 10:45 10:45 WBC RBC Hgb Hct MCV MCH MCHC RDW Plt Count ESR 69 H PT 18.6 H D 17.8 H INR 1.6 1.6 APTT 28.2 Sodium Potassium Chloride Carbon Dioxide Anion Gap BUN Creatinine Est GFR ( Amer) Est GFR (Non-Af Amer) POC Glucose (mg/dL) Random Glucose Calcium Total Bilirubin AST ALT Alkaline Phosphatase Total Protein Albumin Globulin Albumin/Globulin Ratio 01/18/19 01/18/19 01/18/19 10:45 10:45 11:18 WBC 10.6 RBC 3.58 L Hgb 9.5 L Hct 28.7 L MCV 80.1 L MCH 26.5 L MCHC 33.1 RDW 16.0 H Plt Count 263 ESR PT INR APTT Sodium 138 Potassium 4.1 Chloride 105 Carbon Dioxide 29 Anion Gap 8 L BUN 21 H Creatinine 0.9 Est GFR ( Amer) > 60 Est GFR (Non-Af Amer) > 60 POC Glucose (mg/dL) 92 Random Glucose 91 Calcium 8.9 Total Bilirubin 0.4 AST 47 H ALT 31 Alkaline Phosphatase 75 Total Protein 6.3 Albumin 2.7 L Globulin 3.6 Albumin/Globulin Ratio 0.7 L Assessment & Plan - Assessment and Plan (Free Text) Assessment: Bilateral lower extremity ulcers Atrial fibrillation Hypertension Hyperlipidemia Hypothyroidism Diabetes Mellitus Type II Plan: Bilateral lower extremity ulcers Atrial fibrillation Hypertension Hyperlipidemia Hypothyroidism Diabetes Mellitus Type II Chest CT: no pulmonary nodule, 2 mm calcified granuloma in right lower lobe, no infiltrate Foot X ray: dorsal soft tissue swelling over metatarsals bilaterally EKG: atrial fibrillation with HR: 75 Troponinx1: 0.0430 TSH: 1.59 Patient is intermediate risk for debridement surgery with local anesthesia. Medications: Lipitor 20 mg daily Coreg 6.25 mg Q12 Feosol 325 mg daily Lasix 20 mg daily Synthyroid 125 mcg daily Cozaar 100 mg daily Metformin 500 mg TID Repaglinide Sitagliptin Vancomycin Zosyn - Date & Time Date: 01/18/19 Time: 14:15 <Forrest Odom - Last Filed: 01/18/19 14:44> Meds - Medications Medications: Current Medications Atorvastatin Calcium (Lipitor) 20 mg PO HS [facility] Last Admin: 01/17/19 22:03 Dose: 20 mg Carvedilol (Coreg) 6.25 mg PO Q12 [facility] Last Admin: 01/18/19 08:55 Dose: 6.25 mg Cyanocobalamin (Vitamin B12 1000 Mcg/Ml Inj) 1,000 mcg IM DAILY [facility] Ergocalciferol (Drisdol 50,000 Intl Units Cap) 1 cap PO [facility] Famotidine (Pepcid) 20 mg PO HS [facility] Last Admin: 01/17/19 22:03 Dose: 20 mg Ferrous Sulfate (Feosol) 325 mg PO DAILY [facility] Last Admin: 01/18/19 08:42 Dose: Not Given Furosemide (Lasix) 20 mg PO DAILY [facility] Last Admin: 01/18/19 10:12 Dose: Not Given Gabapentin (Neurontin) 200 mg PO Q8 [facility] Last Admin: 01/18/19 08:42 Dose: Not Given Vancomycin HCl 1 gm/ Sodium (Chloride) 250 mls @ 166.667 mls/hr IVPB Q12 [facility]; Protocol Last Admin: 01/18/19 10:42 Dose: 166.667 mls/hr Piperacillin Sod/Tazobactam (Sod 3.375 gm/ Sodium Chloride) 100 mls @ 100 mls/hr IVPB Q8 [facility]; Protocol Last Admin: 01/18/19 08:50 Dose: 100 mls/hr Dextrose/Sodium Chloride (Dextrose 5%/0.45% Ns 1000 Ml) 1,000 mls @ 60 mls/hr IV .[id number] [facility] Stop: 01/19/19 11:35 Last Admin: 01/18/19 11:58 Dose: 60 mls/hr Insulin Human Regular (Humulin R) 0 units SC ACHS [facility]; Protocol Last Admin: 01/18/19 12:48 Dose: Not Given Levothyroxine Sodium (Synthroid) 125 mcg PO DAILY@0630 [facility] Last Admin: 01/18/19 07:14 Dose: 125 mcg Losartan Potassium (Cozaar) 100 mg PO DAILY [facility] Last Admin: 01/18/19 08:42 Dose: Not Given Metformin HCl (Glucophage) 500 mg PO TID [facility] Last Admin: 01/18/19 08:42 Dose: Not Given Nystatin (Nystop Topical Powder) 1 applic TOP TID [facility] Potassium Chloride (K-Dur 20 Meq Er Tab) 20 meq PO Q12 [facility] Last Admin: 01/18/19 08:42 Dose: Not Given Repaglinide (Prandin) 2 mg PO DAILY [facility] Last Admin: 01/18/19 08:42 Dose: Not Given Fluticasone/Salmeterol (Advair Diskus 250/50) 1 puff IH Q12H [facility] Last Admin: 01/18/19 01:04 Dose: Not Given Sertraline HCl (Zoloft) 25 mg PO DAILY [facility] Last Admin: 01/18/19 08:42 Dose: Not Given Sitagliptin Phosphate (Januvia) 50 mg PO DAILY [facility] Last Admin: 01/18/19 08:42 Dose: Not Given Results - Vital Signs Recent Vital Signs: Last Vital Signs Temp 98.1 F 01/18/19 09:00 Pulse 84 01/18/19 09:00 Resp 20 01/18/19 09:00 BP 125/82 01/18/19 09:00 Pulse Ox 94 L 01/18/19 09:00 - Labs Result Diagrams: 01/18/19 10:45 01/18/19 10:45 Labs: Laboratory Results - last 24 hr 01/17/19 01/17/19 01/18/19 13:50 22:08 05:13 WBC RBC Hgb Hct MCV MCH MCHC RDW Plt Count ESR PT 54.2 H* INR 4.8 APTT 35.4 Sodium Potassium Chloride Carbon Dioxide Anion Gap BUN Creatinine Est GFR ( Amer) Est GFR (Non-Af Amer) POC Glucose (mg/dL) 119 H 83 Random Glucose Calcium Total Bilirubin AST ALT Alkaline Phosphatase Total Protein Albumin Globulin Albumin/Globulin Ratio 01/18/19 01/18/19 01/18/19 06:50 10:45 10:45 WBC RBC Hgb Hct MCV MCH MCHC RDW Plt Count ESR 69 H PT 18.6 H D 17.8 H INR 1.6 1.6 APTT 28.2 Sodium Potassium Chloride Carbon Dioxide Anion Gap BUN Creatinine Est GFR ( Amer) Est GFR (Non-Af Amer) POC Glucose (mg/dL) Random Glucose Calcium Total Bilirubin AST ALT Alkaline Phosphatase Total Protein Albumin Globulin Albumin/Globulin Ratio 01/18/19 01/18/19 01/18/19 10:45 10:45 11:18 WBC 10.6 RBC 3.58 L Hgb 9.5 L Hct 28.7 L MCV 80.1 L MCH 26.5 L MCHC 33.1 RDW 16.0 H Plt Count 263 ESR PT INR APTT Sodium 138 Potassium 4.1 Chloride 105 Carbon Dioxide 29 Anion Gap 8 L BUN 21 H Creatinine 0.9 Est GFR ( Amer) > 60 Est GFR (Non-Af Amer) > 60 POC Glucose (mg/dL) 92 Random Glucose 91 Calcium 8.9 Total Bilirubin 0.4 AST 47 H ALT 31 Alkaline Phosphatase 75 Total Protein 6.3 Albumin 2.7 L Globulin 3.6 Albumin/Globulin Ratio 0.7 L Assessment & Plan (1) Preop cardiovascular exam Assessment and Plan: as per ACC/AHA guidelines she can proceed with planned debridement with intermediate risk for perioperative cardiac event Status: Acute (2) Atrial fibrillation Status: Chronic (3) CHF (congestive heart failure) Status: Chronic (4) Diabetes mellitus Status: Chronic (5) Diabetic foot ulcer Status: Chronic (6) HTN (hypertension) Status: Chronic
[2019-01-18] MEDS ORDERED: Lidocaine 1% Inj (20ml) ONE (14:26)
[2019-01-18] MEDS ORDERED: Bupivacaine 0.5% Inj(30mL) ONE (14:26)
[2019-01-18] MEDS ORDERED: Bupivacaine 0.5% 50 ML IJ ONE (15:50)
[2019-01-18] MEDS ORDERED: Lidocaine 1% Inj (20ml) IJ ONE (15:50)
--- NOTE | 2019-01-18 19:05 | PCM.OP ---
Operative Report - Operative Report Date of Surgery/Procedure: 01/18/19 Time of Surgery/Procedure: 15:00 Surgeon: Dr. Mk Manley DPM Ore Tester: Dr. Bella Garland PGY1 Anesthesia/Sedation: Local Anesthesia Pre-Operative Diagnosis: Left Foot: Stable Stage 2 Pressure Ulcer Right Foot: Full thickness, Necrotic and Infected Pressure Ulcer Post-Operative Diagnosis: same as above Indication for Surgery: Indications: The patient is a 73year old female with the above diagnoses. The patient has exhausted all conservative treatment at this time and now requires surgical intervention. The patient signed the consent after careful explanation of risks, benefits, complications and alternatives for surgical procedure. No guarantees were given nor implied. NPO status was confirmed prior to taking patient to the OR. Operative Findings: Preparation: The patient was brought in to the operating room and placed on the operating room table in a supine position. Timeout was performed for identification of the correct patient and procedure. The patient received a total of 30 cc of a 1:1 mix of 1% lidocaine plain and 0.5% Marcaine plain in a circumferential fashion to the right heel surrounding the wound. No local anesthesia was administered to the left heel. Bilateral Lower extremities were then prepped and draped in normal sterile manner and the procedure began. No tourniquet was used during the procedure. Procedure/Operation Description: Procedure 1: Left Heel Wound Debridement Attention was drawn to the left heel wound measuring approximately 6 cm X 5 cm. Upon debridement of the superficial skin layer with a sterile #15 blade, it was noted that the underlying ulcer was a stable Stage 2 ulceration. The ulcer site was debrided with care being taken toavoidneurovascular structure.The ulceration was then copiously irrigated with sterile saline. Left Heel was dressed with xeroform, sterile 4x4, Kerlix and Coban Procedure 2: Right Heel Wound Debridement Attention was then drawn to the right heel wound measuring approximately 6.5 cm X 7 cm. The ulceration was noted to be have full-thickness necrosis with infection and malodor. The full thickness necrotic tissue was debrided using a sterile #15 blade. The underlying subcutaneous tissue was then debrided and marcel trudy of all nonviable tissue using Versajet on setting 7 until granular tissue was noted. The wound was debrided with care being taken toavoidneurovascular structure. The wound was then copiously irrigated with sterile saline. Right Heel was dressed with xeroform, sterile 4x4, Kerlix and Coban Estimated Blood Loss: 20 mL Complications: none Specimen: Right Heel full thickness necrotic tissue Discharge & Condition: The patient tolerated the anesthesia and procedure well. Patient will be followed by Podiatry while in house
--- NOTE | 2019-01-18 19:05 | PCM.SURG1 ---
Surgeon's Initial Post Op Note - Surgeon's Notes Surgeon: Dr. Mk Manley, DPM Head Sulfide Operator: Dr. Bella Garland, PGY1 Type of Anesthesia: Local Pre-Operative Diagnosis: Bilateral Lower Extrmeity Wounds Operative Findings: see dictation. I: 30 cc of 1:1 of 1% Lidocaine plain with 0.5% Marcaine plain Post-Operative Diagnosis: same Operation Performed: Bilateral Lower Extremity wound debridement with VersaJet Specimen/Specimens Removed: right heel necrosis skin. wound culture right heel Estimated Blood Loss: EBL {In ML}: 20 Blood Products Given: N/A Drains Used: No Drains Post-Op Condition: Good Date of Surgery/Procedure: 01/18/19 Time of Surgery/Procedure: 19:05
[2019-01-19] MEDS: Piperacillin/Tazobact 3.375 GM in Sodium Chloride 0.9% 100 ML IVPB SCH ×2 (00:30→09:45)
[2019-01-19] MEDS: Fluticasone-Salmeterol 250-50mcg Diskus IH SCH ×2 (00:32→13:00)
[2019-01-19] MEDS: Dextrose 5%/0.45% NS 1,000 ML IV SCH (04:25)
[2019-01-19] MEDS: Levothyroxine 125 MCG TAB PO SCH (06:55)
[2019-01-19 08:27] LABS: BASO % 0.3 % (0.0-2.0); EOS # 0.2 K/uL (0.0-0.7); EOS % 1.5 % (0.0-4.0); HEMOGLOBIN 9.2 g/dL (12.0-16.0); LYMPH # 1.2 K/uL (1.0-4.3); MEAN CELL VOLUME 80.8 fl (81.0-99.0); MEAN CORPUSCULAR HEMOGLOBIN 26.4 pg (27.0-31.0); MEAN CORPUSCULAR HGB CONC 32.7 g/dL (33.0-37.0); MEAN PLATELET VOLUME 8.5 fl (7.2-11.7); MONO # 0.7 K/uL (0.0-0.8); MONO % 6.3 % (0.0-10.0); NEUT % 80.9 % (50.0-75.0); NRBC % 0.1 % (0.0-0.0); RBC 3.5 Mil/uL (3.80-5.20); RED CELL DISTRIBUTION WIDTH 16.7 % (11.5-14.5); WHITE BLOOD COUNT 11.1 K/uL (4.8-10.8)
[2019-01-19 08:46] LABS: BLOOD UREA NITROGEN 17 mg/dl (7-17); CALCIUM 8.7 mg/dL (8.4-10.2); GFR NON-AFRICAN AMERICAN > 60
[2019-01-19 09:04] LABS: INR 1.5; PROTHROMBIN TIME 16.9 Seconds (9.8-13.1)
--- NOTE | 2019-01-19 09:29 | CP.PCM.PN ---
<Sherrell Rivera - Last Filed: 01/19/19 14:29> Subjective - Date & Time of Evaluation Date of Evaluation: 01/19/19 Time of Evaluation: 09:29 - Subjective Subjective: Sherrell Rivera, PGY-1, Cardiology Progress Note for Dr. Odom Patient seen and evaluated at bedside. Patient had no acute overnight events. Patient reports improved foot pain. Objective - Vital Signs/Intake and Output Vital Signs (last 24 hours): Temp Pulse Resp BP Pulse Ox 97.9 F 79 20 145/78 95 01/19/19 08:24 01/19/19 08:24 01/19/19 08:24 01/19/19 08:24 01/19/19 08:24 - Medications Medications: Current Medications Atorvastatin Calcium (Lipitor) 20 mg PO HS [facility] Last Admin: 01/18/19 22:18 Dose: 20 mg Carvedilol (Coreg) 6.25 mg PO Q12 [facility] Last Admin: 01/18/19 22:14 Dose: 6.25 mg Cyanocobalamin (Vitamin B12 1000 Mcg/Ml Inj) 1,000 mcg IM DAILY [facility] Last Admin: 01/18/19 17:28 Dose: 1,000 mcg Ergocalciferol (Drisdol 50,000 Intl Units Cap) 1 cap PO WE [facility] Famotidine (Pepcid) 20 mg PO HS [facility] Last Admin: 01/18/19 22:17 Dose: 20 mg Ferrous Sulfate (Feosol) 325 mg PO DAILY [facility] Last Admin: 01/18/19 08:42 Dose: Not Given Furosemide (Lasix) 20 mg PO DAILY [facility] Last Admin: 01/18/19 10:12 Dose: Not Given Gabapentin (Neurontin) 200 mg PO Q8 [facility] Last Admin: 01/19/19 00:30 Dose: 200 mg Vancomycin HCl 1 gm/ Sodium (Chloride) 250 mls @ 166.667 mls/hr IVPB Q12 [facility]; Protocol Last Admin: 01/18/19 22:22 Dose: 166.667 mls/hr Piperacillin Sod/Tazobactam (Sod 3.375 gm/ Sodium Chloride) 100 mls @ 100 mls/hr IVPB Q8 [facility]; Protocol Last Admin: 01/19/19 00:30 Dose: 100 mls/hr Dextrose/Sodium Chloride (Dextrose 5%/0.45% Ns 1000 Ml) 1,000 mls @ 60 mls/hr IV .[id number] [facility] Stop: 01/19/19 11:35 Last Admin: 01/19/19 04:25 Dose: Not Given Insulin Human Regular (Humulin R) 0 units SC ACHS [facility]; Protocol Last Admin: 01/18/19 23:13 Dose: Not Given Levothyroxine Sodium (Synthroid) 125 mcg PO DAILY@0630 [facility] Last Admin: 01/19/19 06:55 Dose: 125 mcg Losartan Potassium (Cozaar) 100 mg PO DAILY [facility] Last Admin: 01/18/19 08:42 Dose: Not Given Metformin HCl (Glucophage) 500 mg PO TID [facility] Last Admin: 01/18/19 17:22 Dose: 500 mg Nystatin (Nystop Topical Powder) 1 applic TOP TID [facility] Last Admin: 01/18/19 17:21 Dose: 1 applic Potassium Chloride (K-Dur 20 Meq Er Tab) 20 meq PO Q12 [facility] Last Admin: 01/18/19 22:18 Dose: 20 meq Repaglinide (Prandin) 2 mg PO DAILY [facility] Last Admin: 01/18/19 08:42 Dose: Not Given Fluticasone/Salmeterol (Advair Diskus 250/50) 1 puff IH Q12H [facility] Last Admin: 01/19/19 00:32 Dose: Not Given Sertraline HCl (Zoloft) 25 mg PO DAILY [facility] Last Admin: 01/18/19 08:42 Dose: Not Given Sitagliptin Phosphate (Januvia) 50 mg PO DAILY [facility] Last Admin: 01/18/19 08:42 Dose: Not Given - Labs Labs: 01/19/19 07:55 01/19/19 07:55 PT 16.9 Seconds (9.8-13.1) H 01/19/19 07:55 INR 1.5 01/19/19 07:55 APTT 28.2 Seconds (25.6-37.1) 01/18/19 10:45 - Constitutional Appears: Well, Non-toxic, No Acute Distress - Head Exam Head Exam: ATRAUMATIC, NORMAL INSPECTION, NORMOCEPHALIC - Eye Exam Eye Exam: EOMI, PERRL - ENT Exam ENT Exam: Mucous Membranes Moist - Respiratory Exam Respiratory Exam: Wheezes (diffuse), NORMAL BREATHING PATTERN - Cardiovascular Exam Cardiovascular Exam: Irregular Rhythm, +S1, +S2 - GI/Abdominal Exam GI & Abdominal Exam: Normal Bowel Sounds, Soft. absent: Tenderness - Extremities Exam Extremities exam: Positive for: full ROM, joint swelling, normal inspection, tenderness Additional comments: erythema of bilateral lower extremities with both feet wrapped - Neurological Exam Neurological exam: Alert, CN II-XII Intact, Oriented x3 Additional comments: numbness of bilateral lower extremities - Psychiatric Exam Psychiatric exam: Normal Affect, Normal Mood Assessment and Plan - Assessment and Plan (Free Text) Assessment: Bilateral lower extremity ulcers Atrial fibrillation Hypertension Hyperlipidemia Hypothyroidism Diabetes Mellitus Type II Plan: Bilateral lower extremity ulcers Atrial fibrillation Hypertension Hyperlipidemia Hypothyroidism Diabetes Mellitus Type II Chest CT: no pulmonary nodule, 2 mm calcified granuloma in right lower lobe, no infiltrate Foot X ray: dorsal soft tissue swelling over metatarsals bilaterally EKG: atrial fibrillation with HR: 75 Troponinx1: 0.0430 TSH: 1.59 Patient status post debridement of lower extremity ulcers. Continue medical management for atrial fibrillation, hypertension, HLD Medications: Lipitor 20 mg daily Coreg 6.25 mg Q12 Feosol 325 mg daily Lasix 20 mg daily Synthyroid 125 mcg daily Cozaar 100 mg daily Metformin 500 mg TID Repaglinide Sitagliptin Vancomycin Zosyn <LeiForrest - Last Filed: 01/19/19 15:35> Objective - Vital Signs/Intake and Output Vital Signs (last 24 hours): Temp Pulse Resp BP Pulse Ox 97.9 F 88 20 133/75 95 01/19/19 08:24 01/19/19 09:46 01/19/19 08:24 01/19/19 09:46 01/19/19 08:24 - Medications Medications: Current Medications Atorvastatin Calcium (Lipitor) 20 mg PO HS [facility] Last Admin: 01/18/19 22:18 Dose: 20 mg Carvedilol (Coreg) 6.25 mg PO Q12 [facility] Last Admin: 01/19/19 09:46 Dose: 6.25 mg Cyanocobalamin (Vitamin B12 1000 Mcg/Ml Inj) 1,000 mcg IM DAILY [facility] Last Admin: 01/19/19 09:47 Dose: 1,000 mcg Enoxaparin Sodium (Lovenox) 130 mg SC Q12 [facility]; Protocol Ergocalciferol (Drisdol 50,000 Intl Units Cap) 1 cap PO WE [facility] Last Admin: 01/19/19 12:59 Dose: 1 cap Famotidine (Pepcid) 20 mg PO HS [facility] Last Admin: 01/18/19 22:17 Dose: 20 mg Ferrous Sulfate (Feosol) 325 mg PO DAILY [facility] Last Admin: 01/19/19 09:46 Dose: 325 mg Furosemide (Lasix) 20 mg PO DAILY [facility] Last Admin: 01/19/19 09:46 Dose: 20 mg Gabapentin (Neurontin) 200 mg PO Q8 [facility] Last Admin: 01/19/19 09:46 Dose: 200 mg Vancomycin HCl 1 gm/ Sodium (Chloride) 250 mls @ 166.667 mls/hr IVPB Q12 [facility]; Protocol Last Admin: 01/18/19 22:22 Dose: 166.667 mls/hr Meropenem 1 gm/ Sodium (Chloride) 100 mls @ 100 mls/hr IVPB Q8 [facility]; Protocol Insulin Human Regular (Humulin R) 0 units SC ACHS [facility]; Protocol Last Admin: 01/19/19 13:04 Dose: Not Given Levothyroxine Sodium (Synthroid) 125 mcg PO DAILY@0630 [facility] Last Admin: 01/19/19 06:55 Dose: 125 mcg Losartan Potassium (Cozaar) 100 mg PO DAILY [facility] Last Admin: 01/19/19 09:46 Dose: 100 mg Metformin HCl (Glucophage) 500 mg PO TID [facility] Last Admin: 01/19/19 12:59 Dose: 500 mg Nystatin (Nystop Topical Powder) 1 applic TOP TID [facility] Last Admin: 01/19/19 13:00 Dose: 1 applic Potassium Chloride (K-Dur 20 Meq Er Tab) 20 meq PO Q12 [facility] Last Admin: 01/19/19 09:46 Dose: 20 meq Repaglinide (Prandin) 2 mg PO DAILY [facility] Last Admin: 01/19/19 09:46 Dose: 2 mg Fluticasone/Salmeterol (Advair Diskus 250/50) 1 puff IH Q12H [facility] Last Admin: 01/19/19 13:00 Dose: 1 puff Sertraline HCl (Zoloft) 25 mg PO DAILY [facility] Last Admin: 01/19/19 09:46 Dose: 25 mg Sitagliptin Phosphate (Januvia) 50 mg PO DAILY [facility] Last Admin: 01/19/19 09:46 Dose: 50 mg Warfarin Sodium (Coumadin) 5 mg PO QD5 [facility]; Protocol Stop: 01/19/19 17:01 - Labs Labs: 01/19/19 07:55 01/19/19 07:55 PT 16.9 Seconds (9.8-13.1) H 01/19/19 07:55 INR 1.5 01/19/19 07:55 APTT 28.2 Seconds (25.6-37.1) 01/18/19 10:45 Assessment and Plan (1) Leg ulcer Assessment & Plan: etiology unclear ? arterial vs venous multiple CRF CTA LE Status: Acute (2) Preop cardiovascular exam Assessment & Plan: tolerated procedure well Status: Acute (3) Atrial fibrillation Assessment & Plan: coumadin coreg Status: Chronic (4) CHF (congestive heart failure) Assessment & Plan: etiology for low EF unclear no recent ischemic evaluation plan for stress testing Status: Chronic (5) Diabetes mellitus Status: Chronic (6) Diabetic foot ulcer Status: Chronic (7) HTN (hypertension) Status: Chronic Attending/Attestation - Attestation I have personally seen and examined this patient.: Yes I have fully participated in the care of the patient.: Yes I have reviewed all pertinent clinical information, including history, physical exam and plan: Yes
[2019-01-19] MEDS: Insulin Regular 100 units/ml SC SCH ×4 (09:45→23:43)
[2019-01-19] MEDS: Potassium Chloride 20 mEq ER Tab PO SCH ×2 (09:46→23:33)
--- NOTE | 2019-01-19 09:59 | PQF ---
PROVIDER RESPONSE TEXT: CHF Systolic (EF 35-40%) from February Chronic, no acute exacerbation at current moment REVIEWER QUERY TEXT: CHF Acuity and Type A history of Congestive Heart Failure is documented in the Medical Record. Please document the type a nd acuity (includes probable or suspected) versus No CHF: history only and not a chronic condition Such as: Type: -- Systolic -- Diastolic -- Combined -- Other, please specify Acuity: -- Acute -- Chronic -- Acute on chronic -- Other, please specify CXR:Impression: 1.5 centimeter nodule at the left lung.Further evaluation by CT is recommended.Cardio megaly and pulmonary vascular congestion. H and P includes: PMH:Congestive Heart Failure -coreg,lasix The patient's Clinical Indicators include: -- Query created by: Lyla Thomas on 01/18/2019 9:30 AM Electronically signed by: Ismael Means 01/19/2019 9:56 AM
--- NOTE | 2019-01-19 09:59 | PQF ---
PROVIDER RESPONSE TEXT: Atrial fibrillation, Chronic REVIEWER QUERY TEXT: Atrial Fibrillation Type Atrial fibrillation is documented in the Medical Record. Please specify the type if known: Such as: -- Chronic -- Paroxysmal -- Permanent -- Persistent -- Other, please specify H and P includes: Admitting Impression includes: Atrial Fibrillation -coreg The patient's Clinical Indicators include: -- Query created by: Lyla Thomas on 01/18/2019 9:53 AM Electronically signed by: Ismael Means 01/19/2019 9:56 AM
--- NOTE | 2019-01-19 10:39 | CP.PCM.PN ---
<Ismael Means - Last Filed: 01/19/19 10:35> Subjective - Date & Time of Evaluation Date of Evaluation: 01/19/19 Time of Evaluation: 07:00 - Subjective Subjective: Pt seen and examined this am with Dr. Harmon. Reports pain is controlled. S/P Bl LE debridement in OR yesterday. Discussed case with Podiatry resident, plan for Bone scan to assess for Osteomyelitis. Denies dyspnea. Objective - Vital Signs/Intake and Output Vital Signs (last 24 hours): Temp Pulse Resp BP Pulse Ox 97.9 F 88 20 133/75 95 01/19/19 08:24 01/19/19 09:46 01/19/19 08:24 01/19/19 09:46 01/19/19 08:24 - Medications Medications: Current Medications Atorvastatin Calcium (Lipitor) 20 mg PO HS [facility] Last Admin: 01/18/19 22:18 Dose: 20 mg Carvedilol (Coreg) 6.25 mg PO Q12 [facility] Last Admin: 01/19/19 09:46 Dose: 6.25 mg Cyanocobalamin (Vitamin B12 1000 Mcg/Ml Inj) 1,000 mcg IM DAILY [facility] Last Admin: 01/19/19 09:47 Dose: 1,000 mcg Ergocalciferol (Drisdol 50,000 Intl Units Cap) 1 cap PO [facility] Famotidine (Pepcid) 20 mg PO HS [facility] Last Admin: 01/18/19 22:17 Dose: 20 mg Ferrous Sulfate (Feosol) 325 mg PO DAILY [facility] Last Admin: 01/19/19 09:46 Dose: 325 mg Furosemide (Lasix) 20 mg PO DAILY [facility] Last Admin: 01/19/19 09:46 Dose: 20 mg Gabapentin (Neurontin) 200 mg PO Q8 [facility] Last Admin: 01/19/19 09:46 Dose: 200 mg Vancomycin HCl 1 gm/ Sodium (Chloride) 250 mls @ 166.667 mls/hr IVPB Q12 [facility]; Protocol Last Admin: 01/18/19 22:22 Dose: 166.667 mls/hr Piperacillin Sod/Tazobactam (Sod 3.375 gm/ Sodium Chloride) 100 mls @ 100 mls/hr IVPB Q8 [facility]; Protocol Last Admin: 01/19/19 09:45 Dose: 100 mls/hr Dextrose/Sodium Chloride (Dextrose 5%/0.45% Ns 1000 Ml) 1,000 mls @ 60 mls/hr IV .[id number] [facility] Stop: 01/19/19 11:35 Last Admin: 01/19/19 04:25 Dose: Not Given Insulin Human Regular (Humulin R) 0 units SC ACHS [facility]; Protocol Last Admin: 01/18/19 23:13 Dose: Not Given Levothyroxine Sodium (Synthroid) 125 mcg PO DAILY@0630 [facility] Last Admin: 01/19/19 06:55 Dose: 125 mcg Losartan Potassium (Cozaar) 100 mg PO DAILY [facility] Last Admin: 01/19/19 09:46 Dose: 100 mg Metformin HCl (Glucophage) 500 mg PO TID [facility] Last Admin: 01/18/19 17:22 Dose: 500 mg Nystatin (Nystop Topical Powder) 1 applic TOP TID [facility] Last Admin: 01/19/19 09:45 Dose: 1 applic Potassium Chloride (K-Dur 20 Meq Er Tab) 20 meq PO Q12 [facility] Last Admin: 01/19/19 09:46 Dose: 20 meq Repaglinide (Prandin) 2 mg PO DAILY [facility] Last Admin: 01/19/19 09:46 Dose: 2 mg Fluticasone/Salmeterol (Advair Diskus 250/50) 1 puff IH Q12H [facility] Last Admin: 01/19/19 00:32 Dose: Not Given Sertraline HCl (Zoloft) 25 mg PO DAILY [facility] Last Admin: 01/19/19 09:46 Dose: 25 mg Sitagliptin Phosphate (Januvia) 50 mg PO DAILY [facility] Last Admin: 01/19/19 09:46 Dose: 50 mg Warfarin Sodium (Coumadin) 5 mg PO QD5 [facility]; Protocol Stop: 01/19/19 17:01 - Labs Labs: 01/19/19 07:55 01/19/19 07:55 PT 16.9 Seconds (9.8-13.1) H 01/19/19 07:55 INR 1.5 01/19/19 07:55 APTT 28.2 Seconds (25.6-37.1) 01/18/19 10:45 - Constitutional Appears: No Acute Distress - Head Exam Head Exam: NORMAL INSPECTION - Eye Exam Eye Exam: Normal appearance - ENT Exam ENT Exam: Mucous Membranes Moist - Respiratory Exam Respiratory Exam: Clear to Ausculation Bilateral. absent: Accessory Muscle Use, Rales, Wheezes - Cardiovascular Exam Cardiovascular Exam: REGULAR RHYTHM - GI/Abdominal Exam GI & Abdominal Exam: Soft. absent: Tenderness - Extremities Exam Additional comments: Foot wrapped in dressing (Clean, dry, and in tact) , toes visible with good capillary refill. - Neurological Exam Neurological Exam: Alert, Normal Gait - Psychiatric Exam Psychiatric exam: Normal Affect - Skin Skin Exam: Normal Color Assessment and Plan - Assessment and Plan (Free Text) Assessment: HPI: 71 Y/o female with PMHx of CHF, DM, HTN, atrial fibrillation (on Coumadin) and diabetic neuropathy presents to [facility] ED for evaluation of BL lower ext ul cers (Right >>Left) as she was having increase in foul odor drainage. Pt has been managed as outpatient for multiple lower ext ulcerations by Podiatry under Dr. Manley. #Chronic Diabetic Ulcers, acute on chronic infection #Atrial Fibtrillation on Coumadin # Decubitus Ulcer, R. and L. Ischium #Pulmonary nodule on Cxray #HTN - C/P Bl LE Debridement in OR by Podiatry; plan for Bone scan to assess for osteomyelitis. ESR 69, CRP 79 - Vascular on Board, Dr. Odom - ID on board - C/W Vanco and Zosyn - Resume Coumadin today 5mg with LMWH (therapeutic dosage) bridge. Daily INR. 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 Frequent repositioning q 2 hours. - F/U CBC, Coagulation labs, Bcx, Wcx - Management of chronic conditions as ordered Discussed plan with Dr. Eden Means, PGY2 <Kushal Harmon - Last Filed: 01/26/19 06:14> Objective - Vital Signs/Intake and Output Vital Signs (last 24 hours): Temp Pulse Resp BP Pulse Ox 97 F L 71 20 145/81 93 L 01/22/19 16:02 01/22/19 16:02 01/22/19 16:02 01/22/19 16:02 01/22/19 16:02 - Labs Labs: 01/22/19 05:05 01/22/19 05:05 PT 17.6 Seconds (9.8-13.1) H 01/21/19 05:29 INR 1.5 01/21/19 05:29 APTT 31.4 Seconds (25.6-37.1) 01/21/19 05:29 Assessment and Plan - Assessment and Plan (Free Text) Assessment: Patient was personally seen and examined by me in rounds with residents. Available labs and diagnostic data reviewed. Case, Patient's condition and management plan discussed with residents in rounds. Agree with resident's progress note. Plan: As ordered.
[2019-01-19 11:21] VITALS: BMI 46.9
--- NOTE | 2019-01-19 11:31 | CP.PCM.PN ---
Subjective - Date & Time of Evaluation Date of Evaluation: 01/19/19 Time of Evaluation: 09:00 - Subjective Subjective: went for bone scan rx renewed Objective - Vital Signs/Intake and Output Vital Signs (last 24 hours): Temp Pulse Resp BP Pulse Ox 97.9 F 88 20 133/75 95 01/19/19 08:24 01/19/19 09:46 01/19/19 08:24 01/19/19 09:46 01/19/19 08:24 - Medications Medications: Current Medications Atorvastatin Calcium (Lipitor) 20 mg PO HS [facility] Last Admin: 01/18/19 22:18 Dose: 20 mg Carvedilol (Coreg) 6.25 mg PO Q12 [facility] Last Admin: 01/19/19 09:46 Dose: 6.25 mg Cyanocobalamin (Vitamin B12 1000 Mcg/Ml Inj) 1,000 mcg IM DAILY [facility] Last Admin: 01/19/19 09:47 Dose: 1,000 mcg Enoxaparin Sodium (Lovenox) 130 mg SC Q12 [facility]; Protocol Ergocalciferol (Drisdol 50,000 Intl Units Cap) 1 cap PO WE [facility] Famotidine (Pepcid) 20 mg PO HS [facility] Last Admin: 01/18/19 22:17 Dose: 20 mg Ferrous Sulfate (Feosol) 325 mg PO DAILY [facility] Last Admin: 01/19/19 09:46 Dose: 325 mg Furosemide (Lasix) 20 mg PO DAILY [facility] Last Admin: 01/19/19 09:46 Dose: 20 mg Gabapentin (Neurontin) 200 mg PO Q8 [facility] Last Admin: 01/19/19 09:46 Dose: 200 mg Vancomycin HCl 1 gm/ Sodium (Chloride) 250 mls @ 166.667 mls/hr IVPB Q12 [facility]; Protocol Last Admin: 01/18/19 22:22 Dose: 166.667 mls/hr Piperacillin Sod/Tazobactam (Sod 3.375 gm/ Sodium Chloride) 100 mls @ 100 mls/hr IVPB Q8 [facility]; Protocol Last Admin: 01/19/19 09:45 Dose: 100 mls/hr Dextrose/Sodium Chloride (Dextrose 5%/0.45% Ns 1000 Ml) 1,000 mls @ 60 mls/hr IV .[id number] [facility] Stop: 01/19/19 11:35 Last Admin: 01/19/19 04:25 Dose: Not Given Insulin Human Regular (Humulin R) 0 units SC ACHS [facility]; Protocol Last Admin: 01/18/19 23:13 Dose: Not Given Levothyroxine Sodium (Synthroid) 125 mcg PO DAILY@0630 [facility] Last Admin: 01/19/19 06:55 Dose: 125 mcg Losartan Potassium (Cozaar) 100 mg PO DAILY [facility] Last Admin: 01/19/19 09:46 Dose: 100 mg Metformin HCl (Glucophage) 500 mg PO TID [facility] Last Admin: 01/18/19 17:22 Dose: 500 mg Nystatin (Nystop Topical Powder) 1 applic TOP TID [facility] Last Admin: 01/19/19 09:45 Dose: 1 applic Potassium Chloride (K-Dur 20 Meq Er Tab) 20 meq PO Q12 [facility] Last Admin: 01/19/19 09:46 Dose: 20 meq Repaglinide (Prandin) 2 mg PO DAILY [facility] Last Admin: 01/19/19 09:46 Dose: 2 mg Fluticasone/Salmeterol (Advair Diskus 250/50) 1 puff IH Q12H [facility] Last Admin: 01/19/19 00:32 Dose: Not Given Sertraline HCl (Zoloft) 25 mg PO DAILY [facility] Last Admin: 01/19/19 09:46 Dose: 25 mg Sitagliptin Phosphate (Januvia) 50 mg PO DAILY [facility] Last Admin: 01/19/19 09:46 Dose: 50 mg Warfarin Sodium (Coumadin) 5 mg PO QD5 [facility]; Protocol Stop: 01/19/19 17:01 - Labs Labs: 01/19/19 07:55 01/19/19 07:55 PT 16.9 Seconds (9.8-13.1) H 01/19/19 07:55 INR 1.5 01/19/19 07:55 APTT 28.2 Seconds (25.6-37.1) 01/18/19 10:45
--- NOTE | 2019-01-19 11:45 | CP.PCM.PN ---
<Roseline Sahu - Last Filed: 01/19/19 11:45> Subjective - Date & Time of Evaluation Date of Evaluation: 01/19/19 Time of Evaluation: 11:45 - Subjective Subjective: Podiatry Consult Note: Dr. Manley 73 year old female patient POD#1 b/l wound debridement. Patient resting comfortably and in NAD. She denies any acute events overnight. She reports mild pain to b/l lower extremities. Denies nausea/vomiting/fever/chest pain. Objective - Vital Signs/Intake and Output Vital Signs (last 24 hours): Temp Pulse Resp BP Pulse Ox 97.9 F 88 20 133/75 95 01/19/19 08:24 01/19/19 09:46 01/19/19 08:24 01/19/19 09:46 01/19/19 08:24 - Medications Medications: Current Medications Atorvastatin Calcium (Lipitor) 20 mg PO HS [facility] Last Admin: 01/18/19 22:18 Dose: 20 mg Carvedilol (Coreg) 6.25 mg PO Q12 [facility] Last Admin: 01/19/19 09:46 Dose: 6.25 mg Cyanocobalamin (Vitamin B12 1000 Mcg/Ml Inj) 1,000 mcg IM DAILY [facility] Last Admin: 01/19/19 09:47 Dose: 1,000 mcg Enoxaparin Sodium (Lovenox) 130 mg SC Q12 [facility]; Protocol Ergocalciferol (Drisdol 50,000 Intl Units Cap) 1 cap PO [facility] Famotidine (Pepcid) 20 mg PO HS [facility] Last Admin: 01/18/19 22:17 Dose: 20 mg Ferrous Sulfate (Feosol) 325 mg PO DAILY [facility] Last Admin: 01/19/19 09:46 Dose: 325 mg Furosemide (Lasix) 20 mg PO DAILY [facility] Last Admin: 01/19/19 09:46 Dose: 20 mg Gabapentin (Neurontin) 200 mg PO Q8 [facility] Last Admin: 01/19/19 09:46 Dose: 200 mg Vancomycin HCl 1 gm/ Sodium (Chloride) 250 mls @ 166.667 mls/hr IVPB Q12 [facility]; Protocol Last Admin: 01/18/19 22:22 Dose: 166.667 mls/hr Piperacillin Sod/Tazobactam (Sod 3.375 gm/ Sodium Chloride) 100 mls @ 100 mls/hr IVPB Q8 [facility]; Protocol Last Admin: 01/19/19 09:45 Dose: 100 mls/hr Insulin Human Regular (Humulin R) 0 units SC ACHS [facility]; Protocol Last Admin: 01/18/19 23:13 Dose: Not Given Levothyroxine Sodium (Synthroid) 125 mcg PO DAILY@0630 [facility] Last Admin: 01/19/19 06:55 Dose: 125 mcg Losartan Potassium (Cozaar) 100 mg PO DAILY [facility] Last Admin: 01/19/19 09:46 Dose: 100 mg Metformin HCl (Glucophage) 500 mg PO TID [facility] Last Admin: 01/18/19 17:22 Dose: 500 mg Nystatin (Nystop Topical Powder) 1 applic TOP TID [facility] Last Admin: 01/19/19 09:45 Dose: 1 applic Potassium Chloride (K-Dur 20 Meq Er Tab) 20 meq PO Q12 [facility] Last Admin: 01/19/19 09:46 Dose: 20 meq Repaglinide (Prandin) 2 mg PO DAILY [facility] Last Admin: 01/19/19 09:46 Dose: 2 mg Fluticasone/Salmeterol (Advair Diskus 250/50) 1 puff IH Q12H [facility] Last Admin: 01/19/19 00:32 Dose: Not Given Sertraline HCl (Zoloft) 25 mg PO DAILY [facility] Last Admin: 01/19/19 09:46 Dose: 25 mg Sitagliptin Phosphate (Januvia) 50 mg PO DAILY [facility] Last Admin: 01/19/19 09:46 Dose: 50 mg Warfarin Sodium (Coumadin) 5 mg PO QD5 [facility]; Protocol Stop: 01/19/19 17:01 - Labs Labs: 01/19/19 07:55 01/19/19 07:55 PT 16.9 Seconds (9.8-13.1) H 01/19/19 07:55 INR 1.5 01/19/19 07:55 APTT 28.2 Seconds (25.6-37.1) 01/18/19 10:45 - Constitutional Appears: Non-toxic, No Acute Distress - Head Exam Head Exam: ATRAUMATIC, NORMOCEPHALIC - Extremities Exam Additional comments: Surgical dressing left clean/dry/intact NVS intact Patient able to wiggle toes - Neurological Exam Neurological Exam: Alert, Awake, Oriented x3 - Psychiatric Exam Psychiatric exam: Normal Affect, Normal Mood Assessment and Plan - Assessment and Plan (Free Text) Assessment: 73 year old female patient, with PMHx DM, CHF, HTN, A-fib, with bilateral diabet ic ulcerations, POD#1 wound debridement Plan: Patient seen and evaluated Discussed in detail with Dr. Manley Afebrile, WBC 11.1, PT 18.6, INR 1.6, ESR 69, CRP pending B/L foot x-rays taken; dorsal soft tissue swelling over the metatarsals bilaterally ID consult; reccs appreciated Vasc consult; reccs appreciated Bone scan ordered; R/O OM Wound cx taken: pending Local wound care; betadine, DSD Weightbear as tolerated Will continue to follow <Mk Manley - Last Filed: 01/19/19 18:02> Objective - Vital Signs/Intake and Output Vital Signs (last 24 hours): Temp Pulse Resp BP Pulse Ox 97.3 F L 71 20 130/71 95 01/19/19 16:04 01/19/19 16:04 01/19/19 16:04 01/19/19 16:04 01/19/19 16:04 - Medications Medications: Current Medications Atorvastatin Calcium (Lipitor) 20 mg PO HS [facility] Last Admin: 01/18/19 22:18 Dose: 20 mg Carvedilol (Coreg) 6.25 mg PO Q12 [facility] Last Admin: 01/19/19 09:46 Dose: 6.25 mg Cyanocobalamin (Vitamin B12 1000 Mcg/Ml Inj) 1,000 mcg IM DAILY [facility] Last Admin: 01/19/19 09:47 Dose: 1,000 mcg Enoxaparin Sodium (Lovenox) 130 mg SC Q12 [facility]; Protocol Ergocalciferol (Drisdol 50,000 Intl Units Cap) 1 cap PO [facility] Last Admin: 01/19/19 12:59 Dose: 1 cap Famotidine (Pepcid) 20 mg PO HS [facility] Last Admin: 01/18/19 22:17 Dose: 20 mg Ferrous Sulfate (Feosol) 325 mg PO DAILY [facility] Last Admin: 01/19/19 09:46 Dose: 325 mg Furosemide (Lasix) 20 mg PO DAILY [facility] Last Admin: 01/19/19 09:46 Dose: 20 mg Gabapentin (Neurontin) 200 mg PO Q8 [facility] Last Admin: 01/19/19 16:58 Dose: 200 mg Vancomycin HCl 1 gm/ Sodium (Chloride) 250 mls @ 166.667 mls/hr IVPB Q12 [facility]; Protocol Last Admin: 01/19/19 17:05 Dose: 166.667 mls/hr Meropenem 1 gm/ Sodium (Chloride) 100 mls @ 100 mls/hr IVPB Q8 [facility]; Protocol Last Admin: 01/19/19 16:57 Dose: 100 mls/hr Insulin Human Regular (Humulin R) 0 units SC ACHS [facility]; Protocol Last Admin: 01/19/19 17:06 Dose: Not Given Levothyroxine Sodium (Synthroid) 125 mcg PO DAILY@0630 [facility] Last Admin: 01/19/19 06:55 Dose: 125 mcg Losartan Potassium (Cozaar) 100 mg PO DAILY [facility] Last Admin: 01/19/19 09:46 Dose: 100 mg Metformin HCl (Glucophage) 500 mg PO TID [facility] Last Admin: 01/19/19 16:59 Dose: 500 mg Nystatin (Nystop Topical Powder) 1 applic TOP TID [facility] Last Admin: 01/19/19 16:59 Dose: 1 applic Potassium Chloride (K-Dur 20 Meq Er Tab) 20 meq PO Q12 [facility] Last Admin: 01/19/19 09:46 Dose: 20 meq Repaglinide (Prandin) 2 mg PO DAILY [facility] Last Admin: 01/19/19 09:46 Dose: 2 mg Fluticasone/Salmeterol (Advair Diskus 250/50) 1 puff IH Q12H [facility] Last Admin: 01/19/19 13:00 Dose: 1 puff Sertraline HCl (Zoloft) 25 mg PO DAILY [facility] Last Admin: 01/19/19 09:46 Dose: 25 mg Sitagliptin Phosphate (Januvia) 50 mg PO DAILY [facility] Last Admin: 01/19/19 09:46 Dose: 50 mg - Labs Labs: 01/19/19 07:55 01/19/19 07:55 PT 16.9 Seconds (9.8-13.1) H 01/19/19 07:55 INR 1.5 01/19/19 07:55 APTT 28.2 Seconds (25.6-37.1) 01/18/19 10:45 Assessment and Plan - Assessment and Plan (Free Text) Plan: above noted /bone scan ordered . wound is full thickness at heel right . will need extended antibiotics ./Dr Joe Manley .
[2019-01-19] MEDS ORDERED: Ergocalciferol 50,000 Intl Units Cap PO SCH (12:52)
[2019-01-19] MEDS: Meropenem 1 GM in Sodium Chloride 0.9% 100 ML IVPB SCH (16:57)
[2019-01-19] MEDS: Enoxaparin 150 mg Syringe SC SCH ×2 (19:43→23:42)
[2019-01-20] MEDS: Meropenem 1 GM in Sodium Chloride 0.9% 100 ML IVPB SCH ×3 (02:00→17:22)
[2019-01-20] MEDS: Fluticasone-Salmeterol 250-50mcg Diskus IH SCH ×2 (02:40→13:54)
[2019-01-20 04:31] LABS: SQUAMOUS EPITHIAL 16 /hpf (0-5); URINE BACTERIA OCC (<OCC); URINE BILIRUBIN NEGATIVE (NEGATIVE); URINE BLOOD MODERATE (NEGATIVE); URINE CLARITY CLOUDY (Clear); URINE COLOR AMBER (YELLOW); URINE GLUCOSE (UA) NEG (NEGATIVE); URINE LEUKOCYTE ESTERASE LARGE Leu/uL (Negative); URINE PROTEIN 100 mg/dL (NEGATIVE); URINE UROBILINOGEN 0.2-1.0 mg/dL (0.2-1.0)
[2019-01-20] MEDS: Levothyroxine 125 MCG TAB PO SCH (06:11)
[2019-01-20 06:37] LABS: INR 1.7; PROTHROMBIN TIME 18.9 Seconds (9.8-13.1)
[2019-01-20 06:39] LABS: BASO # 0.1 K/uL (0.0-0.2); BASO % 0.6 % (0.0-2.0); EOS # 0.2 K/uL (0.0-0.7); HEMOGLOBIN 9.4 g/dL (12.0-16.0); LYMPH # 1.6 K/uL (1.0-4.3); MEAN CORPUSCULAR HEMOGLOBIN 25.8 pg (27.0-31.0); MEAN CORPUSCULAR HGB CONC 31.5 g/dL (33.0-37.0); MEAN PLATELET VOLUME 8.8 fl (7.2-11.7); MONO # 0.6 K/uL (0.0-0.8); MONO % 5.9 % (0.0-10.0); NEUT # 8.1 K/uL (1.8-7.0); NEUT % 76.5 % (50.0-75.0); RBC 3.65 Mil/uL (3.80-5.20); RED CELL DISTRIBUTION WIDTH 16.8 % (11.5-14.5); WHITE BLOOD COUNT 10.5 K/uL (4.8-10.8)
[2019-01-20 06:43] LABS: BLOOD UREA NITROGEN 15 mg/dl (7-17); CALCIUM 8.6 mg/dL (8.4-10.2); GFR NON-AFRICAN AMERICAN > 60
[2019-01-20] MEDS: Enoxaparin 150 mg Syringe SC SCH ×2 (09:26→22:23)
--- NOTE | 2019-01-20 09:44 | CP.PCM.PN ---
Subjective - Date & Time of Evaluation Date of Evaluation: 01/20/19 Time of Evaluation: 09:44 - Subjective Subjective: Podiatry Consult Note: Dr. Manley 73 year old female patient POD#2 b/l wound debridement. Patient resting comfortably and in NAD, no acute events overnight. She endorses mild pain to b/l lower extremities. Denies nausea/vomiting/fever/chest pain. Objective - Vital Signs/Intake and Output Vital Signs (last 24 hours): Temp Pulse Resp BP Pulse Ox 97.6 F 81 20 159/79 H 95 01/20/19 08:29 01/20/19 08:29 01/20/19 08:29 01/20/19 08:29 01/20/19 08:29 - Medications Medications: Current Medications Atorvastatin Calcium (Lipitor) 20 mg PO HS [facility] Last Admin: 01/19/19 23:32 Dose: 20 mg Carvedilol (Coreg) 6.25 mg PO Q12 [facility] Last Admin: 01/19/19 23:32 Dose: 6.25 mg Cyanocobalamin (Vitamin B12 1000 Mcg/Ml Inj) 1,000 mcg IM DAILY [facility] Last Admin: 01/19/19 09:47 Dose: 1,000 mcg Enoxaparin Sodium (Lovenox) 130 mg SC Q12 [facility]; Protocol Last Admin: 01/20/19 09:26 Dose: 130 mg Ergocalciferol (Drisdol 50,000 Intl Units Cap) 1 cap PO [facility] Last Admin: 01/19/19 12:59 Dose: 1 cap Famotidine (Pepcid) 20 mg PO HS [facility] Last Admin: 01/19/19 23:32 Dose: 20 mg Ferrous Sulfate (Feosol) 325 mg PO DAILY [facility] Last Admin: 01/19/19 09:46 Dose: 325 mg Furosemide (Lasix) 20 mg PO DAILY [facility] Last Admin: 01/19/19 09:46 Dose: 20 mg Gabapentin (Neurontin) 200 mg PO Q8 [facility] Last Admin: 01/20/19 02:40 Dose: Not Given Vancomycin HCl 1 gm/ Sodium (Chloride) 250 mls @ 166.667 mls/hr IVPB Q12 [facility]; Protocol Last Admin: 01/20/19 09:25 Dose: 166.667 mls/hr Meropenem 1 gm/ Sodium (Chloride) 100 mls @ 100 mls/hr IVPB Q8 [facility]; Protocol Last Admin: 01/20/19 09:23 Dose: 100 mls/hr Insulin Human Regular (Humulin R) 0 units SC ACHS [facility]; Protocol Last Admin: 01/19/19 23:43 Dose: Not Given Levothyroxine Sodium (Synthroid) 125 mcg PO DAILY@0630 [facility] Last Admin: 01/20/19 06:11 Dose: 125 mcg Losartan Potassium (Cozaar) 100 mg PO DAILY [facility] Last Admin: 01/19/19 09:46 Dose: 100 mg Metformin HCl (Glucophage) 500 mg PO TID [facility] Last Admin: 01/19/19 16:59 Dose: 500 mg Nystatin (Nystop Topical Powder) 1 applic TOP TID [facility] Last Admin: 01/20/19 09:27 Dose: 1 applic Potassium Chloride (K-Dur 20 Meq Er Tab) 20 meq PO Q12 [facility] Last Admin: 01/19/19 23:33 Dose: Not Given Repaglinide (Prandin) 2 mg PO DAILY [facility] Last Admin: 01/19/19 09:46 Dose: 2 mg Fluticasone/Salmeterol (Advair Diskus 250/50) 1 puff IH Q12H [facility] Last Admin: 01/20/19 02:40 Dose: Not Given Sertraline HCl (Zoloft) 25 mg PO DAILY [facility] Last Admin: 01/19/19 09:46 Dose: 25 mg Sitagliptin Phosphate (Januvia) 50 mg PO DAILY [facility] Last Admin: 01/19/19 09:46 Dose: 50 mg - Labs Labs: 01/20/19 05:35 01/20/19 05:35 PT 18.9 Seconds (9.8-13.1) H 01/20/19 05:35 INR 1.7 01/20/19 05:35 APTT 28.2 Seconds (25.6-37.1) 01/18/19 10:45 - Constitutional Appears: Non-toxic, No Acute Distress - Head Exam Head Exam: ATRAUMATIC, NORMOCEPHALIC - Extremities Exam Additional comments: B/L LE exam: Vasc: DP/PT pulses faintly palpable secondary to 2+ non-pitting edema. CFT < 3 seconds to all digits. Skin temperature increased to RLE compared to LLE. Ortho: Pain on palpation noted to plantar ulceration. ROM at all major joints diminished due to swelling and body habitus. MMT 4/5 in all major muscle groups. No gross osseous deformities appreciated Neuro: Gross and protective sensation diminished Derm: Cellulitic changes to b/l lower extremities RLE: Multiple circular diabetic ulcerations, one to the forefoot measuring 3 x 4 x .5 cm with granular base down to the level of muscle. Additional ulceration noted to the level of the 5th met base 3 x 2 x .4 cm with granular base to the level of the fat/muscle. + malodor, + drainage, + clinical signs of infection, erythema appreciated to entire foot. Additional full thickness ulceration with mixed granular/necrotic base appreciated to R heel, + malodor, + drainage. LLE: Ulceration to L heel with granular base, full thickness, + malodor, + drainage, + clinical signs of infection, erythema appreciated to entire foot - Neurological Exam Neurological Exam: Alert, Awake, Oriented x3 - Psychiatric Exam Psychiatric exam: Normal Affect, Normal Mood Assessment and Plan - Assessment and Plan (Free Text) Assessment: 73 year old female patient, with PMHx DM, CHF, HTN, A-fib, with bilateral diabetic ulcerations, POD#2 b/l wound debridement Plan: Patient seen and evaluated Discussed in detail with Dr. Manley Afebrile, WBC 10.5, ESR 69, CRP pending B/L foot x-rays taken; dorsal soft tissue swelling over the metatarsals bilaterally ID consult; reccs appreciated Vasc consult; reccs appreciated - plan for CTA Bone scan ordered; R/O OM, final read pending Wound cx taken: gram neg audrey Local wound care; betadine, DSD Weightbear as tolerated Will continue to follow
[2019-01-20] MEDS: Insulin Regular 100 units/ml SC SCH ×4 (10:28→21:32)
--- NOTE | 2019-01-20 10:44 | CP.PCM.PN ---
<Ismael Means - Last Filed: 01/20/19 10:35> Subjective - Date & Time of Evaluation Date of Evaluation: 01/20/19 Time of Evaluation: 08:00 - Subjective Subjective: Pt seen and examined this am. Denies pain, sob, cp. Plan discussed for Angiography w/ contrast. Pt is declining study as she states she is severely allergic to contrast. States 10+ years ago, she received contrast and "almost " as she could not breath and was told that she was allergic to contrast. Has not received it since that point on. Objective - Vital Signs/Intake and Output Vital Signs (last 24 hours): Temp Pulse Resp BP Pulse Ox 97.6 F 81 20 159/79 H 95 01/20/19 08:29 01/20/19 08:29 01/20/19 08:29 01/20/19 08:29 01/20/19 08:29 - Medications Medications: Current Medications Atorvastatin Calcium (Lipitor) 20 mg PO HS [facility] Last Admin: 01/19/19 23:32 Dose: 20 mg Carvedilol (Coreg) 6.25 mg PO Q12 [facility] Last Admin: 01/19/19 23:32 Dose: 6.25 mg Cyanocobalamin (Vitamin B12 1000 Mcg/Ml Inj) 1,000 mcg IM DAILY [facility] Last Admin: 01/19/19 09:47 Dose: 1,000 mcg Enoxaparin Sodium (Lovenox) 130 mg SC Q12 [facility]; Protocol Last Admin: 01/20/19 09:26 Dose: 130 mg Ergocalciferol (Drisdol 50,000 Intl Units Cap) 1 cap PO WE [facility] Last Admin: 01/19/19 12:59 Dose: 1 cap Famotidine (Pepcid) 20 mg PO HS [facility] Last Admin: 01/19/19 23:32 Dose: 20 mg Ferrous Sulfate (Feosol) 325 mg PO DAILY [facility] Last Admin: 01/19/19 09:46 Dose: 325 mg Furosemide (Lasix) 20 mg PO DAILY [facility] Last Admin: 01/19/19 09:46 Dose: 20 mg Gabapentin (Neurontin) 200 mg PO Q8 [facility] Last Admin: 01/20/19 02:40 Dose: Not Given Vancomycin HCl 1 gm/ Sodium (Chloride) 250 mls @ 166.667 mls/hr IVPB Q12 [facility]; Protocol Last Admin: 01/20/19 09:25 Dose: 166.667 mls/hr Meropenem 1 gm/ Sodium (Chloride) 100 mls @ 100 mls/hr IVPB Q8 [facility]; Protocol Last Admin: 01/20/19 09:23 Dose: 100 mls/hr Insulin Human Regular (Humulin R) 0 units SC ACHS [facility]; Protocol Last Admin: 01/19/19 23:43 Dose: Not Given Levothyroxine Sodium (Synthroid) 125 mcg PO DAILY@0630 [facility] Last Admin: 01/20/19 06:11 Dose: 125 mcg Losartan Potassium (Cozaar) 100 mg PO DAILY [facility] Last Admin: 01/19/19 09:46 Dose: 100 mg Metformin HCl (Glucophage) 500 mg PO TID [facility] Last Admin: 01/19/19 16:59 Dose: 500 mg Nystatin (Nystop Topical Powder) 1 applic TOP TID [facility] Last Admin: 01/20/19 09:27 Dose: 1 applic Potassium Chloride (K-Dur 20 Meq Er Tab) 20 meq PO Q12 [facility] Last Admin: 01/19/19 23:33 Dose: Not Given Repaglinide (Prandin) 2 mg PO DAILY [facility] Last Admin: 01/19/19 09:46 Dose: 2 mg Fluticasone/Salmeterol (Advair Diskus 250/50) 1 puff IH Q12H [facility] Last Admin: 01/20/19 02:40 Dose: Not Given Sertraline HCl (Zoloft) 25 mg PO DAILY [facility] Last Admin: 01/19/19 09:46 Dose: 25 mg Sitagliptin Phosphate (Januvia) 50 mg PO DAILY [facility] Last Admin: 01/19/19 09:46 Dose: 50 mg - Labs Labs: 01/20/19 05:35 01/20/19 05:35 PT 18.9 Seconds (9.8-13.1) H 01/20/19 05:35 INR 1.7 01/20/19 05:35 APTT 28.2 Seconds (25.6-37.1) 01/18/19 10:45 - Constitutional Appears: No Acute Distress - Head Exam Head Exam: NORMAL INSPECTION - Eye Exam Eye Exam: Normal appearance - ENT Exam ENT Exam: Mucous Membranes Moist - Respiratory Exam Respiratory Exam: Clear to Ausculation Bilateral, Rales (bibasilar ). absent: Wheezes - Cardiovascular Exam Cardiovascular Exam: REGULAR RHYTHM, +S1, +S2 - GI/Abdominal Exam GI & Abdominal Exam: Soft. absent: Tenderness - Extremities Exam Additional comments: Foot wrapped in dressing (Clean, dry, and in tact) , toes visible with good capillary refill. - Neurological Exam Neurological Exam: Alert, Oriented x3 - Psychiatric Exam Psychiatric exam: Normal Affect - Skin Skin Exam: Normal Color Assessment and Plan - Assessment and Plan (Free Text) Assessment: 71 Y/o female with PMHx of CHF, DM, HTN, Osteomyelitis of left heel, atrial fibrillation (on Coumadin) and diabetic neuropathy presents to [facility] ED for evaluation of BL lower ext ulcers (Right >>Left) as she was having increase in foul odor drainage. #Chronic Diabetic Ulcers, acute on chronic infection #Atrial Fibrillation on Coumadin # Decubitus Ulcer, R. and L. Ischium #Pulmonary nodule on Cxray #HTN - S/P Bl LE Debridement in OR by Podiatry;Bone scan completed to assess for osteomyelitis- report pending. ESR 69, CRP 79 - Vascular on Board, Dr. Odom. Angiography study ordered but pt declined. - ID on board - C/W Vanco and Merrem - Resume Coumadin 5mg daily with LMWH bridge. INR 1.7 today - PICC line ordered for fdc antibiotics - decision science analyst, Nutrition on board for Decubitus/Sacrum Ulcer Stage III (Left) and Unstageable (right). Frequent repositioning q 2 hours. - F/U CBC, Coagulation labs, Bcx, Wcx - PT - Management of chronic conditions as ordered Discussed plan with Dr. Eden Means, PGY2 <Kushal Harmon - Last Filed: 01/21/19 23:29> Objective - Vital Signs/Intake and Output Vital Signs (last 24 hours): Temp Pulse Resp BP Pulse Ox 97.5 F L 77 20 147/82 96 01/21/19 16:30 01/21/19 21:14 01/21/19 16:30 01/21/19 21:14 01/21/19 16:30 - Medications Medications: Current Medications Atorvastatin Calcium (Lipitor) 20 mg PO HS [facility] Last Admin: 01/21/19 21:15 Dose: 20 mg Carvedilol (Coreg) 6.25 mg PO Q12 [facility] Last Admin: 01/21/19 21:14 Dose: 6.25 mg Cyanocobalamin (Vitamin B12 1000 Mcg/Ml Inj) 1,000 mcg IM DAILY [facility] Last Admin: 01/21/19 09:26 Dose: 1,000 mcg Dimethicone (Proshield Plus Skin Protectant) 1 applic TOP Q8 [facility] Last Admin: 01/21/19 17:17 Dose: 1 applic Enoxaparin Sodium (Lovenox) 130 mg SC Q12 [facility]; Protocol Last Admin: 01/21/19 21:15 Dose: 130 mg Ergocalciferol (Drisdol 50,000 Intl Units Cap) 1 cap PO WE [facility] Last Admin: 01/19/19 12:59 Dose: 1 cap Famotidine (Pepcid) 20 mg PO HS [facility] Last Admin: 01/21/19 21:16 Dose: 20 mg Ferrous Sulfate (Feosol) 325 mg PO DAILY [facility] Last Admin: 01/21/19 09:07 Dose: 325 mg Furosemide (Lasix) 20 mg PO DAILY [facility] Last Admin: 01/21/19 09:08 Dose: 20 mg Gabapentin (Neurontin) 200 mg PO Q8 [facility] Last Admin: 01/21/19 17:18 Dose: 200 mg Vancomycin HCl 1 gm/ Sodium (Chloride) 250 mls @ 166.667 mls/hr IVPB Q12 [facility]; Protocol Last Admin: 01/21/19 20:49 Dose: 166.667 mls/hr Meropenem 1 gm/ Sodium (Chloride) 100 mls @ 100 mls/hr IVPB Q8 [facility]; Protocol Last Admin: 01/21/19 17:17 Dose: 100 mls/hr Insulin Human Regular (Humulin R) 0 units SC ACHS [facility]; Protocol Last Admin: 01/21/19 21:17 Dose: Not Given Levothyroxine Sodium (Synthroid) 125 mcg PO DAILY@0630 [facility] Last Admin: 01/21/19 06:49 Dose: 125 mcg Losartan Potassium (Cozaar) 100 mg PO DAILY [facility] Last Admin: 01/21/19 09:07 Dose: 100 mg Metformin HCl (Glucophage) 500 mg PO TID [facility] Last Admin: 01/21/19 17:18 Dose: 500 mg Nystatin (Nystop Topical Powder) 1 applic TOP TID [facility] Last Admin: 01/21/19 17:18 Dose: 1 applic Potassium Chloride (K-Dur 20 Meq Er Tab) 20 meq PO Q12 [facility] Last Admin: 01/21/19 21:16 Dose: 20 meq Repaglinide (Prandin) 2 mg PO DAILY [facility] Last Admin: 01/21/19 09:07 Dose: 2 mg Fluticasone/Salmeterol (Advair Diskus 250/50) 1 puff IH Q12H [facility] Last Admin: 01/21/19 15:36 Dose: Not Given Sertraline HCl (Zoloft) 25 mg PO DAILY [facility] Last Admin: 01/21/19 09:07 Dose: 25 mg Sitagliptin Phosphate (Januvia) 50 mg PO DAILY [facility] Last Admin: 01/21/19 09:06 Dose: 50 mg - Labs Labs: 01/21/19 05:29 01/21/19 05:29 PT 17.6 Seconds (9.8-13.1) H 01/21/19 05:29 INR 1.5 01/21/19 05:29 APTT 31.4 Seconds (25.6-37.1) 01/21/19 05:29 Assessment and Plan - Assessment and Plan (Free Text) Assessment: Patient was personally seen and examined by me in rounds with residents. Available labs and diagnostic data reviewed. Case, Patient's condition and management plan discussed with residents in rounds. Agree with resident's progress note. Plan: As ordered.
--- NOTE | 2019-01-20 12:11 | NM ---
Date of service: 01/19/2019 PROCEDURE: Three-phase bone Scan HISTORY: Osteomyelitis both feet suspected clinically. COMPARISON: 01/17/2019. Bilateral foot radiographs. Summary of findings on the comparison examination: Dorsal soft tissue swelling metatarsal region bilaterally. TECHNIQUE: Following administration of 24.8 miCu of Tc MDP three-phase bone scan attention bilateral feet. FINDINGS: Flow component: Increase flow right foot and ankle. Focal increased vascularity right 2nd digit Additional increased flow/perfusion right calcaneus. Blood pool component: Accumulation of radionuclide right 2nd digit and right os calcis. Delayed images at 3:00: Increased retention of radionuclide right 2nd digit and both calcanei. Other findings: None. IMPRESSION: 1. Positive three-phase bone scan right 2nd digit. 2. Suspicious findings in both right and left calcaneus where there is increased flow to, accumulation and retention of radionuclide.
[2019-01-20] MEDS: Potassium Chloride 20 mEq ER Tab PO SCH ×3 (12:40→21:27)
[2019-01-20] MEDS ORDERED: Lidocaine Hydrochloride 1% 10 ML ONE (14:12)
--- NOTE | 2019-01-20 14:21 | PCM.SURG1 ---
Surgeon's Initial Post Op Note - Surgeon's Notes Surgeon: Freddie Gerardo MD Soda Fountain Manager: NONE Type of Anesthesia: Local Pre-Operative Diagnosis: Poor venous access Operative Findings: Patent right basilic vein Post-Operative Diagnosis: Poor venous access Operation Performed: Single lumen picc right arm, 37 cm. Tip in SVC. Specimen/Specimens Removed: NONE Estimated Blood Loss: EBL {In ML}: 2 Blood Products Given: N/A Drains Used: No Drains Post-Op Condition: Fair Date of Surgery/Procedure: 01/20/19 Time of Surgery/Procedure: 14:10
--- NOTE | 2019-01-20 15:14 | CP.PCM.PN ---
Subjective - Date & Time of Evaluation Date of Evaluation: 01/20/19 Time of Evaluation: 15:12 - Subjective Subjective: Sherrell Rivera, PGY-1, Cardiology Progress Note for Dr. Odom Patient seen and evaluated at bedside. Patient had no acute overnight events. Patient reports no complaints at this time. Objective - Vital Signs/Intake and Output Vital Signs (last 24 hours): Temp Pulse Resp BP Pulse Ox 98.1 F 88 18 155/80 H 95 01/20/19 14:14 01/20/19 14:14 01/20/19 14:14 01/20/19 14:14 01/20/19 08:29 - Medications Medications: Current Medications Atorvastatin Calcium (Lipitor) 20 mg PO HS [facility] Last Admin: 01/19/19 23:32 Dose: 20 mg Carvedilol (Coreg) 6.25 mg PO Q12 [facility] Last Admin: 01/20/19 10:28 Dose: 6.25 mg Cyanocobalamin (Vitamin B12 1000 Mcg/Ml Inj) 1,000 mcg IM DAILY [facility] Last Admin: 01/20/19 10:26 Dose: 1,000 mcg Enoxaparin Sodium (Lovenox) 130 mg SC Q12 [facility]; Protocol Last Admin: 01/20/19 09:26 Dose: 130 mg Ergocalciferol (Drisdol 50,000 Intl Units Cap) 1 cap PO WE [facility] Last Admin: 01/19/19 12:59 Dose: 1 cap Famotidine (Pepcid) 20 mg PO HS [facility] Last Admin: 01/19/19 23:32 Dose: 20 mg Ferrous Sulfate (Feosol) 325 mg PO DAILY [facility] Last Admin: 01/20/19 10:25 Dose: 325 mg Furosemide (Lasix) 20 mg PO DAILY [facility] Last Admin: 01/20/19 10:25 Dose: 20 mg Gabapentin (Neurontin) 200 mg PO Q8 [facility] Last Admin: 01/20/19 10:23 Dose: 200 mg Vancomycin HCl 1 gm/ Sodium (Chloride) 250 mls @ 166.667 mls/hr IVPB Q12 [facility]; Protocol Last Admin: 01/20/19 09:25 Dose: 166.667 mls/hr Meropenem 1 gm/ Sodium (Chloride) 100 mls @ 100 mls/hr IVPB Q8 [facility]; Protocol Last Admin: 01/20/19 09:23 Dose: 100 mls/hr Insulin Human Regular (Humulin R) 0 units SC ACHS [facility]; Protocol Last Admin: 01/20/19 12:40 Dose: Not Given Levothyroxine Sodium (Synthroid) 125 mcg PO DAILY@0630 [facility] Last Admin: 01/20/19 06:11 Dose: 125 mcg Losartan Potassium (Cozaar) 100 mg PO DAILY [facility] Last Admin: 01/20/19 10:24 Dose: 100 mg Metformin HCl (Glucophage) 500 mg PO TID [facility] Last Admin: 01/20/19 13:53 Dose: 500 mg Nystatin (Nystop Topical Powder) 1 applic TOP TID [facility] Last Admin: 01/20/19 13:54 Dose: 1 applic Potassium Chloride (K-Dur 20 Meq Er Tab) 20 meq PO Q12 [facility] Last Admin: 01/20/19 13:48 Dose: 20 meq Repaglinide (Prandin) 2 mg PO DAILY [facility] Last Admin: 01/20/19 10:27 Dose: 2 mg Fluticasone/Salmeterol (Advair Diskus 250/50) 1 puff IH Q12H [facility] Last Admin: 01/20/19 13:54 Dose: 1 puff Sertraline HCl (Zoloft) 25 mg PO DAILY [facility] Last Admin: 01/20/19 10:26 Dose: 25 mg Sitagliptin Phosphate (Januvia) 50 mg PO DAILY [facility] Last Admin: 01/20/19 10:25 Dose: 50 mg Warfarin Sodium (Coumadin) 5 mg PO QD5 [facility]; Protocol Stop: 01/20/19 17:01 - Labs Labs: 01/20/19 05:35 01/20/19 05:35 PT 18.9 Seconds (9.8-13.1) H 01/20/19 05:35 INR 1.7 01/20/19 05:35 APTT 28.2 Seconds (25.6-37.1) 01/18/19 10:45 - Constitutional Appears: Well, Non-toxic, No Acute Distress - Head Exam Head Exam: ATRAUMATIC, NORMAL INSPECTION, NORMOCEPHALIC - Eye Exam Eye Exam: EOMI, PERRL - ENT Exam ENT Exam: Mucous Membranes Moist - Respiratory Exam Respiratory Exam: Wheezes (diffuse), NORMAL BREATHING PATTERN - Cardiovascular Exam Cardiovascular Exam: Irregular Rhythm, +S1, +S2 - GI/Abdominal Exam GI & Abdominal Exam: Normal Bowel Sounds, Soft. absent: Tenderness - Extremities Exam Extremities exam: Positive for: full ROM, joint swelling, normal inspection, tenderness Additional comments: erythema of bilateral lower extremities with both feet wrapped - Neurological Exam Neurological exam: Alert, CN II-XII Intact, Oriented x3 Additional comments: numbness of bilateral lower extremities - Psychiatric Exam Psychiatric exam: Normal Affect, Normal Mood Assessment and Plan (1) Bilateral lower leg cellulitis Assessment & Plan: Foot X ray: dorsal soft tissue swelling over metatarsals bilaterally Right foot culture shows E. Faecalis, P. Mirabilis Awaiting CTA runoff of bilateral lower extremities to evaluate for etiology of ulcers Continue with vancomycin and zosyn Status: Acute (2) Hyperlipidemia Assessment & Plan: Continue with lipitor Status: Acute (3) Leg ulcer Assessment & Plan: Foot X ray: dorsal soft tissue swelling over metatarsals bilaterally Awaiting CTA runoff of bilateral lower extremities to evaluate for severity of P AD Status: Acute (4) Chronic a-fib Assessment & Plan: Confirmed with EKG on this admission Continue with coumadin and coreg Status: Acute (5) DM2 (diabetes mellitus, type 2) Assessment & Plan: Patient is currently euglycemic Continue with metformin Status: Acute (6) HTN (hypertension) Assessment & Plan: Blood pressure ranges from 150s-160s/80s during the daytime Continue with cozaar, lasix, coreg Status: Chronic (7) Hypothyroid Assessment & Plan: Continue with synthroid. Status: Chronic
[2019-01-21] MEDS: Meropenem 1 GM in Sodium Chloride 0.9% 100 ML IVPB SCH ×3 (00:22→17:17)
[2019-01-21] MEDS: Fluticasone-Salmeterol 250-50mcg Diskus IH SCH ×2 (00:26→15:36)
[2019-01-21 06:16] LABS: BASO # 0.1 K/uL (0.0-0.2); EOS # 0.2 K/uL (0.0-0.7); EOS % 2.1 % (0.0-4.0); HEMOGLOBIN 9.5 g/dL (12.0-16.0); LYMPH # 1.5 K/uL (1.0-4.3); LYMPH % 15.3 % (20.0-40.0); MEAN CELL VOLUME 80.6 fl (81.0-99.0); MEAN CORPUSCULAR HEMOGLOBIN 26.7 pg (27.0-31.0); MEAN CORPUSCULAR HGB CONC 33.2 g/dL (33.0-37.0); MEAN PLATELET VOLUME 8.5 fl (7.2-11.7); MONO # 0.6 K/uL (0.0-0.8); MONO % 6.1 % (0.0-10.0); NEUT # 7.3 K/uL (1.8-7.0); NEUT % 75.5 % (50.0-75.0); NRBC % 0.1 % (0.0-0.0); RBC 3.56 Mil/uL (3.80-5.20); RED CELL DISTRIBUTION WIDTH 16.5 % (11.5-14.5); WHITE BLOOD COUNT 9.7 K/uL (4.8-10.8)
[2019-01-21 06:24] LABS: INR 1.5; PROTHROMBIN TIME 17.6 Seconds (9.8-13.1)
[2019-01-21 06:27] LABS: PARTIAL THROMBOPLASTIN TIME 31.4 Seconds (25.6-37.1)
[2019-01-21 06:29] LABS: BLOOD UREA NITROGEN 13 mg/dl (7-17); CALCIUM 8.8 mg/dL (8.4-10.2); GFR NON-AFRICAN AMERICAN > 60
[2019-01-21] MEDS: Insulin Regular 100 units/ml SC SCH ×4 (06:49→21:17)
[2019-01-21] MEDS: Levothyroxine 125 MCG TAB PO SCH (06:49)
[2019-01-21 08:09] VITALS: RESP 20
[2019-01-21] MEDS: Potassium Chloride 20 mEq ER Tab PO SCH ×2 (09:07→21:16)
[2019-01-21] MEDS: Enoxaparin 150 mg Syringe SC SCH ×2 (09:13→21:15)
--- NOTE | 2019-01-21 09:29 | PN ---
DATE: 01/21/2019 SUBJECTIVE: The patient seen and examined. Interim events noted. Consults noted and appreciated. Podiatry and infectious disease followup and intervention noted and appreciated. The patient remains in regular medical floor. Feels okay. Denies any pain. No chest pain or shortness of breath. Complains of generalized weakness. PHYSICAL EXAMINATION: GENERAL: The patient is in no acute distress. VITAL SIGNS: Stable. HEART: S1 and S2, normal and regular. LUNGS: Good bilateral air exchange. ABDOMEN: Soft and nontender. EXTREMITIES: The patient has bilateral lower extremity Podiatry dressing. No calf swelling. No tenderness. No acute ischemia. The patient has chronic venous edema. CENTRAL NERVOUS SYSTEM: Essentially unchanged. DIAGNOSTIC DATA: Available diagnostic data reviewed. Bone scan is positive for bilateral calcaneal osteomyelitis. ASSESSMENT AND PLAN: Overall, the patient is clinically stable. Plan as ordered. Kushal Harmon MD
--- NOTE | 2019-01-21 11:52 | CP.PCM.PCO ---
Assessment/Plan - Assessment/Plan Assessment (Free Text): Pt did not get stress test today because pt had a drink this am. Dr. Odom aware, pt can be discharged to [facility] and follow up with him for outpatient stress test. Pt's bone scan positive for OM. Pt had picc line inserted. Per Dr. Hickey, continue Merrem 1g IV q8 hrs and Vanco IV 1g q12 hrs x 6 weeks. Pt is cleared for transfer to [facility] by all consultants. Dr. Harmon aware of plan, he will follow pt in [facility]. - Consults Consult Orders: Consultations
--- NOTE | 2019-01-21 12:13 | CP.PCM.PN ---
Subjective - Date & Time of Evaluation Date of Evaluation: 01/21/19 Time of Evaluation: 12:10 - Subjective Subjective: Sherrell Rivera, PGY-1, Cardiology Progress Note for Dr. Odom Patient seen and evaluated at bedside. Patient had no acute overnight events. Patient reports no complaints at this time. Objective - Vital Signs/Intake and Output Vital Signs (last 24 hours): Temp Pulse Resp BP Pulse Ox 98 F 76 20 165/75 H 94 L 01/21/19 08:08 01/21/19 09:07 01/21/19 08:08 01/21/19 09:08 01/21/19 08:08 - Medications Medications: Current Medications Atorvastatin Calcium (Lipitor) 20 mg PO HS [facility] Last Admin: 01/20/19 21:27 Dose: 20 mg Carvedilol (Coreg) 6.25 mg PO Q12 [facility] Last Admin: 01/21/19 09:06 Dose: 6.25 mg Cyanocobalamin (Vitamin B12 1000 Mcg/Ml Inj) 1,000 mcg IM DAILY [facility] Last Admin: 01/21/19 09:26 Dose: 1,000 mcg Dimethicone (Proshield Plus Skin Protectant) 1 applic TOP Q8 [facility] Enoxaparin Sodium (Lovenox) 130 mg SC Q12 [facility]; Protocol Last Admin: 01/21/19 09:13 Dose: 130 mg Ergocalciferol (Drisdol 50,000 Intl Units Cap) 1 cap PO WE [facility] Last Admin: 01/19/19 12:59 Dose: 1 cap Famotidine (Pepcid) 20 mg PO HS [facility] Last Admin: 01/20/19 21:27 Dose: 20 mg Ferrous Sulfate (Feosol) 325 mg PO DAILY [facility] Last Admin: 01/21/19 09:07 Dose: 325 mg Furosemide (Lasix) 20 mg PO DAILY [facility] Last Admin: 01/21/19 09:08 Dose: 20 mg Gabapentin (Neurontin) 200 mg PO Q8 [facility] Last Admin: 01/21/19 09:06 Dose: 200 mg Vancomycin HCl 1 gm/ Sodium (Chloride) 250 mls @ 166.667 mls/hr IVPB Q12 [facility]; Protocol Last Admin: 01/21/19 09:24 Dose: 166.667 mls/hr Meropenem 1 gm/ Sodium (Chloride) 100 mls @ 100 mls/hr IVPB Q8 [facility]; Protocol Last Admin: 01/21/19 09:10 Dose: 100 mls/hr Insulin Human Regular (Humulin R) 0 units SC ACHS [facility]; Protocol Last Admin: 01/21/19 06:49 Dose: Not Given Levothyroxine Sodium (Synthroid) 125 mcg PO DAILY@0630 [facility] Last Admin: 01/21/19 06:49 Dose: 125 mcg Losartan Potassium (Cozaar) 100 mg PO DAILY [facility] Last Admin: 01/21/19 09:07 Dose: 100 mg Metformin HCl (Glucophage) 500 mg PO TID [facility] Last Admin: 01/21/19 09:07 Dose: 500 mg Nystatin (Nystop Topical Powder) 1 applic TOP TID [facility] Last Admin: 01/21/19 09:05 Dose: 1 applic Potassium Chloride (K-Dur 20 Meq Er Tab) 20 meq PO Q12 [facility] Last Admin: 01/21/19 09:07 Dose: 20 meq Repaglinide (Prandin) 2 mg PO DAILY [facility] Last Admin: 01/21/19 09:07 Dose: 2 mg Fluticasone/Salmeterol (Advair Diskus 250/50) 1 puff IH Q12H [facility] Last Admin: 01/21/19 00:26 Dose: Not Given Sertraline HCl (Zoloft) 25 mg PO DAILY [facility] Last Admin: 01/21/19 09:07 Dose: 25 mg Sitagliptin Phosphate (Januvia) 50 mg PO DAILY [facility] Last Admin: 01/21/19 09:06 Dose: 50 mg - Labs Labs: 01/21/19 05:29 01/21/19 05:29 PT 17.6 Seconds (9.8-13.1) H 01/21/19 05:29 INR 1.5 01/21/19 05:29 APTT 31.4 Seconds (25.6-37.1) 01/21/19 05:29 - Constitutional Appears: Well, Non-toxic, No Acute Distress - Head Exam Head Exam: ATRAUMATIC, NORMAL INSPECTION, NORMOCEPHALIC - Eye Exam Eye Exam: EOMI, PERRL - ENT Exam ENT Exam: Mucous Membranes Moist - Respiratory Exam Respiratory Exam: Wheezes (diffuse), NORMAL BREATHING PATTERN - Cardiovascular Exam Cardiovascular Exam: Irregular Rhythm, +S1, +S2 - GI/Abdominal Exam GI & Abdominal Exam: Normal Bowel Sounds, Soft. absent: Tenderness - Extremities Exam Extremities exam: Positive for: full ROM, joint swelling, normal inspection, tenderness Additional comments: erythema of bilateral lower extremities with both feet wrapped - Neurological Exam Neurological exam: Alert, CN II-XII Intact, Oriented x3 Additional comments: numbness of bilateral lower extremities - Psychiatric Exam Psychiatric exam: Normal Affect, Normal Mood Assessment and Plan (1) Bilateral lower leg cellulitis Assessment & Plan: Foot X ray: dorsal soft tissue swelling over metatarsals bilaterally Right foot culture shows E. Faecalis, P. Mirabilis Patient has allergy to dye so will order arterial duplex Continue with vancomycin and zosyn Status: Acute (2) Hyperlipidemia Assessment & Plan: Continue with lipitor Status: Acute (3) Leg ulcer Assessment & Plan: Foot X ray: dorsal soft tissue swelling over metatarsals bilaterally Will follow up arterial duplex of bilateral lower extremities Status: Acute (4) Chronic a-fib Assessment & Plan: Confirmed with EKG on this admission Continue with coumadin and coreg Status: Acute (5) DM2 (diabetes mellitus, type 2) Assessment & Plan: HgbA1c: 5.9 Continue with metformin Status: Acute (6) HTN (hypertension) Assessment & Plan: Blood pressure ranges from 140s-160s/80s during the daytime Continue with cozaar, lasix, coreg Status: Chronic (7) Hypothyroid Assessment & Plan: Continue with synthroid. Status: Chronic
[2019-01-21] MEDS: Proshield Plus GEL TOP SCH ×2 (12:35→17:17)
--- NOTE | 2019-01-21 12:51 | CP.PCM.PN ---
Subjective - Date & Time of Evaluation Date of Evaluation: 01/21/19 Time of Evaluation: 08:00 - Subjective Subjective: improving' afebrile nad Objective - Vital Signs/Intake and Output Vital Signs (last 24 hours): Temp Pulse Resp BP Pulse Ox 98 F 76 20 165/75 H 94 L 01/21/19 08:08 01/21/19 09:07 01/21/19 08:08 01/21/19 09:08 01/21/19 08:08 - Medications Medications: Current Medications Atorvastatin Calcium (Lipitor) 20 mg PO HS [facility] Last Admin: 01/20/19 21:27 Dose: 20 mg Carvedilol (Coreg) 6.25 mg PO Q12 [facility] Last Admin: 01/21/19 09:06 Dose: 6.25 mg Cyanocobalamin (Vitamin B12 1000 Mcg/Ml Inj) 1,000 mcg IM DAILY [facility] Last Admin: 01/21/19 09:26 Dose: 1,000 mcg Dimethicone (Proshield Plus Skin Protectant) 1 applic TOP Q8 [facility] Last Admin: 01/21/19 12:35 Dose: 1 applic Enoxaparin Sodium (Lovenox) 130 mg SC Q12 [facility]; Protocol Last Admin: 01/21/19 09:13 Dose: 130 mg Ergocalciferol (Drisdol 50,000 Intl Units Cap) 1 cap PO WE [facility] Last Admin: 01/19/19 12:59 Dose: 1 cap Famotidine (Pepcid) 20 mg PO HS [facility] Last Admin: 01/20/19 21:27 Dose: 20 mg Ferrous Sulfate (Feosol) 325 mg PO DAILY [facility] Last Admin: 01/21/19 09:07 Dose: 325 mg Furosemide (Lasix) 20 mg PO DAILY [facility] Last Admin: 01/21/19 09:08 Dose: 20 mg Gabapentin (Neurontin) 200 mg PO Q8 [facility] Last Admin: 01/21/19 09:06 Dose: 200 mg Vancomycin HCl 1 gm/ Sodium (Chloride) 250 mls @ 166.667 mls/hr IVPB Q12 [facility]; Protocol Last Admin: 01/21/19 09:24 Dose: 166.667 mls/hr Meropenem 1 gm/ Sodium (Chloride) 100 mls @ 100 mls/hr IVPB Q8 [facility]; Protocol Last Admin: 01/21/19 09:10 Dose: 100 mls/hr Insulin Human Regular (Humulin R) 0 units SC ACHS [facility]; Protocol Last Admin: 01/21/19 12:36 Dose: 3 units Levothyroxine Sodium (Synthroid) 125 mcg PO DAILY@0630 [facility] Last Admin: 01/21/19 06:49 Dose: 125 mcg Losartan Potassium (Cozaar) 100 mg PO DAILY [facility] Last Admin: 01/21/19 09:07 Dose: 100 mg Metformin HCl (Glucophage) 500 mg PO TID [facility] Last Admin: 01/21/19 12:35 Dose: 500 mg Nystatin (Nystop Topical Powder) 1 applic TOP TID [facility] Last Admin: 01/21/19 12:35 Dose: 1 applic Potassium Chloride (K-Dur 20 Meq Er Tab) 20 meq PO Q12 [facility] Last Admin: 01/21/19 09:07 Dose: 20 meq Repaglinide (Prandin) 2 mg PO DAILY [facility] Last Admin: 01/21/19 09:07 Dose: 2 mg Fluticasone/Salmeterol (Advair Diskus 250/50) 1 puff IH Q12H [facility] Last Admin: 01/21/19 00:26 Dose: Not Given Sertraline HCl (Zoloft) 25 mg PO DAILY [facility] Last Admin: 01/21/19 09:07 Dose: 25 mg Sitagliptin Phosphate (Januvia) 50 mg PO DAILY [facility] Last Admin: 01/21/19 09:06 Dose: 50 mg - Labs Labs: 01/21/19 05:29 01/21/19 05:29 PT 17.6 Seconds (9.8-13.1) H 01/21/19 05:29 INR 1.5 01/21/19 05:29 APTT 31.4 Seconds (25.6-37.1) 01/21/19 05:29 - Constitutional Appears: Non-toxic, No Acute Distress, Chronically Ill - Head Exam Head Exam: ATRAUMATIC, NORMAL INSPECTION, NORMOCEPHALIC - Eye Exam Eye Exam: EOMI, Normal appearance, PERRL Pupil Exam: NORMAL ACCOMODATION, PERRL - ENT Exam ENT Exam: Mucous Membranes Moist, Normal Exam - Neck Exam Neck Exam: Full ROM, Normal Inspection. absent: Lymphadenopathy - Respiratory Exam Respiratory Exam: Clear to Ausculation Bilateral, NORMAL BREATHING PATTERN - Cardiovascular Exam Cardiovascular Exam: REGULAR RHYTHM, +S1, +S2. absent: Murmur - GI/Abdominal Exam GI & Abdominal Exam: Soft, Normal Bowel Sounds. absent: Tenderness - Rectal Exam Rectal Exam: Deferred - Exam Exam: NORMAL INSPECTION - Extremities Exam Extremities Exam: Full ROM, Normal Capillary Refill, Normal Inspection. absent: Joint Swelling, Pedal Edema - Back Exam Back Exam: NORMAL INSPECTION - Neurological Exam Neurological Exam: Alert, Awake, CN II-XII Intact, Normal Gait, Oriented x3 - Psychiatric Exam Psychiatric exam: Normal Affect, Normal Mood - Skin Skin Exam: Dry, Intact, Normal Color, Warm Additional comments: wounds both feet Assessment and Plan (1) Cellulitis Status: Acute (2) Bilateral lower leg cellulitis Status: Acute (3) Chronic a-fib Status: Acute (4) DM2 (diabetes mellitus, type 2) Status: Acute (5) Decubital ulcer Status: Acute (6) Diabetic foot ulcer Status: Acute - Assessment and Plan (Free Text) Assessment: for ROMAN for OM foot cont rx as ordered
--- NOTE | 2019-01-21 12:52 | VASCULAR ---
PROCEDURE: Date of procedure: 01/20/2019 Procedure: 1. Placement of a right arm PICC with ultrasound and fluoroscopic guidance, CPT 74972 2. PICC tip confirmation with spot radiograph and is in the superior vena cava Medications: 1 percent lidocaine Total Fluoro time: 5.7 Seconds Radiation: 1.07 MGy EBL: 2 cc HISTORY: Infection requiring long-term IV antibiotics TECHNIQUE: Following informed consent and procedure time-out, the patient was placed supine on the interventional table and the right arm prepped and draped in the usual sterile fashion. Ultrasound showed a patent and compressible right basilic vein. After the skin was anesthetized with lidocaine, the basilic vein was accessed with micro micropuncture technique using ultrasound guidance. A guidewire was then advanced under fluoroscopic guidance into the superior vena cava. An image documenting ultrasound guidance for vascular access was permanently saved. The length of the single-lumen 4 [place]ian PICC was trimmed to 37 centimeters and advanced through a peel-away sheath. The PICC was position with tip of PICC confirm a spot radiograph the superior vena cava. The PICC was secured to the patient's skin. The PICC was flushed. A biopatch and sterile dressing was applied. IMPRESSION: Placement of a single-lumen 4 [place]olian PICC trimmed to 37 centimeters via right basilic vein. The tip of the PICC is confirmed with spot radiograph and is in the superior vena cava.
--- NOTE | 2019-01-21 17:53 | US ---
Date of service: 01/21/2019 PROCEDURE: Duplex ultrasound of the bilateral lower extremity arteries. HISTORY: Evaluate severity and location of PAD COMPARISON: None available. TECHNIQUE: Grayscale and duplex Doppler evaluation of the bilateral common femoral, superficial femoral, popliteal, posterior tibial and dorsalis pedis arteries was performed.. FINDINGS: RIGHT LOWER EXTREMITY: RIGHT COMMON FEMORAL ARTERY: Widely patent. Maximal flow velocity of 126.2 cm/s. RIGHT SUPERFICIAL FEMORAL ARTERY: Widely patent. Maximal flow velocity of 18.3 cm/s. RIGHT POPLITEAL ARTERY:Widely patent. Maximal flow velocity of 79.0 cm/s. RIGHT POSTERIOR TIBIAL ARTERY: Widely patent. Maximal flow velocity of 96.4 cm/s. RIGHT DORSALIS PEDIS ARTERY: Not assessed based on overlying bandages. LEFT LOWER EXTREMITY: LEFT COMMON FEMORAL ARTERY: Widely patent. Maximal flow velocity of 100.8 cm/s. LEFT SUPERFICIAL FEMORAL ARTERY: Widely patent. Maximal flow velocity of 123.8 cm/s. LEFT POPLITEAL ARTERY:Widely patent. Maximal flow velocity of 83.2 cm/s. LEFT POSTERIOR TIBIAL ARTERY: Widely patent. Maximal flow velocity of 49.0 cm/s. LEFT DORSALIS PEDIS ARTERY: Not assessed based on overlying bandages. OTHER FINDINGS: Right and left lower extremity/calf edema. IMPRESSION: Normal Duplex Doppler of the bilateral lower extremity arteries.
[2019-01-22] MEDS: Meropenem 1 GM in Sodium Chloride 0.9% 100 ML IVPB SCH ×3 (01:29→16:57)
[2019-01-22] MEDS: Proshield Plus GEL TOP SCH ×3 (02:19→16:55)
[2019-01-22] MEDS: Fluticasone-Salmeterol 250-50mcg Diskus IH SCH ×3 (02:19→14:21)
[2019-01-22 06:04] LABS: HEMOGLOBIN 10.2 g/dL (12.0-16.0); MEAN CELL VOLUME 81.1 fl (81.0-99.0); MEAN CORPUSCULAR HEMOGLOBIN 26.6 pg (27.0-31.0); MEAN CORPUSCULAR HGB CONC 32.8 g/dL (33.0-37.0); RBC 3.83 Mil/uL (3.80-5.20); RED CELL DISTRIBUTION WIDTH 16.3 % (11.5-14.5); WHITE BLOOD COUNT 9.7 K/uL (4.8-10.8)
[2019-01-22 06:27] LABS: ALB/GLOB RATIO 0.7 (1.0-2.1); ALBUMIN 2.8 g/dL (3.5-5.0); ALT/SGPT 27 U/L (9-52); AST/SGOT 25 U/L (14-36); BLOOD UREA NITROGEN 11 mg/dl (7-17); CALCIUM 8.9 mg/dL (8.4-10.2); GFR NON-AFRICAN AMERICAN > 60
[2019-01-22] MEDS: Levothyroxine 125 MCG TAB PO SCH (06:27)
[2019-01-22] MEDS: Insulin Regular 100 units/ml SC SCH ×3 (07:30→16:54)
[2019-01-22] MEDS: Enoxaparin 150 mg Syringe SC SCH (09:15)
[2019-01-22] MEDS: Potassium Chloride 20 mEq ER Tab PO SCH (09:15)
--- NOTE | 2019-01-22 10:44 | CP.PCM.PN ---
Subjective - Date & Time of Evaluation Date of Evaluation: 01/22/19 Time of Evaluation: 10:41 - Subjective Subjective: Podiatry Progress Note: Dr. Manley 73 year old female patient POD#4 b/l wound debridement. Patient resting comfortably and in NAD, no acute events overnight. AAOx3 Denies nausea/vomiting/fever/chest pain. Objective - Vital Signs/Intake and Output Vital Signs (last 24 hours): Temp Pulse Resp BP Pulse Ox 97.8 F 76 20 170/86 H 94 L 01/22/19 08:24 01/22/19 09:13 01/22/19 08:24 01/22/19 09:15 01/22/19 08:24 - Medications Medications: Current Medications Atorvastatin Calcium (Lipitor) 20 mg PO HS PENDING SALE TO [facility] Last Admin: 01/21/19 21:15 Dose: 20 mg Carvedilol (Coreg) 6.25 mg PO Q12 DAVID Last Admin: 01/22/19 09:13 Dose: 6.25 mg Cyanocobalamin (Vitamin B12 1000 Mcg/Ml Inj) 1,000 mcg IM DAILY DAVID Last Admin: 01/21/19 09:26 Dose: 1,000 mcg Dimethicone (Proshield Plus Skin Protectant) 1 applic TOP Q8 PENDING SALE TO [facility] Last Admin: 01/22/19 09:17 Dose: 1 applic Enoxaparin Sodium (Lovenox) 130 mg SC Q12 PENDING SALE TO [facility]; Protocol Last Admin: 01/22/19 09:15 Dose: 130 mg Ergocalciferol (Drisdol 50,000 Intl Units Cap) 1 cap PO WE DAVID Last Admin: 01/19/19 12:59 Dose: 1 cap Famotidine (Pepcid) 20 mg PO HS PENDING SALE TO [facility] Last Admin: 01/21/19 21:16 Dose: 20 mg Ferrous Sulfate (Feosol) 325 mg PO DAILY PENDING SALE TO [facility] Last Admin: 01/22/19 09:14 Dose: 325 mg Furosemide (Lasix) 20 mg PO DAILY PENDING SALE TO [facility] Last Admin: 01/22/19 09:15 Dose: 20 mg Gabapentin (Neurontin) 200 mg PO Q8 DAVID Last Admin: 01/22/19 09:16 Dose: 200 mg Meropenem 1 gm/ Sodium (Chloride) 100 mls @ 100 mls/hr IVPB Q8 PENDING SALE TO [facility]; Protocol Last Admin: 01/22/19 09:20 Dose: 100 mls/hr Vancomycin HCl 750 mg/ Sodium (Chloride) 250 mls @ 166.667 mls/hr IVPB Q12 PENDING SALE TO [facility]; Protocol Insulin Human Regular (Humulin R) 0 units SC ACHS PENDING SALE TO [facility]; Protocol Last Admin: 01/22/19 07:30 Dose: Not Given Levothyroxine Sodium (Synthroid) 125 mcg PO DAILY@0630 PENDING SALE TO [facility] Last Admin: 01/22/19 06:27 Dose: 125 mcg Losartan Potassium (Cozaar) 100 mg PO DAILY PENDING SALE TO [facility] Last Admin: 01/22/19 09:14 Dose: 100 mg Metformin HCl (Glucophage) 500 mg PO TID PENDING SALE TO [facility] Last Admin: 01/22/19 09:10 Dose: 500 mg Nystatin (Nystop Topical Powder) 1 applic TOP TID PENDING SALE TO [facility] Last Admin: 01/22/19 09:16 Dose: 1 applic Potassium Chloride (K-Dur 20 Meq Er Tab) 20 meq PO Q12 PENDING SALE TO [facility] Last Admin: 01/22/19 09:15 Dose: 20 meq Repaglinide (Prandin) 2 mg PO DAILY PENDING SALE TO [facility] Last Admin: 01/22/19 09:17 Dose: 2 mg Fluticasone/Salmeterol (Advair Diskus 250/50) 1 puff IH Q12H PENDING SALE TO [facility] Last Admin: 01/22/19 02:28 Dose: Not Given Sertraline HCl (Zoloft) 25 mg PO DAILY PENDING SALE TO [facility] Last Admin: 01/22/19 09:17 Dose: 25 mg Sitagliptin Phosphate (Januvia) 50 mg PO DAILY PENDING SALE TO [facility] Last Admin: 01/22/19 09:15 Dose: 50 mg - Labs Labs: 01/22/19 05:05 01/22/19 05:05 PT 17.6 Seconds (9.8-13.1) H 01/21/19 05:29 INR 1.5 01/21/19 05:29 APTT 31.4 Seconds (25.6-37.1) 01/21/19 05:29 - Constitutional Appears: Well, Non-toxic, No Acute Distress - Head Exam Head Exam: ATRAUMATIC, NORMOCEPHALIC - Eye Exam Eye Exam: Normal appearance Pupil Exam: NORMAL ACCOMODATION - ENT Exam ENT Exam: Mucous Membranes Moist - Respiratory Exam Respiratory Exam: NORMAL BREATHING PATTERN - Cardiovascular Exam Cardiovascular Exam: REGULAR RHYTHM, +S1, +S2 - Extremities Exam Additional comments: B/L LE exam: Vasc: DP/PT pulses faintly palpable secondary to 2+ non-pitting edema. CFT < 3 seconds to all digits. Skin temperature increased to RLE compared to LLE. Ortho: Pain on palpation noted to plantar ulceration. ROM at all major joints diminished due to swelling and body habitus. MMT 4/5 in all major muscle groups. No gross osseous deformities appreciated Neuro: Gross and protective sensation diminished Derm: Cellulitic changes to b/l lower extremities RLE: Multiple circular diabetic ulcerations, one to the forefoot measuring 3 x 4 x .5 cm with granular base down to the level of muscle. Additional ulceration noted to the level of the 5th met base 3 x 2 x .4 cm with granular base to the level of the fat/muscle. + malodor, + drainage, + clinical signs of infection, erythema appreciated to entire foot. Additional full thickness ulceration with mixed granular/necrotic base appreciated to R heel, + malodor, + drainage. LLE: Ulceration to L heel with granular base, full thickness, + malodor, + drainage, + clinical signs of infection, erythema appreciated to entire foot - Neurological Exam Neurological Exam: Alert, Awake Assessment and Plan - Assessment and Plan (Free Text) Assessment: 73 year old female patient, with PMHx DM, CHF, HTN, A-fib, with bilateral diabetic ulcerations, POD#4 b/l wound debridement Plan: Patient seen and evaluated Discussed in detail with Dr. Manley Afebrile, WBC 10.5, ESR 69, CRP pending B/L foot x-rays taken; dorsal soft tissue swelling over the metatarsals bilaterally ID consult; reccs appreciated Vasc consult; reccs appreciated - plan for CTA Bone scan ordered; calcaneus and second digit OM Wound cx taken: gram neg audrey Local wound care; betadine, DSD Please do daily dressing changes, cleaning the ulcers with sterile saline water and dress with betadine and DSD. Patient will follow up with Dr. Manley 1x a week Weightbear as tolerated Will continue to follow merrem and vanc x [address]. Patient stable for d/c to [facility]
--- NOTE | 2019-01-22 10:54 | PN ---
DATE: 01/22/2019 SUBJECTIVE: The patient seen and examined. Interim events noted. Consults noted and appreciated. The patient remains in regular medical floor. The patient feels okay. Denies any specific complaint. No chest pain. No shortness of breath. PHYSICAL EXAMINATION: GENERAL: The patient is in no acute distress. VITAL SIGNS: Stable. HEART: S1 and S2 normal and regular. LUNGS: Good bilateral air exchange. ABDOMEN: Soft, nontender. EXTREMITIES: The patient has chronic venous edema and lymphedema . No acute ischemia. No calf swelling, no tenderness. The patient also has bilateral osteomyelitis and the patient is status post . No signs of acute complications. CENTRAL NERVOUS SYSTEM: Essentially unchanged. DIAGNOSTIC DATA: Available diagnostic data reviewed. ASSESSMENT AND PLAN: Overall, the patient is medically stable. The patient is tentatively discharged to [facility] for subacute rehab, wound care, and intravenous antibiotics. Plan as ordered. Kushal Harmon MD
--- NOTE | 2019-01-22 15:00 | CP.PCM.PCO ---
Physician Communication Note - Physician Communication Note Physician Communication Note: Wound was down to the fascial layer
--- NOTE | 2019-01-22 15:03 | PQF ---
excisional PROVIDER RESPONSE TEXT: Physician communication note inserted REVIEWER QUERY TEXT: Debridement Type Debridement is documented in the Medical Record. Please specify the type: excisional versus non-excisional -- Other, please specify 01/18 Path report: Clinical Dx.: Rt. Foot Necrosis. 01/18 Op note includes: Procedure #1: Left Heel Wound Debridement Attention was drawn to the left heel wound measuring approximately 6 cm X 5 cm. Upon debridement of the superficial skin layer with a sterile #15 blade, it was noted that the underlying ulcer was a stable Stage 2 ulceration. The ulcer site was debrided. Procedure #2: Right Heel Wound Debridement Attention was then drawn to the right heel wound measuring approximately 6.5 cm X 7 cm. The ulceration was noted to be have full-thickness necrosis with infection and malodor.The full thickness necrotic tissue was debrided using a sterile #15 blade.The underlying subcutaneous tissue was then debrided and removed of all nonviable tissue using Versajet on setting 7 until granular tissue was noted. The patient's Clinical Indicators include: --- Query created by: Lyla Thomas on 01/21/2019 2:51 PM Electronically signed by: Bella Garland 01/22/2019 3:00 PM [facility]
[2019-01-22 16:02] VITALS: BP 145/81; PULSE 71; TEMP 97; O2SAT 93
--- NOTE | 2019-01-26 06:53 | PQF ---
PROVIDER RESPONSE TEXT: The physician communication note was added in error and belong to another patient REVIEWER QUERY TEXT: Debridement Type Query created by: Emma Burgos on 01/25/2019 9:55 AM Electronically signed by: Bella Garland 01/26/2019 6:50 AM
--- NOTE | 2019-01-26 18:21 | PQF ---
PROVIDER RESPONSE TEXT: It was an excisional debridement. REVIEWER QUERY TEXT: Debridement Type Query created by: Emma Burgos on 01/26/2019 2:34 PM Electronically signed by: Bella Garland 01/26/2019 6:18 PM
== END 2019-01-22 18:19 | DRG 853 ==
LOC: H.ER 02:28 → H.ERHOLD 06:21 → H.MEDSURG1 17:16
PROVIDERS: ADMIT Internal Medicine; ATTEND Internal Medicine
PROC: 0JBQ0ZZ Excision of Right Foot Subcutaneous Tissue and Fascia, Open Approach (ICD-10-PCS; 2019-01-18)
PROC: 0HBNXZZ Excision of Left Foot Skin, External Approach (ICD-10-PCS; 2019-01-18)
PROC: 02HV33Z Insertion of Infusion Device into Superior Vena Cava, Percutaneous Approach (ICD-10-PCS; principal; 2019-01-20)
PROC: B518ZZA Fluoroscopy of Superior Vena Cava, Guidance (ICD-10-PCS; 2019-01-20)
PROC: B548ZZA Ultrasonography of Superior Vena Cava, Guidance (ICD-10-PCS; 2019-01-20)
DX: A41.9 Sepsis, unspecified organism (principal); L89.153 Pressure ulcer of sacral region, stage 3; L89.223 Pressure ulcer of left hip, stage 3; Z68.42 Body mass index [BMI] 45.0-49.9, adult; L03.115 Cellulitis of right lower limb; L03.116 Cellulitis of left lower limb; L97.909 Non-pressure chronic ulcer of unspecified part of unspecified lower leg with unspecified severity; I50.22 Chronic systolic (congestive) heart failure; I13.0 Hypertensive heart and chronic kidney disease with heart failure and stage 1 through stage 4 chronic kidney disease, or unspecified chronic kidney disease; L97.919 Non-pressure chronic ulcer of unspecified part of right lower leg with unspecified severity; L97.929 Non-pressure chronic ulcer of unspecified part of left lower leg with unspecified severity; E11.622 Type 2 diabetes mellitus with other skin ulcer; E11.65 Type 2 diabetes mellitus with hyperglycemia; E66.01 Morbid (severe) obesity due to excess calories; I48.2 Chronic atrial fibrillation; E03.9 Hypothyroidism, unspecified; E11.22 Type 2 diabetes mellitus with diabetic chronic kidney disease; E11.40 Type 2 diabetes mellitus with diabetic neuropathy, unspecified; E11.621 Type 2 diabetes mellitus with foot ulcer; E78.00 Pure hypercholesterolemia, unspecified; E78.5 Hyperlipidemia, unspecified; F17.210 Nicotine dependence, cigarettes, uncomplicated; F32.9 Major depressive disorder, single episode, unspecified; G89.29 Other chronic pain; L97.509 Non-pressure chronic ulcer of other part of unspecified foot with unspecified severity; M19.90 Unspecified osteoarthritis, unspecified site; N18.9 Chronic kidney disease, unspecified; R29.6 Repeated falls; Z79.01 Long term (current) use of anticoagulants; Z91.81 History of falling; Z79.51 Long term (current) use of inhaled steroids; Z80.0 Family history of malignant neoplasm of digestive organs; Z91.041 Radiographic dye allergy status; Z99.3 Dependence on wheelchair; K52.9 Noninfective gastroenteritis and colitis, unspecified; R32 Unspecified urinary incontinence; Z79.84 Long term (current) use of oral hypoglycemic drugs; Z79.899 Other long term (current) drug therapy; R91.1 Solitary pulmonary nodule